=== PATIENT | female | born 1940 | race Caucasian/White ===

== ENCOUNTER → 2017-08-29 07:47 | Outpatient (CLI) | payer MEDICARE, OTHER, SELFPAY ==
--- NOTE | 2017-08-29 08:00 | US_ITS ---
US abdomen limited: HISTORY: ITS.REASON: RUQ PAIN ORDERING PHYSICIAN: Brain Caballero MD PATIENT AGE: 77 years COMPARISON: None FINDINGS: PANCREAS: Unremarkable. No obvious mass or abnormal fluid collection. No ductal dilatation LIVER: No focal liver lesions demonstrated. Homogeneous echogenicity. No intrahepatic biliary ductal dilatation evident RIGHT KIDNEY: Unremarkable. Normal size and echogenicity. No hydronephrosis GALLBLADDER: No gallstones, gallbladder wall thickening, pericholecystic fluid, or biliary dilatation. IMPRESSION: Negative gallbladder/right upper quadrant ultrasound
--- NOTE | 2017-08-29 08:30 | XR_ITS ---
XR DEXA axial skeleton HISTORY: ITS.REASON: POST MENOPAUSAL ORDERING PHYSICIAN: Brain Caballero MD PATIENT AGE: 77 years COMPARISON: None FINDINGS: The bone density lumbar spine from L1 to L4 has a T score of 2.5 The BMD measured at the Right femoral neck is 1.003 g/cm squared with a T score of -0.3. This is considered normal according to the World Health Organization criteria. Fracture risk is low. IMPRESSION: Normal bone density. Follow-up exam August 2019
== END ==
PROVIDERS: Family Provider Family Medicine; PCP Family Medicine; Visit Provider Family Medicine
DX: Z78.0 Asymptomatic menopausal state (principal); Z13.820 Encounter for screening for osteoporosis; R10.11 Right upper quadrant pain
CPT/HCPCS: 76705; 77080

== ENCOUNTER → 2018-03-07 11:27 | Outpatient (CLI) | payer MEDICARE, OTHER, SELFPAY ==
--- NOTE | 2018-03-07 11:32 | XR_ITS ---
EXAM: XR lumbar spine min 4V HISTORY: ITS.REASON: BACK PAIN WITH RT RADICULOPATHY ORDERING PHYSICIAN: Brain Caballero MD PATIENT AGE: 77 years COMPARISON: None FINDINGS: Normal alignment. No fracture or dislocation. No lytic or blastic change. Mild facet hypertrophic changes are present at L5-S1. Small anterior osteophytes are present at T12-L3. There is degenerative disc disease at T12-L1 There is mild degenerative disc disease at L3-L4 with 3 mm anterolisthesis of L3. IMPRESSION: 1. Mild degenerative changes with small anterior osteophytes, mild degenerative disc disease L3-L4, and facet arthritic changes at L5-S1 2. No acute finding
== END ==
PROVIDERS: PCP Family Medicine; Visit Provider Family Medicine
DX: M54.10 Radiculopathy, site unspecified (principal)
CPT/HCPCS: 72110

== ENCOUNTER 2018-04-06 15:40 | Observation (INO) ==
--- NOTE | 2018-04-06 16:07 | Emergency Department Note ---
ED Disposition Clinical Impression: Syncope and collapse Hypothyroidism Qualifiers: Hypothyroidism type: unspecified Qualified Code(s): E03.9 - Hypothyroidism, unspecified Disposition: Still a Patient Condition on Discharge: Fair Referrals: Brain Caballero MD [Primary Care Provider] - - Critical Care Critical Care Time: No Attestation: On 04/06/18, the high probability of a clinically significant, sudden or life threatening deterioration of the following system(s) required my full and direct attention, intervention and personal management. The time I documented below is in addition to time spent performing reported procedures but includes the following listed in this critical care notation. Medical Decision Making - [place]iz[place] Inquiry Pt receiving controlled substance: No Vital Signs: 04/06/18 15:47 04/06/18 16:11 04/06/18 16:41 Temperature 96.1 F L 96 F L Temperature Source Rectal Rectal Pulse Rate [Left Radial] 48 L 50 L 50 L Respiratory Rate 18 Blood Pressure [Right Arm] 151/73 H 143/64 H 145/63 H Blood Pressure Mean [Right Arm] 99 90 90 Blood Pressure Source [Right Arm] Automatic Cuff Automatic Cuff Automatic Cuff Blood Pressure Position [Right Arm] Sitting Sitting Sitting 02 Sat by Pulse Oximetry 100 100 99 Oxygen Delivery Method Room Air 04/06/18 17:00 04/06/18 17:26 04/06/18 18:34 Temperature 94.6 F L 95.8 F L Temperature Source Rectal Rectal Pulse Rate [Left Radial] 53 L Respiratory Rate Blood Pressure [Right Arm] 157/58 H Blood Pressure Mean [Right Arm] 91 Blood Pressure Source [Right Arm] Automatic Cuff Blood Pressure Position [Right Arm] Sitting 02 Sat by Pulse Oximetry 100 Oxygen Delivery Method - Lab Data Lab Results 04/06/18 15:46: POC Glucose 127 H 04/06/18 16:13: WBC 11.9 H, RBC 4.10 L, Hgb 12.4, Hct 37.9, MCV 92.5, MCH 30.2, MCHC 32.7, RDW 14.4, Plt Count 381, MPV 7.2 L, Neut % (Auto) 62.8, Lymph % (Auto) 29.7, [place] % (Auto) 6.0, Eos % (Auto) 1.2, Baso % (Auto) 0.3, Neut # (Auto) 7.5, Lymph # (Auto) 3.5, [place] # (Auto) 0.7, Eos # (Auto) 0.1, Baso # (Auto) 0.0 04/06/18 16:13: Sodium 136, Potassium 3.1 L, Chloride 98, Carbon Dioxide 27, Anion Gap 14.1, BUN 31 H, Creatinine 1.49 H, Estimated Creat Clear 35, Estimated GFR 34 L, Est GFR ( Amer) 41 L, Glucose 128 H, Calcium 9.1, Total Bilirubin 0.3, AST 18, ALT 23, Alkaline Phosphatase 69, Troponin I < 0.02, Total Protein 7.3, Albumin 4.0, Globulin 3.3 H, Albumin/Globulin Ratio 1.2 04/06/18 16:13: TSH 4.67 H, Free T4 Index 3.7 L, Thyroxine (T4) 10.0, T3 Uptake 37 Result diagrams: 04/06/18 16:13 04/06/18 16:13 Orders (Tests/Meds): ED MEDICATIONS Discontinued Medications Generic Name Dose Route Start Last Admin Trade Name Freq PRN Reason Stop Dose Admin Potassium Chloride 40 meq 04/06/18 17:14 04/06/18 17:48 Klor-Con 20meq Tablet PO 04/06/18 17:15 40 meq ONCE ONE Administration ORDERS Category Date Time Status CT head/brain wo con Stat Cat Scan 04/06/18 16:16 Taken XR chest portable Stat Exams 04/06/18 18:27 Ordered Lactic Acid Stat Lab 04/06/18 18:15 Received Blood Culture Stat Micro 04/06/18 18:15 Ordered ECG Request by /Nse Stat Y 04/06/18 16:16 Ordered - CT Data CT Scan: Head Time Received: 17:[address] Reviewed: Yes: I have viewed the radiologist's interpretation Findings Narrative: CT scan interpreted by [facility] radiologist. Faxed report received and reviewed: No acute change - ECG Data Tracing #1 EKG interpreted by Greg Chand MD: Rhythm: sinus bradycardia with sinus arrhythmia Rate: 48 [place]: normal Ectopy: none Conduction: normal ST Segment Changes: none T Wave Changes: none Q Waves: none No evidence of acute ischemia or injury - Physician Consults Physician Consulted: Holly Caballero Time: 18:36 Reason -: Admission Comment/Response: Agrees to admit the patient to the hospital. We discussed the patient's clinical information, including history, exam, laboratory and radiology results and ED course. Per hospital procedure, I will write temporary bridge inpatient orders on the patient. Specific orders requested by the admitting physician: Telemetry, start Synthroid 25 mcg/day General Adult HPI - General Stated complaint: Vomiting, nausea, passed out Time Seen by Provider: 04/06/18 18:11 - History of Present Illness HPI narrative: Went to [facility] today because her religion was giving the service there. While there she apparently had 2 syncopal episodes which she says were preceded by abdominal cramping. She apparently vomited during each episode of syncope, she does not remember the vomiting. She did not have any headache, chest pain, shortness of breath. states that she has done this in the past, the most recent time was a year ago. She was not seen by a physician for that episode. Currently she denies any abdominal or chest pain. She has no nausea. No shortness of breath. Says that she feels good presently. - Related Data Home Medications Medication Instructions Recorded Confirmed allopurinol 100 mg tablet 100 mg PO QDAY 06/25/17 04/06/18 bisoprolol fumarate 5 mg tablet 5 mg PO QDAY 06/25/17 04/06/18 estradiol 1 mg tablet 1 mg PO QDAY 06/25/17 04/06/18 ferrous sulfate 325 mg (65 mg 325 mg PO DAILY 06/25/17 04/06/18 iron) tablet gabapentin 100 mg capsule 100 mg PO QDAY 06/25/17 04/06/18 lisinopril 20 1 tab PO BID 06/25/17 04/06/18 mg-hydrochlorothiazide 12.5 mg tablet metformin 500 mg tablet 500 mg PO BID 06/25/17 04/06/18 rosuvastatin 20 mg tablet 20 mg PO ONCE 06/25/17 04/06/18 Allergies Allergy/AdvReac Type Severity Reaction Status Date / Time sulfasalazine Allergy Unknown Verified 06/25/17 10:08 [From SULFAZINE] [facility] History I have reviewed the patient's past medical history: Yes Medical History: Reports:: Hyperlipidemia, Hypertension Laterality Cases: Right: Other, Bilateral: Breast Biopsy Other Surgeries: Yes: Colonoscopy, EGD, Hysterectomy-Total - Social History Smoking Status: Never smoker Alcohol Intake: never Substance Use Type: denies use Family Hx:: No significant family history ROS Obtained: Yes All systems reviewed & no additional complaints - Constitutional Constitutional: Denies fever(s), Reports other (Denies cold intolerance) - Cardiovascular Cardiovascular: Denies chest pain, Denies edema, Reports slow heart rate (Chronic per ), Reports fainting - Respiratory Respiratory: No dyspnea - Gastrointestinal Gastrointestingal: Reports: abdominal pain, vomiting - Neurologic Neurologic: Denies headache(s), Denies numbness, Denies weakness Physical Exam - General General appearance: alert, in no apparent distress - Head Head exam: atraumatic, normocephalic, normal inspection - Eye Eye exam: Present: normal appearance, PERRL, EOMI - ENT ENT exam: Present: normal exam, mucous membranes moist - Neck Neck exam: Present: normal inspection, full ROM, trachea midline. Absent: meningismus, lymphadenopathy - Chest Chest inspection: Present: normal inspection, symmetric chest wall rise - Respiratory Respiratory exam: Present: normal lung sounds bilaterally. Absent: respiratory distress - Cardiovascular Cardiovascular exam: Present: normal rhythm, bradycardia. Absent: JVD - Abdominal Exam Abdominal exam: Present: soft, normal bowel sounds. Absent: distention, tenderness, guarding - Extremities Exam Extremities exam: Present: normal inspection, full ROM, normal capillary refill. Absent: calf tenderness - Neurological Exam Neurological exam: Present: alert, oriented X3, CN II-XII intact. Absent: motor sensory deficit - Psychiatric Psychiatric exam: Present: normal affect, normal mood - Skin Skin exam: Present: warm, dry, intact, normal color - Lymphatic Lymphatic Findings: no adenopathy
[2018-04-06 16:24] LABS: Basophils % 0.3 % (0.1-2.0); Eosinophils # 0.1 K/mm3 (0.0-0.4); Eosinophils % 1.2 % (0.1-12.0); Hematocrit 37.9 % (37.0-47.0); Hemoglobin 12.4 g/dL (12.2-16.2); Lymphocytes # 3.5 K/mm3 (0.7-4.5); Lymphocytes % 29.7 K/mm3 (10-50); Mean Corpuscular HGB Conc 32.7 g/dL (31.8-35.4); Mean Corpuscular Hemoglobin 30.2 pg (27.0-31.2); Mean Corpuscular Volume 92.5 fl (81-99); Mean Platelet Volume 7.2 fl (7.4-10.4); Monocytes # 0.7 K/mm3 (0.1-1.0); Neutrophils # 7.5 K/mm3 (1.8-7.8); Neutrophils % 62.8 % (37.0-80.0); Platelet Count 381 K/mm3 (142-424); Red Cell Distribution Width 14.4 % (11.5-17.5); White Blood Count 11.9 K/mm3 (4.8-10.8)
[2018-04-06 16:41] LABS: Alanine Aminotransferase 23 U/L (12-78); Albumin/Globulin Ratio 1.2 (1.1-1.8); Alkaline Phosphatase 69 U/L (46-116); Anion Gap 14.1 mEq/L (5-15); Aspartate Amino Transferase 18 U/L (15-37); Bilirubin,Total 0.3 mg/dL (0.2-1.0); Blood Urea Nitrogen 31 mg/dL (7-18); Calcium 9.1 mg/dL (8.5-10.1); Carbon Dioxide 27 mmol/L (21.0-32.0); Chloride 98 mmol/L (98-107); Globulin 3.3 gm/dl (1.3-3.2); Glucose 128 mg/dL (74-106); Potassium 3.1 mmoL/L (3.5-5.1); Sodium 136 mmol/L (136-145); Total Protein,Serum 7.3 gm/dL (6.4-8.2)
[2018-04-06 17:09] LABS: Free Thyroxine Index 3.7 ug/dL (5.93-13.13); Thyroid Stimulating Hormone 4.67 uIU/ml (0.358-3.740)
[2018-04-07 06:52] LABS: Anion Gap 10.1 mEq/L (5-15); Calcium 8.2 mg/dL (8.5-10.1); Potassium 4.1 mmoL/L (3.5-5.1)
--- NOTE | 2018-04-07 07:28 | Pharmacy Consult Notes ---
[facility] Pharmacy VTE Monitoring - Patient Demographics Admission date: 04/06/18 Report Date: 04/07/18 Time: 07:28 Allergies/Adverse Reactions: Patient Allergies sulfasalazine [From SULFAZINE] Allergy (Unknown, Verified 06/25/17 10:08) Height: 1.55 m Weight: 69.91 kg Patient Problems: Current Active Problems Syncope and collapse (Acute) Hypothyroidism (Acute) - VTE Risk Labs: VTE Related Lab Results Hgb 12.4 g/dL (12.2-16.2) 04/06/18 16:13 Hct 37.9 % (37.0-47.0) 04/06/18 16:13 Plt Count 381 K/mm3 (142-424) 04/06/18 16:13 BUN 19 mg/dL (7-18) H D 04/07/18 06:20 Creatinine 0.97 mg/dL (0.55-1.02) D 04/07/18 06:20 Estimated Creat Clear 53 mL/min (0-300) 04/07/18 06:20 Was VTE Risk Assessment Performed: Yes VTE Score: 1 VTE Risk Level: Very Low Risk - Prophylaxis VTE Prophylaxis Ordered?: Yes Types of VTE Prophylaxis: TEDS Knee High Location of Applied Device: Bilateral Lower Extremeties - VTE Diagnosis Confirmed Treatment or plan recommended: Continue Current Treatment
--- NOTE | 2018-04-07 09:01 | Progress Note ---
Internal Medicine - PN: Subj *Date: 04/07/18 *Time: 08:55 Interval history: 77 y.o. WF admitted after syncopal episodes at [facility] (her bahai was visiting, she is not a resident). She experienced lower abdominal cramping pain, then passed out and vomited. She lost consciousness agian, perhaps twice. She was taken to [facility] ER and admitted. She states she feels fine this AM. She denies that she experienced any chest pain. She denies recent dysrrhythmia. She has had some similar episodes in the past. She complains of chronic right flank and back pain. Exam Vital signs and Labs for Last 24 Hours: Temp Pulse Resp BP Pulse Ox 98.5 F 62 20 116/55 L 98 04/07/18 04:00 04/07/18 08:00 04/07/18 08:00 04/07/18 08:00 04/07/18 08:00 Laboratory Results - last 24 hr 04/06/18 15:46: POC Glucose 127 H 04/06/18 16:13: WBC 11.9 H, RBC 4.10 L, Hgb 12.4, Hct 37.9, MCV 92.5, MCH 30.2, MCHC 32.7, RDW 14.4, Plt Count 381, MPV 7.2 L, Neut % (Auto) 62.8, Lymph % (Auto) 29.7, [place] % (Auto) 6.0, Eos % (Auto) 1.2, Baso % (Auto) 0.3, Neut # (Auto) 7.5, Lymph # (Auto) 3.5, [place] # (Auto) 0.7, Eos # (Auto) 0.1, Baso # (Auto) 0.0 04/06/18 16:13: Sodium 136, Potassium 3.1 L, Chloride 98, Carbon Dioxide 27, Anion Gap 14.1, BUN 31 H, Creatinine 1.49 H, Estimated Creat Clear 35, Estimated GFR 34 L, Est GFR ( Amer) 41 L, Glucose 128 H, Calcium 9.1, Total Bilirub in 0.3, AST 18, ALT 23, Alkaline Phosphatase 69, Troponin I < 0.02, Total Protein 7.3, Albumin 4.0, Globulin 3.3 H, Albumin/Globulin Ratio 1.2 04/06/18 16:13: TSH 4.67 H, Free T4 Index 3.7 L, Thyroxine (T4) 10.0, T3 Uptake 37 04/06/18 18:15: Lactate 1.1 04/06/18 22:30: Troponin I < 0.02 04/07/18 01:30: Troponin I < 0.02 04/07/18 05:35: POC Glucose 95 04/07/18 06:20: Sodium 136, Potassium 4.1 D, Chloride 103, Carbon Dioxide 27, Anion Gap 10.1, BUN 19 H D, Creatinine 0.97 D, Estimated Creat Clear 53, Estima katy GFR 56 L, Est GFR ( Amer) 68 D, Glucose 92 D, Calcium 8.2 L I & O for Last 24 hours: Intake & Output 04/04/18 04/05/18 04/06/18 04/07/18 12:59 12:59 11:59 11:59 Intake Total 900 / 900 Balance 900 / 900 Weight 154 lb 2 oz - Constitutional no acute distress - *Routine HEENT Exam Head: Present: normocephalic Eye: Present: PERRL ENT: Present: mucous membranes moist - *Routine Neck Exam Present: supple, full ROM - *Routine Respiratory Exam Present: CTA bilaterally - *Routine Cardiovascular Exam Present: RRR Comments: No ectopics, no murmur - *Routine Abdominal Exam Present: soft. Absent: tenderness, organomegaly, mass - *Routine Rectal Exam Comments: Not done, though patient reported some blood last night after multiple rectal t emps (was hyothermic). - *Routine Extremities Exam Absent: edema - *Routine Neurological Exam Present: alert, oriented X3, normal speech Assessment and Plan (1) Hypothermia Current visit: Yes Status: Acute Category: Medical Code(s): T68.XXXA - Hypothermia, initial encounter - Assessment and plan all Dx Assessment and Plan for all problems:: Cardiology consult. Thyroid treatment initiated.
--- NOTE | 2018-04-07 09:21 | History & Physical Report ---
*Admission Date: 04/06/18 *Chief complaint: Syncope *History of present illness: Ms. Max is a 77-year-old female with a history of gout, diabetes mellitus, hypertension, and anemia who presented to [facility] emergency room yesterday afternoon after experiencing 3 [place]opal [place] [facility] [place] first episode occurred while sitting in a chair at which time she did have some abdominal cramping and felt a "black wave go across her eyes" after which she passed out. She vomited upon awakening and then had 2 additional syncopal episodes followed by vomiting. She denies any palpitations, chest pain, shortness of breath, or nausea before during or after the 3 episodes. She states she felt like she needed to have a bowel movement while sitting there. Her did walk her to the bathroom at which time her bowels did move. She denies any diarrhea, hematemesis, melena, hematochezia, and hematuria. She was evaluated in the emergency room at which time she did feel better. She was hypothermic and was placed under a warming blanket. Since admission she has had no further syncope, vomiting or abdominal plain. She ate breakfast this morning without nausea. She has had normal bowel movements. She has walked to the bathroom without difficulty. She continually denies chest pain, shortness of breath, and palpitations. She did receive IV fluids in the emergency room and has been voiding QS. [facility] History Medical History: Reports:: Diabetes Mellitus Type 2, Hyperlipidemia, Hypertension Denies:: Cancer, Diabetes Mellitus Type 1, MRSA Other Medical History: Reports: Arthritis, Fibromyalgia Laterality Cases: Left: Lumpectomy, Right: Other, Bilateral: Breast Biopsy Other Surgeries: Yes: Colonoscopy, EGD, Hysterectomy-Total Amputation: No - *Social History Educational Level: Attended College Smoking Status: Never smoker Alcohol Intake: former Alcohol Intake Frequency:: holidays/special occasions only Substance Use Type: denies use Occupational Status: retired Household Members: spouse - Psychiatric History Expresses thoughts of harming self/others: None Suicide Plan Description: No Plan *Family Hx:: No significant family history Review of Systems - Constitutional Denies chills, Denies fever(s) - Eyes Denies change in vision - ENT Reports bad breath, Denies ear pain, Denies nasal congestion, Denies sore throat - *Cardiovascular Denies chest pain, Denies shortness of breath, Denies rapid, pounding, or irregular heartbeat - *Respiratory Denies chest congestion, Denies cough, Denies shortness of breath - *Gastrointestinal Reports abdominal pain (Cramping), Reports cramping, Reports incontinent of stools, Reports nausea, Reports vomiting - *Genitourinary Denies difficulty urinating - *Musculoskeletal Denies joint pain, Denies body aches - *Neurologic Reports fainting, Denies dizziness, Denies headache(s), Denies numbness, Denies weakness Meds Home Medications Medication Instructions Recorded Confirmed Type allopurinol 100 mg tablet 200 mg PO DAILY 06/25/17 04/07/18 History bisoprolol fumarate 5 mg tablet 5 mg PO DAILY 06/25/17 04/07/18 History estradiol 1 mg tablet 1 mg PO DAILY 06/25/17 04/07/18 History ferrous sulfate 325 mg (65 mg 325 mg PO BID 06/25/17 04/07/18 History iron) tablet gabapentin 100 mg capsule 200 mg PO HS 06/25/17 04/07/18 History lisinopril 20 1 tab PO BID 06/25/17 04/06/18 History mg-hydrochlorothiazide 12.5 mg tablet metformin 500 mg tablet 500 mg PO DAILY 06/25/17 04/07/18 History rosuvastatin 20 mg tablet 20 mg PO HS 06/25/17 04/07/18 History Allergies Allergy/AdvReac Type Severity Reaction Status Date / Time sulfasalazine Allergy Unknown Verified 06/25/17 10:08 [From SULFAZINE] Exam Vital signs and Labs for Last 24 Hours: Temp Pulse Resp BP Pulse Ox 98.5 F 62 20 116/55 L 98 04/07/18 04:00 04/07/18 08:00 04/07/18 08:00 04/07/18 08:00 04/07/18 08:00 Laboratory Results - last 24 hr 04/06/18 15:46: POC Glucose 127 H 04/06/18 16:13: WBC 11.9 H, RBC 4.10 L, Hgb 12.4, Hct 37.9, MCV 92.5, MCH 30.2, MCHC 32.7, RDW 14.4, Plt Count 381, MPV 7.2 L, Neut % (Auto) 62.8, Lymph % (Auto) 29.7, [place] % (Auto) 6.0, Eos % (Auto) 1.2, Baso % (Auto) 0.3, Neut # (Auto) 7.5, Lymph # (Auto) 3.5, [place] # (Auto) 0.7, Eos # (Auto) 0.1, Baso # (Auto) 0.0 04/06/18 16:13: Sodium 136, Potassium 3.1 L, Chloride 98, Carbon Dioxide 27, Anion Gap 14.1, BUN 31 H, Creatinine 1.49 H, Estimated Creat Clear 35, Estimated GFR 34 L, Est GFR ( Amer) 41 L, Glucose 128 H, Calcium 9.1, Total Bilirubin 0.3, AST 18, ALT 23, Alkaline Phosphatase 69, Troponin I < 0.02, Total Protein 7.3, Albumin 4.0, Globulin 3.3 H, Albumin/Globulin Ratio 1.2 04/06/18 16:13: TSH 4.67 H, Free T4 Index 3.7 L, Thyroxine (T4) 10.0, T3 Uptake 37 04/06/18 18:15: Lactate 1.1 04/06/18 22:30: Troponin I < 0.02 04/07/18 01:30: Troponin I < 0.02 04/07/18 05:35: POC Glucose 95 04/07/18 06:20: Sodium 136, Potassium 4.1 D, Chloride 103, Carbon Dioxide 27, Anion Gap 10.1, BUN 19 H D, Creatinine 0.97 D, Estimated Creat Clear 53, Estimated GFR 56 L, Est GFR ( Amer) 68 D, Glucose 92 D, Calcium 8.2 L I & O for Last 24 hours: Intake & Output 04/04/18 04/05/18 04/06/18 04/07/18 12:59 12:59 11:59 11:59 Intake Total 900 / 900 Balance 900 / 900 Weight 154 lb 2 oz Radiology Reports for the Last 24 Hours: 04/06/2018 CT of the head IMPRESSION: No acute intracranial findings 04/06/2018 chest x-ray IMPRESSION: No acute finding - Constitutional no acute distress - *Routine HEENT Exam Head: Present: normocephalic, atraumatic Eye: Present: EOMI, PERRL. Absent: conjunctival icterus, scleral injection ENT: Present: mucous membranes moist, oropharynx clear - *Routine Neck Exam Present: supple, full ROM. Absent: carotid bruit, lymphadenopathy, thyromegaly - *Routine Respiratory Exam Present: CTA bilaterally (Anteriorly and posteriorly) - *Routine Cardiovascular Exam Present: RRR - *Routine Abdominal Exam Present: soft, normoactive bowel sounds. Absent: tenderness, distended, organomegaly, mass - *Routine Extremities Exam Present: full ROM. Absent: edema, calf tenderness - *Routine Neurological Exam Present: alert, oriented X3, CN II-XII intact, moving all extremities Assessment and Plan (1) Syncope and collapse Current visit: Yes Status: Acute Category: Medical Code(s): R55 - Syncope and collapse (2) Hypothermia Current visit: Yes Status: Acute Category: Medical Code(s): T68.XXXA - Hypothermia, initial encounter (3) Diabetes mellitus Current visit: Yes Status: Chronic Category: Medical Code(s): E11.9 - Type 2 diabetes mellitus without complications (4) Hypertension Current visit: Yes Status: Chronic Category: Medical Code(s): I10 - Essential (primary) hypertension (5) Hypothyroidism Current visit: Yes Status: Acute Qualifiers: Hypothyroidism type: unspecified Qualified Code(s): E03.9 - Hypothyroidism, unspecified Category: Medical Code(s): E03.9 - Hypothyroidism, unspecified (6) Sinus bradycardia Current visit: Yes Status: Acute Category: Medical Code(s): R00.1 - Bradycardia, unspecified - Assessment and plan all Dx Assessment and Plan for all problems:: Elevated TSH which is new for the patient. She has been started on low-dose Synthroid. She has been in sinus bradycardia on the monitor. Cardiology has been consulted.
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
--- NOTE | 2018-04-07 21:28 | Cardiology Report ---
PROCEDURE: 2-D M-mode and color Doppler study INDICATIONS FOR THE TEST: Chest pain COPD Heart Murmur Tobacco Smoking Palpitations Fatigue Syncope+ Edema Hypertension+Diabetes Mellitus+ Rheumatic Fever SOB RORDIGUEZ Obesity Hyperlipidemia Family History HD Additional History GOUT PATIENT INFORMATION HEIGHT: 61 WEIGHT:154 GENDER: Female B/P:116/55 2-D/M-MODE INTERPRETATION: 2-D MEASUREMENTS OBSERVED VALUES IN CMS Right Ventricular Dimension (RVDd) 2.9 Interventricular Septum (Thickness)(IVsd) 1.1 Left Ventricular Internal Dimensions(LVIDd) 4.7 Left Ventricular Posterior Wall (Thickness)(LVPWd) 0.8 Aortic Root 3.3 Aortic Cusp Separation 2.0 Left Atrial Dimensions (LAD) 3.3 2D 1. Left atrium is mildly enlarged, left ventricle is normal size, mild concentric left ventricular hypertrophy, visually estimated ejection fraction 55% with no regional wall motion abnormality. 2. The right atrium and right ventricle are normal size and contractility. 3. The aortic valve is thickened and calcified, leaflet continue to display good mobility. 4. The mitral and tricuspid valve leaflets are minimally thickened. 5. The pulmonic valve is poorly visualized. 6. No significant pericardial effusion noted. DOPPLER INTERROGATION: Doppler interrogation of the aortic, mitral and tricuspid valvular presence of mild aortic, mild mitral and tricuspid regurgitation, calculated right ventricular systolic pressure is 46 mmHg consistent with moderate pulmonary hypertension, grade 1 diastolic dysfunction seen without tissue Doppler evidence of raised left atrial pressure. CONCLUSION: 1. Mildly left atrium, normal left ventricular size, mild concentric left ventricular hypertrophy, visually estimated ejection fraction of 55% with no regional wall motion abnormality, grade 1 diastolic dysfunction seen without tissue Doppler evidence of raised left atrial pressure. 2. Mild aortic, mild mitral and tricuspid regurgitation, calculated right ventricular systolic pressure is 46 mmHg consistent with moderate pulmonary hypertension. 3. No significant pericardial effusion noted.
--- NOTE | 2018-04-08 21:47 | Discharge Summary ---
General - General Admission date:: 04/06/18 Discharge date: 04/07/18 HPI HPI: Ms. Max is a 77-year-old female with a history of gout, diabetes mellitus, hypertension, and anemia who presented to [facility] emergency room yesterday afternoon after experiencing 3 syncopal episodes at a baptism service at [facility] [place]. The first episode occurred while sitting in a chair at which time she did have some abdominal cramping and felt a "black wave go across her eyes" after which she passed out. She vomited upon awakening and then had 2 additional syncopal episodes followed by vomiting. She denies any palpitations, chest pain, shortness of breath, or nausea before during or after the 3 episodes. She states she felt like she needed to have a bowel movement while sitting there. Her did walk her to the bathroom at which time her bowels did move. She denies any diarrhea, hematemesis, melena, hematochezia, and hematuria. She was evaluated in the emergency room at which time she did feel better. She was hypothermic and was placed under a warming blanket. Since admission she has had no further syncope, vomiting or abdominal plain. She ate breakfast this morning without nausea. She has had normal bowel movements. She has walked to the bathroom without difficulty. She continually denies chest pain, shortness of breath, and palpitations. She did receive IV fluids in the emergency room and has been voiding QS. Hospital Course Hospital Course: The CT of her head and CXR showed nothing acute. She had an elevated TSH which was new for the patient. She was started on low-dose Synthroid. She was in sinus bradycardia on the monitor. Cardiology was consulted. She had an echo showing an EF of 55%. Cardiology saw the patient and felt her clinical scenario and symptoms suggested vasovagal syncope exacerbated by the use of chronic beta- luciano therapy. They recommended discontinuing bisoprolol and possibly increasing lisinopril as needed for blood pressure control. They felt she could be ischarged home with a 7-day Holter monitor. They recommended an outpatient exercise Myoview stress test to evaluate for coronary artery disease. She will need to follow-up in the cardiology office in 1-2 weeks. Objective Vital signs: Temp Pulse Resp BP Pulse Ox 99.5 F 70 20 114/52 L 96 04/07/18 16:00 04/07/18 19:54 04/07/18 16:00 04/07/18 16:00 04/07/18 16:00 Narrative: - Constitutional no acute distress - *Routine HEENT Exam Head: Present: normocephalic, atraumatic Eye: Present: EOMI, PERRL. Absent: conjunctival icterus, scleral injection ENT: Present: mucous membranes moist, oropharynx clear - *Routine Neck Exam Present: supple, full ROM. Absent: carotid bruit, lymphadenopathy, thyromegaly - *Routine Respiratory Exam Present: CTA bilaterally (Anteriorly and posteriorly) - *Routine Cardiovascular Exam Present: RRR - *Routine Abdominal Exam Present: soft, normoactive bowel sounds. Absent: tenderness, distended, organomegaly, mass - *Routine Extremities Exam Present: full ROM. Absent: edema, calf tenderness - *Routine Neurological Exam Present: alert, oriented X3, CN II-XII intact, moving all extremities Results Labs on day of discharge: Labs from last 24 hours 04/07/18 16:27 POC Glucose 101 Preliminary micro results at discharge 04/06/18 18:15 Blood Culture - Preliminary Blood NO GROWTH AFTER 48 HOURS 04/06/18 18:15 Blood Culture - Preliminary Blood NO GROWTH AFTER 48 HOURS DS: Diagnosis - Discharge Diagnosis (1) Syncope and collapse Status: Acute (2) Hypothermia Status: Acute (3) Diabetes mellitus Status: Chronic (4) Hypertension Status: Chronic (5) Hypothyroidism Status: Acute (6) Sinus bradycardia Status: Acute Discharge Plan - Patient Discharge Instructions ACTIVITY: Continue current activity DIET: continue same diet Additional Instructions: Holter monitor Patient Instructions: DI for Syncope in Adults (Fainting), DI for Hypothermia, DI for Hypothyroidism - Follow up Plan Follow up with: Brain Caballero MD [Primary Care Provider] - 04/09/18 Disposition: Home, Self-[facility] Medications: Home Medications Medication Instructions Recorded Confirmed Type allopurinol 100 mg tablet 200 mg PO DAILY 06/25/17 04/07/18 History estradiol 1 mg tablet 1 mg PO DAILY 06/25/17 04/07/18 History ferrous sulfate 325 mg (65 mg 325 mg PO BID 06/25/17 04/07/18 History iron) tablet gabapentin 100 mg capsule 200 mg PO HS 06/25/17 04/07/18 History lisinopril 20 1 tab PO BID 06/25/17 04/06/18 History mg-hydrochlorothiazide 12.5 mg tablet rosuvastatin 20 mg tablet 20 mg PO HS 06/25/17 04/07/18 History Prescriptions/Medication Reconciliation: New Levothyroxine Sodium [Synthroid 25mcg (0.025mg) tablet] 25 mcg PO DAILYDM #30 tablet Continue gabapentin 100 mg capsule 200 mg PO HS estradiol 1 mg tablet 1 mg PO DAILY allopurinol 100 mg tablet 200 mg PO DAILY rosuvastatin 20 mg tablet 20 mg PO HS lisinopril 20 mg-hydrochlorothiazide 12.5 mg tablet 1 tab PO BID ferrous sulfate 325 mg (65 mg iron) tablet 325 mg PO BID Discontinued metformin 500 mg tablet 500 mg PO DAILY bisoprolol fumarate 5 mg tablet 5 mg PO DAILY
== END 2018-04-07 20:05 | disposition home or self-care (01) ==
LOC: 2ND 15:40 → ER 15:40 → 2ND 19:53
PROVIDERS: ADMIT Family Medicine; ATTEND Family Medicine

== ENCOUNTER → 2018-04-09 11:59 | Outpatient (CLI) | payer MEDICARE, OTHER, SELFPAY | PROVIDERS: PCP Family Medicine; Visit Provider Family Medicine | DX: R55 Syncope and collapse (principal) | CPT/HCPCS: 93270 ==

== ENCOUNTER → 2018-04-16 11:58 | Outpatient (CLI) | payer MEDICARE, OTHER, SELFPAY ==
--- NOTE | 2018-04-16 11:59 | CI_ITS ---
Cerebrovascular Exam Indications: 780.2 Syncope and collapse. 780.4 Dizziness and giddiness. IMPRESSIONS 1. The bilateral vertebral arteries are patent with normal antegrade flow. 2. Study suggests less than 20% stenosis involving the right internal carotid artery. 3. Study suggests less than 20% stenosis involving the left internal carotid artery. History: Risk factors: Hyperlipidemia. Carotid duplex study. Complete study and Doppler flow study including spectral analysis, color and webber scale imaging. Location: Vascular laboratory. Patient status: Outpatient. Tables: Arterial flow: + +--------+--------+ Location V sys V ed + +--------+--------+ Right CCA - proximal 99cm/s 24.4cm/s + +--------+--------+ Right CCA - distal 84.9cm/s 24.4cm/s + +--------+--------+ Right ECA 101cm/s -------- + +--------+--------+ Right ICA - proximal 64.1cm/s 28.3cm/s + +--------+--------+ Right ICA - mid 101cm/s 38.3cm/s + +--------+--------+ Right ICA - distal 86.1cm/s 37.1cm/s + +--------+--------+ Right vertebral 48.4cm/s -------- + +--------+--------+ Left CCA - proximal 121cm/s 34.9cm/s + +--------+--------+ Left CCA - distal 90.1cm/s 33.5cm/s + +--------+--------+ Left ECA 71.1cm/s -------- + +--------+--------+ Left ICA - proximal 70.6cm/s 30.3cm/s + +--------+--------+ Left ICA - mid 83.7cm/s 34.2cm/s + +--------+--------+ Left ICA - distal 83.1cm/s 31.8cm/s + +--------+--------+ Left vertebral 45.2cm/s -------- + +--------+--------+ Velocity ratios: + + + + + + Right, V sys Right, V ed Left, V sys Left, V ed + + + + + + Max ICA/dist CCA 1.19 1.57 0.93 1.02 + + + + + + (Report amended ) Electronically signed by: Christian Verduzco [id number]
--- NOTE | 2018-04-16 11:59 | NM_ITS ---
History and Indications: Hyperlipidemia, family history, syncope. Procedure: Patient exercised on Jayjay protocol for minutes and 36 seconds, resting heart rate was 98 bpm resting blood pressure 143/63, with exercise maximum heart rate achieved was over 85% of the maximum predicted heart rate, and the blood pressure was 150/70. Test was started due to shortness of breath, patient denied complained of chest pain. Patient has adequate exercise capacity achieved 7mets of workload on treadmill, the blood pressure response to exercise was abnormal. Electrocardiogram: Resting electrocardiogram showed sinus rhythm nonspecific ST-T changes, with exercise there is excessive baseline artifact seen, in the recovery,There is less than 1.[address] segment depression noted from the baseline EKG. The EKG portion of the exercise Myoview is nondiagnostic secondary to excessive baseline artifact. Cardiac stress and resting SPECT images: Cardiac stress and rest SPECT images were obtained using technetium 99 Myoview 32.7 mCi stress and 10.2 mCi rest gated SPECT further analysis of segmental wall motion and calculation of the ejection fraction also done. Cardiac stress and the suspect images show uniform myocardial activity without segmental perfusion abnormality, computer derived ejection fraction is over 65% with no regional wall motion abnormality, right ventricle is normal size and contractility. Conclusion: 1. The EKG portion of the exercise Myoview is nondiagnostic due to excessive baseline artifact. Patient has adequate exercise capacity achieved 7mets of workload on treadmill, the blood pressure response to exercise was abnormal, there was no exercise-induced chest discomfort. 2. No scintigraphic evidence of reversible ischemia seen at this level of exercise, computer derived ejection fraction is over 65% with no regional wall motion abnormality, right ventricle is normal size and contractility.
--- NOTE | 2018-04-16 15:05 | HMH.ITSHM ---
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 []rosuvastatin lisinopril gabapentin iron estrdiol allopurinol levothyroxine
== END ==
PROVIDERS: PCP Family Medicine; Visit Provider Internal Medicine
DX: E03.9 Hypothyroidism, unspecified (principal); E11.8 Type 2 diabetes mellitus with unspecified complications; E78.5 Hyperlipidemia, unspecified; I10 Essential (primary) hypertension; R00.1 Bradycardia, unspecified; R06.09 Other forms of dyspnea; R42 Dizziness and giddiness; R55 Syncope and collapse; R06.00 Dyspnea, unspecified
CPT/HCPCS: 78452; 93017; 93880; A9502

== ENCOUNTER → 2018-05-29 09:02 | Outpatient (CLI) | payer MEDICARE, OTHER, SELFPAY ==
[2018-05-29 10:59] LABS: Anion Gap 15.7 mEq/L (5-15); Blood Urea Nitrogen 22 mg/dL (7-18); Calcium 8.5 mg/dL (8.5-10.1); Carbon Dioxide 26 mmol/L (21.0-32.0); Chloride 94 mmol/L (98-107); Creatinine,Serum 1.06 mg/dL (0.55-1.02); Estimated Glomerular Filt Rate 50 ml/min (>60); GFR (African American) 61 ML/MIN (>60); Glucose 159 mg/dL (74-106); Potassium 3.7 mmoL/L (3.5-5.1); Sodium 132 mmol/L (136-145)
== END ==
PROVIDERS: Visit Provider Internal Medicine
DX: Z98.61 Coronary angioplasty status (principal)
CPT/HCPCS: 36415; 80048

== ENCOUNTER → 2018-06-11 19:56 | Outpatient (CLI) | payer MEDICARE, OTHER, SELFPAY | PROVIDERS: PCP Family Medicine; Visit Provider Urology | DX: E11.8 Type 2 diabetes mellitus with unspecified complications (principal); E78.5 Hyperlipidemia, unspecified; G47.9 Sleep disorder, unspecified; I10 Essential (primary) hypertension; I65.23 Occlusion and stenosis of bilateral carotid arteries; R06.83 Snoring; R40.0 Somnolence; R55 Syncope and collapse; G47.33 Obstructive sleep apnea (adult) (pediatric) | CPT/HCPCS: 95810 ==

== ENCOUNTER → 2018-11-07 16:00 | Outpatient (CLI) | payer MEDICARE, OTHER, SELFPAY ==
--- NOTE | 2018-11-07 16:17 | MM_ITS ---
MM Dig screening mamm BI w/CAD ORDERING PHYSICIAN : Lorena Charlton PATIENT AGE: 78 years GENDER: Female COMPARISON: Bilateral Digital mammogram December 2016, August.. August 2010... Also December 2008 film screen mammogram INDICATION: Routine screening mammogram.-Patient takes estrogen. HISTORY of previous benign excisional surgical biopsy right breast. Noncontributory family history. TECHNIQUE: Standard CC and MLO images were obtained. R2 CAD reviewed. FINDINGS: Somewhat Difficult to evaluate mammogram given the heterogeneous pattern most evident upper-outer quadrant,, with areas of scattered density within these regions of moderate breast density ..Mild/moderate asymmetry. Ongoing annual follow-up would be important. Self breast examination may be helpful to augment mammography in the setting RIGHT BREAST: On the initial cc view a small area of density at the deep lateral right breast labeled A is observed but is been present on previous mammogram studies from 2016 and even 2010 & 2008.. Also this region seems to dissipate on subsequent MLO and axillary cc views performed today. I would note Axillary cc view was very helpful as well.-. Areas of density seen on today's cc view seems to dissipate on the axillary cc view and vice versa LEFT BREAST:Left breast appears stable with no significant new findings. A small area of density just beneath the skin at the lateral retroareolar region unchanged since studies dating back to 2016 Numerous faint punctate calcifications most evident towards upper-outer quadrant. Some of loosely grouped. These is been seen before most likely reflect adenosis. Otherwise follow-up would be important. .0 Follow-up in one year on the left. Ongoing Follow-up in one year recommended in this patient.;-should be emphasized &encouraged. Self breast examination might also be useful to augment mammography in this setting & if any palpable area arises ultrasound would be suggested ......... IMPRESSION: ......... No new areas of significant concern. Difficult to evaluate mammogram Heterogeneous breast, stable asymmetric areas of density bilaterally. Appear adequate stable compared to numerous previous mammogram studies. Scattered faint tiny calcifications likely adenosis most notable at left breast can be followed Ongoing mammogram Follow-up in one year recommended in this patient.;-should be emphasized &encouraged. BI-RADS Category: 2 Benign Finding(s) RECOMMENDED FOLLOW-UP: 1YR 1 YEAR FOLLOW-UP (A letter has been sent to the patient regarding results of the study.)
== END ==
PROVIDERS: PCP Family Medicine; Visit Provider Obstetrics & Gynecology Gynecology
DX: Z12.31 Encounter for screening mammogram for malignant neoplasm of breast (principal)
CPT/HCPCS: 77067

== ENCOUNTER → 2018-11-24 12:08 | Outpatient (POV) | payer MEDICARE, OTHER, SELFPAY | PROVIDERS: PCP Family Medicine; Visit Provider Nurse Practitioner Family | DX: Z00.00 Encounter for general adult medical examination without abnormal findings (principal) ==

== ENCOUNTER → 2018-11-30 12:44 | Outpatient (CLI) | payer MEDICARE, OTHER, SELFPAY ==
[2018-11-30 14:02] LABS: Basophils % 0.3 % (0.1-2.0); Eosinophils % 0.4 % (0.1-12.0); Hematocrit 33.6 % (37.0-47.0); Hemoglobin 10.6 g/dL (12.2-16.2); Lymphocytes # 0.9 K/mm3 (0.7-4.5); Lymphocytes % 8.7 % (10-50); Mean Corpuscular HGB Conc 31.7 g/dL (31.8-35.4); Mean Corpuscular Hemoglobin 28.7 pg (27.0-31.2); Mean Corpuscular Volume 90.5 fl (81-99); Mean Platelet Volume 7.8 fl (7.4-10.4); Monocytes # 0.3 K/mm3 (0.1-1.0); Monocytes % 2.5 % (1.7-9.3); Neutrophils # 9.2 K/mm3 (1.8-7.8); Neutrophils % 88.1 % (37.0-80.0); Platelet Count 371 K/mm3 (142-424); Red Blood Count 3.71 M/mm3 (4.20-5.40); Red Cell Distribution Width 14.7 % (11.5-17.5); White Blood Count 10.4 K/mm3 (4.8-10.8)
[2018-11-30 14:06] LABS: MANUAL DIFFERENTIAL MANUAL DIFFERENTIAL (MANUAL DIFF)
[2018-11-30 14:22] LABS: Lymphocytes % 8 % (10-50); Monocytes % 1 % (2-9); Neutrophils % 91 % (42-76); Platelet Estimate Normal; RBC Morphology Normal; Total Cells Counted 100
[2018-11-30 14:47] LABS: Anion Gap 17.1 mEq/L (5-15); Blood Urea Nitrogen 21 mg/dL (7-18); Calcium 9.8 mg/dL (8.5-10.1); Carbon Dioxide 27 mmol/L (21.0-32.0); Chloride 98 mmol/L (98-107); Creatinine,Serum 0.97 mg/dL (0.55-1.02); Estimated Glomerular Filt Rate 56 ml/min (>60); GFR (African American) 67 ML/MIN (>60); Glucose 129 mg/dL (74-106); Potassium 5.1 mmoL/L (3.5-5.1); Sodium 137 mmol/L (136-145)
== END ==
PROVIDERS: PCP Family Medicine; Visit Provider Family Medicine
DX: R55 Syncope and collapse (principal)
CPT/HCPCS: 36415; 80048; 85007; 85025

== ENCOUNTER 2018-12-02 10:57 | Outpatient (CLI) | payer MEDICARE, OTHER, SELFPAY ==
[2018-12-02 11:13] VITALS: BP 138/65; PULSE 59; RESP 18; O2SAT 98
[2018-12-02 11:50] VITALS: BP 150/72; PULSE 56; RESP 18; O2SAT 100
== END 2018-12-02 11:50 | disposition home or self-care (01) ==
LOC: INF 10:57
PROVIDERS: Visit Provider Nurse Practitioner Family
DX: D50.9 Iron deficiency anemia, unspecified (principal); T45.4X5A Adverse effect of iron and its compounds, initial encounter
CPT/HCPCS: 96365; J1439

== ENCOUNTER 2018-12-09 10:55 | Outpatient (CLI) | payer MEDICARE, OTHER, SELFPAY ==
[2018-12-09 11:17] VITALS: BP 113/61; PULSE 74; RESP 18; O2SAT 96
[2018-12-09 11:54] VITALS: BP 110/73; PULSE 65; RESP 18; O2SAT 100
== END 2018-12-09 11:57 | disposition home or self-care (01) ==
LOC: INF 11:03
PROVIDERS: Visit Provider Internal Medicine Gastroenterology
DX: D50.9 Iron deficiency anemia, unspecified (principal); Z12.11 Encounter for screening for malignant neoplasm of colon; T45.4X5A Adverse effect of iron and its compounds, initial encounter
CPT/HCPCS: 96365; J1439

== ENCOUNTER → 2018-12-23 12:44 | Outpatient (CLI) | payer MEDICARE, OTHER, SELFPAY ==
[2018-12-23 14:00] LABS: Basophils # 0.1 K/mm3 (0-0.2); Basophils % 0.8 % (0.1-2.0); Eosinophils # 0.1 K/mm3 (0.0-0.4); Eosinophils % 1.6 % (0.1-12.0); Hematocrit 30.5 % (37.0-47.0); Hemoglobin 10.1 g/dL (12.2-16.2); Lymphocytes # 1.6 K/mm3 (0.7-4.5); Lymphocytes % 26.2 % (10-50); Mean Corpuscular HGB Conc 33.1 g/dL (31.8-35.4); Mean Corpuscular Hemoglobin 27.8 pg (27.0-31.2); Mean Platelet Volume 6.8 fl (7.4-10.4); Monocytes # 0.3 K/mm3 (0.1-1.0); Monocytes % 5.4 % (1.7-9.3); Neutrophils # 3.9 K/mm3 (1.8-7.8); Neutrophils % 65.9 % (37.0-80.0); Platelet Count 350 K/mm3 (142-424); Red Blood Count 3.63 M/mm3 (4.20-5.40); Red Cell Distribution Width 14.5 % (11.5-17.5)
[2018-12-23 17:21] LABS: Ferritin 1893 ng/mL (8-388)
[2018-12-24 08:13] LABS: Iron 146 ug/dL (27-139); UIBC 131 ug/dL (118-369)
[2018-12-25 08:18] LABS: Iron Saturation 53 % (15-55)
== END ==
PROVIDERS: Visit Provider Nurse Practitioner Family
DX: D50.9 Iron deficiency anemia, unspecified (principal); Z12.11 Encounter for screening for malignant neoplasm of colon
CPT/HCPCS: 36415; 82728; 83540; 83550; 85025

== ENCOUNTER → 2019-02-23 09:34 | Outpatient (CLI) | payer MEDICARE, OTHER, SELFPAY ==
--- NOTE | 2019-02-23 09:40 | CA_ITS ---
APPROVED REPORT EXAM: Comprehensive 2D, Doppler, and color-flow Echocardiogram Inspector Assembly: Jacki Anderson RDCS Ht: 5 ft 1 in Wt: 142lbs BSA: 1.63 BP: 176/86 mmHg Indications: CHF, CAD, CP, DM, HTN, HLP 2D Dimensions LVOT 1.80 cm (M/F) 1.5-2.5 M-Mode Dimensions RVDd 2.40 cm (0.9-2.6) LA Diam 2.60 cm (1.9-4.0) LVDd 4.80 cm (3.5-5.7) Ao Diam 3.20 cm (2.0-3.7) LVDs 3.30 cm (3.5-5.7) AV Cusp 1.60 cm (1.5-2.6) IVSd 0.80 cm (0.6-1.1) PWd 0.80 cm (0.6-1.1) EF (Teich) 59.20% FS 31.30% EDV (Teich) 108.00 mL ESV (Teich) 44.10 mL LV Diastology E/A Ratio 0.7 MED E' 4.97 (< 7 cm/sec) E'/MED E' Ratio 10.90 (>14) LAT E' 5.65 (<10 cm/sec) E/LAT E' Ratio 9.60 (>14) Aortic Valve AI PHT 570.00 ms Mitral Valve MV E Max Ranjit. 54.30 (40-130 cm/s) MV A Velocity 78.50 (40-130 cm/s) E/A Ratio 0.70 Tricuspid Valve TR P. Velocity 245.00 cm/s RAP Estimate 10.00 mmHg RVSP 34.00 mmHg Left Ventricle Left atrium is mildly enlarged, left ventricle is normal size, mild concentric left ventricular hypertrophy, visually estimated ejection fraction 55% with no regional wall motion abnormality, grade 1 diastolic dysfunction seen without tissue Doppler evidence of raise left atrial pressure. Right Ventricle Right atrium and right ventricular normal size and contractility. Aortic Valve Aortic valve is minimally thickened and fibrosed, leaflet continue to display good mobility, there is no aortic stenosis or aortic insufficiency. Mitral Valve Mitral valve leaflets are minimally thickened, there is no mitral stenosis, there is mild mitral regurgitation. Tricuspid Valve Tricuspid valve is grossly normal, there is mild tricuspid regurgitation, calculated right ventricular systolic pressure is 35 mmHg, inferior vena cava is normal size with normal inspiratory collapse. Inferior vena cava is normal size with normal inspiratory collapse. Pulmonic Valve Pulmonic valve is poorly visualized. Great Vessels Aortic root is normal size. Pericardium No significant pericardial effusion noted. Conclusion 1. Mildly enlarged left atrium, normal left ventricular size, mild concentric left ventricular hypertrophy, visually estimated ejection fraction of 55% with no regional wall motion abnormality, grade 1 diastolic dysfunction seen without tissue Doppler evidence of raise left atrial pressure. 2. Thickened and calcified aortic valve without aortic stenosis aortic insufficiency. 3. Mild mitral and tricuspid regurgitation, calculated right ventricular systolic pressure is 35 mmHg, inferior vena cava is normal size with normal inspiratory collapse. 4. No significant pericardial effusion noted. Electronically signed by : Zen Spencer, 02/24/2019 06:24:11
[2019-02-23 10:51] LABS: Anion Gap 14.4 mEq/L (5-15); Blood Urea Nitrogen 14 mg/dL (7-18); Calcium 9.4 mg/dL (8.5-10.1); Carbon Dioxide 27 mmol/L (21.0-32.0); Chloride 99 mmol/L (98-107); Creatinine,Serum 0.93 mg/dL (0.55-1.02); Estimated Glomerular Filt Rate 58 ml/min (>60); GFR (African American) 71 ML/MIN (>60); Glucose 159 mg/dL (74-106); Potassium 3.4 mmoL/L (3.5-5.1); Sodium 137 mmol/L (136-145)
== END ==
PROVIDERS: Visit Provider Internal Medicine Cardiovascular Disease
DX: I51.89 Other ill-defined heart diseases; E78.5 Hyperlipidemia, unspecified; I25.10 Atherosclerotic heart disease of native coronary artery without angina pectoris; I27.20 Pulmonary hypertension, unspecified; I50.30 Unspecified diastolic (congestive) heart failure; R60.9 Edema, unspecified; R55 Syncope and collapse
CPT/HCPCS: 36415; 80048; 83880; 93306

== ENCOUNTER → 2019-03-13 15:08 | Outpatient (CLI) | payer MEDICARE, OTHER, SELFPAY ==
[2019-03-13 15:40] LABS: Basophils % 0.6 % (0.1-2.0); Eosinophils # 0.1 K/mm3 (0.0-0.4); Eosinophils % 2.3 % (0.1-12.0); Hematocrit 29.6 % (37.0-47.0); Hemoglobin 9.6 g/dL (12.2-16.2); Lymphocytes # 1.5 K/mm3 (0.7-4.5); Mean Corpuscular HGB Conc 32.5 g/dL (31.8-35.4); Mean Corpuscular Hemoglobin 30.2 pg (27.0-31.2); Mean Platelet Volume 8.1 fl (7.4-10.4); Monocytes # 0.2 K/mm3 (0.1-1.0); Monocytes % 3.2 % (1.7-9.3); Neutrophils # 4.3 K/mm3 (1.8-7.8); Platelet Count 292 K/mm3 (142-424); Red Blood Count 3.18 M/mm3 (4.20-5.40); Red Cell Distribution Width 14.8 % (11.5-17.5); White Blood Count 6.2 K/mm3 (4.8-10.8)
[2019-03-13 20:27] LABS: Ferritin 985 ng/mL (8-388)
[2019-03-15 07:55] LABS: Iron 109 ug/dL (27-139); UIBC 146 ug/dL (118-369)
[2019-03-15 17:20] LABS: Iron Saturation 43 % (15-55)
== END ==
PROVIDERS: Nurse Practitioner Family; PCP Family Medicine; Visit Provider Family Medicine
DX: D50.9 Iron deficiency anemia, unspecified (principal)
CPT/HCPCS: 36415; 82728; 83540; 83550; 85025

== ENCOUNTER → 2019-03-17 14:09 | Outpatient (CLI) | payer MEDICARE, OTHER, SELFPAY ==
--- NOTE | 2019-03-17 14:12 | MR_ITS ---
PROCEDURE: MR HEAD/BRAIN WO CON CLINICAL INDICATION: SYNCOPE AND COLLAPSE Syncope with headache and dizziness COMPARISON: HEADWO CT head/brain wo con from 04/06/2018 TECHNIQUE: Routine multiplanar multi echo sequences are performed without gadolinium enhancement. No midline shift, mass effect, intracranial hemorrhage, or hydrocephalus. The cerebellopontine angles, cerebellum, and brainstem are unremarkable. There are involutional changes of age with mild brain volume loss along with periventricular and subcortical T2 white matter hyperintensities consistent with ischemic gliotic change from microvascular disease. The pituitary, optic chiasm, corpus callosum, and craniocervical junction are unremarkable. Incidental note is made of mild anterolisthesis of C3 on C4 of 4 mm with mild bulging disc. No mastoid effusion or sinus air-fluid level. FINDINGS: 1. No acute intracranial findings. 2. Involutional changes of age. IMPRESSION: Dictated by: Christian Verduzco MD 03/19/2019 06:24 Electronically signed by Christian Verduzco MD in [place] 03/19/2019 06:24
== END ==
PROVIDERS: PCP Family Medicine; Referring Provider Family Medicine; Visit Provider Family Medicine
DX: R55 Syncope and collapse (principal)
CPT/HCPCS: 70551

== ENCOUNTER 2019-05-05 11:56 | Observation (INO) ==
[2019-05-05 15:07] LABS: Basophils % 0.6 % (0.1-2.0); Eosinophils # 0.1 K/mm3 (0.0-0.4); Hematocrit 30.9 % (37.0-47.0); Hemoglobin 10.5 g/dL (12.2-16.2); Lymphocytes # 1.4 K/mm3 (0.7-4.5); Mean Corpuscular HGB Conc 33.9 g/dL (31.8-35.4); Mean Corpuscular Volume 90.2 fl (81-99); Mean Platelet Volume 7.5 fl (7.4-10.4); Monocytes # 0.3 K/mm3 (0.1-1.0); Neutrophils # 4.3 K/mm3 (1.8-7.8); Neutrophils % 70.4 % (37.0-80.0); Platelet Count 328 K/mm3 (142-424); Red Blood Count 3.43 M/mm3 (4.20-5.40); Red Cell Distribution Width 13.7 % (11.5-17.5); White Blood Count 6.1 K/mm3 (4.8-10.8)
--- NOTE | 2019-05-05 15:09 | Progress Note ---
Internal Medicine - PN: Subj *Date: 05/05/19 *Time: 15:05 Interval history: See H&P from [facility]. Poorly controlled hypertension. Received Cardizem CD 120mg last evening, given today prior to transport to [facility]. BP in 200/70 range, headaches. Exam Vital signs and Labs for Last 24 Hours: Temp Pulse Resp BP Pulse Ox 98.0 F 58 L 18 137/60 97 05/05/19 14:15 05/05/19 14:15 05/05/19 14:15 05/05/19 14:15 05/05/19 14:15 I & O for Last 24 hours: Intake & Output 05/03/19 05/04/19 05/05/19 05/06/19 11:59 11:59 11:59 11:59 Weight 135 lb 6 oz - Constitutional no acute distress - *Routine HEENT Exam Eye: Present: PERRL - *Routine Neck Exam Present: supple - *Routine Respiratory Exam Present: CTA bilaterally - *Routine Cardiovascular Exam Present: RRR - *Routine Abdominal Exam Present: soft. Absent: tenderness, mass - *Routine Extremities Exam Absent: edema - *Routine Neurological Exam Present: alert, oriented X3. Absent: motor deficit Assessment and Plan (1) Headache Current visit: Yes Status: Acute Category: Medical Code(s): R51 - Headache (2) Hypertensive emergency Current visit: No Status: Acute Category: Medical Code(s): I16.1 - Hypertensive emergency
[2019-05-05 15:28] LABS: Albumin/Globulin Ratio 1.1 (1.1-1.8); Anion Gap 15.9 mEq/L (5-15); Bilirubin,Total 0.4 mg/dL (0.2-1.0); Calcium 9.1 mg/dL (8.5-10.1); Globulin 3.5 gm/dl (1.3-3.2); Total Protein,Serum 7.5 gm/dL (6.4-8.2)
--- NOTE | 2019-05-05 15:32 | Pharmacy Consult Notes ---
[facility] Pharmacy VTE Monitoring - Patient Demographics Admission date: 05/05/19 Report Date: 05/05/19 Time: 15:32 Allergies/Adverse Reactions: Patient Allergies Sulfa (Sulfonamide Antibiotics) Allergy (Mild, Verified 04/02/19 11:18) Nausea sucralfate Adverse Reaction (Intermediate, Verified 05/05/19 14:46) light headed, swelling of lips Height: 1.55 m Weight: 61.405 kg Patient Problems: Current Active Problems (Last Updated 02/10/19 @ 09:20 by María Villafuerte RN) Headache (Acute) - VTE Risk Labs: VTE Related Lab Results Hgb 10.5 g/dL (12.2-16.2) L 05/05/19 14:30 Hct 30.9 % (37.0-47.0) L 05/05/19 14:30 Plt Count 328 K/mm3 (142-424) 05/05/19 14:30 Was VTE Risk Assessment Performed: Yes VTE Score: 3 VTE Risk Level: Low Risk - Prophylaxis VTE Prophylaxis Ordered?: Yes Types of VTE Prophylaxis: TEDS Knee High Location of Applied Device: Bilateral Lower Extremeties - VTE Diagnosis Confirmed Treatment or plan recommended: Continue Current Treatment
[2019-05-05 17:19] LABS: Appearance,Urine CLEAR (Clear); Bilirubin,Urine Negative (Negative); Blood, Urine TRACE-I (Negative); Color,Urine YELLOW (Yellow); Glucose,Urine (UA) Negative (Negative); Ketones,Urine Negative (Negative); Leukocyte Esterase,Urine Negative (Negative); Microscopic, Urine URINE MICROSCOPIC (MICROSCOPIC); Protein,Urine Negative (Negative); Specific Gravity, Urine <= 1.005 (1.005-1.030); Urobilinogen,Urine 0.2 EU/dl (0.2)
[2019-05-05 17:24] LABS: Squamous Epithelial Cell,Urine Occasional #/hpf (0-5)
--- NOTE | 2019-05-06 08:02 | Progress Note ---
Internal Medicine - PN: Subj *Date: 05/06/19 *Time: 07:59 Interval history: Patient states her blood pressure seem to be doing better until around 4 AM when it was elevated and she began having a headache. She states her head hurts on the right side and radiates down into her face. She was able to rest off and on throughout the night. She had some leg cramps. Exam Vital signs and Labs for Last 24 Hours: Temp Pulse Resp BP Pulse Ox 100.0 F H 64 16 182/80 H 97 05/06/19 04:00 05/06/19 04:00 05/06/19 04:00 05/06/19 04:00 05/06/19 04:00 Laboratory Results - last 24 hr 05/05/19 14:30: ESR 104 H 05/05/19 14:30: Sodium 137, Potassium 3.9, Chloride 100, Carbon Dioxide 25, Anion Gap 15.9 H, BUN 11, Creatinine 0.93, Estimated Creat Clear 46, Estimated GFR 58 L, Est GFR ( Amer) 71, Glucose 138 H, Calcium 9.1, Total Bilirubin 0.4, AST 22, ALT 22, Alkaline Phosphatase 94, Total Protein 7.5, Albumin 4.0, Globulin 3.5 H, Albumin/Globulin Ratio 1.1 05/05/19 14:30: WBC 6.1, RBC 3.43 L, Hgb 10.5 L, Hct 30.9 L, MCV 90.2, MCH 30.6, MCHC 33.9, RDW 13.7, Plt Count 328, MPV 7.5, Neut % (Auto) 70.4, Lymph % (Auto) 23.0, [place] % (Auto) 4.0, Eos % (Auto) 2.0, Baso % (Auto) 0.6, Neut # (Auto) 4.3, Lymph # (Auto) 1.4, [place] # (Auto) 0.3, Eos # (Auto) 0.1, Baso # (Auto) 0.0 05/05/19 17:08: Urine Color Yellow, Urine Appearance Clear, Urine pH 7.0, Ur Specific [place] <= 1.005, Urine Protein Negative, Urine Glucose (UA) Negative, Urine Ketones Negative, Urine Blood Trace-i, Urine Nitrate Negative, Urine Bilirubin Negative, Urine Urobilinogen 0.2, Ur Leukocyte Esterase Negative, Ur Squamous Epith Cells Occasional I & O for Last 24 hours: Intake & Output 05/03/19 05/04/19 05/05/19 05/06/19 11:59 11:59 11:59 11:59 Intake Total 360 / 360 Output Total 600 / 600 Balance -240 / -240 Weight 134 lb 2 oz - Constitutional no acute distress - *Routine Respiratory Exam Present: CTA bilaterally - *Routine Cardiovascular Exam Present: RRR - *Routine Abdominal Exam Present: soft, normoactive bowel sounds. Absent: tenderness - *Routine Extremities Exam Absent: cyanosis, clubbing, edema - *Routine Skin Exam Present: warm. Absent: rash - *Routine Neurological Exam Present: alert, oriented X3 Assessment and Plan (1) Headache Current visit: Yes Status: Acute Category: Medical Code(s): R51 - Headache (2) Hypertensive emergency Current visit: No Status: Acute Category: Medical Code(s): I16.1 - Hypertensive emergency - Assessment and plan all Dx Assessment and Plan for all problems:: Blood pressure has not been checked yet this morning. Will await reading. We will also check a BMP and make sure her potassium is normal as she has been having leg cramps. She did run a fever of 100 last night, but her white count has been normal. Will discuss with Dr. solomon.
[2019-05-06 09:37] LABS: Anion Gap 14.2 mEq/L (5-15); Calcium 9.3 mg/dL (8.5-10.1)
--- NOTE | 2019-05-06 09:59 | Consult Report ---
History of Present Illness Consult date: 05/06/19 Requesting physician: Brain Caballero Consult reason: hypertension Chief complaint: Headache Additional Medical History:: 1. Coronary artery disease 2. Hypertension 3. Hyperlipidemia 4. Orthostatic hypotension 5. History of syncope 6. Pulmonary hypertension 7. Diastolic dysfunction History of present illness: This is a 78-year-old female who was admitted to the hospital due to headache and hypertension. The patient states that her blood pressure has been over 200 systolic for several weeks off and on. The patient was in the emergency department April 16 of this year with similar complaints of hypertension and a headache. The patient states that her systolic blood pressure has been as high as 240. She states at her ER visit her blood pressure was treated and she had a CAT scan of her head which was negative. Since that time the patient has continued to have hypertension off and on with an associated headache. The patient states that her blood pressure continues to worsen and she is having a severe headache. She came into the hospital for management of her hypertension. The patient has been started on diltiazem ER which has helped to improve her blood pressure, but through the night she had recurrence of her severe headache and her blood pressure was once again elevated. This morning she states that she is still having a headache although her blood pressure is better this morning. She denies any chest pain or pressure. She denies any shortness of breath or edema. She denies any fever, chills, nausea, vomiting, diarrhea, PND or orthopnea. She does report that she has some dizziness associated with her headache at times. She states that this is severe. Nothing is really helping to improve her headache and nothing really worsens her headache either. She did have a renal ultrasound which was negative. The patient's renal duplex is pending this morning. Of note, the patient was seen March [id number] Tilley. At that time the patient was hypotensive and her blood pressure medications were decreased because just prior to that visit the patient had syncope from her hypotension. [facility] History I have reviewed the patient's past medical history: Yes Medical History: Reports:: Atherosclerotic Heart Disease, Coronary Artery Disease, Diabetes Mellitus Type 2, Gastroesophageal Reflux Disease(GERD), Hyperlipidemia, Hypertension Denies:: Cancer, Diabetes Mellitus Type 1, Internal Pacemaker, Lung Disease, MRSA, Seizures *Have you ever received a pneumonia vaccine?: Yes *Have you received a flu vaccine this season?: Yes Other Medical History: Reports: Arthritis, Fibromyalgia, Hypothyroidism Laterality Cases: Left: Lumpectomy, Right: Arthroscopy Shoulder, Other, Bilateral: Breast Biopsy Other Surgeries: Yes: No Previous Surgery, Cardiac Catheterization, Colonoscopy, EGD, Hysterectomy-Total. No: Pacemaker Amputation: No Fractures: No - *Social History Educational Level: Attended College Smoking Status: Never smoker Alcohol Intake: never Alcohol Intake Frequency:: holidays/special occasions only Substance Use Type: denies use *Occupational Status:: retired Housing: house Household Members: spouse *Travel in the last 8 weeks: None Family Hx:: Cancer, Heart Attack Meds Home Medications Medication Instructions Recorded Confirmed Type allopurinol 100 mg tablet 200 mg PO DAILY 06/25/17 05/05/19 History Levothyroxine Sodium [Synthroid 25 mcg PO DAILYDM 04/27/18 05/05/19 History 25mcg (0.025mg) tablet] Metformin HCl 500 mg PO DAILY 04/27/18 05/05/19 History bisoprolol fumarate 5 mg tablet 2.5 mg PO BID tab 02/20/19 05/05/19 History potassium chloride ER 20 mEq 20 meq PO DAILY 02/27/19 05/05/19 History tablet,extended release(part/cryst) Omeprazole [Omeprazole 40mg 40 mg PO DAILY 04/02/19 05/05/19 History Capsule] Aspirin [Aspirin 81mg chewable 81 mg PO DAILY 05/05/19 05/05/19 History tab] Gabapentin [Gabapentin 300mg Cap] 300 mg PO HS 05/05/19 05/05/19 History Losartan Potassium 50 mg PO BID 05/05/19 05/05/19 History Polyethylene Glycol 3350 [Miralax 17 gm PO DAILYP PRN 05/05/19 05/05/19 History 17gm Packet] dilTIAZem HCl [Cardizem CD 120mg 120 mg PO DAILY 05/05/19 05/05/19 History Cap] Allergies Allergy/AdvReac Type Severity Reaction Status Date / Time Sulfa (Sulfonamide Allergy Mild Nausea Verified 04/02/19 11:18 Antibiotics) sucralfate AdvReac Intermediate light Verified 05/05/19 14:46 headed, swelling of lips Review of Systems - Review of Systems Review of systems:: pertinent systems reviewed and negative unless documented below - *Neurologic Reports dizziness, Reports headache(s) Exam Vital signs and Labs for Last 24 Hours: Temp Pulse Resp BP Pulse Ox 98.9 F 62 18 149/74 H 96 05/06/19 08:00 05/06/19 08:00 05/06/19 08:00 05/06/19 08:00 05/06/19 08:00 Laboratory Results - last 24 hr 05/05/19 14:30: ESR 104 H 05/05/19 14:30: Sodium 137, Potassium 3.9, Chloride 100, Carbon Dioxide 25, Anion Gap 15.9 H, BUN 11, Creatinine 0.93, Estimated Creat Clear 46, Estimated GFR 58 L, Est GFR ( Amer) 71, Glucose 138 H, Calcium 9.1, Total Bilirubin 0.4, AST 22, ALT 22, Alkaline Phosphatase 94, Total Protein 7.5, Albumin 4.0, Globulin 3.5 H, Albumin/Globulin Ratio 1.1 05/05/19 14:30: WBC 6.1, RBC 3.43 L, Hgb 10.5 L, Hct 30.9 L, MCV 90.2, MCH 30.6, MCHC 33.9, RDW 13.7, Plt Count 328, MPV 7.5, Neut % (Auto) 70.4, Lymph % (Auto) 23.0, [place] % (Auto) 4.0, Eos % (Auto) 2.0, Baso % (Auto) 0.6, Neut # (Auto) 4.3, Lymph # (Auto) 1.4, [place] # (Auto) 0.3, Eos # (Auto) 0.1, Baso # (Auto) 0.0 05/05/19 17:08: Urine Color Yellow, Urine Appearance Clear, Urine pH 7.0, Ur Specific [place] <= 1.005, Urine Protein Negative, Urine Glucose (UA) Negative, Urine Ketones Negative, Urine Blood Trace-i, Urine Nitrate Negative, Urine Bilirubin Negative, Urine Urobilinogen 0.2, Ur Leukocyte Esterase Negative, Ur Squamous Epith Cells Occasional 05/06/19 08:40: Sodium 136, Potassium 4.2, Chloride 99, Carbon Dioxide 27, Anion Gap 14.2, BUN 11, Creatinine 1.05 H, Estimated Creat Clear 43, Estimated GFR 51 L, Est GFR ( Amer) 61, Glucose 107 H D, Calcium 9.3 05/06/19 08:40: Total Creatine Kinase 64 I & O for Last 24 hours: Intake & Output 05/03/19 05/04/19 05/05/19 05/06/19 23:59 23:59 23:59 23:59 Intake Total 360 / 360 0 / 0 Output Total 300 / 300 300 / 300 Balance 60 / 60 -300 / -300 Weight 135 lb 6 oz 134 lb 2 oz Narrative: EKG is sinus bradycardia with a rate of 54. Her telemetry strip shows sinus rhythm with a rate of 64. - Constitutional no acute distress, average body habitus - *Routine HEENT Exam Head: Present: normocephalic, atraumatic Eye: Present: EOMI, PERRL ENT: Present: mucous membranes moist - *Routine Neck Exam Present: supple, full ROM, normal carotid upstroke. Absent: JVD, carotid bruit, lymphadenopathy - *Routine Respiratory Exam Present: CTA bilaterally - *Routine Cardiovascular Exam Present: RRR, Normal S1, Normal S2. Absent: murmur, gallop - *Routine Abdominal Exam Present: soft, normoactive bowel sounds. Absent: tenderness, distended - *Routine Extremities Exam Present: full ROM, pulses intact, normal capillary refill. Absent: cyanosis, clubbing, edema - *Routine Skin Exam Present: intact, warm. Absent: erythema, rash - *Routine Neurological Exam Present: alert, oriented X3, CN II-XII intact. Absent: sensory deficit, motor deficit - Routine Psychiatric Exam Present: normal affect, normal thought process - Detailed Eye Exam Eyelids: Left normal inspection Assessment and Plan (1) Headache Current visit: Yes Status: Acute Category: Medical Code(s): R51 - Headache (2) Dizziness Current visit: No Status: Acute Category: Medical Code(s): R42 - Dizziness and giddiness (3) Hypertensive emergency Current visit: No Status: Acute Category: Medical Code(s): I16.1 - Hypertensive emergency (4) Pulmonary HTN Current visit: No Status: Acute Category: Medical Code(s): I27.20 - Pulmonary hypertension, unspecified (5) CAD (coronary artery disease) Current visit: No Status: Chronic Qualifiers: Coronary Disease-Associated Artery/Lesion type: [place] artery [place] vs. transplanted heart: [place] heart Associated angina: without angina Qualified Code(s): I25.10 - Atherosclerotic heart disease of [place] coronary artery without angina pectoris Category: Medical Code(s): I25.10 - Atherosclerotic heart disease of [place] coronary artery without angina pectoris (6) Diabetes mellitus Current visit: No Status: Chronic Qualifiers: Diabetes mellitus type: type 2 Diabetes mellitus [facility] insulin use: with [facility] use Diabetes mellitus complication status: without complication Qualified Code(s): E11.9 - Type 2 diabetes mellitus without complications; Z79.4 - exterminator termite (current) use of insulin Category: Medical Code(s): E11.9 - Type 2 diabetes mellitus without complications (7) Hyperlipidemia Current visit: No Status: Chronic Qualifiers: Hyperlipidemia type: mixed hyperlipidemia Qualified Code(s): E78.2 - Mixed hyperlipidemia Category: Medical Code(s): E78.5 - Hyperlipidemia, unspecified (8) Hypertension Current visit: No Status: Chronic Qualifiers: Hypertension type: essential hypertension Qualified Code(s): I10 - Essential (primary) hypertension Category: Medical Code(s): I10 - Essential (primary) hypertension (9) Diastolic heart failure Current visit: No Status: Suspected Qualifiers: Heart failure chronicity: unspecified Qualified Code(s): I50.30 - Unspecified diastolic (congestive) heart failure Category: Medical Code(s): I50.30 - Unspecified diastolic (congestive) heart failure - Assessment and plan all Dx Assessment and Plan for all problems:: Plan: 1. The patient was admitted to the hospital with headache and hypertension. The patient reports that her systolic blood pressure has been as high as 240 mmHg at home. She states her hypertension was associated with a severe headache and dizziness. The patient does report this morning that she still has a pounding headache, although her blood pressure has improved. She did have a headache with hypertension through the night despite being started on diltiazem ER. This morning as mentioned before, her blood pressure is better but still could be under better control. We will increase her diltiazem ER to 240 mg p.o. daily for better blood pressure control. 2. We will get a CTA of her brain to rule out an aneurysm since she still has a persistent headache despite her blood pressure being under better control this morning. 3. Her renal duplex is still currently pending. 4. Coronary artery disease is stable. She denies any chest pain or pressure. 5. Her LDL goal is less than 55. 6. The patient does have a history of syncope and orthostatic hypotension. We will continue to monitor her blood pressure closely. 7. Her morning labs are still currently pending. 8. Further recommendations will be made pending the patient's response to treatment and the results of her CTA of her brain today. Thank you for the opportunity to help participate in the care of this patient.
--- NOTE | 2019-05-06 11:53 | Cardiology Report ---
APPROVED REPORT Corporate Communications Specialist: Mari Foley RVT Study Quality: Good Indications: Uncontrolled HTN Risk Factors Hypertension Renal Artery Doppler Origin (R) 112.9/ cm/sec Proximal (R) 149.7/ cm/sec Mid (R) 111.2/ cm/sec Distal (R) 151.2/ cm/sec Renal Aorta Ratio (R)1.99 Segmental A. (R) 46.7/16.1 cm/sec RI: 0.65 Segmental A. Sup (R) 46.7/16.1 cm/sec Segmental A. Mid (R) 34.2/8.2 cm/sec Segmental A. Inf (R) 34.2/10.9 cm/sec Origin (L) 117.8/ cm/sec Proximal (L) 100.2/ cm/sec Mid (L) 111.7/ cm/sec Distal (L) 134.8/ cm/sec Renal Aorta Ratio (L)1.77 Segmental A. (L) 63.0/17.0 cm/sec RI: 0.73 Segmental A. Sup (L) 58.9/20.0 cm/sec Segmental A. Mid (L) 63.0/17.0 cm/sec Segmental A. Inf (L) 45.2/11.3 cm/sec Renal Measurements Kidney Size (R) 7.8x4.6 cm Cortical Thickness (R) 0.9 cm Kidney Size (L) 9.1x5.9 cm Cortical Thickness (L) 1.3 cm Findings Study suggests no evidence of renal artery stenois bilaterally. Conclusion Study suggests no evidence of renal artery stenois bilaterally. Electronically signed by : Christian Verduzco MD 05/06/2019 11:53:40
--- NOTE | 2019-05-06 12:07 | Progress Note ---
Internal Medicine - PN: Subj *Date: 05/06/19 *Time: 12:05 Interval history: The renal ultrasound was normal. The renal duplex was normal. The CTA of the head did not show any evidence of aneurysms or AV malformation. Cardiology has recommended increasing Cardizem to 240 mg sustained release daily. The patient has prescription for 120 sustained release. We will continue that twice a day thus allowing some initial dosing flexibility. When those are complete then we will switch to the single pill of 240 sustained-release. Her other medications will remain the same. Losartan will be 50 mg twice a day. Bisoprolol will be 5 mg 1/2 pill twice a day. These are all reviewed with the patient. She is to continue urine collection for 24 hours to check for metanephrines and VMA. Follow-up will be in the office of [facility]. Exam Vital signs and Labs for Last 24 Hours: Temp Pulse Resp BP Pulse Ox 98.9 F 139 H 20 149/74 H 92 L 05/06/19 08:00 05/06/19 08:00 05/06/19 08:00 05/06/19 08:00 05/06/19 08:00 Laboratory Results - last 24 hr 05/05/19 14:30: ESR 104 H 05/05/19 14:30: Sodium 137, Potassium 3.9, Chloride 100, Carbon Dioxide 25, Anion Gap 15.9 H, BUN 11, Creatinine 0.93, Estimated Creat Clear 46, Estimated GFR 58 L, Est GFR ( Amer) 71, Glucose 138 H, Calcium 9.1, Total Bilirubin 0.4, AST 22, ALT 22, Alkaline Phosphatase 94, Total Protein 7.5, Albumin 4.0, Globulin 3.5 H, Albumin/Globulin Ratio 1.1 05/05/19 14:30: WBC 6.1, RBC 3.43 L, Hgb 10.5 L, Hct 30.9 L, MCV 90.2, MCH 30.6, MCHC 33.9, RDW 13.7, Plt Count 328, MPV 7.5, Neut % (Auto) 70.4, Lymph % (Auto) 23.0, [place] % (Auto) 4.0, Eos % (Auto) 2.0, Baso % (Auto) 0.6, Neut # (Auto) 4.3, Lymph # (Auto) 1.4, [place] # (Auto) 0.3, Eos # (Auto) 0.1, Baso # (Auto) 0.0 05/05/19 17:08: Urine Color Yellow, Urine Appearance Clear, Urine pH 7.0, Ur Specific [place] <= 1.005, Urine Protein Negative, Urine Glucose (UA) Negative, Urine Ketones Negative, Urine Blood Trace-i, Urine Nitrate Negative, Urine Bilirubin Negative, Urine Urobilinogen 0.2, Ur Leukocyte Esterase Negative, Ur Squamous Epith Cells Occasional 05/06/19 08:40: Sodium 136, Potassium 4.2, Chloride 99, Carbon Dioxide 27, Anion Gap 14.2, BUN 11, Creatinine 1.05 H, Estimated Creat Clear 43, Estimated GFR 51 L, Est GFR ( Amer) 61, Glucose 107 H D, Calcium 9.3 05/06/19 08:40: Total Creatine Kinase 64 I & O for Last 24 hours: Intake & Output 05/04/19 05/05/19 05/06/19 05/07/19 11:59 11:59 11:59 11:59 Intake Total 360 / 360 Output Total 600 / 600 Balance -240 / -240 Weight 134 lb 2 oz Assessment and Plan (1) Headache Current visit: Yes Status: Acute Category: Medical Code(s): R51 - Headache (2) Dizziness Current visit: No Status: Acute Category: Medical Code(s): R42 - Dizziness and giddiness (3) Hypertensive emergency Current visit: No Status: Acute Category: Medical Code(s): I16.1 - Hypertensive emergency (4) Pulmonary HTN Current visit: No Status: Acute Category: Medical Code(s): I27.20 - Pulmonary hypertension, unspecified (5) CAD (coronary artery disease) Current visit: No Status: Chronic Qualifiers: Coronary Disease-Associated Artery/Lesion type: [place] artery [place] vs. 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 operations supervisor insulin use: with correction use Diabetes mellitus complication status: without complication Qualified Code(s): E11.9 - Type 2 diabetes mellitus without complications; Z79.4 - senior living (current) use of insulin Category: Medical Code(s): E11.9 - Type 2 diabetes mellitus without complications (7) Hyperlipidemia Current visit: No Status: Chronic Qualifiers: Hyperlipidemia type: mixed hyperlipidemia Qualified Code(s): E78.2 - Mixed hyperlipidemia Category: Medical Code(s): E78.5 - Hyperlipidemia, unspecified (8) Hypertension Current visit: No Status: Chronic Qualifiers: Hypertension type: essential hypertension Qualified Code(s): I10 - Essential (primary) hypertension Category: Medical Code(s): I10 - Essential (primary) hypertension (9) Diastolic heart failure Current visit: No Status: Suspected Qualifiers: Heart failure chronicity: unspecified Qualified Code(s): I50.30 - Unspecified diastolic (congestive) heart failure Category: Medical Code(s): I50.30 - Unspecified diastolic (congestive) heart failure
--- NOTE | 2019-05-08 16:42 | Electrocardiograph Report ---
APPROVED REPORT Exam: Resting ECG HR:56 bpm ECG Measurements Heart Rate 56 AXES NC 192 P 87 QRSd 72 QRS 23 QT 432 T25 QTc 416 <Conclusion> Sinus bradycardia Otherwise normal ECG Electronically signed by : Chema Cordero, 05/08/2019 16:41:28
--- NOTE | 2019-05-10 13:06 | Discharge Summary ---
General - General Admission date:: 05/05/19 Discharge date: 05/06/19 HPI HPI: Ms. Max is a 78-year-old female who was seen in the office of [facility] on 05/05/2019 with complaints of a throbbing headache. She stated her blood pressure had been elevated the previous day and her losartan was increased and she was started on Cardizem. Her blood pressure on the morning of 05/05/2019 was 186/86. Her blood pressure in the office was 200/92 and she was therefore admitted for poorly controlled hypertension and headache. Hospital Course Hospital Course: The patient was admitted and started on cardizem. She had a renal ultrasound which was unremarkable. She had a renal artery duplex showing no evidence of renal artery stenosis. She also had a head CTA which was negative. Cardiology was consulted. They increase her diltiazem ER to 240 mg a day. Her blood pressure did improve on medication and her headache improved as well. The patient already had a prescription for Cardizem 120 mg a day therefore she was going to keep that prescription and take it twice a day until she ran out of could be switched to the 240 mg Cardizem.. Her losartan was increased to 50 mg twice a day and her bisoprolol dose was 5 mg 1/2 a pill twice a day. She was stable to be discharged home and will need to do a 24-hour urine collection to check for metanephrines and VMA. She will follow-up in the office of [facility]. Objective Vital signs: Temp Pulse Resp BP Pulse Ox 98.9 F 58 L 19 142/71 H 97 05/06/19 12:00 05/06/19 12:00 05/06/19 12:00 05/06/19 12:05/06/19 12:00 Narrative: General: No acute distress HEENT: Sclera and conjunctiva clear, pupils equal round reactive to light, extraocular muscles with normal range of motion Oral cavity: No lesions, mucosa moist and within normal limits, no erythema Neck: Supple, no lymphadenopathy, no carotid bruits Chest: Normal shape and expansion Heart: Regular sinus rhythm Lungs: Clear to auscultation Abdomen: Soft nontender, no organomegaly or masses, no bruits Neuro exam: Intact, gait normal Skin: Normal, no rash Back: Mild dorsal kyphosis Extremities: Minimal leg edema DS: Diagnosis - Discharge Diagnosis (1) Headache Status: Acute (2) Dizziness Status: Acute (3) Hypertensive emergency Status: Acute (4) Pulmonary HTN Status: Acute (5) CAD (coronary artery disease) Status: Chronic (6) Diabetes mellitus Status: Chronic (7) Hyperlipidemia Status: Chronic (8) Hypertension Status: Chronic (9) Diastolic heart failure Status: Suspected Discharge Plan - Patient Discharge Instructions ACTIVITY: Continue current activity DIET: low fat, low cholesterol Patient Instructions: Essential Hypertension - Follow up Plan Follow up with: Brain Caballero MD [Primary Care Provider] - 05/13/19 2:15 pm Disposition: Home, Self-Long-Term Medications: Home Medications Medication Instructions Recorded Confirmed Type allopurinol 100 mg tablet 200 mg PO DAILY 06/25/17 05/06/19 History Levothyroxine Sodium [Synthroid 25 mcg PO DAILYDM 04/27/18 05/06/19 History 25mcg (0.025mg) tablet] Metformin HCl 500 mg PO DAILY 04/27/18 05/06/19 History bisoprolol fumarate 5 mg tablet 2.5 mg PO BID tab 02/20/19 05/06/19 History potassium chloride ER 20 mEq 20 meq PO DAILY 02/27/19 05/06/19 History tablet,extended release(part/cryst) Omeprazole [Omeprazole 40mg 40 mg PO DAILY 04/02/19 05/06/19 History Capsule] Aspirin [Aspirin 81mg chewable 81 mg PO DAILY 05/05/19 05/06/19 History tab] Gabapentin [Gabapentin 300mg Cap] 300 mg PO HS 05/05/19 05/06/19 History Losartan Potassium 50 mg PO BID 05/05/19 05/06/19 History Polyethylene Glycol 3350 [Miralax 17 gm PO DAILYP PRN 05/05/19 05/06/19 History 17gm Packet] dilTIAZem HCL [Cardizem CD 120mg 120 mg PO BID #60 cap.er.24h 05/06/19 05/06/19 Rx Cap] Prescriptions/Medication Reconciliation: Continued allopurinol 100 mg tablet 200 mg PO DAILY bisoprolol fumarate 5 mg tablet 2.5 mg PO BID tab potassium chloride ER 20 mEq tablet,extended release(part/cryst) 20 meq PO DAILY Metformin HCl 500 mg PO DAILY Levothyroxine Sodium [Synthroid 25mcg (0.025mg) tablet] 25 mcg PO DAILYDM Omeprazole [Omeprazole 40mg Capsule] 40 mg PO DAILY Polyethylene Glycol 3350 [Miralax 17gm Packet] 17 gm PO DAILYP PRN PRN Reason: Constipation Losartan Potassium 50 mg PO BID Aspirin [Aspirin 81mg chewable tab] 81 mg PO DAILY Gabapentin [Gabapentin 300mg Cap] 300 mg PO HS Changed dilTIAZem HCL [Cardizem CD 120mg Cap] 120 mg PO BID #60 cap.er.24h - Problem Reconciliation Problems Reviewed?: Yes
== END 2019-05-06 13:46 | disposition home or self-care (01) ==
LOC: 2ND
PROVIDERS: ADMIT Family Medicine; ATTEND Family Medicine
CPT/HCPCS: 36415; 70496; 76770; 80048; 80053; 81001; 82550; 85025; 85651; 86140; 93005; 93976; 96365; 96375; 99282; G0378; J2405; Q9967

== ENCOUNTER → 2019-05-07 10:49 | Outpatient (CLI) | payer MEDICARE, OTHER, SELFPAY ==
[2019-05-13 16:10] LABS: Dopamine, Urine 148 ug/L (Undefined); Epinephrine, U, 24hr 16 ug/24 hr (0-20); Epinephrine, Urine 4 ug/L (Undefined); Norepinephrine, Ur 55 ug/L (Undefined); Norepinephrine,U,24h 220 ug/24 hr (0-135)
[2019-05-14 13:16] LABS: Dopamine, Ur, 24hr 592 ug/24 hr (0-510)
== END ==
PROVIDERS: Visit Provider Family Medicine
DX: I10 Essential (primary) hypertension (principal)
CPT/HCPCS: 82384; 84585

== ENCOUNTER → 2019-06-18 15:21 | Outpatient (CLI) | payer MEDICARE, OTHER, SELFPAY ==
[2019-06-18 15:45] LABS: Basophils # 0.1 K/mm3 (0-0.2); Basophils % 0.7 % (0.1-2.0); Eosinophils # 0.1 K/mm3 (0.0-0.4); Eosinophils % 1.7 % (0.1-12.0); Hematocrit 32.3 % (37.0-47.0); Hemoglobin 10.7 g/dL (12.2-16.2); Lymphocytes # 1.9 K/mm3 (0.7-4.5); Lymphocytes % 27.1 % (10-50); Mean Corpuscular HGB Conc 33.1 g/dL (31.8-35.4); Mean Corpuscular Hemoglobin 29.7 pg (27.0-31.2); Mean Corpuscular Volume 89.8 fl (81-99); Mean Platelet Volume 7.7 fl (7.4-10.4); Monocytes # 0.3 K/mm3 (0.1-1.0); Neutrophils # 4.7 K/mm3 (1.8-7.8); Neutrophils % 66.5 % (37.0-80.0); Platelet Count 323 K/mm3 (142-424); Red Blood Count 3.59 M/mm3 (4.20-5.40); Red Cell Distribution Width 13.6 % (11.5-17.5); White Blood Count 7.1 K/mm3 (4.8-10.8)
[2019-06-18 17:20] LABS: Alanine Aminotransferase 26 U/L (12-78); Albumin Level 4.2 gm/dL (3.4-5.0); Albumin/Globulin Ratio 1.5 (1.1-1.8); Alkaline Phosphatase 108 U/L (46-116); Aspartate Amino Transferase 18 U/L (15-37); Bilirubin,Total 0.3 mg/dL (0.2-1.0); Blood Urea Nitrogen 15 mg/dL (7-18); Calcium 9.4 mg/dL (8.5-10.1); Carbon Dioxide 27 mmol/L (21.0-32.0); Chloride 98 mmol/L (98-107); Creatinine,Serum 0.89 mg/dL (0.55-1.02); Estimated Glomerular Filt Rate 62 ml/min (>60); Ferritin 300 ng/mL (8-388); GFR (African American) 74 ML/MIN (>60); Globulin 2.8 gm/dl (1.3-3.2); Glucose 90 mg/dL (74-106); Lactate Dehydrogenase 168 U/L (82-234); Sodium 136 mmol/L (136-145)
[2019-06-20 08:12] LABS: Iron 70 ug/dL (27-139); UIBC 209 ug/dL (118-369)
[2019-06-20 11:03] LABS: Iron Saturation 25 % (15-55)
[2019-06-20 11:04] LABS: Haptoglobin 140 mg/dL (42-346)
[2019-06-22 15:10] LABS: Alpha-1-Globulin 0.3 g/dL (0.0-0.4); Alpha-2-Globulin 0.9 g/dL (0.4-1.0); Gamma Globulin 0.8 g/dL (0.4-1.8); Protein, Total 7.2 g/dL (6.0-8.5)
[2019-06-22 17:42] LABS: Free Kappa Lt Chains 17.2 mg/L (3.3-19.4); Free Lambda Lt Chains 15.3 mg/L (5.7-26.3); Immunoglobulin A, Qn 215 mg/dL (64-422); Immunoglobulin G, Qn 750 mg/dL (700-1600); Immunoglobulin M, Qn 37 mg/dL (26-217)
--- NOTE | 2019-11-25 21:06 | PC.NURSE ---
Medical records sent to [facility]
== END ==
PROVIDERS: Visit Provider Internal Medicine Medical Oncology
DX: D50.9 Iron deficiency anemia, unspecified (principal)
CPT/HCPCS: 36415; 80053; 82728; 82784; 83010; 83540; 83550; 83615; 83883; 84155; 84165; 85025; 86334

== ENCOUNTER → 2019-09-21 13:34 | Outpatient (CLI) | payer MEDICARE, OTHER, SELFPAY ==
--- NOTE | 2019-09-21 13:36 | CT_ITS ---
PROCEDURE: CT HEAD/BRAIN WO CON CLINICAL INDICATION: doesnt feel right, lot of pressure in her head. Persistent headache with pressure, hypertension COMPARISON: CT HEAD/BRAIN WO CON from 06/21/2019 TECHNIQUE: Axial images obtained. All CT scans at the facility use one or more dose reduction, viz: automated exposure control, ma/kV adjustment per patient size (including targeted exams where dose is matched to indication, i.e. head), or iterative reconstruction technique. FINDINGS: No midline shift, mass effect, intracranial hemorrhage, hydrocephalus, or extra-axial fluid collection is evident. There is generalized atrophy with hypoattenuation of the periventricular white matter consistent with microangiopathic changes.. Calcification is present in the basal ganglia on both sides. The calvarium has an unremarkable appearance. No mastoid effusion. No sinus air-fluid level. IMPRESSION: No acute intracranial finding Dictated by: Christian Verduzco MD 09/21/2019 14:26 Electronically signed by Christian Verduzco MD in [facility] 09/21/2019 14:26
== END ==
PROVIDERS: PCP Family Medicine; Visit Provider Urology
DX: E78.5 Hyperlipidemia, unspecified (principal); I10 Essential (primary) hypertension; I25.10 Atherosclerotic heart disease of native coronary artery without angina pectoris; R42 Dizziness and giddiness
CPT/HCPCS: 70450

== ENCOUNTER → 2019-10-13 11:15 | Outpatient (CLI) | payer MEDICARE, OTHER, SELFPAY ==
[2019-10-13 11:58] LABS: Basophils % 0.5 % (0.1-2.0); Eosinophils # 0.1 K/mm3 (0.0-0.4); Eosinophils % 1.6 % (0.1-12.0); Hematocrit 32.8 % (37.0-47.0); Hemoglobin 10.4 g/dL (12.2-16.2); Lymphocytes # 1.7 K/mm3 (0.7-4.5); Lymphocytes % 29.4 % (10-50); Mean Corpuscular HGB Conc 31.5 g/dL (31.8-35.4); Mean Corpuscular Hemoglobin 27.3 pg (27.0-31.2); Mean Corpuscular Volume 86.5 fl (81-99); Mean Platelet Volume 7.5 fl (7.4-10.4); Monocytes # 0.3 K/mm3 (0.1-1.0); Monocytes % 5.5 % (1.7-9.3); Neutrophils # 3.7 K/mm3 (1.8-7.8); Platelet Count 316 K/mm3 (142-424); Red Cell Distribution Width 14.6 % (11.5-17.5); White Blood Count 5.8 K/mm3 (4.8-10.8)
[2019-10-13 13:17] LABS: Ferritin 51.8 ng/ml (11.1-264)
[2019-10-14 08:47] LABS: Iron 73 ug/dL (27-139); UIBC 231 ug/dL (118-369)
[2019-10-15 11:14] LABS: Iron Saturation 24 % (15-55)
== END ==
PROVIDERS: Visit Provider Internal Medicine Medical Oncology
DX: D64.9 Anemia, unspecified (principal)
CPT/HCPCS: 36415; 82728; 83540; 83550; 85025

== ENCOUNTER 2019-12-18 16:04 | Emergency (ER) | payer MEDICARE, OTHER, SELFPAY ==
[2019-12-18 16:05] VITALS: BP 129/83; PULSE 69; RESP 18; TEMP 36.8; O2SAT 97; BMI 24.1
--- NOTE | 2019-12-18 16:08 | PC.NURSE ---
Dr spoke with pt , dr neha de la rosa
--- NOTE | 2019-12-18 16:11 | PC.NURSE ---
PATIENT PRESENTED WITH HER PER TRIAGE NOTE. SHE IMMEDIATELY DID NOT WANT ANY TESTS RAN BECAUSE SHE JUST HAD THEM ALL COMPLETED AT A FEW WEEKS AGO. PHYSICIAN WAS AT BEDSIDE WITH THIS RN AND [id number] PAREDES RN. PATIENT IS NEUROLOGICALLY INTACT PER PHYSICAL EXAM. NIH 0. PATIENT AND HER BOTH STATE HER EPISODE EARLIER LASTED FOR JUST A FEW MINUTES, AND SHE RETURNED TO NORMAL WITH NO OTHER SYMPTOMS NOTED AT THE TIME. PATIENT HAS NO COMPLAINTS AT THIS TIME. ALL TESTING IS BEING DEFERRED BY MD AT THIS TIME. CHARGE NURSE NOTIFIED.
--- NOTE | 2019-12-18 16:27 | HMH.EDWEAK ---
ED Disposition Clinical Impression: TIA (transient ischemic attack) Disposition: Home, Self-Care Condition on Discharge: Good Instructions: DI for Muscle Weakness Additional Instructions: Please follow-up with Dr. Caballero on Saturday at 10:15 AM. Please start taking your potassium from once a day to morning and at night. Referrals: Brain Caballero MD [Primary Care Provider] - - Critical Care Critical Care Time: No Attestation: On 12/18/19, the high probability of a clinically significant, sudden or life threatening deterioration of the following system(s) required my full and direct attention, intervention and personal management. The time I documented below is in addition to time spent performing reported procedures but includes the following listed in this critical care notation. Medical Decision Making - Medical Records Medical records reviewed: Yes: I reviewed the patient's medical records. - Faizan Inquiry Pt receiving controlled substance: No Vital Signs: 12/18/19 16:05 Temperature 98.3 F Temperature Source Oral Pulse Rate [Right] 69 Respiratory Rate 18 Blood Pressure [Right Arm] 129/83 Blood Pressure Mean [Right Arm] 98 Blood Pressure Source [Right Arm] Automatic Cuff 02 Sat by Pulse Oximetry 97 Oxygen Delivery Method Room Air - Lab Data Lab results reviewed: Yes: I reviewed the patient's lab results. Medical Decision Narrative: Spoke to Dr. Caballero about the patient stating the patient did not want a work-up done here in the ED since she is back at her baseline. Her NIH stroke scale score is 0. Dr. Caballero stated that he will increase her potassium from once to twice a day here in the ED and that last time she had her sodium checked was 125. And he will see her in the office on Saturday and she will keep her current appointments with neurology and also cardiology. Weakness HPI - General Chief complaint: Weakness Stated complaint: GENERAL WEAKNESS Time Seen by Provider: 12/18/19 16:27 Mode of Arrival: Ambulatory Source of Information: Patient Limitations: No Limitations Description of Symptoms (Recalled from ER Triage Doc. by RN): PATIENT PRESENTS WITH SPOUSE WHO STATES PATIENT EXPERIENCED SIMILAR EPISODES OF A PREVIOUS TIA SHE HAD ON 11/24/2019. PATIENT HAD MILD EPISODE OF MEMORY LOSS APPROX 2 HOURS AGO, BUT RESOLVED WITHIN MINUTES. PATIENT IS A/O X3, GCS 15, NIH 0. PHYSICIAN BROUGHT TO BEDSIDE - History of Present Illness HPI Narrative: A pleasant 79-year-old female presents the emergency department after having a possible TIA at home. Patient's states that the patient discussed had a blank stare and she could not remember the name of her grandson. They called Dr. Caballero and came straight to the emergency department here in the ED patient is back at her baseline she is alert and oriented x4 and has no neurological deficits. Patient did get diagnosed with a TIA earlier this month and subsequently put on Plavix. Patient states that she has been to [facility] twice and [facility] once. Patient does have an appointment to see Dr. Spencer next patient also has an appointment to see her neurologist a week from Saturday. Otherwise patient denies any other symptoms. Patient denies any recent cough or shortness of breath, patient denies any sore throat or headache, patient denies any loss of taste or smell, patient denies any malaise or fatigue, patient denies any abdominal pain nausea vomiting or diarrhea. - Related Data Home Medications Medication Instructions Recorded Confirmed allopurinol 100 mg tablet 200 mg PO DAILY 06/25/17 10/15/19 Levothyroxine Sodium [Synthroid 25 mcg PO DAILYDM 04/27/18 10/15/19 25mcg (0.025mg) tablet] Metformin HCl 500 mg PO DAILY 04/27/18 10/15/19 potassium chloride 20 mEq 20 meq PO DAILY 02/27/19 10/15/19 tablet,extended release(part/cryst) Aspirin [Aspirin 81mg chewable 81 mg PO DAILY 05/05/19 10/15/19 tab] G
[2019-12-18 16:39] VITALS: BP 130/87; PULSE 60; RESP 18; TEMP 36.7; O2SAT 98
== END 2019-12-18 16:43 | disposition home or self-care (01) ==
PROVIDERS: Emergency Provider Family Medicine; PCP Family Medicine
DX: G45.8 Other transient cerebral ischemic attacks and related syndromes (principal); I25.10 Atherosclerotic heart disease of native coronary artery without angina pectoris; E11.9 Type 2 diabetes mellitus without complications; K21.9 Gastro-esophageal reflux disease without esophagitis; E78.5 Hyperlipidemia, unspecified; I10 Essential (primary) hypertension; M79.7 Fibromyalgia; E03.9 Hypothyroidism, unspecified; Z79.899 Other long term (current) drug therapy
CPT/HCPCS: 99281

== ENCOUNTER → 2020-01-04 11:39 | Outpatient (CLI) | payer MEDICARE, OTHER, SELFPAY ==
[2020-01-04 12:39] LABS: Chloride 91 mmol/L (98-107); Potassium 4.2 mmoL/L (3.5-5.1); Sodium 128 mmol/L (136-145)
[2020-01-04 12:42] LABS: Anion Gap 14.2 mEq/L (5-15); Blood Urea Nitrogen 18 mg/dl (7-17); Calcium 9.5 mg/dl (8.4-10.2); Carbon Dioxide 27 mmol/L (22.0-30.0); Estimated Glomerular Filt Rate 69 ml/min (>60); GFR (African American) 84 ML/MIN (>60); Glucose 100 mg/dl (74-100)
== END ==
PROVIDERS: Visit Provider Internal Medicine Cardiovascular Disease
DX: E78.2 Mixed hyperlipidemia (principal); I10 Essential (primary) hypertension; I25.10 Atherosclerotic heart disease of native coronary artery without angina pectoris; I27.20 Pulmonary hypertension, unspecified; I51.89 Other ill-defined heart diseases; Z86.73 Personal history of transient ischemic attack (TIA), and cerebral infarction without residual deficits
CPT/HCPCS: 36415; 80048

== ENCOUNTER 2020-01-10 14:54 | Emergency (ER) | payer MEDICARE, OTHER, SELFPAY ==
--- NOTE | 2020-01-10 15:03 | PC.NURSE ---
Pt states she would just like her bp checked that she did not want to check into the ED that she just wanted her BP assessed. Refuses treatment or to be seen by a dr or provider. Pt BP is 143/91.
[2020-01-10 15:05] VITALS: BP 143/91; PULSE 71; RESP 17; TEMP 36.6; O2SAT 100
== END 2020-01-10 15:07 | disposition home or self-care (01) ==
PROVIDERS: Emergency Provider Nurse Practitioner Family; PCP Family Medicine
DX: Z53.21 Procedure and treatment not carried out due to patient leaving prior to being seen by health care provider (principal); I10 Essential (primary) hypertension
CPT/HCPCS: G0463

== ENCOUNTER → 2020-01-14 14:35 | Outpatient (CLI) | payer MEDICARE, OTHER, SELFPAY ==
[2020-01-14 15:23] LABS: Basophils % 0.4 % (0.1-2.0); Eosinophils # 0.1 K/mm3 (0.0-0.4); Eosinophils % 1.3 % (0.1-12.0); Hematocrit 29.8 % (37.0-47.0); Hemoglobin 10.5 g/dL (12.2-16.2); Lymphocytes # 1.9 K/mm3 (0.7-4.5); Lymphocytes % 27.5 % (10-50); Mean Corpuscular HGB Conc 35.3 g/dL (31.8-35.4); Mean Corpuscular Hemoglobin 29.8 pg (27.0-31.2); Mean Corpuscular Volume 84.5 fl (81-99); Mean Platelet Volume 7.1 fl (7.4-10.4); Monocytes # 0.4 K/mm3 (0.1-1.0); Monocytes % 5.5 % (1.7-9.3); Neutrophils # 4.5 K/mm3 (1.8-7.8); Neutrophils % 65.3 % (37.0-80.0); Platelet Count 330 K/mm3 (142-424); Red Blood Count 3.53 M/mm3 (4.20-5.40); White Blood Count 6.8 K/mm3 (4.8-10.8)
[2020-01-14 15:52] LABS: Iron 116 ug/dL (37-170)
[2020-01-14 16:01] LABS: Total Iron Binding Capacity 332 ug/dL (265-497)
[2020-01-14 16:28] LABS: Ferritin 104 ng/ml (11.1-264)
== END ==
PROVIDERS: Visit Provider Internal Medicine Medical Oncology
DX: D64.9 Anemia, unspecified (principal)
CPT/HCPCS: 36415; 82728; 83540; 83550; 85025

== ENCOUNTER → 2020-01-22 12:06 | Outpatient (CLI) | payer MEDICARE, OTHER, SELFPAY ==
[2020-01-22 13:24] LABS: Anion Gap 13.7 mEq/L (5-15); Blood Urea Nitrogen 18 mg/dl (7-17); Calcium 10.1 mg/dl (8.4-10.2); Carbon Dioxide 27 mmol/L (22.0-30.0); Chloride 94 mmol/L (98-107); Estimated Glomerular Filt Rate 69 ml/min (>60); GFR (African American) 84 ML/MIN (>60); Glucose 104 mg/dl (74-100); Potassium 4.7 mmoL/L (3.5-5.1); Sodium 130 mmol/L (136-145)
[2020-01-22 13:34] LABS: NT Pro Brain Natriuretic Pep. 149 pg/mL (0-450)
== END ==
PROVIDERS: Visit Provider Internal Medicine Cardiovascular Disease
DX: R07.9 Chest pain, unspecified; R55 Syncope and collapse; I50.30 Unspecified diastolic (congestive) heart failure; E11.9 Type 2 diabetes mellitus without complications; E78.2 Mixed hyperlipidemia; R53.83 Other fatigue
CPT/HCPCS: 36415; 80048; 83880

== ENCOUNTER → 2020-02-05 12:00 | Outpatient (CLI) | payer MEDICARE, OTHER, SELFPAY ==
[2020-02-05 14:05] LABS: Anion Gap 12.8 mEq/L (5-15); Blood Urea Nitrogen 16 mg/dl (7-17); Calcium 9.5 mg/dl (8.4-10.2); Carbon Dioxide 28 mmol/L (22.0-30.0); Chloride 95 mmol/L (98-107); Estimated Glomerular Filt Rate 69 ml/min (>60); GFR (African American) 84 ML/MIN (>60); Glucose 98 mg/dl (74-100); Potassium 4.8 mmoL/L (3.5-5.1); Sodium 131 mmol/L (136-145)
== END ==
PROVIDERS: Visit Provider Internal Medicine Cardiovascular Disease
DX: E11.9 Type 2 diabetes mellitus without complications (principal); E78.5 Hyperlipidemia, unspecified; E87.1 Hypo-osmolality and hyponatremia; I10 Essential (primary) hypertension; I95.9 Hypotension, unspecified; R07.9 Chest pain, unspecified; R53.83 Other fatigue; R55 Syncope and collapse
CPT/HCPCS: 36415; 80048

== ENCOUNTER → 2020-02-26 11:43 | Outpatient (CLI) | payer MEDICARE, OTHER, SELFPAY ==
[2020-02-26 12:32] LABS: Basophils % 0.3 % (0.1-2.0); Eosinophils # 0.1 K/mm3 (0.0-0.4); Eosinophils % 0.9 % (0.1-12.0); Hematocrit 30.8 % (37.0-47.0); Hemoglobin 11.1 g/dL (12.2-16.2); Mean Corpuscular HGB Conc 35.9 g/dL (31.8-35.4); Mean Corpuscular Hemoglobin 31.3 pg (27.0-31.2); Mean Corpuscular Volume 87.3 fl (81-99); Mean Platelet Volume 7.2 fl (7.4-10.4); Monocytes # 0.5 K/mm3 (0.1-1.0); Monocytes % 5.4 % (1.7-9.3); Neutrophils # 6.2 K/mm3 (1.8-7.8); Neutrophils % 70.5 % (37.0-80.0); Platelet Count 312 K/mm3 (142-424); Red Blood Count 3.53 M/mm3 (4.20-5.40); White Blood Count 8.8 K/mm3 (4.8-10.8)
[2020-02-26 17:47] LABS: Chloride 97 mmol/L (98-107); Sodium 131 mmol/L (136-145)
[2020-02-26 17:48] LABS: Potassium 4.3 mmoL/L (3.5-5.1)
[2020-02-26 17:50] LABS: Alanine Aminotransferase 30 U/L (12-78); Alkaline Phosphatase 75 U/L (38-126); Anion Gap 12.3 mEq/L (5-15); Aspartate Amino Transferase 33 U/L (14-36); Bilirubin,Total 0.5 mg/dl (0.2-1.3); Blood Urea Nitrogen 18 mg/dl (7-17); Carbon Dioxide 26 mmol/L (22.0-30.0); Creatine Kinase 69 U/L (30-135); Estimated Glomerular Filt Rate 69 ml/min (>60); GFR (African American) 84 ML/MIN (>60)
[2020-02-26 17:51] LABS: Albumin Level 4.5 g/dl (3.5-5.0); Calcium 9.7 mg/dl (8.4-10.2); Globulin 2.3 g/dL (1.3-3.2); Glucose 95 mg/dl (74-100); Total Protein,Serum 6.8 g/dl (6.3-8.2)
== END ==
PROVIDERS: Visit Provider Family Medicine
DX: I10 Essential (primary) hypertension (principal); Z87.898 Personal history of other specified conditions
CPT/HCPCS: 36415; 80053; 82550; 85025

== ENCOUNTER 2020-04-28 11:43 | Emergency (ER) | payer MEDICARE, OTHER, SELFPAY ==
[2020-04-28 11:44] VITALS: BP 147/69; PULSE 57; RESP 20; TEMP 36.6; O2SAT 100; BMI 24.0
--- NOTE | 2020-04-28 11:52 | HMH.EDGENADL ---
ED Disposition Clinical Impression: Diverticulitis, Syncope and collapse Disposition: Home, Self-Care Condition on Discharge: Good Instructions: DI for Syncope in Adults (Fainting), DI for Diverticulitis, DI for Abdominal Pain-Adult Additional Instructions: Cipro and Flagyl as prescribed. Zofran as needed for nausea. Call Dr. Caballero tomorrow to arrange follow-up appointment. Additional instructions for ABDOMINAL PAIN: See your physician as soon as possible for further evaluation. Return immediately if worsening abdominal pain, vomiting, shortness of breath, fever, vomiting of blood or abdominal distention. Prescriptions: Ciprofloxacin HCl [Ciprofloxacin 500mg Tab] 500 mg PO BID #20 tab Prescription Printed metroNIDAZOLE [Flagyl] 500 mg PO TID #30 tab Prescription Printed Ondansetron [Zofran 4mg ODT] 4 mg PO TIDP PRN #10 tab.rapdis PRN Reason: Nausea And Vomiting Prescription Printed Referrals: Brain Caballero MD [Primary Care Provider] - - Critical Care Critical Care Time: No Attestation: On 04/28/20, the high probability of a clinically significant, sudden or life threatening deterioration of the following system(s) required my full and direct attention, intervention and personal management. The time I documented below is in addition to time spent performing reported procedures but includes the following listed in this critical care notation. Medical Decision Making - Medical Records Medical records reviewed: Yes: I reviewed the patient's medical records. MR Comment: Reviewed prior CTa scan 04/16/2019 which showed diverticulitis - Faizan Inquiry Pt receiving controlled substance: No Vital Signs: 04/28/20 11:44 04/28/20 13:00 04/28/20 13:35 Temperature 97.9 F Temperature Source Oral Pulse Rate Pulse Rate [Radial] 57 L 62 58 L Respiratory Rate 20 18 20 Blood Pressure Blood Pressure [Right Radial Artery] 147/69 H 165/76 H 138/77 Blood Pressure Mean [Right Radial Artery] 95 105 97 Blood Pressure Source [Right Radial Artery] Automatic Cuff Automatic Cuff Blood Pressure Position Blood Pressure Position [Right Radial Artery] Sitting Sitting Sitting 02 Sat by Pulse Oximetry 100 99 93 L Oxygen Delivery Method Room Air Room Air Room Air 04/28/20 14:15 Temperature 97.9 F Temperature Source Pulse Rate 58 L Pulse Rate [Radial] Respiratory Rate 18 Blood Pressure 162/77 H Blood Pressure [Right Radial Artery] Blood Pressure Mean [Right Radial Artery] Blood Pressure Source [Right Radial Artery] Blood Pressure Position Sitting Blood Pressure Position [Right Radial Artery] 02 Sat by Pulse Oximetry Oxygen Delivery Method Room Air - Lab Data Lab results reviewed: Yes: I reviewed the patient's lab results. Lab Results 04/28/20 11:30: WBC 10.6, RBC 3.82 L, Hgb 11.6 L, Hct 33.4 L, MCV 87.5, MCH 30.3, MCHC 34.6, RDW 14.1, Plt Count 391, MPV 7.3 L, Neut % (Auto) 83.4 H, Lymph % (Auto) 10.0, Wallace % (Auto) 5.8, Eos % (Auto) 0.4, Baso % (Auto) 0.3, Neut # (Auto) 8.8 H, Lymph # (Auto) 1.1, Wallace # (Auto) 0.6, Eos # (Auto) 0.0, Baso # (Auto) 0.0 04/28/20 11:30: Sodium 130 L, Potassium 4.5, Chloride 94 L, Carbon Dioxide 25, Anion Gap 15.5 H, BUN 14, Creatinine 1.00, Estimated Creat Clear 42, Estimated GFR 54 L, Est GFR ( Amer) 65, Glucose 162 H, Calcium 10.0, Total Bilirubin 0.8, AST 33, ALT 42, Alkaline Phosphatase 140 H, Troponin I < 0.01, Total Protein 7.6, Albumin 4.5, Globulin 3.1, Albumin/Globulin Ratio 1.5, Amylase 82, Lipase 73 04/28/20 12:25: Stool Occult Blood Negative 04/28/20 13:40: Urine Color Yellow, Urine Appearance Clear, Urine pH 7.0, Ur Specific Kirksey <= 1.005, Urine Protein Negative, Urine Glucose (UA) Negative, Urine Ketones Negative, Urine Blood 1+, Urine Nitrate Negative, Urine Bilirubin Negative, Urine Urobilinogen 0.2, Ur Leukocyte Esterase Negative, Urine RBC Occasional, Urine WBC Occasional, Ur Squamous Epith Cells 5-10 Result diagrams:
--- NOTE | 2020-04-28 11:53 | CT_ITS ---
PROCEDURE: CT ABDOMEN PELVIS W CON CLINICAL INDICATION: abd pain Abdominal pain with nausea vomiting constipation in weakness COMPARISON: CT CT ANGIO ABDOMEN from 04/16/2019 TECHNIQUE: IV Contrast: 75ML Isovue 370 Oral Contrast None Axial images obtained with sagittal and coronal reformats. All CT scans at the facility use one or more dose reduction, viz: automated exposure control, ma/kV adjustment per patient size (including targeted exams where dose is matched to indication, i.e. head), or iterative reconstruction technique. FINDINGS: LOWER THORAX: There is a small hiatal hernia. ABDOMEN & PELVIS: The liver, gallbladder, spleen, adrenal glands, pancreas, and kidneys show no acute finding. There is a small left renal cortical hypodensity which is less than 1 cm to small to categorize. There is some mild thickening of the gastric body and antrum and duodenum which could be due to underlying inflammatory change. No intestinal obstruction or free air. No evidence of appendicitis. Prior hysterectomy. There is mild thickening of the hepatic flexure and transverse colon and proximal descending colon. This could be due to areas of nondistention versus colitis. There is more prominent thickening of the sigmoid colon proximally in the central and left pelvic region with stranding of the pericolic fat. Multiple diverticula are present in this region. There is no evidence of abscess or free air. There is a small amount fluid in the pelvic region. There is also some thickening of the rectosigmoid region of the colon There are mild degenerative changes of the spine and hips. IMPRESSION: 1. There are segmental areas of thickening of the colon including the hepatic flexure, transverse colon, proximal descending colon sigmoid colon and rectosigmoid region. This is more severe in the sigmoid colon with multiple diverticula noted at this region. Diverticulitis of the sigmoid colon is considered. Multi segmental skip areas of colitis with more severe involvement of the sigmoid colon is also consideration. The findings could also be merely be related to diverticulitis of the sigmoid colon with nondistention of the remaining areas of thickening. Follow-up exam with oral contrast may provide further evaluation if clinically warranted. There is no evidence of abscess or free air. 2. There is mild thickening of the stomach and duodenum which could be related to gastroduodenitis. Dictated by: Christian Verduzco MD 04/28/2020 13:29 Christian Verduzco MD in [facility] 04/28/2020 13:29
[2020-04-28 12:05] LABS: Basophils % 0.3 % (0.1-2.0); Eosinophils % 0.4 % (0.1-12.0); Hematocrit 33.4 % (37.0-47.0); Hemoglobin 11.6 g/dL (12.2-16.2); Lymphocytes # 1.1 K/mm3 (0.7-4.5); Mean Corpuscular HGB Conc 34.6 g/dL (31.8-35.4); Mean Corpuscular Hemoglobin 30.3 pg (27.0-31.2); Mean Corpuscular Volume 87.5 fl (81-99); Mean Platelet Volume 7.3 fl (7.4-10.4); Monocytes # 0.6 K/mm3 (0.1-1.0); Monocytes % 5.8 % (1.7-9.3); Neutrophils # 8.8 K/mm3 (1.8-7.8); Neutrophils % 83.4 % (37.0-80.0); Platelet Count 391 K/mm3 (142-424); Red Blood Count 3.82 M/mm3 (4.20-5.40); Red Cell Distribution Width 14.1 % (11.5-17.5); White Blood Count 10.6 K/mm3 (4.8-10.8)
[2020-04-28 12:13] LABS: Alanine Aminotransferase 42 U/L (12-78); Albumin Level 4.5 g/dl (3.5-5.0); Albumin/Globulin Ratio 1.5 (1.1-1.8); Alkaline Phosphatase 140 U/L (38-126); Amylase 82 U/L (30-110); Anion Gap 15.5 mEq/L (5-15); Aspartate Amino Transferase 33 U/L (14-36); Bilirubin,Total 0.8 mg/dl (0.2-1.3); Blood Urea Nitrogen 14 mg/dl (7-17); Carbon Dioxide 25 mmol/L (22.0-30.0); Chloride 94 mmol/L (98-107); Creatinine Clearance Estimated 42 mL/min (50-200); Estimated Glomerular Filt Rate 54 ml/min (>60); GFR (African American) 65 ML/MIN (>60); Globulin 3.1 g/dL (1.3-3.2); Glucose 162 mg/dl (74-100); Lipase 73 U/L (23-300); Potassium 4.5 mmoL/L (3.5-5.1); Sodium 130 mmol/L (136-145); Total Protein,Serum 7.6 g/dl (6.3-8.2)
--- NOTE | 2020-04-28 12:19 | ECG_ITS ---
APPROVED REPORT Exam: Resting ECG HR:59 bpm ECG Measurements Heart Rate 59 AXES UT 144 P 24 QRSd 70 QRS 26 QT 402 T 33 QTc 397 Conclusion Sinus bradycardia Otherwise normal ECG Electronically signed by : Chema Cordero, 05/02/2020 07:32:39
--- NOTE | 2020-04-28 12:20 | PC.NURSE ---
assisted Dr Chand with Rectal exam.
[2020-04-28 12:25] LABS: Troponin I < 0.01 ng/ml (0.00-0.034)
[2020-04-28 12:28] LABS: Occult Blood,Stool Negative (Negative)
[2020-04-28 13:00] VITALS: BP 165/76; PULSE 62; RESP 18; O2SAT 99
[2020-04-28 13:35] VITALS: BP 138/77; PULSE 58; RESP 20; O2SAT 93
[2020-04-28 13:44] LABS: Microscopic, Urine URINE MICROSCOPIC (MICROSCOPIC)
[2020-04-28 13:48] LABS: Appearance,Urine CLEAR (Clear); Bilirubin,Urine Negative (Negative); Blood, Urine 1+ (Negative); Color,Urine YELLOW (Yellow); Glucose,Urine (UA) Negative (Negative); Ketones,Urine Negative (Negative); Leukocyte Esterase,Urine Negative (Negative); Nitrate,Urine Negative (Negative); Protein,Urine Negative (Negative); Specific Gravity, Urine <= 1.005 (1.005-1.030); Urobilinogen,Urine 0.2 EU/dl (0.2)
[2020-04-28 13:57] LABS: RBC,Urine Occasional #/hpf (0-3); WBC,Urine Occasional #/hpf (0-3)
[2020-04-28 14:15] VITALS: BP 162/77; PULSE 58; RESP 18; TEMP 36.6; O2SAT 98
== END 2020-04-28 14:16 | disposition home or self-care (01) ==
PROVIDERS: Emergency Provider Emergency Medicine; PCP Family Medicine
DX: R55 Syncope and collapse (principal); K57.92 Diverticulitis of intestine, part unspecified, without perforation or abscess without bleeding; E11.65 Type 2 diabetes mellitus with hyperglycemia; K21.9 Gastro-esophageal reflux disease without esophagitis; M79.7 Fibromyalgia; E03.9 Hypothyroidism, unspecified; Z79.899 Other long term (current) drug therapy
CPT/HCPCS: 74177; 80053; 81001; 82150; 82272; 83690; 84484; 85025; 93005; 96365; 99284; G0328; Q9967

== ENCOUNTER → 2020-05-07 12:45 | Outpatient (CLI) | payer MEDICARE, OTHER, SELFPAY ==
[2020-05-07 13:30] LABS: Basophils % 0.4 % (0.1-2.0); Eosinophils # 0.1 K/mm3 (0.0-0.4); Eosinophils % 0.5 % (0.1-12.0); Hematocrit 35.1 % (37.0-47.0); Hemoglobin 11.8 g/dL (12.2-16.2); Lymphocytes # 1.9 K/mm3 (0.7-4.5); Lymphocytes % 20.4 % (10-50); Mean Corpuscular HGB Conc 33.5 g/dL (31.8-35.4); Mean Corpuscular Hemoglobin 29.5 pg (27.0-31.2); Mean Corpuscular Volume 87.9 fl (81-99); Mean Platelet Volume 8.2 fl (7.4-10.4); Monocytes # 0.5 K/mm3 (0.1-1.0); Monocytes % 5.3 % (1.7-9.3); Neutrophils # 6.9 K/mm3 (1.8-7.8); Neutrophils % 73.3 % (37.0-80.0); Platelet Count 474 K/mm3 (142-424); Red Blood Count 3.99 M/mm3 (4.20-5.40); Red Cell Distribution Width 14.8 % (11.5-17.5); White Blood Count 9.4 K/mm3 (4.8-10.8)
[2020-05-07 15:18] LABS: Iron 78 ug/dL (37-170)
[2020-05-07 15:28] LABS: Total Iron Binding Capacity 287 ug/dL (265-497)
[2020-05-07 15:52] LABS: Ferritin 164 ng/ml (11.1-264)
== END ==
PROVIDERS: Visit Provider Internal Medicine Medical Oncology
DX: D64.9 Anemia, unspecified (principal)
CPT/HCPCS: 36415; 82728; 83540; 83550; 85025

== ENCOUNTER → 2020-06-22 14:43 | Outpatient (CLI) | payer MEDICARE, OTHER, SELFPAY ==
--- NOTE | 2020-06-22 14:46 | CT_ITS ---
PROCEDURE: CT SINUS WO CON CLINICAL HISTORY: Facial discomfort dizziness No prior COMPARISON: No exams were available for comparison TECHNIQUE: Axial images obtained with sagittal and coronal reformats. All CT scans at the facility use one or more dose reduction, viz: automated exposure control, ma/kV adjustment per patient size (including targeted exams where dose is matched to indication, i.e. head), or iterative reconstruction technique. FINDINGS: No sinus air-fluid level or mucosal thickening apparent. No significant nasal septal deviation. The orbits have an unremarkable appearance as does the TMJs and mastoid sinuses. Artifact present from patient's dental work. There is degenerative disc disease at C5-C6 IMPRESSION: Negative CT sinuses Dictated by: Christian Verduzco MD 06/23/2020 14:23 Christian Verduzco MD in [facility] 06/23/2020 14:23
== END ==
PROVIDERS: PCP Family Medicine; Visit Provider Family Medicine
DX: R51.9 Headache, unspecified (principal)
CPT/HCPCS: 70486

== ENCOUNTER → 2020-07-05 10:25 | Outpatient (CLI) | payer MEDICARE, OTHER, SELFPAY ==
--- NOTE | 2020-07-05 10:40 | CT_ITS ---
PROCEDURE: CT ABDOMEN PELVIS W CON CLINICAL INDICATION: DIVERTICULITIS left lower abd pain, front and back, No N/V/D COMPARISON: CT CT ABDOMEN PELVIS W CON from 04/28/2020 TECHNIQUE: IV Contrast: 75ML Isovue 370 Oral Contrast None Axial images obtained with sagittal and coronal reformats. All CT scans at the facility use one or more dose reduction, viz: automated exposure control, ma/kV adjustment per patient size (including targeted exams where dose is matched to indication, i.e. head), or iterative reconstruction technique. FINDINGS: There is some scarring in the right lung base medially. The liver, spleen adrenal glands, and pancreas have an unremarkable appearance. There are few small peripancreatic lymph nodes not significantly changed. No renal or ureteral calculi. No hydronephrosis. The bowel gas pattern is nonspecific. There are fluid-filled loops of small and large bowel which are nondistended with a few scattered air-fluid levels. This may be seen with enterocolitis. There remains thickening of the sigmoid colon with mild stranding of the sub adjacent sigmoid colon fat suggesting residual diverticulitis. There is colonic diverticulosis of the sigmoid colon. No obvious abscess is evident however, there are multiple fluid-filled loops of large and small bowel which could obscure or mimic pathology. There is mild thickening of the urinary bladder wall. There has been a prior hysterectomy. No evidence of appendicitis. No free air is evident. IMPRESSION: 1. There remains mild thickening of the sigmoid colon with minimal haziness of the pericolic fat suggesting mild residual colitis or diverticulitis. No definite abscess or pneumoperitoneum. 2. Nondistended fluid-filled loops of small and large bowel are present with a few air-fluid levels which may be related to mild ileus or enterocolitis. 3. Mild thickening of the urinary bladder wall nonspecific. 4. Multiple unopacified bowel loops in the abdomen or pelvis which could obscure or mimic pathology. Dictated by: Christian Verduzco MD 07/06/2020 13:18 Christian Verduzco MD in [facility] 07/06/2020 13:18
[2020-07-05 11:00] LABS: Blood Urea Nitrogen 15 mg/dl (7-17); Estimated Glomerular Filt Rate 69 ml/min (>60); GFR (African American) 84 ML/MIN (>60)
== END ==
PROVIDERS: PCP Family Medicine; Visit Provider Family Medicine
DX: K57.92 Diverticulitis of intestine, part unspecified, without perforation or abscess without bleeding (principal)
CPT/HCPCS: 36415; 74177; 82565; 84520; Q9967

== ENCOUNTER 2020-07-07 00:48 | Emergency (ER) | payer MEDICARE, OTHER, SELFPAY ==
[2020-07-07] VITALS (7 sets, daily range): BP systolic 135–171; BP diastolic 63–79; PULSE 60–80; RESP 15–24; TEMP 36.4–36.6; O2SAT 96–100; BMI 23.9
[2020-07-07 01:12] LABS: Basophils % 0.1 % (0.1-2.0); Eosinophils % 0.1 % (0.1-12.0); Hematocrit 31.6 % (37.0-47.0); Hemoglobin 10.5 g/dL (12.2-16.2); Lymphocytes # 0.9 K/mm3 (0.7-4.5); Lymphocytes % 6.8 % (10-50); Mean Corpuscular HGB Conc 33.2 g/dL (31.8-35.4); Mean Corpuscular Hemoglobin 28.8 pg (27.0-31.2); Mean Corpuscular Volume 86.8 fl (81-99); Mean Platelet Volume 6.8 fl (7.4-10.4); Monocytes # 0.7 K/mm3 (0.1-1.0); Monocytes % 5.2 % (1.7-9.3); Neutrophils # 12.2 K/mm3 (1.8-7.8); Neutrophils % 87.8 % (37.0-80.0); Platelet Count 367 K/mm3 (142-424); Red Blood Count 3.64 M/mm3 (4.20-5.40); Red Cell Distribution Width 13.7 % (11.5-17.5); White Blood Count 13.9 K/mm3 (4.8-10.8)
[2020-07-07 01:13] LABS: MANUAL DIFFERENTIAL MANUAL DIFFERENTIAL (MANUAL DIFF)
--- NOTE | 2020-07-07 01:18 | HMH.EDNVD ---
ED Disposition Clinical Impression: Diverticulitis, SIRS (systemic inflammatory response syndrome), Hyponatremia Disposition: Home, Self-Care Condition on Discharge: Good Instructions: DI for Diverticulitis Additional Instructions: use meds and see pcp for follow up this week Referrals: Brain Caballero MD [Primary Care Provider] - - Critical Care Critical Care Time: No Attestation: On 07/07/20, the high probability of a clinically significant, sudden or life threatening deterioration of the following system(s) required my full and direct attention, intervention and personal management. The time I documented below is in addition to time spent performing reported procedures but includes the following listed in this critical care notation. Medical Decision Making - Medical Records Medical records reviewed: Yes: I reviewed the patient's medical records. - Faizan Inquiry Pt receiving controlled substance: No Vital Signs: 07/07/20 00:48 07/07/20 01:30 07/07/20 02:00 Temperature 97.6 F Temperature Source Oral Pulse Rate [Right] 60 72 72 Respiratory Rate 24 17 17 Blood Pressure [Right Arm] 159/64 H 151/69 H 135/68 Blood Pressure Mean [Right Arm] 95 96 90 Blood Pressure Source [Right Arm] Automatic Cuff Automatic Cuff Automatic Cuff Blood Pressure Position [Right Arm] Supine Supine Supine 02 Sat by Pulse Oximetry 100 100 100 Oxygen Delivery Method Room Air Room Air Room Air 07/07/20 02:30 07/07/20 03:00 07/07/20 03:30 Temperature Temperature Source Pulse Rate [Right] 77 75 75 Respiratory Rate 15 15 16 Blood Pressure [Right Arm] 145/63 H 171/79 H 142/69 H Blood Pressure Mean [Right Arm] 90 109 93 Blood Pressure Source [Right Arm] Automatic Cuff Automatic Cuff Automatic Cuff Blood Pressure Position [Right Arm] Supine Supine Supine 02 Sat by Pulse Oximetry 96 98 98 Oxygen Delivery Method Room Air Room Air Room Air - Lab Data Lab results reviewed: Yes: I reviewed the patient's lab results. Lab Results 07/07/20 00:30: WBC 13.9 H, RBC 3.64 L, Hgb 10.5 L, Hct 31.6 L, MCV 86.8, MCH 28.8, MCHC 33.2, RDW 13.7, Plt Count 367, MPV 6.8 L, Neut % (Auto) 87.8 H, Lymph % (Auto) 6.8 L, [place] % (Auto) 5.2, Eos % (Auto) 0.1, Baso % (Auto) 0.1, Neut # (Auto) 12.2 H, Lymph # (Auto) 0.9, Dixie # (Auto) 0.7, Eos # (Auto) 0.0, Baso # (Auto) 0.0, Total Counted 100, Neutrophils % (Manual) 94 H, Lymphocytes % (Manual) 6 L, Platelet Estimate Normal, RBC Morphology Not Reportable, Ovalocytes 1+, Acanthocytes (Spur) 1+, ESR 128 H 07/07/20 00:30: Sodium 124 L, Potassium 4.2, Chloride 94 L, Carbon Dioxide 23, Anion Gap 11.2, BUN 10 D, Creatinine 0.70, Estimated Creat Clear 43, Estimated GFR 81, Est GFR ( Amer) 98, Glucose 150 H, Calcium 9.5, Total Bilirubin 0.7, AST 31, ALT 37, Alkaline Phosphatase 131 H, C-Reactive Protein 69.6 H, Total Protein 7.1, Albumin 4.1, Globulin 3.0, Albumin/Globulin Ratio 1.4, Amylase 61, Lipase 37, Procalcitonin 0.104 07/07/20 02:55: Urine Color Yellow, Urine Appearance Clear, Urine pH 6.5, Ur Specific [place] 1.015, Urine Protein Negative, Urine Glucose (UA) Trace, Urine Ketones Trace, Urine Blood Trace-l, Urine Nitrate Negative, Urine Bilirubin Negative, Urine Urobilinogen 0.2, Ur Leukocyte Esterase Negative, Urine WBC Occasional, Urine Bacteria Trace Result diagrams: 07/07/20 00:30 07/07/20 00:30 Orders (Tests/Meds): ED MEDICATIONS Generic Name Dose Route Start Last Admin Trade Name Freq PRN Reason Stop Dose Admin Sodium Chloride 1,000 mls @ 999 mls/hr 07/07/20 01:00 07/07/20 01:16 Sod Chlor 0.9% 1000ml Bag IV 07/07/20 02:00 999 mls/hr .Q1H1M ANTHONY Administration Discontinued Medications Generic Name Dose Route Start Last Admin Trade Name Freq PRN Reason Stop Dose Admin Ketorolac Tromethamine 30 mg 07/07/20 00:57 07/07/20 01:16 Ketorolac 30mg/Ml Vial IV 07/07/20 00:58 30 mg ONCE ONE Administration Methylprednisolone Sodium Succinate 125 mg 07/07/20 0
[2020-07-07 01:34] LABS: Erythrocyte Sedimentation Rate 128 mm/hr (0-30)
[2020-07-07 01:41] LABS: Lymphocytes % 6 % (10-50); Neutrophils % 94 % (42-76); Total Cells Counted 100
[2020-07-07 01:42] LABS: Acanthocytes 1+; Ovalocytes 1+; Platelet Estimate Normal
[2020-07-07 01:43] LABS: Alanine Aminotransferase 37 U/L (12-78); Albumin Level 4.1 g/dl (3.5-5.0); Albumin/Globulin Ratio 1.4 (1.1-1.8); Alkaline Phosphatase 131 U/L (38-126); Amylase 61 U/L (30-110); Anion Gap 11.2 mEq/L (5-15); Aspartate Amino Transferase 31 U/L (14-36); Bilirubin,Total 0.7 mg/dl (0.2-1.3); Blood Urea Nitrogen 10 mg/dl (7-17); Calcium 9.5 mg/dl (8.4-10.2); Carbon Dioxide 23 mmol/L (22.0-30.0); Chloride 94 mmol/L (98-107); Creatinine Clearance Estimated 43 mL/min (50-200); Estimated Glomerular Filt Rate 81 ml/min (>60); GFR (African American) 98 ML/MIN (>60); Glucose 150 mg/dl (74-100); Lipase 37 U/L (23-300); Potassium 4.2 mmoL/L (3.5-5.1); Sodium 124 mmol/L (136-145); Total Protein,Serum 7.1 g/dl (6.3-8.2)
[2020-07-07 01:49] LABS: C-Reactive Protein 69.6 mg/L (0-4)
[2020-07-07 02:03] LABS: Procalcitonin 0.104 ng/mL (0.0-2.0)
[2020-07-07 03:00] LABS: Appearance,Urine CLEAR (Clear); Bilirubin,Urine Negative (Negative); Blood, Urine TRACE-L (Negative); Color,Urine YELLOW (Yellow); Glucose,Urine (UA) TRACE (Negative); Ketones,Urine TRACE (Negative); Leukocyte Esterase,Urine Negative (Negative); Microscopic, Urine URINE MICROSCOPIC (MICROSCOPIC); Nitrate,Urine Negative (Negative); PH,Urine 6.5 (5.0-8.5); Protein,Urine Negative (Negative); Specific Gravity, Urine 1.015 (1.005-1.030); Urobilinogen,Urine 0.2 EU/dl (0.2)
[2020-07-07 03:26] LABS: Bacteria,Urine Trace /lpf; WBC,Urine Occasional #/hpf (0-3)
== END 2020-07-07 04:25 | disposition home or self-care (01) ==
PROVIDERS: Emergency Provider Emergency Medicine; PCP Family Medicine
DX: K57.92 Diverticulitis of intestine, part unspecified, without perforation or abscess without bleeding (principal); R65.10 Systemic inflammatory response syndrome (SIRS) of non-infectious origin without acute organ dysfunction; E87.1 Hypo-osmolality and hyponatremia; M79.7 Fibromyalgia; E03.9 Hypothyroidism, unspecified; I10 Essential (primary) hypertension; E78.5 Hyperlipidemia, unspecified; I25.10 Atherosclerotic heart disease of native coronary artery without angina pectoris; K21.9 Gastro-esophageal reflux disease without esophagitis; Z79.899 Other long term (current) drug therapy
CPT/HCPCS: 80053; 81001; 82150; 83690; 84145; 85007; 85025; 85651; 86140; 96365; 96375; 99283; J2405

== ENCOUNTER → 2020-08-08 09:27 | Outpatient (POV) | payer MEDICARE, OTHER, SELFPAY | PROVIDERS: Visit Provider Nurse Practitioner Family | DX: Z00.00 Encounter for general adult medical examination without abnormal findings (principal) ==

== ENCOUNTER → 2020-08-13 11:27 | Outpatient (CLI) | payer MEDICARE, OTHER, SELFPAY ==
[2020-08-13 12:55] LABS: Basophils # 0.1 K/mm3 (0-0.2); Eosinophils # 0.1 K/mm3 (0.0-0.4); Eosinophils % 1.6 % (0.1-12.0); Hematocrit 34.4 % (37.0-47.0); Hemoglobin 10.8 g/dL (12.2-16.2); Lymphocytes # 1.8 K/mm3 (0.7-4.5); Lymphocytes % 29.1 % (10-50); Mean Corpuscular HGB Conc 31.3 g/dL (31.8-35.4); Mean Corpuscular Hemoglobin 28.3 pg (27.0-31.2); Mean Corpuscular Volume 90.3 fl (81-99); Mean Platelet Volume 7.1 fl (7.4-10.4); Monocytes # 0.3 K/mm3 (0.1-1.0); Monocytes % 5.6 % (1.7-9.3); Neutrophils # 3.8 K/mm3 (1.8-7.8); Neutrophils % 62.6 % (37.0-80.0); Platelet Count 367 K/mm3 (142-424); Red Blood Count 3.81 M/mm3 (4.20-5.40); Red Cell Distribution Width 13.9 % (11.5-17.5); White Blood Count 6.1 K/mm3 (4.8-10.8)
[2020-08-13 14:03] LABS: Chloride 95 mmol/L (98-107); Sodium 130 mmol/L (136-145)
[2020-08-13 14:06] LABS: Iron 83 ug/dL (37-170)
[2020-08-13 14:07] LABS: Carbon Dioxide 27 mmol/L (22.0-30.0)
[2020-08-13 14:15] LABS: Total Iron Binding Capacity 292 ug/dL (265-497)
[2020-08-13 14:41] LABS: Ferritin 85.2 ng/ml (11.1-264)
[2020-08-14 08:59] LABS: Blood Urea Nitrogen 13 mg/dl (7-17)
[2020-08-14 09:00] LABS: Alanine Aminotransferase 20 U/L (12-78); Albumin Level 4.3 g/dl (3.5-5.0); Albumin/Globulin Ratio 1.5 (1.1-1.8); Alkaline Phosphatase 91 U/L (38-126); Aspartate Amino Transferase 27 U/L (14-36); Bilirubin,Total 0.4 mg/dl (0.2-1.3); Calcium 9.4 mg/dl (8.4-10.2); Estimated Glomerular Filt Rate 81 ml/min (>60); GFR (African American) 98 ML/MIN (>60); Globulin 2.8 g/dL (1.3-3.2); Glucose 106 mg/dl (74-100); Total Protein,Serum 7.1 g/dl (6.3-8.2)
== END ==
PROVIDERS: Visit Provider Internal Medicine Medical Oncology
DX: D64.9 Anemia, unspecified (principal)
CPT/HCPCS: 36415; 80051; 80053; 82728; 83540; 83550; 85025

== ENCOUNTER → 2020-11-22 10:50 | Outpatient (CLI) | payer MEDICARE, OTHER, SELFPAY ==
[2020-11-22 11:18] LABS: Basophils % 0.7 % (0.1-2.0); Eosinophils # 0.1 K/mm3 (0.0-0.4); Eosinophils % 1.4 % (0.1-12.0); Hematocrit 33.4 % (37.0-47.0); Hemoglobin 11.5 g/dL (12.2-16.2); Lymphocytes # 1.3 K/mm3 (0.7-4.5); Lymphocytes % 21.3 % (10-50); Mean Corpuscular HGB Conc 34.4 g/dL (31.8-35.4); Mean Corpuscular Hemoglobin 28.7 pg (27.0-31.2); Mean Corpuscular Volume 83.5 fl (81-99); Mean Platelet Volume 6.7 fl (7.4-10.4); Monocytes # 0.2 K/mm3 (0.1-1.0); Monocytes % 3.5 % (1.7-9.3); Neutrophils # 4.4 K/mm3 (1.8-7.8); Platelet Count 436 K/mm3 (142-424); Red Cell Distribution Width 13.6 % (11.5-17.5)
[2020-11-22 12:38] LABS: Iron 75 ug/dL (37-170)
[2020-11-22 12:47] LABS: Total Iron Binding Capacity 282 ug/dL (265-497)
[2020-11-22 13:14] LABS: Ferritin 72.5 ng/ml (11.1-264)
== END ==
PROVIDERS: Visit Provider Internal Medicine Medical Oncology
DX: D64.9 Anemia, unspecified (principal); Z86.2 Personal history of diseases of the blood and blood-forming organs and certain disorders involving the immune mechanism
CPT/HCPCS: 36415; 82728; 83540; 83550; 85025

== ENCOUNTER → 2020-11-29 10:49 | Outpatient (CLI) | payer MEDICARE, OTHER, SELFPAY ==
--- NOTE | 2020-11-29 10:52 | CA_ITS ---
APPROVED REPORT EXAM: Comprehensive 2D, Doppler, and color-flow Echocardiogram Tiller Worker: Mari Foley RVT Ht: 5 ft 2 in Wt: 128lbs BSA: 1.58 BP: 127/53 mmHg Indications: ELEVATED CPK,CAD,GERD,HX TIA,LOOP RECORDER,HTN,HLD 2D Dimensions LVOT 1.98 cm (M/F) 1.5-2.5 LA Volume 20.30 mL LA Volume Index 12.84 mL/m2 (M/F) 16-34 M-Mode Dimensions LA Diam 3.40 cm (1.9-4.0) LVDd 3.81 cm (3.5-5.7) Ao Diam 3.14 cm (2.0-3.7) LVDs 3.03 cm (3.5-5.7) IVSd 0.89 cm (0.6-1.1) PWd 0.98 cm (0.6-1.1) EF (Teich) 42.40% FS 20.50% EDV (Teich) 62.30 mL TAPSE 2.44 (<1.7) ESV (Teich) 35.90 mL LV Diastology E Decel Time 153.00 (160-240 msec) E/A Ratio 1.2 MED E' 6.20 (< 7 cm/sec) E'/MED E' Ratio 12.95 (>14) LAT E' 11.60 (<10 cm/sec) E/LAT E' Ratio 6.92 (>14) Aortic Valve AI PHT 883.00 ms AO Peak GR. 4.00 mmHg Mitral Valve MV E Max Ranjit. 80.00 (40-130 cm/s) MV A Velocity 66.00 (40-130 cm/s) E/A Ratio 1.22 MV Decel. Time 153.00 (160-240 ms) MV PHT 45.00 ms Pulmonary Valve PV Peak Velocity 67.00 (50-150 cm/s) Tricuspid Valve TR P. Velocity 250.00 cm/s RAP Estimate 10.00 mmHg RVSP 34.90 mmHg Left Ventricle Left atrium is mildly enlarged, left ventricle is normal size, mild concentric left ventricular hypertrophy, visually estimated ejection fraction 50% with no regional wall motion abnormality, diastolic parameters are inconclusive. Right Ventricle Right atrium and right ventricle mildly enlarged with normal contractility. Aortic Valve Aortic valve is minimally thickened and fibrosed, there is no aortic stenosis, there is trace aortic insufficiency. Mitral Valve Mitral valve is grossly normal, there is trace mitral regurgitation. Tricuspid Valve Tricuspid grossly normal, there is trace tricuspid regurgitation, calculated right ventricular systolic pressure is 35 mmHg. Pulmonic Valve Pulmonic valve is poorly visualized. Great Vessels Aortic root is normal size. Inferior vena cava is normal size with normal inspiratory collapse. Pericardium No significant pericardial effusion noted. Conclusion 1. Mild biatrial abdomen, normal left ventricular size, mild concentric left ventricular hypertrophy, visually estimated ejection fraction 50% with no regional wall motion abnormality, diastolic parameters are inconclusive. 2. Mildly enlarged right ventricle with normal contractility. 3. Trace aortic, trace mitral and tricuspid regurgitation, calculated right ventricular systolic pressure 35 mmHg. 4. No significant pericardial effusion noted, inferior vena cava is normal size with normal inspiratory collapse. Electronically signed by : Zen Spencer, 11/29/2020 18:38:43
== END ==
PROVIDERS: PCP Family Medicine; Visit Provider Family Medicine
DX: R74.8 Abnormal levels of other serum enzymes (principal); I25.10 Atherosclerotic heart disease of native coronary artery without angina pectoris
CPT/HCPCS: 93306

== ENCOUNTER → 2020-12-13 14:18 | Outpatient (CLI) | payer MEDICARE, OTHER, SELFPAY ==
[2020-12-13 15:30] LABS: Erythrocyte Sedimentation Rate 23 mm/hr (0-30)
== END ==
PROVIDERS: Visit Provider Family Medicine
DX: E27.40 Unspecified adrenocortical insufficiency (principal); D50.0 Iron deficiency anemia secondary to blood loss (chronic); R74.8 Abnormal levels of other serum enzymes
CPT/HCPCS: 36415; 85651

== ENCOUNTER → 2021-02-10 17:28 | Outpatient (CLI) | payer MEDICARE, OTHER, SELFPAY ==
[2021-02-10 18:05] LABS: Creatine Kinase 81 U/L (30-135)
[2021-02-10 19:42] LABS: Erythrocyte Sedimentation Rate 26 mm/hr (0-30)
== END ==
PROVIDERS: Visit Provider Family Medicine
DX: I47.1 Supraventricular tachycardia (principal)
CPT/HCPCS: 82550; 85651

== ENCOUNTER → 2021-02-13 10:55 | Outpatient (POV) | payer MEDICARE, OTHER, SELFPAY | PROVIDERS: Visit Provider Nurse Practitioner Family | DX: Z00.00 Encounter for general adult medical examination without abnormal findings (principal) ==

== ENCOUNTER 2021-03-12 14:19 | Emergency (ER) | payer MEDICARE, OTHER, SELFPAY ==
[2021-03-12 15:02] VITALS: BP 137/73; PULSE 74; RESP 14; TEMP 36.7; O2SAT 98; BMI 25.2
--- NOTE | 2021-03-12 16:05 | HMH.EDUTC ---
[facility] Disposition Clinical Impression: Laceration of right elbow Qualifiers: Encounter type: initial encounter Qualified Code(s): S51.011A - Laceration without foreign body of right elbow, initial encounter Disposition: Home, Self-Care Condition on Discharge: Good Instructions: DI for Laceration Repair-Skin Closure Strips Additional Instructions: Keep the wound clean and dry. Watch the for signs of infection, such as redness, swelling, drainage, fever. etc. Take tylenol or ibuprofen for pain. Follow up with your regular doctor (Dr. Caballero) on Saturday as scheduled. It is good that you already have that appointment because your regular doctor will need to be involved in caring for this wound (deep wound that it is too late to suture). Wear the arm sling and try not to move you elbow unnecessarily for the next 2 to 3 days to allow the wound to begin healing. GO TO THE ER FOR ANY WORSENING SYMPTOMS OR CONCERNS. If the steri-strips begin to come off, you can replace them. Follow the directions of your primary care doctor once you are seen by them. Prescriptions: cephALEXin [Cephalexin 500mg Tab] 500 mg PO Q6H 7 Days #28 tab Transmission Status: Pending to [facility] Referrals: Brain Caballero MD [Primary Care Provider] - Time of Disposition: 16:24 Medical Decision Making - Medical Records Medical records reviewed: No: I reviewed the patient's medical records. - Faizan Inquiry Pt receiving controlled substance: No Vital Signs: 03/12/21 15:02 Temperature 98.1 F Temperature Source Oral Pulse Rate [Left] 74 Respiratory Rate 14 Blood Pressure [Right Arm] 137/73 Blood Pressure Mean [Right Arm] 94 02 Sat by Pulse Oximetry 98 Orders (Tests/Meds): ED MEDICATIONS Discontinued Medications Generic Name Dose Route Start Last Admin Trade Name Freq PRN Reason Stop Dose Admin Ceftriaxone Sodium 1 gm 03/12/21 16:14 Ceftriaxone 1gm Vial IM 03/12/21 16:15 ONCE ONE Lidocaine HCl 0 ml 03/12/21 16:14 Lidocaine 1% 5ml Pf Vial IM 03/12/21 16:15 ONCE ONE Medical Decision Narrative: Her laceration on her elbow is deep and it would have needed sutures, but it was over 24 hours since he fell and injured it. So, steri-strips and an arm sling were applied. She is to f/u with her pcp closely to ensure adequate healing. [facility] HPI - General Stated complaint: [id number] right elbow pain,home accident Time Seen by Provider: 03/12/21 15:35 Mode of Arrival: Ambulatory Source of Information: Patient Limitations: No Limitations Description of Symptoms (Recalled from Triage Doc. by RN): pt fell yesterday landing on her R elbow. pt has a deep lac accross the elbow with the muscle/ tendon visible. HEENT Symptoms (Recalled from RN notes): No Resp Symptoms (Recalled from RN notes): No Skin Symptoms (Recalled from RN notes): Yes (lac to R elbow) MS Symptoms (Recalled from RN notes): No Functional Status (Recalled from RN notes): na - History of Present Illness Provider Complaint: She states that she fell yesterday at 10:00 am and came down on her right elbow. She recieved a laceration on her right elbow. She is here now to have the wound evaluated after she refused to come yesterday. She denies any other injury. She is moving the elbow well and has no pain other than at the wound site. Her tetanus immunization is up to date. - Related Data Home Medications Medication Instructions Recorded Confirmed Levothyroxine Sodium [Synthroid 25 mcg PO DAILYDM 04/27/18 01/26/21 25mcg (0.025mg) tablet] Gabapentin [Gabapentin 300mg Cap] 300 mg PO HS 05/05/19 01/26/21 polyethylene glycoL 3350 [Miralax 17 gm PO DAILYP PRN 05/05/19 01/26/21 17gm Packet] allopurinol 100 mg tablet 100 mg PO DAILY tab 12/24/19 01/26/21 alprazolam 0.25 mg tablet 0.125 mg PO BID tab 12/24/19 01/26/21 clopidogrel 75 mg tablet 75 mg PO DAILY tab 12/24/19 01/26/21 potassium chloride 20 mEq
[2021-03-12 16:38] VITALS: BP 137/73; PULSE 74; RESP 15; TEMP 36.7
== END 2021-03-12 16:41 | disposition home or self-care (01) ==
PROVIDERS: Emergency Provider Nurse Practitioner Family; PCP Family Medicine
DX: S51.011A Laceration without foreign body of right elbow, initial encounter (principal); W19.XXXA Unspecified fall, initial encounter; E78.5 Hyperlipidemia, unspecified; I25.10 Atherosclerotic heart disease of native coronary artery without angina pectoris
CPT/HCPCS: 96372; 99202; G0463

== ENCOUNTER 2021-03-13 21:44 | Emergency (ER) | payer MEDICARE, OTHER, SELFPAY ==
[2021-03-13 21:58] VITALS: BP 0/0; PULSE 0; RESP 0; TEMP -17.7; TEMP 0; O2SAT 0
== END 2021-03-13 21:58 | disposition left against medical advice (07) ==
LOC: ER 21:53
PROVIDERS: Emergency Provider Emergency Medicine; PCP Family Medicine
DX: Z53.21 Procedure and treatment not carried out due to patient leaving prior to being seen by health care provider (principal)
CPT/HCPCS: 99211

== ENCOUNTER → 2021-03-20 15:41 | Outpatient (CLI) | payer MEDICARE, OTHER, SELFPAY ==
[2021-03-20 16:42] LABS: Basophils # 0.1 K/mm3 (0-0.2); Basophils % 0.5 % (0.1-2.0); Eosinophils # 0.1 K/mm3 (0.0-0.4); Eosinophils % 0.5 % (0.1-12.0); Hemoglobin 10.8 g/dL (12.2-16.2); Lymphocytes # 1.7 K/mm3 (0.7-4.5); Mean Corpuscular HGB Conc 33.7 g/dL (31.8-35.4); Mean Corpuscular Hemoglobin 30.1 pg (27.0-31.2); Mean Corpuscular Volume 89.4 fl (81-99); Mean Platelet Volume 7.9 fl (7.4-10.4); Monocytes # 0.5 K/mm3 (0.1-1.0); Monocytes % 5.3 % (1.7-9.3); Neutrophils # 7.1 K/mm3 (1.8-7.8); Neutrophils % 75.6 % (37.0-80.0); Platelet Count 430 K/mm3 (142-424); Red Blood Count 3.58 M/mm3 (4.20-5.40); Red Cell Distribution Width 14.5 % (11.5-17.5); White Blood Count 9.4 K/mm3 (4.8-10.8)
[2021-03-20 17:12] LABS: Iron 55 ug/dL (37-170)
[2021-03-20 17:22] LABS: Total Iron Binding Capacity 293 ug/dL (265-497)
[2021-03-20 17:48] LABS: Ferritin 65.6 ng/ml (11.1-264)
== END ==
PROVIDERS: Visit Provider Internal Medicine Medical Oncology
DX: D50.9 Iron deficiency anemia, unspecified (principal)
CPT/HCPCS: 36415; 82728; 83540; 83550; 85025

== ENCOUNTER → 2021-03-29 17:04 | Outpatient (CLI) | payer MEDICARE, OTHER, SELFPAY ==
--- NOTE | 2021-03-29 17:08 | XR_ITS ---
PROCEDURE INFORMATION: Exam: XR Left Shoulder Exam date and time: 03/29/2021 5:08 PM Age: 80 years old Clinical indication: Injury or trauma; Fall; Blunt trauma (contusions or hematomas); Shoulder; Left; Injury date: 03/29/21; Additional info: Fall, pain lt shoulder TECHNIQUE: Imaging protocol: XR Left shoulder. Views: 2 or more views. COMPARISON: CR XR CHEST PORTABLE 06/21/2019 2:09 PM FINDINGS: Bones/joints: No acute fracture or dislocation at the shoulder. Minimal inferomedial humerus head spurring seen on series 2. Glenoid is unremarkable. Minimal acromioclavicular arthritis. There are no lytic skeletal lesions seen. Prominent thoracic spine degenerative changes noted with multilevel disc narrowing and spondylosis, best seen on series 3. Visualized left ribs appear intact. Lungs: No acute findings in the visualized left lung. Possible calcified granuloma at the left lung base seen on image 1. Soft tissues: No radiopaque foreign bodies. No pathologic soft tissue calcification. IMPRESSION: 1. No acute fracture or dislocation. 2. Minimal degenerative changes at the shoulder and acromioclavicular joint. 3. Prominent thoracic spine degenerative changes with multilevel disc disease and spondylosis
== END ==
PROVIDERS: PCP Family Medicine; Visit Provider Family Medicine
DX: S40.012A Contusion of left shoulder, initial encounter (principal)
CPT/HCPCS: 73030

== ENCOUNTER → 2021-04-11 11:16 | Outpatient (CLI) | payer MEDICARE, OTHER, SELFPAY ==
--- NOTE | 2021-04-11 11:23 | XR_ITS ---
PROCEDURE: XR SACRUM COCCYX MIN 2V CLINICAL INDICATION: LOW BACK PAIN, UNSPECIFIED COMPARISON: No exams were available for comparison FINDINGS: No fracture or dislocation. No lytic or blastic change. There is normal mineralization. There is sclerosis at the symphysis pubis with mild bony hypertrophy suggesting osteitis pubis. The SI joints have an unremarkable appearance. No fracture or dislocation. Suture lines are present in both right left aspect of pelvis. Other findings:None. 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
== END ==
PROVIDERS: PCP Family Medicine; Visit Provider Family Medicine
DX: M54.50 Low back pain, unspecified (principal)
CPT/HCPCS: 72220

== ENCOUNTER 2021-04-24 15:16 | Emergency (ER) | payer MEDICARE, OTHER, SELFPAY ==
[2021-04-24 17:35] VITALS: BP 141/83; PULSE 70; RESP 19; TEMP 37; O2SAT 99; BMI 20.5
--- NOTE | 2021-04-24 17:57 | HMH.EDUTC ---
[facility] Disposition Clinical Impression: Laceration Disposition: Home, Self-Care Condition on Discharge: Good Instructions: DI for Laceration Repair, Laceration Repair Additional Instructions: Suture instructions: You have required stitches today. Please read the following instructions so you know how to care for them: 1. Keep wound area dry for the first 24 hours. 2 May clean gently with mild soap and water, after 48 hours to prevent crusting over suture knots. 3. You may shower if your provider gives permission but do not take a bath until the skin is healed.. 4. Never leave a wet dressing or Band-Aid on your stitches as this allows bacteria to reach the area and may cause infection. Band-aids can cause the wound to sweat and not recommended to wear for long periods of time Watch for signs of infection: Increasing redness, tenderness or warmth around the suture site Unusual swelling around the site Appearance of pus around each suture or any red streaks Fever If you develop any of the above signs or symptoms of infection, Follow up with Family Physician immediately 5. Suture removal in _10-12___days 6. Return to [facility] or follow up with family doctor for removal. This can be done by any medical provider during regular hours on Saturday through Saturday, by appointment. Referrals: Brain Caballero MD [Primary Care Provider] - As needed Time of Disposition: 18:33 Medical Decision Making - Faizan Inquiry Pt receiving controlled substance: No Faizan was queried for this patient: No Vital Signs: 04/24/21 17:35 Temperature 98.6 F Temperature Source Oral Pulse Rate [Left] 70 Respiratory Rate 19 Blood Pressure [Right Arm] 141/83 H Blood Pressure Mean [Right Arm] 102 02 Sat by Pulse Oximetry 99 [facility] HPI - General Stated complaint: cut on left index finger Time Seen by Provider: 04/24/21 18:28 Mode of Arrival: Ambulatory Source of Information: Patient Limitations: No Limitations Description of Symptoms (Recalled from Triage Doc. by RN): pt presents with a lac to her L index finger. pt states she was cutting a ham with a senior technologist knife when she accidently cut herself. pt had her tetnus in march. HEENT Symptoms (Recalled from RN notes): No Resp Symptoms (Recalled from RN notes): No Skin Symptoms (Recalled from RN notes): Yes (lac to L index finger) MS Symptoms (Recalled from RN notes): No Functional Status (Recalled from RN notes): na - History of Present Illness Provider Complaint: Patient states that she was cutting a piece of ham with a senior technologist knife when it slipped and cut her on her left index finger States that she applied pressure to help with the bleeding and her looked at it and thought she may need stitches States that she just had tetanus a few years ago but she came in to get it checked - Related Data Home Medications Medication Instructions Recorded Confirmed Levothyroxine Sodium [Synthroid 25 mcg PO DAILYDM 04/27/18 03/23/21 25mcg (0.025mg) tablet] Gabapentin [Gabapentin 300mg Cap] 300 mg PO HS 05/05/19 03/23/21 polyethylene glycoL 3350 [Miralax 17 gm PO DAILYP PRN 05/05/19 03/23/21 17gm Packet] allopurinol 100 mg tablet 100 mg PO DAILY tab 12/24/19 03/23/21 alprazolam 0.25 mg tablet 0.125 mg PO BID tab 12/24/19 03/23/21 clopidogrel 75 mg tablet 75 mg PO DAILY tab 12/24/19 03/23/21 potassium chloride 20 mEq 20 meq PO BID tab 12/24/19 03/23/21 tablet,extended release(part/cryst) losartan 25 mg tablet 25 mg PO BID tab 11/24/20 03/23/21 prednisone 20 mg tablet 20 mg PO DAILY tab 11/24/20 03/23/21 amlodipine 2.5 mg tablet 2.5 mg PO DAILY 01/26/21 03/23/21 Previous Rx's Medication Instructions Recorded metoprolol succinate 50 mg 50 mg PO DAILY #30 tab 01/05/21 tablet,extended release 24 hr cephALEXin [Cephalexin 500mg Tab] 500 mg PO Q6H 7 Days #28 tab 03/12/21 Allergies Allergy/AdvReac Type Severity Reaction Status Date / Time Sulfa (Sulfonamide Allergy Mil
[2021-04-24 18:54] VITALS: BP 141/83; PULSE 70; RESP 19; TEMP 37
== END 2021-04-24 18:58 | disposition home or self-care (01) ==
PROVIDERS: Emergency Provider Nurse Practitioner; PCP Family Medicine
DX: S61.211A Laceration without foreign body of left index finger without damage to nail, initial encounter (principal); W26.0XXA Contact with knife, initial encounter; Y92.010 Kitchen of single-family (private) house as the place of occurrence of the external cause; K21.9 Gastro-esophageal reflux disease without esophagitis; E78.5 Hyperlipidemia, unspecified; I10 Essential (primary) hypertension; M79.7 Fibromyalgia; E03.9 Hypothyroidism, unspecified; Z88.2 Allergy status to sulfonamides; Z79.899 Other long term (current) drug therapy
CPT/HCPCS: 12001; G0463; 96372; 99202

== ENCOUNTER → 2021-06-09 14:25 | Outpatient (CLI) | payer MEDICARE, OTHER, SELFPAY ==
[2021-06-09 14:46] LABS: Basophils # 0.1 K/mm3 (0-0.2); Basophils % 1.2 % (0.1-2.0); Eosinophils # 0.1 K/mm3 (0.0-0.4); Eosinophils % 1.7 % (0.1-12.0); Hematocrit 36.1 % (37.0-47.0); Hemoglobin 11.7 g/dL (12.2-16.2); Lymphocytes # 1.6 K/mm3 (0.7-4.5); Lymphocytes % 24.4 % (10-50); Mean Corpuscular HGB Conc 32.5 g/dL (31.8-35.4); Mean Corpuscular Hemoglobin 29.5 pg (27.0-31.2); Mean Corpuscular Volume 90.9 fl (81-99); Mean Platelet Volume 9.2 fl (7.4-10.4); Monocytes # 0.3 K/mm3 (0.1-1.0); Monocytes % 4.9 % (1.7-9.3); Neutrophils # 4.3 K/mm3 (1.8-7.8); Neutrophils % 67.9 % (37.0-80.0); Platelet Count 344 K/mm3 (142-424); Red Blood Count 3.97 M/mm3 (4.20-5.40); Red Cell Distribution Width 13.9 % (11.5-17.5); White Blood Count 6.4 K/mm3 (4.8-10.8)
[2021-06-09 15:37] LABS: Chloride 94 mmol/L (98-107)
[2021-06-09 15:38] LABS: Potassium 4.5 mmoL/L (3.5-5.1); Sodium 132 mmol/L (136-145)
[2021-06-09 15:40] LABS: Alanine Aminotransferase 16 U/L (12-78); Aspartate Amino Transferase 28 U/L (14-36); Blood Urea Nitrogen 17 mg/dl (7-17); Estimated Glomerular Filt Rate 69 ml/min (>60); GFR (African American) 84 ML/MIN (>60)
[2021-06-09 15:41] LABS: Alkaline Phosphatase 68 U/L (38-126); Anion Gap 15.5 mEq/L (5-15); Bilirubin,Total 0.5 mg/dl (0.2-1.3); Calcium 9.2 mg/dl (8.4-10.2); Carbon Dioxide 27 mmol/L (22.0-30.0); Glucose 123 mg/dl (74-100); Iron 94 ug/dL (37-170)
[2021-06-09 15:42] LABS: Albumin Level 4.4 g/dl (3.5-5.0); Albumin/Globulin Ratio 1.8 (1.1-1.8); Globulin 2.5 g/dL (1.3-3.2); Total Protein,Serum 6.9 g/dl (6.3-8.2)
[2021-06-09 15:50] LABS: Total Iron Binding Capacity 334 ug/dL (265-497)
== END ==
PROVIDERS: PCP Family Medicine; Visit Provider Internal Medicine Medical Oncology
DX: D64.9 Anemia, unspecified (principal); Z86.2 Personal history of diseases of the blood and blood-forming organs and certain disorders involving the immune mechanism
CPT/HCPCS: 36415; 80053; 82728; 83540; 83550; 85025

== ENCOUNTER → 2021-09-19 14:48 | Outpatient (CLI) | payer MEDICARE, OTHER, SELFPAY ==
[2021-09-19 16:16] LABS: Basophils # 0.1 K/mm3 (0-0.2); Basophils % 2.6 % (0.1-2.0); Eosinophils # 0.1 K/mm3 (0.0-0.4); Eosinophils % 1.6 % (0.1-12.0); Hematocrit 35.4 % (37.0-47.0); Hemoglobin 11.8 g/dL (12.2-16.2); Lymphocytes # 1.5 K/mm3 (0.7-4.5); Lymphocytes % 27.8 % (10-50); Mean Corpuscular HGB Conc 33.4 g/dL (31.8-35.4); Mean Corpuscular Hemoglobin 29.8 pg (27.0-31.2); Mean Corpuscular Volume 89.1 fl (81-99); Mean Platelet Volume 7.6 fl (7.4-10.4); Monocytes # 0.3 K/mm3 (0.1-1.0); Monocytes % 5.6 % (1.7-9.3); Neutrophils # 3.4 K/mm3 (1.8-7.8); Neutrophils % 62.4 % (37.0-80.0); Platelet Count 336 K/mm3 (142-424); Red Blood Count 3.97 M/mm3 (4.20-5.40); Red Cell Distribution Width 14.7 % (11.5-17.5); White Blood Count 5.4 K/mm3 (4.8-10.8)
[2021-09-19 16:36] LABS: Chloride 98 mmol/L (98-107); Potassium 4.6 mmoL/L (3.5-5.1); Sodium 132 mmol/L (136-145)
[2021-09-19 16:38] LABS: Blood Urea Nitrogen 16 mg/dl (7-17); Estimated Glomerular Filt Rate 60 ml/min (>60); GFR (African American) 73 ML/MIN (>60)
[2021-09-19 16:39] LABS: Alanine Aminotransferase 17 U/L (12-78); Albumin Level 4.4 g/dl (3.5-5.0); Albumin/Globulin Ratio 1.8 (1.1-1.8); Alkaline Phosphatase 86 U/L (38-126); Anion Gap 9.6 mEq/L (5-15); Aspartate Amino Transferase 28 U/L (14-36); Bilirubin,Total 0.5 mg/dl (0.2-1.3); Calcium 8.9 mg/dl (8.4-10.2); Carbon Dioxide 29 mmol/L (22.0-30.0); Globulin 2.5 g/dL (1.3-3.2); Glucose 86 mg/dl (74-100); Iron 106 ug/dL (37-170); Total Protein,Serum 6.9 g/dl (6.3-8.2)
[2021-09-19 16:48] LABS: Total Iron Binding Capacity 346 ug/dL (265-497)
[2021-09-19 17:15] LABS: Ferritin 43.2 ng/ml (11.1-264)
== END ==
PROVIDERS: PCP Family Medicine; Visit Provider Internal Medicine Medical Oncology
DX: D64.9 Anemia, unspecified (principal)
CPT/HCPCS: 36415; 80053; 82728; 83540; 83550; 85025

== ENCOUNTER 2021-09-20 11:00 | Outpatient (RCR) | payer MEDICARE, OTHER, SELFPAY | END 2021-09-20 11:05 | disposition home or self-care (01) | LOC: PT 11:00 | PROVIDERS: PCP Family Medicine; Visit Provider Internal Medicine Rheumatology | DX: M79.604 Pain in right leg (principal); M17.0 Bilateral primary osteoarthritis of knee | CPT/HCPCS: 97010; 97014; 97110; 97140; 97163; 97164; G0283 ==

== ENCOUNTER → 2022-01-18 11:59 | Outpatient (CLI) | payer MEDICARE, OTHER, SELFPAY ==
[2022-01-18 12:43] LABS: Basophils # 0.1 K/mm3 (0-0.2); Eosinophils # 0.1 K/mm3 (0.0-0.4); Eosinophils % 1.7 % (0.1-12.0); Hematocrit 33.4 % (37.0-47.0); Lymphocytes # 1.4 K/mm3 (0.7-4.5); Mean Corpuscular Hemoglobin 29.8 pg (27.0-31.2); Mean Corpuscular Volume 90.4 fl (81-99); Mean Platelet Volume 9.1 fl (7.4-10.4); Monocytes # 0.3 K/mm3 (0.1-1.0); Monocytes % 4.7 % (1.7-9.3); Neutrophils # 4.1 K/mm3 (1.8-7.8); Neutrophils % 68.7 % (37.0-80.0); Platelet Count 331 K/mm3 (142-424); Red Cell Distribution Width 14.5 % (11.5-17.5); White Blood Count 5.9 K/mm3 (4.8-10.8)
[2022-01-18 13:23] LABS: Iron 81 ug/dL (37-170)
[2022-01-18 13:34] LABS: Total Iron Binding Capacity 303 ug/dL (265-497)
[2022-01-18 13:59] LABS: Ferritin 32.9 ng/ml (11.1-264)
== END ==
PROVIDERS: PCP Family Medicine; Visit Provider Internal Medicine Medical Oncology
DX: D64.9 Anemia, unspecified (principal)
CPT/HCPCS: 36415; 82728; 83540; 83550; 85025

== ENCOUNTER → 2022-03-02 13:54 | Outpatient (CLI) | payer MEDICARE, OTHER, SELFPAY ==
[2022-03-02 15:19] LABS: Blood Urea Nitrogen 17 mg/dl (7-17); Estimated Glomerular Filt Rate 69 ml/min (>60); GFR (African American) 84 ML/MIN (>60)
== END ==
PROVIDERS: PCP Family Medicine; Visit Provider Family Medicine
DX: G44.86 Cervicogenic headache (principal)
CPT/HCPCS: 36415; 82565; 84520

== ENCOUNTER → 2022-03-06 09:27 | Outpatient (CLI) | payer MEDICARE, OTHER, SELFPAY ==
--- NOTE | 2022-03-06 09:31 | MR_ITS ---
FINAL REPORT CLINICAL HISTORY: CERVICOGENIC HEADACHE lightheadness pain in posterior and sides of head hx of tia hx of passing out randomly 13 ml prohance given COMPARISON: March 17, 2019 FINDINGS: Multiplanar MR imaging of the brain was performed without and with contrast. There is mild age-appropriate atrophy. Scattered foci of increased T2 signal are seen in the cerebral white matter that have a nonspecific appearance but likely represent mild chronic ischemic/gliotic changes. There is no evidence of intracranial hemorrhage or mass. No abnormal ventricular dilatation is identified. There is no evidence of shift of the midline structures. No abnormal extra-axial fluid collection is seen. No area of abnormal restricted diffusion is identified. The posterior fossa and brainstem have an unremarkable appearance. No abnormal contrast enhancement is seen. Normal major vessel vascular flow voids are seen. IMPRESSION: Mild atrophy and chronic ischemic/gliotic changes, similar to prior. No acute intracranial abnormality. Reviewed, Interpreted and Dictated by Ko Vogel III, MD Transcribed by Gigi Thurston Authenticated and [facility]
== END ==
PROVIDERS: PCP Family Medicine; Visit Provider Family Medicine
DX: G44.86 Cervicogenic headache (principal)
CPT/HCPCS: 70553; A9576

== ENCOUNTER 2022-07-05 15:00 | Outpatient (RCR) | payer MEDICARE, OTHER, SELFPAY | END 2022-07-05 15:05 | disposition home or self-care (01) | LOC: PT 15:00 | PROVIDERS: PCP Family Medicine; Visit Provider Internal Medicine Rheumatology | DX: M54.50 Low back pain, unspecified (principal) | CPT/HCPCS: 97010; 97014; 97110; 97140; 97163; 97164; G0283 ==

== ENCOUNTER → 2022-07-06 14:25 | Outpatient (CLI) | payer MEDICARE, OTHER, SELFPAY ==
[2022-07-06 15:04] LABS: Basophils # 0.1 K/mm3 (0-0.2); Basophils % 0.8 % (0.1-2.0); Eosinophils # 0.1 K/mm3 (0.0-0.4); Eosinophils % 1.1 % (0.1-12.0); Hemoglobin 11.6 g/dL (12.2-16.2); Lymphocytes # 1.6 K/mm3 (0.7-4.5); Mean Corpuscular HGB Conc 34.2 g/dL (31.8-35.4); Mean Corpuscular Hemoglobin 30.3 pg (27.0-31.2); Mean Corpuscular Volume 88.7 fl (81-99); Mean Platelet Volume 8.4 fl (7.4-10.4); Monocytes # 0.3 K/mm3 (0.1-1.0); Neutrophils # 4.3 K/mm3 (1.8-7.8); Neutrophils % 68.1 % (37.0-80.0); Platelet Count 300 K/mm3 (142-424); Red Blood Count 3.83 M/mm3 (4.20-5.40); Red Cell Distribution Width 13.5 % (11.5-17.5); White Blood Count 6.4 K/mm3 (4.8-10.8)
[2022-07-06 16:28] LABS: Iron 87 ug/dL (37-170)
[2022-07-06 16:38] LABS: Total Iron Binding Capacity 363 ug/dL (265-497)
[2022-07-06 17:04] LABS: Ferritin 16.7 ng/ml (11.1-264)
== END ==
PROVIDERS: PCP Family Medicine; Visit Provider Internal Medicine Medical Oncology
DX: D64.9 Anemia, unspecified (principal)
CPT/HCPCS: 36415; 82728; 83540; 83550; 85025

== ENCOUNTER 2022-08-20 10:07 | Emergency (ER) | payer MEDICARE, OTHER, SELFPAY ==
[2022-08-20 10:07] VITALS: BP 155/77; PULSE 60; RESP 17; TEMP 36.5; O2SAT 98; BMI 25.4
--- NOTE | 2022-08-20 10:07 | ECG_ITS ---
APPROVED REPORT Exam: Resting ECG HR:62 bpm ECG Measurements Heart Rate 62 AXES DE 165 P 74 QRSd 81 QRS 66 QT 378 T 41 QTc 383 Conclusion SINUS RHYTHM NORMAL ECG UNCONFIRMED REPORT Electronically signed by : Chema Cordero MD 08/20/2022 17:31:13
--- NOTE | 2022-08-20 10:11 | PC.NURSE ---
Spouse at BS
--- NOTE | 2022-08-20 10:25 | XR_ITS ---
FINAL REPORT TECHNIQUE: Single view chest CLINICAL HISTORY: Midsternal chest pain COMPARISON: 06/21/2019 FINDINGS: A single view of the chest was obtained. A loop recorder device is in place. The heart and mediastinum are within normal limits. The lungs are clear. There is no pneumothorax. Osseous structures are unremarkable. IMPRESSION: No acute cardiopulmonary process. Reviewed, Interpreted and Dictated by Kyler Valdez MD Transcribed by Chen Harrell Authenticated and [facility]
[2022-08-20 10:31] VITALS: BP 155/76; PULSE 60; O2SAT 99
--- NOTE | 2022-08-20 10:35 | PC.NURSE ---
XR AT BEDSIDE
[2022-08-20 10:37] LABS: Basophils % 0.6 % (0.1-2.0); Eosinophils # 0.1 K/mm3 (0.0-0.4); Eosinophils % 1.3 % (0.1-12.0); Hematocrit 35.7 % (37.0-47.0); Hemoglobin 12.1 g/dL (12.2-16.2); Lymphocytes # 1.2 K/mm3 (0.7-4.5); Lymphocytes % 22.1 % (10-50); Mean Corpuscular HGB Conc 33.8 g/dL (31.8-35.4); Mean Corpuscular Hemoglobin 29.8 pg (27.0-31.2); Mean Platelet Volume 7.7 fl (7.4-10.4); Monocytes # 0.2 K/mm3 (0.1-1.0); Monocytes % 4.1 % (1.7-9.3); Neutrophils % 71.9 % (37.0-80.0); Platelet Count 302 K/mm3 (142-424); Red Blood Count 4.05 M/mm3 (4.20-5.40); Red Cell Distribution Width 13.7 % (11.5-17.5); White Blood Count 5.6 K/mm3 (4.8-10.8)
[2022-08-20 10:41] LABS: Alanine Aminotransferase 20 U/L (12-78); Albumin Level 4.4 g/dl (3.5-5.0); Albumin/Globulin Ratio 1.6 (1.1-1.8); Alkaline Phosphatase 81 U/L (38-126); Anion Gap 10.1 mEq/L (5-15); Aspartate Amino Transferase 31 U/L (14-36); Bilirubin,Total 0.5 mg/dl (0.2-1.3); Blood Urea Nitrogen 14 mg/dl (7-17); Calcium 8.9 mg/dl (8.4-10.2); Carbon Dioxide 28 mmol/L (22.0-30.0); Chloride 96 mmol/L (98-107); Creatinine Clearance Estimated 43 mL/min (50-200); Estimated Glomerular Filt Rate 80 ml/min (>60); GFR (African American) 97 ML/MIN (>60); Globulin 2.7 g/dL (1.3-3.2); Glucose 140 mg/dl (74-100); Potassium 4.1 mmoL/L (3.5-5.1); Sodium 130 mmol/L (136-145); Total Protein,Serum 7.1 g/dl (6.3-8.2)
--- NOTE | 2022-08-20 10:42 | PC.NURSE ---
DR MCDONOUGH AT BEDSIDE
--- NOTE | 2022-08-20 10:45 | HMH.EDGENADL ---
Discharge Plan Disposition Patient Disposition: Home, Self-Care Condition: Good Prescriptions Prescriptions: New lidocaine [Lidoderm] 5 % adhesive patch,medicated 1 patch topical DAILY Qty: 30 0RF Rx Instructions: leave on most painful area for up to 12 hrs No Action allopurinol 100 mg tablet 100 mg PO DAILY potassium chloride [Klor-Con M20] 20 mEq tablet,ER particles/crystals 20 meq PO BID losartan 50 mg tablet 50 mg PO DAILY Label Comments: TAKE ONE TABLET BY MOUTH EVERY MORNING AND 1/2 TABLET IN THE EVENING alprazolam 0.25 mg tablet 0.125 mg PO BID Label Comments: TAKE 1/2 TABLET BY MOUTH EVERY MORNING, ONE-HALF TABLET AT NOON, THEN 1 TABLET AT BEDTIME MAY CAUSE DROWSINESS clopidogrel 75 mg tablet 75 mg PO DAILY Label Comments: TAKE ONE TABLET BY MOUTH EVERY DAY amlodipine 2.5 mg tablet 2.5 mg PO DAILY gabapentin 300 mg capsule 300 mg PO BID Label Comments: TAKE ONE CAPSULE BY MOUTH TWICE DAILY MAY CAUSE DROWSINESS ergocalciferol (vitamin D2) 1,250 mcg (50,000 unit) capsule 1,250 mcg PO WEEKLY Label Comments: TAKE ONE CAPSULE BY MOUTH ONCE A WEEK rosuvastatin 5 mg tablet 5 mg PO DIRECTED Rx Instructions: Mon/Wed/Fri coenzyme Q10 [Co Q-10] 200 mg capsule 200 mg PO DAILY fluticasone propionate 50 mcg/actuation spray,suspension 2 spray intranasal DAILY PRN Label Comments: instill DIRECTED (1 TO 2 SPRAYS) IN EACH NOSTRIL EVERY DAY levothyroxine 25 MCG tablet 25 mcg PO DAILYDM polyethylene glycol 3350 17 GM powder in packet 17 gm PO DAILYP PRN (Reason: Constipation) metoprolol succinate 50 mg tablet extended release 24 hr See Rx Instructions .ROUTE .COMPLEX Rx Instructions: TAKE ONE TABLET BY MOUTH EVERY DAY Clinical Impressions Clinical Impression: Musculoskeletal back pain Instructions Patient Instructions: DI for Acute Pain -- Adult Discharge ED Provider: Tre Finney Adult [facility] General Chief complaint: PAIN Stated complaint: SHOULDER PAIN Time Seen by Provider: 08/20/22 10:14 Mode of Arrival: Ambulatory Limitations: No Limitations Description of Symptoms (Recalled from ER Triage Doc. by RN): PT REPORTS NECK PAIN THAT RADIATES ACROSS SHOULDERS, DOWN LEFT ARM, ELBOW AND SOME NUMBNESS TO LEFT HAND. NO INJURY. STARTED ON SATURDAY. PT DENIES CHEST PAIN OR SHORTNESS OF BREATH History of Present Illness HPI narrative: 82yo F presents to the ER secondary to pain in her left scapula. Symptoms been ongoing since at least Saturday, possibly Saturday. No previous episodes similar. No reported injury or fall. No chest pain, shortness of breath Related Data Home Medications Medication Instructions Recorded Confirmed levothyroxine 25 mcg tablet 25 mcg PO DAILYDM hypothyroid 04/27/18 08/20/22 polyethylene glycol 3350 17 gram 17 gm PO DAILYP PRN Constipation 05/05/19 08/20/22 oral powder packet allopurinol 100 mg tablet 100 mg PO DAILY gout 12/24/19 08/20/22 alprazolam 0.25 mg tablet 0.125 mg PO BID Anxiety 12/24/19 08/20/22 clopidogrel 75 mg tablet 75 mg PO DAILY Blood thinner 12/24/19 08/20/22 potassium chloride 20 mEq 20 meq PO BID Supplement 12/24/19 08/20/22 tablet,extended release(part/cryst) (Klor-Con M) amlodipine 2.5 mg tablet 2.5 mg PO DAILY Heart rhythm 01/26/21 08/20/22 losartan 50 mg tablet 50 mg PO DAILY High blood pressure 09/21/21 08/20/22 gabapentin 300 mg capsule 300 mg PO BID Pain 01/22/22 08/20/22 coenzyme Q10 200 mg capsule (Co 200 mg PO DAILY Supplement 07/06/22 08/20/22 Q-10) ergocalciferol (vitamin D2) 1,250 1,250 mcg PO WEEKLY 07/06/22 07/12/22 mcg (50,000 unit) capsule rosuvastatin 5 mg tablet 5 mg PO DIRECTED Cholesterol 07/06/22 08/20/22 fluticasone propionate 50 2 spray intranasal DAILY PRN 07/12/22 07/12/22 mcg/actuation nasal spray,suspension metoprolol succinate 50 mg See Rx Instructions .Route
[2022-08-20 10:57] LABS: Troponin I < 0.01 ng/ml (0.00-0.034)
[2022-08-20 11:06] VITALS: BP 161/80; PULSE 56; O2SAT 99
--- NOTE | 2022-08-20 11:33 | PC.NURSE ---
DR MCDONOUGH AT BEDSIDE TO UPDATE PT AND ON POC
[2022-08-20 11:56] VITALS: BP 154/71; PULSE 62; RESP 17; TEMP 36.6; O2SAT 99
== END 2022-08-20 12:01 | disposition home or self-care (01) ==
PROVIDERS: Emergency Provider Family Medicine; PCP Family Medicine
DX: M54.6 Pain in thoracic spine (principal); M54.2 Cervicalgia
CPT/HCPCS: 71045; 80053; 84484; 85025; 93005; 99284; 99285

== ENCOUNTER → 2022-09-10 14:28 | Outpatient (CLI) | payer MEDICARE, OTHER, SELFPAY ==
--- NOTE | 2022-09-10 14:33 | XR_ITS ---
FINAL REPORT CLINICAL HISTORY: MYOFASCITIS FINDINGS: THORACIC SPINE SERIES. AP and lateral views were obtained. There is no acute fracture. There is mild leftward curvature of the lower thoracic spine. There is no malalignment. There are moderate degenerative changes with osteophytes. A loop recorder is present. IMPRESSION: Moderate degenerative changes. Reviewed, Interpreted and Dictated by Ko Vogel III, MD Transcribed by Gigi Thurston Authenticated and . [facility]
== END ==
PROVIDERS: PCP Family Medicine; Visit Provider Family Medicine
DX: M60.9 Myositis, unspecified (principal); M54.6 Pain in thoracic spine
CPT/HCPCS: 72072

== ENCOUNTER → 2022-09-17 16:19 | Outpatient (CLI) | payer MEDICARE, OTHER, SELFPAY ==
--- NOTE | 2022-09-17 16:25 | XR_ITS ---
PROCEDURE INFORMATION: Exam: XR Cervical Spine Exam date and time: 09/17/2022 4:27 PM Age: 82 years old Clinical indication: Other: Left shouler pain; Patient HX: Left shoulder pain. No known injury. ; Additional info: Lt arm pain TECHNIQUE: Imaging protocol: Radiologic exam of the cervical spine. Views: 4 or 5 views. COMPARISON: CR XR THORACIC SPINE 3V 09/10/2022 2:41 PM FINDINGS: Bones/joints: The cervical spine demonstrates moderate discogenic and spondylitic degenerative changes at multiple levels. This is predominantly manifest by endplate discogenic degenerative changes and marginal osteophytes, most prominent at the C5 through C7 levels. There is mild anterior spondylolisthesis of C3 on C4 and C4 on C5. There is also slight retrolisthesis of C5 on C6. Alignment is otherwise intact from skull base to T1. The atlantooccipital articulations are preserved. The predental interval appears normal. There is no evidence of acute fracture or dislocation. There is mild neural foraminal narrowing at the C3-C4 level, C5-C6 level and C7-T1 levels on the right. The left neural foramen are not optimally visualized. Postoperative changes involve the right shoulder. Soft tissues: No significant soft tissue edema. No subcutaneous emphysema or radiopaque foreign bodies. Other findings: Study quality is limited due to limitations in patient positioning with the oblique projections. IMPRESSION: 1. No acute posttraumatic osseous injury. 2. Moderate multilevel discogenic and spondylitic degenerative changes as described.
--- NOTE | 2022-09-17 16:25 | XR_ITS ---
PROCEDURE INFORMATION: Exam: XR Left Shoulder Exam date and time: 09/17/2022 4:27 PM Age: 82 years old Clinical indication: Patient HX: Left shoulder pain. No known injury. ; Additional info: Lt arm pain TECHNIQUE: Imaging protocol: Radiologic exam of the left shoulder. Views: 2 or more views. COMPARISON: CR XR SHOULDER LT MIN 2V 03/29/2021 5:09 PM FINDINGS: Bones/joints: There is no evidence of acute fracture or dislocation. Mild osteoarthritic degenerative changes involve the acromioclavicular joint with mild inferior spurring involving the distal clavicle. Minor spurring involves the inferomedial humeral head, as before. The visualized upper thoracic spine demonstrates moderate degenerative changes at the visualized levels. Soft tissues: No significant soft tissue edema. No subcutaneous emphysema or radiopaque foreign bodies. Visualized lungs are clear. No pneumothorax. IMPRESSION: No acute posttraumatic osseous injury. Stable exam.
== END ==
PROVIDERS: PCP Family Medicine; Visit Provider Family Medicine
DX: M54.2 Cervicalgia (principal); M79.602 Pain in left arm
CPT/HCPCS: 72050; 73030

== ENCOUNTER → 2022-10-08 09:56 | Outpatient (POV) | payer MEDICARE, OTHER, SELFPAY ==
--- NOTE | 2022-10-08 09:58 | EXP.PAIN.OV ---
HPI Data of Consult Patient: new to practice Consult date: 10/08/22 Requesting Physician: Candice Jackson APRN Primary Care Provider: Brain Caballero MD Consult Narrative Reason for consult: Left arm pain, upper back/neck pain History of present illness: Ms. Baires is a 82 year old female who presents today as a new patient. She is a referral from Dr. Caballero's office. Today she rates her pain a 10 out of 10. Patient states her pain is all in her mid back along the left side with radiating symptoms into her left shoulder and down to her elbow that started approximately 5 weeks ago. She describes this as a constant burning sensation that feels like fire. Patient denies any specific injury or trauma that initially started this pain. Patient has tried [id number] medications and was prescribed tramadol 3 times a day with a 7-day dose as well as taking a muscle relaxer. She does state that this does help some however she does not take the medications on a regular basis. She states when she does have the pain that it is debilitating and she cannot do anything but either sit down or lay down for additional relief. She does state that typically prolonged standing seems to aggravate her symptoms. Patient has been given 2 steroid injections in office that she states did help some with her last injection last Saturday. She states she did have significant relief for approximately 3 days and that he was treating her pain as myofascial. Patient is currently enrolled in physical therapy and states that during the actual exercises it does help however later she has worsening pain symptoms. Patient does have some tingling into her fingers however she states this is not as problematic and only happens on occasion. Patient is currently managed with gabapentin 300 mg twice a day and alprazolam 0.25 mg from her primary care doctor. Patient denies any side effects from this medication. Patient does have a loop recorder implanted however she states it is turned off. She states that she did go to Dr. Spencer and that at her last visit he stated her heart was doing great. She does have previous episodes of passing out and other heart related issue such as a TIA in the past. She states she does typically see the financial aid officer yearly now. Patient is on Plavix daily. Patient also uses lidocaine patches daily with minimal improvement. Her Faizan is [id number]. Its been reviewed and appropriate. CC: Candice Jackson APRN [facility] Disclaimer: The information contained in this section may have been updated after the patient was seen, as this information can be updated by other users. Medical History CAD (coronary artery disease) Cataracts, bilateral Fatigue Hyperlipidemia Hypertension Hypotension SVT (supraventricular tachycardia) Syncope and collapse Surgical History History of hysterectomy History of lumpectomy Social History (Updated 10/08/22 @ 10:13 by Savanna Valentin RN) Smoking Status: Never smoker second hand exposure: No alcohol intake: never substance use type: denies use current occupational status: retired Travel in the last 8 weeks: Inside the [place] household members: spouse housing: house current occupational exposures/hazards: No caffeine: Yes Review of Systems Review of Systems Review of systems:: pertinent systems reviewed and negative unless documented below Review of systems (narrative): Review of Systems: General: No recent weight changes, no fever, no sleep disturbances Respiratory: No cough, no shortness of air, no recurring pulmonary infections Cardiovascular/peripheral vascular: No chest pain, no palpitations, no edema, no shortness of breath Gastrointestinal: No new onset incontinence, normal bowel movements reported Genitourinary: No new onset incontinence Musculoskeletal: Left shoulder
[2022-10-08 14:04] VITALS: BP 147/77; PULSE 61; RESP 18; O2SAT 97; BMI 25.4
== END ==
PROVIDERS: PCP Family Medicine; Visit Provider Nurse Practitioner Family
DX: M50.10 Cervical disc disorder with radiculopathy, unspecified cervical region (principal); M19.012 Primary osteoarthritis, left shoulder; M79.18 Myalgia, other site; M25.512 Pain in left shoulder
CPT/HCPCS: 99202; G0463

== ENCOUNTER 2022-10-18 15:00 | Outpatient (RCR) | payer MEDICARE, OTHER, SELFPAY | END 2022-10-18 15:05 | disposition home or self-care (01) | LOC: PT 15:00 | PROVIDERS: PCP Family Medicine; Visit Provider Internal Medicine Rheumatology | DX: M54.12 Radiculopathy, cervical region (principal) | CPT/HCPCS: 97010; 97014; 97035; 97110; 97112; 97140; 97163; 97164; 97535; G0283 ==

== ENCOUNTER → 2022-10-22 11:07 | Outpatient (POV) | payer MEDICARE, OTHER, SELFPAY ==
[2022-10-22 11:20] VITALS: BP 153/72; PULSE 66; RESP 18; O2SAT 98; BMI 24.5
--- NOTE | 2022-10-22 12:21 | EXP.PAIN.SOA ---
[facility] Pain Management SOAP Note Subjective:: Patient is a pleasant 82-year-old female who presents today for follow-up. We are currently treating the patient for degenerative disc disease of cervical spine with cervical radiculopathy symptoms, left shoulder pain, myofascial pain of left thoracic paraspinous and iliocostalis muscles. Today she rates her pain a 10 out of 10. Patient denies any new injury or trauma. Patient denies any change location or type of pain she experiences. She states she continues to have debilitating pain in her left shoulder with spasms or sharp shooting pains noted. At her previous visit we did prescribe her compounding cream that she did state provided significant improvement however after using it on 2 different occasion she had a rash come up. She did contact the local pharmacy who makes this cream who mentioned that she might have been related to a sulfa interaction. Patient has discontinued this medication. She was previously given tramadol 50 mg 3 times a day and muscle relaxer however she states that she had not really needed to use the tramadol as much since the cream was helping. Patient states she has not used the muscle relaxer at all. She does state that she is scheduled for an MRI tomorrow from Dr. Caballero's offers however she is unsure whether or not if it was just her cervical spine or her shoulder too. She does states she is concerned of whether she will be able to tolerate the prolonged positioning of this imaging. She does state that the pain interferes with any activity she may be trying to do even cooking and cleaning. She states her pain is a constant severe pain. Her Faizan is [phone]. Its been reviewed and appropriate. Review of Systems: General: No recent weight changes, no fever, no sleep disturbances Respiratory: No cough, no shortness of air, no recurring pulmonary infections Cardiovascular/peripheral vascular: No chest pain, no palpitations, no edema, no shortness of breath Gastrointestinal: No new onset incontinence, normal bowel movements reported Genitourinary: No new onset incontinence Musculoskeletal: Neck pain, left shoulder pain Psychiatric: [Normal mood/affect] Neurological: [Denies weakness in extremities], [denies balance issues] Objective:: Physical Exam: General: Alert and oriented x3, no acute distress, pleasant and cooperative Lungs: Respirations even and unlabored, symmetrical chest expansion Eyes: PERRL Musculoskeletal: Flexion and extension of cervical [spine] somewhat guarded secondary to pain, [antalgic gait noted] Neurological: Speech clear, no gross sensory deficit Assessment:: Degenerative disc disease of cervical spine with cervical radiculopathy symptoms, left shoulder pain, myofascial pain of the left thoracic paraspinous and iliocostalis muscles Plan:: Patient is experiencing severe pain in her neck with radiating symptoms to her left shoulder and down to her elbow. I have discussed with the patient that she may benefit from a left suprascapular nerve block. Risk and benefits were discussed with the patient and she would like to proceed forward with this plan of care. Patient is on Plavix daily and does not need to come off this prior to this injection. Patient did state that she had enough muscle relaxer and tramadol and does not need any additional refills. I will contact the compounding pharmacy out of [place] and see if we can order a different combination cream to provide additional relief. I will also order an MRI without contrast of her left shoulder due to her worsening left shoulder pain. Patient is scheduled to call our office on Saturday to let us know if she was able to complete the cervical MRI with prolonged positioning. If she was unable to do the cervical MRI scheduled tomorrow we will proceed forward with the shoulder and cervical spine MRI without contrast with IV sedation. Patient will be scheduled for a left suprascapular nerve block. Patient has
== END | disposition home or self-care (01) ==
PROVIDERS: Visit Provider Nurse Practitioner Family
DX: M50.10 Cervical disc disorder with radiculopathy, unspecified cervical region (principal); M25.512 Pain in left shoulder; M79.18 Myalgia, other site
CPT/HCPCS: 99212; G0463

== ENCOUNTER → 2022-10-23 15:45 | Outpatient (CLI) | payer MEDICARE, OTHER, SELFPAY | PROVIDERS: PCP Family Medicine; Visit Provider Family Medicine | DX: M25.512 Pain in left shoulder (principal) ==

== ENCOUNTER 2022-10-30 13:05 | Day surgery (SDC) | payer MEDICARE, OTHER, SELFPAY ==
[2022-10-30 13:26] VITALS: BP 148/77; PULSE 69; RESP 18; TEMP 37; O2SAT 97; BMI 25.4
[2022-10-30 14:08] VITALS: BP 151/71; PULSE 67; RESP 18; O2SAT 97
--- NOTE | 2022-10-30 14:15 | EXP.PAIN.PRO ---
Procedure Date: 10/30/22 Time: 14:10 Anesthesiologist:: Sp Rivero CRNA Complications:: None Pre-procedure Diagnosis:: Left shoulder pain. Left arm radicular symptoms. Degenerative disc cervical spine. Post-procedure Diagnosis:: Same Indications for Procedure:: Patient is a pleasant 82-year-old female who comes our clinic today for left suprascapular nerve block. Patient has left shoulder pain as well as left arm radicular symptoms. Patient does complain of some posterior cervical neck pain. Cervical x-ray does show degenerative disc cervical spine multiple levels. Patient rates her pain 10/10. Patient was unable to have cervical MRI due to pain and intolerance of lying flat. She will retry the cervical MRI with Valium sedation later this week. Procedure Details:: Details of the procedure explained the patient. The patient was taken the procedure room placed in sitting position. The area over the left scapula was cleaned using chlorhexidine as a cleansing solution. Using a 25-gauge inch and half needle the superior lateral border of the scapula was injected with 8 cc of a solution containing 0.25% Marcaine +1% lidocaine and 40 mg of Depo-Medrol. Patient tolerated procedure without difficulty. There are no complications. Plan and Disposition:: Patient was discharged without incident.
== END 2022-10-30 14:08 | disposition home or self-care (01) ==
LOC: SC.PAINP 13:06
PROVIDERS: PCP Family Medicine; Visit Provider Nurse Anesthetist, Certified Registered
DX: M25.512 Pain in left shoulder (principal); M50.30 Other cervical disc degeneration, unspecified cervical region
CPT/HCPCS: 64418; J1040

== ENCOUNTER → 2022-11-01 16:51 | Outpatient (CLI) | payer MEDICARE, OTHER, SELFPAY ==
--- NOTE | 2022-11-01 16:55 | MR_ITS ---
PROCEDURE INFORMATION: Exam: MR Cervical Spine Without Contrast Exam date and time: 11/01/2022 4:58 PM Age: 82 years old Clinical indication: Neck pain; Additional info: Pain in left shoulder and elbow. No injury or trauma TECHNIQUE: Imaging protocol: Magnetic resonance imaging of the cervical spine without contrast. COMPARISON: CR XR CERVICAL SPINE 5V 09/17/2022 4:27 PM FINDINGS: Bones/joints: Alignment of the cervical spine is near anatomic. The vertebral body heights are maintained. There is diffuse disc space height loss with anterior osteophyte formation present. Spinal cord: Normal signal. No cord compression. C2-C3: C2-C3 uncovertebral and facet joint osteophyte moderately narrows the left neural foramen. The spinal canal is patent. C3-C4: C3-C4 minimal central focal disc protrusion is seen with mild stenosis of the spinal canal. There is severe narrowing of the right neural foramen due to osteophyte. C4-C5: C4-C5 minimal diffuse disc bulging and endplate osteophyte is seen with mild stenosis of the spinal canal. There is severe left neural foraminal narrowing present due to osteophyte. C5-C6: C5-C6 dorsal endplate osteophyte and diffuse disc bulging with focal hypertrophy of the ligamentum flavum cause severe stenosis of the spinal canal with near circumferential CSF space effacement at the disc level. There is also severe narrowing of both neural foramen. C6-C7: C6-C7 dorsal endplate osteophyte and diffuse disc bulging causing moderate stenosis of the spinal canal. There is moderate bilateral neural foraminal narrowing due to osteophyte. C7-T1: C7-T1 minimal diffuse disc bulging is seen with mild stenosis of the spinal canal. The neural foramen are severely narrowed on both sides C2 osteophyte. Soft tissues: Unremarkable. Vasculature: Expected flow voids in the vertebral arteries. IMPRESSION: Multilevel degenerative disc disease with severe stenosis of the spinal canal at C5-C6 and moderate stenosis of the spinal canal at C6-C7, as described. There is also multilevel severe neural foraminal narrowing present.
== END ==
PROVIDERS: PCP Family Medicine; Visit Provider Family Medicine
DX: M54.2 Cervicalgia (principal); M25.512 Pain in left shoulder
CPT/HCPCS: 72141; 76376

== ENCOUNTER → 2022-11-14 09:58 | Outpatient (POV) | payer MEDICARE, OTHER, SELFPAY ==
[2022-11-14 10:12] VITALS: BP 141/70; PULSE 66; RESP 17; TEMP 36.6; O2SAT 100; BMI 25.4
--- NOTE | 2022-11-14 10:15 | EXP.PAIN.SOA ---
[facility] Pain Management SOAP Note Subjective:: Patient is a pleasant 82-year-old female who presents today for follow-up of left suprascapular nerve block on 10/30/2022.? We are currently treating the patient for degenerative disc disease of cervical spine with cervical radiculopathy symptoms, left shoulder pain, myofascial pain of left thoracic paraspinous and iliocostalis muscles.? Today she rates her pain a 8 out of 10.? She denies any new injury or trauma.? Patient denies any change location or type of pain she experiences.? She states she has had at least 40 to 50% improvement along her left shoulder following this injection. She states she has been able to increase her activity and range of motion with decreased pain symptoms. She does state that she continues to have some pain but it is much more tolerable than what it was previously. She states she did get her new compounding cream in the mail and that they have tried it and it did not do any rash as the one previously had. Patient was given 2 mg diazepam for a one-time dose in order to tolerate her MRI of her cervical spine. Patient denies any issues with this medication or the procedure. She does still state that she has numbness and tingling into her left arm and down to her fingers along with an aching sensation along her neck. She does state that the pain interferes with any activity she may be trying to do even cooking and cleaning.? Her Faizan is [id number]..? Its been reviewed and appropriate. Review of Systems: General: No recent weight changes, no fever, no sleep disturbances Respiratory: No cough, no shortness of air, no recurring pulmonary infections Cardiovascular/peripheral vascular: No chest pain, no palpitations,? no edema, no shortness of breath Gastrointestinal: No new onset incontinence, normal bowel movements reported Genitourinary: No new onset incontinence Musculoskeletal: Neck pain, left arm pain Psychiatric: [Normal mood/affect] Neurological: [Denies weakness in extremities], [denies balance issues] Objective:: Physical Exam: General: Alert and oriented x3, no acute distress, pleasant and cooperative Lungs: Respirations even and unlabored, symmetrical chest expansion Eyes: PERRL Musculoskeletal: Flexion and extension of cervical spine somewhat guarded secondary to pain, [antalgic gait noted] Neurological: Speech clear, no gross sensory deficit PROCEDURE INFORMATION: Exam: MR Cervical Spine Without Contrast Exam date and time: 11/01/2022 4:58 PM Age: 82 years old Clinical indication: Neck pain; Additional info: Pain in left shoulder and elbow. No injury or trauma TECHNIQUE: Imaging protocol: Magnetic resonance imaging of the cervical spine without contrast. COMPARISON: CR XR CERVICAL SPINE 5V 09/17/2022 4:27 PM FINDINGS: Bones/joints: Alignment of the cervical spine is near anatomic. The vertebral body heights are maintained. There is diffuse disc space height loss with anterior osteophyte formation present. Spinal cord: Normal signal. No cord compression. C2-C3: C2-C3 uncovertebral and facet joint osteophyte moderately narrows the left neural foramen. The spinal canal is patent. C3-C4: C3-C4 minimal central focal disc protrusion is seen with mild stenosis of the spinal canal. There is severe narrowing of the right neural foramen due to osteophyte. C4-C5: C4-C5 minimal diffuse disc bulging and endplate osteophyte is seen with mild stenosis of the spinal canal. There is severe left neural foraminal narrowing present due to osteophyte. C5-C6: C5-C6 dorsal endplate osteophyte and diffuse disc bulging with focal hypertrophy of the ligamentum flavum cause severe stenosis of the spinal canal with near circumferential CSF space effacement at the disc level. There is also severe narrowing of both neural foramen. C6-C7: C6-C7 dorsal endplate osteophyte and diffuse disc bulging causing moderate stenosis of the spinal canal. There is moderate bilateral neural foraminal na
== END ==
PROVIDERS: PCP Family Medicine; Visit Provider Nurse Practitioner Family
DX: M50.122 Cervical disc disorder at C5-C6 level with radiculopathy (principal); M25.512 Pain in left shoulder; M79.18 Myalgia, other site
CPT/HCPCS: 99212; G0463

== ENCOUNTER 2022-11-27 13:00 | Day surgery (SDC) | payer MEDICARE, OTHER, SELFPAY ==
[2022-11-27 13:17] VITALS: BP 143/66; PULSE 67; RESP 16; TEMP 36.1; O2SAT 97; BMI 24.5
[2022-11-27 13:45] VITALS: BP 142/82; PULSE 69; RESP 18; O2SAT 96
[2022-11-27 13:46] VITALS: BP 142/82; PULSE 69; RESP 18; O2SAT 96
--- NOTE | 2022-11-27 13:49 | P.PCN_ITS ---
Procedure Date: 11/27/22 Time: 13:35 Anesthesiologist:: Sp Rivero CRNA Complications:: None Pre-procedure Diagnosis:: Degenerative disc cervical spine multilevels. Cervical radiculopathy. Post-procedure Diagnosis:: Same. Indications for Procedure:: Patient is a very pleasant 82-year-old female comes our clinic today for cervical epidural steroid injection. Patient complains of posterior cervical neck pain as well as bilateral arm radicular symptoms. Left greater than right. Patient rates her pain 7/10 today. Procedure Details:: Procedure:Cervical epidural steroid injection Informed consent was obtained and the risks and benefits of the procedure were explained to the patient. The patient was taken to the procedure room and noninvasive monitors placed, including noninvasive blood pressure cuff and pulse oximeter. The neck was prepped using Chloraprep as a cleansing solution. The C6- C7 interspace was viewed using fluroscopy. The skin and subcutaneous tissues were anesthetized using lidocaine 1.5% and a 25-gauge needle. After this an 18- gauge Touhy epidural needle was placed into the C6-C7 interspace under fluroscopy guidance and advanced using loss of resistance to air until the epidural space was encountered. After confirmation of needle placement in the epidural space using contrast dye, a solution containing normal saline, 2 mL and Depo-Medrol 80 mg was incrementally injected into the cervical epidural space.~ The patient tolerated the procedure well with no complications. The patient was observed in the Pain Clinic and then discharged home neurologically intact. Plan and Disposition:: Patient was discharged without incident.
[2022-11-27 14:14] VITALS: BP 142/74; PULSE 66; RESP 18; O2SAT 97
== END 2022-11-27 14:14 | disposition home or self-care (01) ==
PROVIDERS: PCP Family Medicine; Visit Provider Nurse Anesthetist, Certified Registered
DX: M50.10 Cervical disc disorder with radiculopathy, unspecified cervical region (principal)
CPT/HCPCS: 62321; J1040; Q9966

== ENCOUNTER → 2022-12-12 13:56 | Outpatient (POV) | payer MEDICARE, OTHER, SELFPAY ==
[2022-12-12 14:28] VITALS: BP 137/62; PULSE 65; RESP 18; O2SAT 97; BMI 24.5
--- NOTE | 2022-12-12 14:42 | EXP.PAIN.SOA ---
[facility] Pain Management SOAP Note Subjective:: Patient is a pleasant 82-year-old female who presents today for follow-up of cervical epidural steroid injection C6-C7 on 11/27/2022. We are currently treating the patient for degenerative disc disease of cervical spine with cervical radiculopathy symptoms, left shoulder pain, myofascial pain of left thoracic paraspinous and iliocostalis muscles. Today she rates her pain a 4 out of 10. She does state that she has had significant improvement following this injection of at least 50% and that the pain is no longer constant. She does state that she continues to have numbness and tingling into her left arm. She describes it as well as an achy sensation. patient denies any new trauma or injury. She does state that her arthritis seems to be flaring up again. She states she does frequently have pain in her knees as well as her bilateral bursas around her hips and that she does see Dr. Espinosa for. She does also state that occasionally she will experience muscle cramps at night however it is tolerable at this time. Patient has been prescribed compounding cream in the past however she states she has not been using it currently. Patient is currently managed with alprazolam 0.25 mg, gabapentin 300 mg twice a day from her primary care doctor. Her Faizan is [phone]. Its been reviewed and appropriate. Review of Systems: General: No recent weight changes, no fever, no sleep disturbances Respiratory: No cough, no shortness of air, no recurring pulmonary infections Cardiovascular/peripheral vascular: No chest pain, no palpitations, no edema, no shortness of breath Gastrointestinal: No new onset incontinence, normal bowel movements reported Genitourinary: No new onset incontinence Musculoskeletal: Neck pain, left arm pain, knee pain, hip pain Psychiatric: [Normal mood/affect] Neurological: [Denies weakness in extremities], [denies balance issues] Objective:: Physical Exam: General: Alert and oriented x3, no acute distress, pleasant and cooperative Lungs: Respirations even and unlabored, symmetrical chest expansion Eyes: PERRL Musculoskeletal: Flexion and extension of cervical [spine] somewhat guarded secondary to pain, [antalgic gait noted] Neurological: Speech clear, no gross sensory deficit Assessment:: Degenerative disc disease of cervical spine with cervical radiculopathy symptoms, left shoulder pain, myofascial pain of the left thoracic paraspinous and iliocostalis muscles, bilateral knee pain, bilateral greater trochanteric bursitis Plan:: Patient has had significant improvement following this injection and at this time does not require any additional injective therapy. I have discussed with the patient that in the future she may benefit from a spinal cord stimulator trial. Risk and benefits and educational handouts were given at today's visit and we will discuss this at future visits. I have also counseled the patient to continue to use her compounding cream as needed. I have also discussed with the patient that we can send her for referral to neurosurgery however patient declined this option and is not interested in back surgery. Patient will return to clinic in 1 month for reevaluation of symptoms and plan of care. Patient has been instructed to contact the clinic with any concerns before the next appointment. Dr. Jackson has reviewed this note and agrees with this plan of care. This note was dictated using voice recognition software and make contain errors or omissions. [facility] Disclaimer: The information contained in this section may have been updated after the patient was seen, as this information can be updated by other users. Medical History CAD (coronary artery disease) Cataracts, bilateral Fatigue Hyperlipidemia Hypertension Hypotension SVT (supraventricular tachycardia) Syncope and collapse Surgical History (Reviewed 08/20/22 @ 10:46 by Tre Finney,
== END ==
PROVIDERS: PCP Family Medicine; Visit Provider Nurse Practitioner Family
DX: M50.10 Cervical disc disorder with radiculopathy, unspecified cervical region (principal); M25.512 Pain in left shoulder; M79.18 Myalgia, other site; M25.561 Pain in right knee; M25.562 Pain in left knee; M70.61 Trochanteric bursitis, right hip; M70.62 Trochanteric bursitis, left hip
CPT/HCPCS: 99212; G0463

== ENCOUNTER → 2023-01-10 14:46 | Outpatient (POV) | payer MEDICARE, OTHER, SELFPAY ==
--- NOTE | 2023-01-10 15:16 | EXP.PAIN.SOA ---
[facility] Pain Management SOAP Note Subjective:: Patient is a pleasant 82-year-old female who presents today for follow-up. We are currently treating the patient for degenerative disc disease of cervical spine with cervical radiculopathy symptoms, left shoulder pain, myofascial pain of the left thoracic paraspinous and iliocostalis muscles. Today she rates her pain a 4 out of 10. Patient denies any new trauma or injury. She states she continues to have occasional pain that is worse at certain times more than others. Patient does state even today while she was cooking breakfast that she did start to experience worsening burning and stinging sensations into her muscles around her thoracic spine and left shoulder to her elbow. Patient does state that she stopped and rested and it did get better. Patient states this does happen from time to time. At her last visit we did discuss that she might benefit from a spinal cord stimulator trial. She does state today that she is still questioning whether she would want to proceed forward with this plan. Patient was prescribed compounding cream however she had 1 episode of rash and had a new prescription sent to her however she has been hesitant to try it again. Patient is currently managed with gabapentin 300 mg twice a day and alprazolam 0.25 mg twice a day from her primary care doctor. Her Faizan is [phone]. Its been reviewed and appropriate. Review of Systems: General: No recent weight changes, no fever, no sleep disturbances Respiratory: No cough, no shortness of air, no recurring pulmonary infections Cardiovascular/peripheral vascular: No chest pain, no palpitations, no edema, no shortness of breath Gastrointestinal: No new onset incontinence, normal bowel movements reported Genitourinary: No new onset incontinence Musculoskeletal: Mid back pain, left shoulder pain, left elbow pain, numbness tingling left hand Psychiatric: [Normal mood/affect] Neurological: [Denies weakness in extremities], [denies balance issues] Objective:: Physical Exam: General: Alert and oriented x3, no acute distress, pleasant and cooperative Lungs: Respirations even and unlabored, symmetrical chest expansion Eyes: PERRL Musculoskeletal: Flexion and extension of cervical [spine] somewhat guarded secondary to pain, [antalgic gait noted] point tenderness along left rhomboid muscles and left iliocostalis muscles Neurological: Speech clear, no gross sensory deficit Assessment:: Degenerative disc disease of cervical spine with cervical radiculopathy symptoms, left shoulder pain, myofascial pain of left thoracic paraspinous and iliocostalis muscles Plan:: Patient is experiencing worsening pain in her mid back with tenderness upon palpation. I have discussed with the patient that she may benefit from trigger point injections at this location. Risk and benefits were explained to the patient and she would like to proceed forward with this plan of care. I have discussed with the patient regarding the spinal cord stimulator trial and explained that there is nothing implanted during this trial and that I do think it still a good option for her in the future. I will send her for a neurosurgery consult to Dr. Garcia for possible surgical intervention of her cervical spine. Patient will be scheduled for trigger point injections of her left rhomboid and iliocostalis muscles. Patient has been instructed to contact the clinic with any concerns before the next appointment. Dr. Jackson has reviewed this note and agrees with this plan of care. This note was dictated using voice recognition software and make contain errors or omissions. [facility] Disclaimer: The information contained in this section may have been updated after the patient was seen, as this information can be updated by other users. Medical History CAD (coronary artery disease) Cataracts, bilateral Fatigue Hyperlipidemia Hypertension Hypotensio
[2023-01-10 15:23] VITALS: BP 120/60; PULSE 62; RESP 18; O2SAT 97; BMI 24.1
== END ==
PROVIDERS: PCP Family Medicine; Visit Provider Nurse Practitioner Family
DX: M50.10 Cervical disc disorder with radiculopathy, unspecified cervical region (principal); M25.552 Pain in left hip; M79.18 Myalgia, other site
CPT/HCPCS: 36415; 82728; 83540; 83550; 85025; 99212; G0463

== ENCOUNTER → 2023-01-10 15:23 | Outpatient (CLI) | payer MEDICARE, OTHER, SELFPAY ==
[2023-01-10 15:40] LABS: Basophils # 0.1 K/mm3 (0-0.2); Basophils % 0.7 % (0.1-2.0); Eosinophils # 0.1 K/mm3 (0.0-0.4); Eosinophils % 1.3 % (0.1-12.0); Hematocrit 32.9 % (37.0-47.0); Lymphocytes # 1.5 K/mm3 (0.7-4.5); Lymphocytes % 22.7 % (10-50); Mean Corpuscular HGB Conc 33.3 g/dL (31.8-35.4); Mean Corpuscular Hemoglobin 29.6 pg (27.0-31.2); Mean Corpuscular Volume 88.8 fl (81-99); Mean Platelet Volume 9.1 fl (7.4-10.4); Monocytes # 0.3 K/mm3 (0.1-1.0); Monocytes % 5.2 % (1.7-9.3); Neutrophils # 4.6 K/mm3 (1.8-7.8); Neutrophils % 70.1 % (37.0-80.0); Platelet Count 356 K/mm3 (142-424); Red Blood Count 3.71 M/mm3 (4.20-5.40); Red Cell Distribution Width 13.9 % (11.5-17.5); White Blood Count 6.5 K/mm3 (4.8-10.8)
[2023-01-10 16:24] LABS: Iron 86 ug/dL (37-170)
[2023-01-10 16:33] LABS: Total Iron Binding Capacity 350 ug/dL (265-497)
[2023-01-10 17:00] LABS: Ferritin 30.1 ng/ml (11.1-264)
== END ==
PROVIDERS: PCP Family Medicine; Visit Provider Internal Medicine Medical Oncology
DX: D64.9 Anemia, unspecified (principal); Z86.39 Personal history of other endocrine, nutritional and metabolic disease
CPT/HCPCS: 36415; 82728; 83540; 83550; 85025; 99212; G0463

== ENCOUNTER 2023-01-29 16:56 | Day surgery (SDC) | payer MEDICARE, OTHER, SELFPAY ==
[2023-01-29 14:00] VITALS: BP 148/97; PULSE 64; RESP 18; O2SAT 98; O2SAT 99
[2023-01-29 17:00] VITALS: BP 148/69; BP 150/68; PULSE 67; PULSE 72; RESP 20; TEMP 36.4; O2SAT 98; BMI 25.1
--- NOTE | 2023-01-30 10:22 | PC.NURSE ---
care occurred on 01/29/23 between [id number]. d/t computer issue, it is unable to be documented under the exact time
--- NOTE | 2023-02-05 13:33 | EXP.PAIN.PRO ---
Procedure Date: 01/29/23 Time: 13:45 Anesthesiologist:: Sp Rivero CRNA Complications:: None Pre-procedure Diagnosis:: Myofascial pain left cervical paraspinous. Left trapezius. Left rhomboid. Post-procedure Diagnosis:: Same. Indications for Procedure:: Patient is a very pleasant 82-year-old female comes our clinic today for a left inferior cervical paraspinous muscle, left trapezius muscle, left rhomboid muscle trigger point injection. Patient complains of pain in these areas that are constant, dull, aching. She is responded well to the same trigger point injections in the past. She rates her pain 7/10. Procedure Details:: Patient is a very pleasant 82-year-old female comes our clinic today for a left inferior cervical paraspinous muscle, left trapezius muscle, left rhomboid muscle trigger point injection of cortisone/0.25% Marcaine/1% lidocaine. Using a 25-gauge inch and half needle the 3 areas mentioned above were injected after negative aspiration with 6 cc of the above solution without difficulty. Patient tolerated procedure without difficulty. No complications. Plan and Disposition:: Patient was discharged without incident.
== END 2023-01-29 17:00 | disposition home or self-care (01) ==
LOC: SC.PAINP 16:57
PROVIDERS: PCP Family Medicine; Visit Provider Nurse Anesthetist, Certified Registered
DX: M79.18 Myalgia, other site (principal)
CPT/HCPCS: 20553; J1040

== ENCOUNTER → 2023-02-18 10:44 | Outpatient (POV) | payer MEDICARE, OTHER, SELFPAY ==
--- NOTE | 2023-02-18 10:50 | EXP.PAIN.SOA ---
[facility] Pain Management SOAP Note Subjective:: Patient is a pleasant 82-year-old female who presents today for follow-up of trigger point injections of left cervical paraspinous, left trapezius and left rhomboid muscles on 01/29/2023. We are currently treating the patient for degenerative disc disease of cervical spine with cervical radiculopathy symptoms, left shoulder pain, myofascial pain of the left thoracic paraspinous and iliocostalis muscles. Today she rates her pain a 3 out of 10. Patient denies any new trauma or injury. She states that she has had at least 75% improvement the last few weeks following these injections. She states she was able to increase her activity with decreased pain symptoms. She does state today that her pain is starting to come back however it still continues to be much better than what it was prior. She states that she has been having some right arm pain with tingling down to her hand as well. She does state that the elbow pain that she was experiencing on the left side is gone. She does states she continues to still have some pain in her left arm. She does state today that her hips are bothering her more today than any other things. Patient does state that she sees an arthritis doctor for her hips and her knees. Patient states that previously she did have physical therapy that helped with some of this pain. She states that her PCP has ordered new evaluation and treatment by physical therapy and that she does start her first official visit this week. Patient denies any heart or kidney issues. Patient is currently managed with gabapentin 300 mg twice a day and alprazolam 0.25 mg twice a day from her primary care doctor. Patient was prescribed compounded cream however she did have what she thought to be a small rash appearing and she has not used it since her Faizan is [phone]. Its been reviewed and appropriate. Review of Systems: General: No recent weight changes, no fever, no sleep disturbances Respiratory: No cough, no shortness of air, no recurring pulmonary infections Cardiovascular/peripheral vascular: No chest pain, no palpitations, no edema, no shortness of breath Gastrointestinal: No new onset incontinence, normal bowel movements reported Genitourinary: No new onset incontinence Musculoskeletal: Bilateral hip pain Psychiatric: [Normal mood/affect] Neurological: [Denies weakness in extremities], [denies balance issues] Objective:: Physical Exam: General: Alert and oriented x3, no acute distress, pleasant and cooperative Lungs: Respirations even and unlabored, symmetrical chest expansion Eyes: PERRL Musculoskeletal: Flexion and extension of bilateral hips somewhat guarded secondary to pain, [antalgic gait noted] Neurological: Speech clear, no gross sensory deficit Assessment:: Degenerative disc disease of cervical spine with cervical radiculopathy symptoms, left shoulder pain, myofascial pain of left thoracic paraspinous and iliocostalis muscles as well as left cervical paraspinous and left trapezius and left rhomboid Plan:: Patient has had significant improvement following her trigger point injections and does not need any additional injections at this site. I have discussed with the patient in future she may benefit from a cervical epidural for her neck and bilateral arm numbness and tingling. I have also discussed with the patient that she might benefit from a anti-inflammatory on a regular basis such as a low-dose meloxicam 7.5 mg. We will discuss this at future visits. I have also counseled her that she may benefit from intra-articular hip injections as well as bursa injections. We will continue to monitor as she does physical therapy and I have counseled the patient that she can call our office if she needs us before her 1 month follow-up appointment for worsening pain. Patient will return to clinic in 1 month for reevaluation of symptoms and plan of care. Patient has been instructed to contact the clinic with a
[2023-02-18 10:53] VITALS: BP 131/62; PULSE 58; RESP 18; O2SAT 99; BMI 24.3
== END ==
PROVIDERS: PCP Family Medicine; Visit Provider Nurse Practitioner Family
DX: M50.10 Cervical disc disorder with radiculopathy, unspecified cervical region (principal); M25.512 Pain in left shoulder; M79.18 Myalgia, other site
CPT/HCPCS: 99212; G0463

== ENCOUNTER → 2023-03-20 14:23 | Outpatient (POV) | payer MEDICARE, OTHER, SELFPAY ==
--- NOTE | 2023-03-20 14:56 | EXP.PAIN.SOA ---
[facility] Pain Management SOAP Note Subjective:: Patient is a pleasant 82-year-old female who presents today for follow-up. We are currently treating the patient for degenerative disc disease of cervical spine with cervical radiculopathy symptoms, left shoulder pain, myofascial pain of the left thoracic paraspinous and iliocostalis muscles, hip pain, greater trochanteric bursitis. Today she rates her pain a 6 out of 10. Patient denies any new trauma or injury. She does state that physical therapy is helping her hip and knee pain however she has started to experience new right-sided neck pain that does radiate into her shoulder and her arm. She does describe this as an achy sensation that is worse with increased activity. Patient does state that it goes all the way down her arm to about her elbow. She states this is just been going on the last couple weeks unrelated to any new falls or injury. Patient does state that the pain does interfere with her ability perform activities of daily living such as cooking and cleaning. She also states that she recently started having a tender area up on her left shoulder in 1 location. Patient also states she has been experiencing some lower right abdominal pain. She states that she has not had a colonoscopy for the last couple of years and at her last 1 she was told she did not need any further based off her age. She does state that she is scheduled for a follow-up appointment with Dr. Caballero's office on Saturday. She does also state that she has been to see Dr. Garcia who was not recommending surgery for her cervical spine. She does state that he did end up wanting imaging of her lumbar spine and that she is scheduled for an MRI on Saturday. Her Faizan has been reviewed and is appropriate #[id number] Review of Systems: General: No recent weight changes, no fever, no sleep disturbances Respiratory: No cough, no shortness of air, no recurring pulmonary infections Cardiovascular/peripheral vascular: No chest pain, no palpitations, no edema, no shortness of breath Gastrointestinal: No new onset incontinence, normal bowel movements reported Genitourinary: No new onset incontinence Musculoskeletal: Right-sided neck pain, shoulder pain, arm pain Psychiatric: [Normal mood/affect] Neurological: [Denies weakness in extremities], [denies balance issues] Objective:: Physical Exam: General: Alert and oriented x3, no acute distress, pleasant and cooperative Lungs: Respirations even and unlabored, symmetrical chest expansion Eyes: PERRL Musculoskeletal: Flexion and extension of cervical [spine] somewhat guarded secondary to pain, [antalgic gait noted] Neurological: Speech clear, no gross sensory deficit Assessment:: Degenerative disc disease of cervical spine with cervical radiculopathy symptoms, bilateral shoulder pain, myofascial pain of left thoracic paraspinous and iliocostalis muscles, hip pain, greater trochanteric bursitis Plan:: Patient is experiencing significant pain in her neck that radiates down her right shoulder and right arm. Patient did have limited range of motion of her cervical spine during today's visit. I have discussed with the patient that she may benefit from a cervical epidural steroid injection. Risk and benefits were discussed with the patient and she would like to proceed forward with this plan of care. Patient will be scheduled for a SUKUMAR C6-C7. Patient has been instructed to contact the clinic with any concerns before the next appointment. Dr. Jackson has reviewed this note and agrees with this plan of care. This note was dictated using voice recognition software and make contain errors or omissions. [facility] Disclaimer: The information contained in this section may have been updated after the patient was seen, as this information can be updated by other users. Medical History CAD (coronary artery disease) Cataracts, bilateral Fatigue Hyperlipidemia Hyper
[2023-03-20 15:24] VITALS: BP 133/62; PULSE 61; RESP 18; O2SAT 99; BMI 24.1
== END ==
PROVIDERS: PCP Family Medicine; Visit Provider Nurse Practitioner Family
DX: M50.123 Cervical disc disorder at C6-C7 level with radiculopathy (principal); M25.511 Pain in right shoulder; M25.512 Pain in left shoulder; M79.18 Myalgia, other site; M25.559 Pain in unspecified hip; M70.60 Trochanteric bursitis, unspecified hip
CPT/HCPCS: 99212; G0463

== ENCOUNTER 2023-03-23 11:04 | Emergency (ER) | payer MEDICARE, OTHER, SELFPAY ==
[2023-03-23 11:07] VITALS: BP 154/76; PULSE 64; RESP 19; TEMP 36.6; O2SAT 98; BMI 25.4
--- NOTE | 2023-03-23 11:46 | CT_ITS ---
PROCEDURE INFORMATION: Exam: CT Maxillofacial Without Contrast, Sinus Exam date and time: 03/23/2023 11:58 AM Age: 82 years old Clinical indication: Face pain and headache; Additional info: Facial pressure/pain TECHNIQUE: Imaging protocol: CT Maxillofacial without contrast. Focus on the sinuses. Radiation optimization: All CT scans at this facility use at least one of these dose optimization techniques: automated exposure control; mA and/or kV adjustment per patient size (includes targeted exams where dose is matched to clinical indication); or iterative reconstruction. REPORTING DATA: Count of CT and Cardiac NM exams in prior 12 months: This patient has received 0 known CTs and 0 known cardiac nuclear medicine studies in the 12 months prior to the current study. COMPARISON: CT SINUS WO CON 06/22/2020 3:05 PM FINDINGS: Frontal sinuses: Normal. No air-fluid levels. Ethmoid sinuses: Normal. No air-fluid levels. Sphenoid sinuses: Normal. No air-fluid levels. Maxillary sinuses: Normal. No air-fluid levels. Ostiomeatal units are patent. Nasal cavity: Unremarkable. Orbital cavities: Orbits are normal. Globes are unremarkable. Bones/joints: Unremarkable. Soft tissues: Unremarkable. IMPRESSION: Unremarkable sinuses.
--- NOTE | 2023-03-23 11:46 | CT_ITS ---
PROCEDURE INFORMATION: Exam: CT Head Without Contrast Exam date and time: 03/23/2023 11:58 AM Age: 82 years old Clinical indication: Stroke-like symptoms; Headache; Additional info: Facial pressure/pain TECHNIQUE: Imaging protocol: Computed tomography of the head without contrast. Radiation optimization: All CT scans at this facility use at least one of these dose optimization techniques: automated exposure control; mA and/or kV adjustment per patient size (includes targeted exams where dose is matched to clinical indication); or iterative reconstruction. Other technique: STROKE PROTOCOL was implemented. REPORTING DATA: Count of CT and Cardiac NM exams in prior 12 months: This patient has received 0 known CTs and 0 known cardiac nuclear medicine studies in the 12 months prior to the current study. COMPARISON: MR HEAD/BRAIN WO/W CON 03/06/2022 10:04 AM FINDINGS: Brain: No intracranial hemorrhage. No mass effect, edema or midline shift. There are vague areas of decreased attenuation within the periventricular white matter likely secondary to chronic microvascular changes. Mild age related cerebral volume loss resulting in prominence of cortical sulci. Cerebral ventricles: Unremarkable for age and degree of cerebral volume loss. Paranasal sinuses: Visualized sinuses are unremarkable. No fluid levels. Mastoid air cells: Visualized mastoid air cells are well aerated. Bones/joints: Unremarkable. No acute fracture. Soft tissues: Unremarkable. IMPRESSION: No acute intracranial abnormality. ASSESSMENT: ASPECTS ([place] Stroke Program Early CT Score) is 10.
--- NOTE | 2023-03-23 11:55 | PC.NURSE ---
PT to CT via wheelchair
--- NOTE | 2023-03-23 12:06 | PC.NURSE ---
Pt returned from RAD
--- NOTE | 2023-03-23 12:07 | HMH.EDGENADL ---
Discharge Plan Disposition Patient Disposition: Home, Self-Care Condition: Good Prescriptions Prescriptions: No Action allopurinol 100 mg tablet 100 mg PO DAILY potassium chloride [Klor-Con M20] 20 mEq tablet,ER particles/crystals 20 meq PO BID losartan 50 mg tablet 50 mg PO DAILY Patient Comments: TAKE ONE TABLET BY MOUTH EVERY MORNING AND 1/2 TABLET IN THE EVENING duloxetine 20 mg capsule,delayed release(DR/EC) 20 mg PO DIRECTED alprazolam 0.25 mg tablet 0.125 mg PO BID Patient Comments: TAKE 1/2 TABLET BY MOUTH EVERY MORNING, ONE-HALF TABLET AT NOON, THEN 1 TABLET AT BEDTIME MAY CAUSE DROWSINESS clopidogrel 75 mg tablet 75 mg PO DAILY Patient Comments: TAKE ONE TABLET BY MOUTH EVERY DAY amlodipine 2.5 mg tablet 2.5 mg PO DAILY gabapentin 300 mg capsule 300 mg PO BID Patient Comments: TAKE ONE CAPSULE BY MOUTH TWICE DAILY MAY CAUSE DROWSINESS ergocalciferol (vitamin D2) 1,250 mcg (50,000 unit) capsule 1,250 mcg PO WEEKLY Patient Comments: TAKE ONE CAPSULE BY MOUTH ONCE A WEEK rosuvastatin 5 mg tablet 5 mg PO DIRECTED Rx Instructions: Sat/Sat/Sat metoprolol succinate 50 mg tablet extended release 24 hr See Rx Instructions .ROUTE .COMPLEX Qty: 90 1RF Rx Instructions: TAKE ONE TABLET BY MOUTH EVERY DAY levothyroxine 25 MCG tablet 25 mcg PO DAILYDM polyethylene glycol 3350 17 GM powder in packet 17 gm PO DAILYP PRN (Reason: Constipation) Referrals Follow up/Referrals: Brain Caballero MD [Primary Care Provider] - See instructions Activity Restrictions/Add. Instructions Additional Instructions/Restrictions: Please follow-up with your primary care provider. Please return to the emergency department if you develop any new or worsening symptoms or become concerned for your health. As we discussed, plan to follow-up with Dr. Caballero on Saturday. Recommend that you continue with Tylenol, ibuprofen as needed for headaches at home. Should you have any significant dizziness, falls, loss of consciousness, recommend that you immediately return to the emergency department for further evaluation. You can call back to the emergency department to receive the results of the respiratory swab. Clinical Impressions Clinical Impression: Pressure in head Discharge ED Provider: Jeevan Phillips I General Adult HPI General Chief complaint: Headache Stated complaint: shakey and headcahe Time Seen by Provider: 03/23/23 11:12 Mode of Arrival: Family Vehicle Source of Information: Patient and Spouse Limitations: No Limitations Description of Symptoms (Recalled from ER Triage Doc. by RN): Pt c/o waking up yesterday with skaking on the inside and headache . She denies any n/v/d, cough, fever, or chills. Reports she had an episode of memory lapse after a panic attack on 03/14. Within 5 min she was able to get it straight and memory returned. Denies any significant cardiac, CVA, or memory issues. History of Present Illness HPI narrative: Patient is an 82-year-old female with history of CAD, arthritis, previous cataract surgery, hyperlipidemia, hypertension, prior TIAs presenting to the emergency department with several days history of pressure-like headache in the front of her head as well as intermittent shakiness . History was conducted with the patient as well as her at bedside. Patient reports that over the past several weeks, she has had some intermittent panic attacks, anxiety during which time she becomes incredibly anxious, has tremors in the bilateral extremities. Additionally, for the past several days, patient has had pressure-like sensation, headache in the front of her head. However, when asked if this is truly a headache, patient states this is more like a pressure sensation that has been worsening over the past several days. She reports that it is between her eyes. She denies any vision
--- NOTE | 2023-03-23 12:13 | ECG_ITS ---
APPROVED REPORT Exam: Resting ECG HR:64 bpm ECG Measurements Heart Rate 64 AXES MD 162 P 75 QRSd 78 QRS 65 QT 371 T 57 QTc 381 Conclusion SINUS RHYTHM NORMAL ECG UNCONFIRMED REPORT Electronically signed by : Chema Cordero MD 03/25/2023 08:33:55
[2023-03-23 12:30] VITALS: BP 137/78; PULSE 60; O2SAT 98
--- NOTE | 2023-03-23 12:53 | PC.NURSE ---
Dr. Phillips at BS to update pt on POC
[2023-03-23 13:05] VITALS: BP 158/88; PULSE 59; RESP 17; TEMP 36.8; O2SAT 99
[2023-03-23 13:19] VITALS: BP 158/88; PULSE 65; RESP 16; TEMP 36.8; O2SAT 99
[2023-03-23 13:21] LABS: Coronavirus 19, PCR Not Detected (NotDetected); Influenza A, PCR Not Detected (NotDetected); Influenza B, PCR Not Detected (NotDetected)
== END 2023-03-23 13:21 | disposition home or self-care (01) ==
PROVIDERS: Emergency Provider Emergency Medicine; PCP Family Medicine
DX: R51.9 Headache, unspecified (principal); I25.10 Atherosclerotic heart disease of native coronary artery without angina pectoris; I11.9 Hypertensive heart disease without heart failure; E78.5 Hyperlipidemia, unspecified; Z86.73 Personal history of transient ischemic attack (TIA), and cerebral infarction without residual deficits
CPT/HCPCS: 70450; 70486; 87636; 93005; 99284

== ENCOUNTER 2023-04-09 13:20 | Day surgery (SDC) | payer MEDICARE, OTHER, SELFPAY ==
[2023-04-09 13:30] VITALS: BP 130/67; PULSE 68; RESP 16; TEMP 36.6; O2SAT 99; BMI 24.1
[2023-04-09 13:37] VITALS: BP 152/51; PULSE 67; RESP 18; O2SAT 97
[2023-04-09 13:38] VITALS: BP 152/51; PULSE 65; RESP 18; O2SAT 97
--- NOTE | 2023-04-09 13:41 | P.PCN_ITS ---
Procedure Date: 04/09/23 Time: 13:30 Anesthesiologist:: Sp Rivero CRNA Complications:: None Pre-procedure Diagnosis:: Degenerative disc cervical spine multilevels. Cervical radiculopathy Post-procedure Diagnosis:: Same. Indications for Procedure:: Patient is a pleasant 82-year-old female comes our clinic today for cervical epidural steroid injection. Patient complains of posterior cervical neck pain as well as bilateral arm radicular symptoms at times. Patient rates her pain 7/10 Procedure Details:: Procedure:Cervical epidural steroid injection Informed consent was obtained and the risks and benefits of the procedure were explained to the patient. The patient was taken to the procedure room and noninvasive monitors placed, including noninvasive blood pressure cuff and pulse oximeter. The neck was prepped using Chloraprep as a cleansing solution. The C6- C7 interspace was viewed using fluroscopy. The skin and subcutaneous tissues were anesthetized using lidocaine 1.5% and a 25-gauge needle. After this an 18- gauge Touhy epidural needle was placed into the C6-C7 interspace under fluroscopy guidance and advanced using loss of resistance to air until the epidural space was encountered. After confirmation of needle placement in the epidural space using contrast dye, a solution containing normal saline, 2 mL and Depo-Medrol 80 mg was incrementally injected into the cervical epidural space.~ The patient tolerated the procedure well with no complications. The patient was observed in the Pain Clinic and then discharged home neurologically intact. Plan and Disposition:: Patient was discharged out incident.
[2023-04-09 13:48] VITALS: BP 105/51; PULSE 58; RESP 16; O2SAT 99
== END 2023-04-09 13:48 | disposition home or self-care (01) ==
PROVIDERS: PCP Family Medicine; Visit Provider Nurse Anesthetist, Certified Registered
DX: M50.123 Cervical disc disorder at C6-C7 level with radiculopathy (principal)
CPT/HCPCS: 62321

== ENCOUNTER → 2023-04-11 12:41 | Outpatient (CLI) | payer MEDICARE, OTHER, SELFPAY ==
--- NOTE | 2023-04-11 12:46 | MR_ITS ---
FINAL REPORT TECHNIQUE: Multiplanar and multisequence imaging of the lumbar spine was obtained without contrast. CLINICAL HISTORY: chronic low back pain. NKI. FINDINGS: There is grade 1 anterolisthesis of L3 on L4. There is a hemangioma in the L2 vertebral body. Vertebral body height is preserved. The spinal cord ends at the level of L1. There is normal signal intensity within the substance of the distal spinal cord. No acute bone marrow edema or pathologic marrow replacement. No acute paraspinal abnormality is identified. L1-2: An annular bulge is present. There is no focal disc herniation, central canal stenosis or neuroforaminal narrowing. L2-3: An annular bulge is present with endplate degenerative change and facet osteoarthropathy. There is mild central canal stenosis and bilateral mild neural foraminal narrowing. L3-4: An annular bulge is present with endplate degenerative change and facet osteoarthropathy. There is mild central canal stenosis, moderate to severe right foraminal stenosis, and moderate left foraminal stenosis. L4-5: An annular bulge is present with endplate degenerative change and facet osteoarthropathy. There is mild central canal stenosis and severe bilateral neural foraminal narrowing. L5-S1: An annular bulge is present with endplate degenerative change and facet osteoarthropathy. There is mild to moderate bilateral neural foraminal narrowing. IMPRESSION: Multilevel lumbar degenerative change, with cysts at the L3-4 and L4-5 levels and moderate to severe bilateral neural foraminal narrowing at the L3-4 and L4-5 levels. Reviewed, Interpreted and Dictated by So Pool MD Transcribed by Stephanie Walker Authenticated and [facility]
== END ==
PROVIDERS: PCP Family Medicine; Visit Provider Neurological Surgery
DX: M54.50 Low back pain, unspecified (principal); M54.16 Radiculopathy, lumbar region
CPT/HCPCS: 72148; 76376

== ENCOUNTER → 2023-04-22 11:27 | Outpatient (POV) | payer MEDICARE, OTHER, SELFPAY ==
[2023-04-22 11:42] VITALS: BP 113/60; PULSE 71; RESP 18; O2SAT 97; BMI 24.5
--- NOTE | 2023-04-22 12:09 | EXP.PAIN.SOA ---
[facility] Pain Management SOAP Note Subjective:: Patient is a pleasant 82-year-old female who presents today for follow-up of cervical epidural steroid injection C6-C7 on 04/09/2023. We are currently treating the patient for degenerative disc disease of cervical spine with cervical radiculopathy symptoms, myofascial pain, greater trochanteric bursitis, hip pain, low back pain, shoulder pain. Today she rates her pain an 8 out of 10. Patient states that she had no improvement following this injection and that it actually cause worsening pain. Patient states that she had to actually sit down multiple times due to the worsening pain and that she has never had an injection bother her like this 1 did not. Patient does state today she is at her baseline. She does state that she did pull something in her right lower leg over the last week. She has been applying Biofreeze. Patient also states that she continues to have the low back pain and mid back pain however it is now on the right side. Patient does describe this as an aching, throbbing sensation that is worse with increased activity. Patient has been to see Dr. Garcia for her cervical spine and was not recommending surgical intervention. She states that she has not seen him regarding her lumbar spine however she is planning on calling his office today to see about making an appointment. Patient denies any heart or kidney issues. Her Faizan has been reviewed and is appropriate. Review of Systems: General: No recent weight changes, no fever, no sleep disturbances Respiratory: No cough, no shortness of air, no recurring pulmonary infections Cardiovascular/peripheral vascular: No chest pain, no palpitations, no edema, no shortness of breath Gastrointestinal: No new onset incontinence, normal bowel movements reported Genitourinary: No new onset incontinence Musculoskeletal: Low back pain, mid back pain Psychiatric: [Normal mood/affect] Neurological: [Denies weakness in extremities], [denies balance issues] Objective:: Physical Exam: General: Alert and oriented x3, no acute distress, pleasant and cooperative Lungs: Respirations even and unlabored, symmetrical chest expansion Eyes: PERRL Musculoskeletal: Flexion and extension of lumbar [spine] somewhat guarded secondary to pain, [antalgic gait noted] Neurological: Speech clear, no gross sensory deficit Assessment:: Degenerative disc disease of cervical and lumbar spine with cervical and lumbar radiculopathy symptoms, hip pain, greater trochanteric bursitis, myofascial pain, shoulder pain Plan:: Patient continues to experience significant pain at multiple areas including her low back with limited range of motion of her lumbar spine. I have reviewed over her MRI imaging and discussed with her that she may benefit from future injections however we will wait until her next visit to discuss this. Patient denies any heart issues or kidney problems however patient's chart does mention significant cardiac issues including SVT and coronary artery disease. Patient is on a daily blood thinner. I will send in a 2-week supply of baclofen 5 mg daily. Patient will return to clinic in 2 weeks for reevaluation of symptoms and plan of care. Patient has been instructed to contact the clinic with any concerns before the next appointment. Dr. Jackson has reviewed this note and agrees with this plan of care. This note was dictated using voice recognition software and make contain errors or omissions. [facility] Disclaimer: The information contained in this section may have been updated after the patient was seen, as this information can be updated by other users. Medical History CAD (coronary artery disease) Cataracts, bilateral Fatigue Hyperlipidemia Hypertension Hypotension SVT (supraventricular tachycardia) Syncope and collapse Surgical History History of hysterectomy Histor
== END | disposition home or self-care (01) ==
PROVIDERS: PCP Family Medicine; Visit Provider Nurse Practitioner Family
DX: M50.10 Cervical disc disorder with radiculopathy, unspecified cervical region (principal); M51.16 Intervertebral disc disorders with radiculopathy, lumbar region; M25.559 Pain in unspecified hip; M70.60 Trochanteric bursitis, unspecified hip; M79.10 Myalgia, unspecified site; M25.519 Pain in unspecified shoulder
CPT/HCPCS: 99212; G0463

== ENCOUNTER → 2023-05-03 12:31 | Outpatient (CLI) | payer MEDICARE, OTHER, SELFPAY | PROVIDERS: PCP Psychiatry & Neurology Sleep Medicine; Visit Provider Nurse Practitioner Family | DX: R41.3 Other amnesia (principal); G93.40 Encephalopathy, unspecified | CPT/HCPCS: 95816 ==

== ENCOUNTER 2023-05-06 14:00 | Outpatient (RCR) | payer MEDICARE, OTHER, SELFPAY ==
--- NOTE | 2023-02-12 17:21 | HMH.PTOPEV ---
PT Outpatient Evaluation Rehab PT Outpatient Evaluation Start: 02/12/23 16:41 Freq: Status: Active Protocol: Document 02/12/23 16:41 ANAT (Rec: 02/12/23 17:20 ANAT [id number]) E-signed By Vinod Teixeira, PT Outpatient Therapy Subjective History Subjective History Patient is an 82 year old female presenting to outpatient PT with reports of chronic B hip/knee pain that has progressively gotten worse over the past 2 weeks. Symptoms of insidious onset. Patient reports B hip bursitis and B knee OA. Previous episode of PT provided some relief. Comorbidities include hx of L shoulder pain, HTN, diabetes, R RCR and cataracts. New diagnosis of cancer in past 12 No months? Chief Complaint Pain,Stiff Symptom Type Ache Symptoms Relieved By Rest/Positioning Symptoms Aggravated By Standing,Physical Activity, Walking Prior Functional Limitations None Current Functional Limitations Reaching,Lifting,Housework, Standing,Walking Symptom Description Intermittent Level of pain today (0-10) 0 Pain scale - at its best (0-10) 0 Pain scale - at its worst (0-10) 8 Hip/Knee Eval Gait Observation General Gait Pattern Observation No Deviations/Normal Assistive Device Assistive Devices None / NA Palpation Tenderness bilateral Knee Palpation Finding Tenderness Knee Palpation Overall Comment B greater trochater, B medial joint line 3/4 MMT Hip Flexion Strength Grade 3+ Fair+ Hip Abduction Strength Grade 4- Good- Hip Adduction Strength Grade 3+ Fair+ Hip Extension Strength Grade 3+ Fair+ Hip External Rotation Strength Grade 4- Good- Hip Internal Rotation Strength Grade 4- Good- Knee Extension Strength Grade 4- Good- Knee Flexion Strength Grade 4- Good- ROM Hip ROM Reason Not Measured Within Functional Limits Knee ROM Reason Not Measured Within Functional Limits Special Tests Hip Rhonda Test Positive Left,Positive Right Hip Piriformis Test Positive Left,Positive Right Hip 90-90 Straight Leg Raise Test Positive Left,Positive Right Knee Anterior Drawer Test Negative Left,Negative Right Knee Valgus Stress Test Negative Left,Negative Right Knee Varus Stress Test Negative Left,Negative Right Lower Extremity Functional Index Activities Today, do you or would you have any difficulty at all with: a.Any of your usual work, housework or No difficulty school activities b. Your usual hobbies, recreational or No difficulty sporting activities c. Getting into or out of the bath No difficulty d. Walking between rooms No difficulty e. Putting on your shoes or socks No difficulty f. Squatting Moderate difficulty g. Lifting an object, like a bag of A little bit of difficulty groceries from the floor h. Performing light activities around Quite a bit of difficulty your home i. Performing heavy activities around A little bit of difficulty your home j. Getting into or out of a car Quite a bit of difficulty k. Walking 2 blocks Quite a bit of difficulty l. Walking a mile Extreme difficulty or unable to perform activity m. Going up or down 10 stairs (about 1 Extreme difficulty or unable flight of stairs) to perform activity n. Standing for 1 hour Quite a bit of difficulty o. Sitting for 1 hour A little bit of difficulty p. Running on even ground Extreme difficulty or unable to perform activity q. Running on uneven ground Extreme difficulty or unable to perform activity r. Making sharp turns while running fast Quite a bit of difficulty s. Hopping Extreme difficulty or unable to perform activity t. Rolling over in bed Extreme difficulty or unable to perform activity LEFI Score Lower Extremity Functional Index Score 36 Outpatient Therapy Assessment Impairments Problems/Impairmments Palpation Tenderness,Impaired Range of Motion,Impaired Strength,Impaired Walking, Impaired Standing,Impaired Household Care,Impaired Stair Climbing,Impaired Incline Stepping,Impaired Stepping on Uneven Surface,Impaired Squatting,Impaired Bending, Impaired Balance,Subjective C/ O Pain Prognosis Rehab Potential Good Clinical Impression Consistent with Diagnosis Yes Short Term Goals Number of Weeks 2 Decrease Subjective C/O Pain Yes: 5/10 at worst Patient to be Ind w/ HEP Yes Body Wirer Goals Number of Weeks 4-6 Decreased Palpation Tenderness Yes: 1/4 Increase Strength Yes: B hip/thigh mm 5/5 Increase Ability to Walk Yes: 30 min without difficulty Increase Ability to Stand Yes: Improve Ability For Household Care Yes Improve Ability to Climb Stairs Yes: 1 flight up/down without difficulty Decrease Subjective C/O Pain Yes: 2/10 at worst Outpatient Therapy Plan of Care Treatment Plan May Include Therapeutic Exercise Including Home Yes Exercise Program Manual Therapy Techniques Yes Neuromuscular Re-education Yes Therapeutic Activities to Return to Yes Previous Functional/Work Level Gait Training Yes ADL/Self Care Education Yes Dry Needling Yes Thermal Modalities Yes Electrical Stimulation Yes Ultrasound/Phonophoresis Yes Iontophoresis Yes Orthotics/Bracing/Splinting Yes Vasopneumatic Compression Pump Yes Massage Yes Eval/Re-Eval Yes Frequency Times per week 2 Duration Number of Weeks 4-6 Addendums This patient is a candidate for social No or vocational rehab? Patient/Guardian verbally acknowledges Yes understanding of treatment program and consents to further treatment? Patient/Guardian verbally acknowledges Yes understanding of diagnosis, prognosis and goals for treatment? Shoulder/Elbow Eval Shoulder Objective Measurements Elbow Objective Measurements PHYSICIAN CERTIFICATION: I certify the specified therapy services for Gabby Baires are required, authorized, and reviewed every 30 days.
--- NOTE | 2023-03-12 17:34 | HMH.RHREAS ---
Rehab Reassessment Rehab OP Re-assessment Start: 02/12/23 16:41 Freq: Status: Active Protocol: Document 03/12/23 17:27 ANAT (Rec: 03/12/23 17:32 ANAT [id number]) E-signed By Vinod Teixeira, PT Lower Extremity Functional Index Activities Today, do you or would you have any difficulty at all with: a.Any of your usual work, housework or Moderate difficulty school activities b. Your usual hobbies, recreational or Moderate difficulty sporting activities c. Getting into or out of the bath Moderate difficulty d. Walking between rooms A little bit of difficulty e. Putting on your shoes or socks A little bit of difficulty f. Squatting Quite a bit of difficulty g. Lifting an object, like a bag of Moderate difficulty groceries from the floor h. Performing light activities around A little bit of difficulty your home i. Performing heavy activities around Quite a bit of difficulty your home j. Getting into or out of a car A little bit of difficulty k. Walking 2 blocks Moderate difficulty l. Walking a mile Quite a bit of difficulty m. Going up or down 10 stairs (about 1 Moderate difficulty flight of stairs) n. Standing for 1 hour Moderate difficulty o. Sitting for 1 hour Moderate difficulty p. Running on even ground Extreme difficulty or unable to perform activity q. Running on uneven ground Extreme difficulty or unable to perform activity r. Making sharp turns while running fast Extreme difficulty or unable to perform activity s. Hopping Extreme difficulty or unable to perform activity t. Rolling over in bed No difficulty LEFI Score Lower Extremity Functional Index Score 35 Rehab Re-assessment Subjective Subjective Patient reports 50% improvement since start of care. Objective Objective Notes B hip/knee AROM: WFL MMT: B hip/knee 4-/5 grossly Pain: 3/10 today; 7/10 at worst over past week Neuro: WNL Assessment Progress Assessment Progressing as Expected Assessment Notes Patient would benefit from continuing with skilled PT services in order to address functional limitations with all standing/ambulatory activities. Patient goals met STG 2 Goals Not Met All others Revised Goals NA Plan Plan Continue with current POC. Frequency of Therapy 2x/week Duration of therapy 4 weeks Time and Billing Re-Eval Time 18 Re-Eval Billing Units 1 PHYSICIAN CERTIFICATION: I certify the specified therapy services for Gabby Ashli Dequan are required, authorized, and reviewed every 30 days.
--- NOTE | 2023-04-15 16:01 | HMH.RHREAS ---
Rehab Reassessment Rehab OP Re-assessment Start: 02/12/23 16:41 Freq: Status: Active Protocol: Document 04/15/23 15:57 PHORNE (Rec: 04/15/23 16:01 PHORNE [id number]) E-signed By Timothy Bonilla, PT Lower Extremity Functional Index Activities Today, do you or would you have any difficulty at all with: a.Any of your usual work, housework or Moderate difficulty school activities b. Your usual hobbies, recreational or Moderate difficulty sporting activities c. Getting into or out of the bath Moderate difficulty d. Walking between rooms A little bit of difficulty e. Putting on your shoes or socks A little bit of difficulty f. Squatting Moderate difficulty g. Lifting an object, like a bag of Moderate difficulty groceries from the floor h. Performing light activities around A little bit of difficulty your home i. Performing heavy activities around Quite a bit of difficulty your home j. Getting into or out of a car A little bit of difficulty k. Walking 2 blocks Moderate difficulty l. Walking a mile Quite a bit of difficulty m. Going up or down 10 stairs (about 1 Quite a bit of difficulty flight of stairs) n. Standing for 1 hour Moderate difficulty o. Sitting for 1 hour Moderate difficulty p. Running on even ground Extreme difficulty or unable to perform activity q. Running on uneven ground Extreme difficulty or unable to perform activity r. Making sharp turns while running fast Extreme difficulty or unable to perform activity s. Hopping Extreme difficulty or unable to perform activity t. Rolling over in bed No difficulty LEFI Score Lower Extremity Functional Index Score 35 Rehab Re-assessment Subjective Subjective Pt states, I don't know, I've got so much going on I can't think sometimes. I think I'm about 50% better still. I think I'm better, but I did something to the back of my leg and I can't go up stairs now. Objective Objective Notes B hip/knee AROM: WFL MMT: B hip/knee 4-/5 grossly Pain: 0/10 today; 8/10 at worst over past week Neuro: WNL Assessment Progress Assessment Slower Than Expected Assessment Notes Pt continues to have difficulty with all household care and now ascending/ descending stairs. She continues to need skilled intervention to return to prior level of function. Patient goals met STG 2 Goals Not Met All others Revised Goals NA Plan Plan Continue with current POC. Frequency of Therapy 2x/week Duration of therapy 4 weeks Time and Billing Re-Eval Time 15 Re-Eval Billing Units 1 PHYSICIAN CERTIFICATION: I certify the specified therapy services for Gabby Baires are required, authorized, and reviewed every 30 days.
== END 2023-05-06 15:00 | disposition home or self-care (01) ==
LOC: PT 14:00
PROVIDERS: PCP Family Medicine; Visit Provider Family Medicine
DX: M25.551 Pain in right hip (principal); M25.552 Pain in left hip; M25.561 Pain in right knee; M25.562 Pain in left knee
CPT/HCPCS: 97010; 97014; 97035; 97110; 97112; 97163; 97164; 97530; G0283

== ENCOUNTER → 2023-05-06 15:07 | Outpatient (POV) | payer MEDICARE, OTHER, SELFPAY ==
--- NOTE | 2023-05-06 15:12 | EXP.PAIN.SOA ---
[facility] [place] Pain Management SOAP Note Subjective:: Patient is a pleasant 82-year-old female who presents today for 2-week follow-up. We are currently treating the patient for degenerative disc disease of cervical spine with cervical radiculopathy symptoms, myofascial pain, greater trochanteric bursitis, hip pain, low back pain, shoulder pain. Today she rates her pain an 9 out of 10. She denies any new trauma or injury. She does state overall her back is better from our last visit. She states that the pain is there somewhat however it is manageable. Patient does state that the pain does change location throughout the day and sometimes it will be on the right versus the left or up around her neck. Patient does state that she is still able to do activities and that sometimes she will have to stop and take a break due to worsening pain. She states recently she has been to see a neurologist and gone through an EEG. She states she has not had any updates with the findings at this point. Patient states that in the past she has had an episode of TIA years ago and that recently she had a panic attack when she had trouble remembering how to get to the hospital. Patient states it was very short-lived and within a couple minutes if that she did remember however it was concerning. Patient does state that she will occasionally have generalized memory issues. She also states she is still not heard back from Dr. Garcia's office for evaluation from her MRI of her lumbar spine. At our last visit she was prescribed baclofen 5 mg daily. Patient states initially when she tried this medication she felt a little unsteady and waited a couple days and tried it again. Patient states she has taken the baclofen the last 2 days and not had any side effects. Patient states that she did hold off on taking her duloxetine the last 2 days thinking maybe there was an interaction between those 2 medications. Her Faizan has been reviewed and is appropriate. Review of Systems: General: No recent weight changes, no fever, no sleep disturbances Respiratory: No cough, no shortness of air, no recurring pulmonary infections Cardiovascular/peripheral vascular: No chest pain, no palpitations, no edema, no shortness of breath Gastrointestinal: No new onset incontinence, normal bowel movements reported Genitourinary: No new onset incontinence Musculoskeletal: Low back pain, mid back pain, neck pain Psychiatric: [Normal mood/affect] Neurological: [Denies weakness in extremities], [denies balance issues] Objective:: Physical Exam: General: Alert and oriented x3, no acute distress, pleasant and cooperative Lungs: Respirations even and unlabored, symmetrical chest expansion Eyes: PERRL Musculoskeletal: Flexion and extension of cervical [spine] somewhat guarded secondary to pain, [antalgic gait noted] Neurological: Speech clear, no gross sensory deficit Assessment:: Degenerative disc disease of cervical and lumbar spine with cervical and lumbar radiculopathy symptoms, myofascial pain, greater trochanteric bursitis, hip pain, low back pain, shoulder pain Plan:: Patient continues to experience some pain in her neck and upper back. Patient does state that the pain is still very manageable. I have discussed with the patient that in future she may benefit from future injections however considering her pain is still very tolerable that at this time we will wait. I will send in a refill of the baclofen 5 mg daily and provide a 1 month supply of this medication. I have reviewed over with the patient that she does not have to take this medication on a regular basis and that she can do as needed at times when she is experiencing worsening pain. Patient will return to clinic in 1 month for reevaluation of symptoms and plan of care. Patient has been instructed to contact the clinic with any concerns before the next appointment. Dr. Jackson has reviewed this note and agrees with this plan of care. This note was dictated using vo
[2023-05-06 15:27] VITALS: BP 133/67; PULSE 64; RESP 18; O2SAT 98; BMI 24.1
== END | disposition home or self-care (01) ==
PROVIDERS: PCP Family Medicine; Visit Provider Nurse Practitioner Family
DX: M50.10 Cervical disc disorder with radiculopathy, unspecified cervical region (principal); M51.16 Intervertebral disc disorders with radiculopathy, lumbar region; M79.10 Myalgia, unspecified site; M70.60 Trochanteric bursitis, unspecified hip; M25.559 Pain in unspecified hip; M54.50 Low back pain, unspecified; M25.519 Pain in unspecified shoulder
CPT/HCPCS: 99212; G0463

== ENCOUNTER → 2023-05-09 12:39 | Outpatient (CLI) | payer MEDICARE, OTHER, SELFPAY | PROVIDERS: PCP Family Medicine; Visit Provider Nurse Practitioner Family | DX: R68.89 Other general symptoms and signs (principal) | CPT/HCPCS: 94762 ==

== ENCOUNTER → 2023-06-05 13:46 | Outpatient (POV) | payer MEDICARE, OTHER, SELFPAY ==
--- NOTE | 2023-06-05 14:00 | A.OFFVIS_ITS ---
[facility] Pain Management SOAP Note Subjective:: Patient is a pleasant 82-year-old female who presents today for follow-up. We are currently treating the patient for degenerative disc diseas she states she is still experiencing some pain in her neck along the right side with radiating symptoms into her upper right shoulder. Patient states this is not constant but does notice it more when she is stretching her right arm towards her back. She states right now it is still manageable. She does state that she has still not had a follow-up with Dr. Garcia's office regarding her lumbar MRI. Patient at her last visit stated that she did call and left a message however is still never heard back. Patient does state that she is scheduled for her follow-up neurologist appointment on the of this month to go over test findings. Patient does continue to use Biofreeze as needed for her pain symptoms in her neck. Is currently managed with alprazolam 0.25 mg twice a day and gabapentin 300 mg at bedtime from her primary care provider. Patient is prescribed baclofen 5 mg daily from our office. She denies any side effects from these m edications. Her Faizan has been reviewed and is appropriate. Review of Systems: General: No recent weight changes, no fever, no sleep disturbances Respiratory: No cough, no shortness of air, no recurring pulmonary infections Cardiovascular/peripheral vascular: No chest pain, no palpitations, no edema, no shortness of breath Gastrointestinal: No new onset incontinence, normal bowel movements reported Genitourinary: No new onset incontinence Musculoskeletal: Low back pain, mid back pain, neck pain Psychiatric: [Normal mood/affect] Neurological: [Denies weakness in extremities], [denies balance issues] Objective:: Physical Exam: General: Alert and oriented x3, no acute distress, pleasant and cooperative Lungs: Respirations even and unlabored, symmetrical chest expansion Eyes: PERRL Musculoskeletal: Flexion and extension of cervical [spine] somewhat guarded secondary to pain, [antalgic gait noted] Neurological: Speech clear, no gross sensory deficit Assessment:: degenerative disc disease of cervical spine with cervical radiculopathy symptoms, myofascial pain, greater trochanteric bursitis, hip pain, low back pain, shoulder apolonia Plan:: Patient is doing well overall at today's visit and does not require any additional injection therapy. Patient does state that her pain is still manageable however I have reviewed with the patient if this changes between now and her next visit she can call and schedule her appointment sooner. We will reach out to Dr. Garcia's office regarding the patient's follow-up appointment for review of her lumbar MRI. She does believe that she has a refill of her baclofen at home and does not need any at this time. Patient will return to clinic in 1 month for reevaluation of symptoms and plan of care. Patient has been instructed to contact the clinic with any concerns before the next appointment. Dr. Jackson has reviewed this note and agrees with this plan of care. This note was dictated using voice recognition software and make contain errors or omissions. Addendum: Patient has a follow-up with Dr. Garcia's office on July 01, 2022. [facility] Disclaimer: The information contained in this section may have been updated after the patient was seen, as this information can be updated by other users. Medical History (Updated 05/03/23 @ 10:27 by Allie Zapata APRN) CAD (coronary artery disease) Cataracts, bilateral Fatigue Hyperlipidemia Hypertension Hypotension SVT (supraventricular tachycardia) Syncope and collapse Surgical History (Updated 04/30/23 @ 14:18 by Andreea Sousa) History of cataract surgery History of hysterectomy History of lumpectomy Hx of rotator cuff surgery Family History (Updated 04/30/23 @ 14:19 by Andreea Sousa) Other Coronary artery disease Social History Smoking Status: Never smoker second hand exposure: No alcohol intake: never substance use type: denies use current occupational status: retired Travel in the last 8 weeks: None household members: spouse housing: house current occupational exposures/hazards: No caffeine: Yes
[2023-06-05 14:52] VITALS: BP 122/60; PULSE 62; RESP 18; O2SAT 98; BMI 24.7
== END | disposition home or self-care (01) ==
PROVIDERS: PCP Family Medicine; Visit Provider Nurse Practitioner Family
DX: M50.10 Cervical disc disorder with radiculopathy, unspecified cervical region (principal); M79.10 Myalgia, unspecified site; M70.60 Trochanteric bursitis, unspecified hip; M25.559 Pain in unspecified hip; M54.50 Low back pain, unspecified; M25.511 Pain in right shoulder
CPT/HCPCS: 99212; G0463

== ENCOUNTER → 2023-07-05 13:26 | Outpatient (POV) | payer MEDICARE, OTHER, SELFPAY ==
[2023-07-05 13:52] VITALS: BP 139/51; PULSE 65; RESP 18; O2SAT 98; BMI 25.1
--- NOTE | 2023-07-05 14:03 | A.OFFVIS_ITS ---
[facility] Pain Management SOAP Note Subjective:: This patient is a pleasant 82-year-old female comes our clinic today for follow- up visit after having neurosurgery consultation with Dr. Garcia in [place]. Patient is reporting low back pain she describes as constant, dull, aching. Also, bilateral hip and leg radicular symptoms. Lumbar MRI shows degenerative disc lumbar spine multilevels. Lumbar spondylosis. Multilevel lumbar facet arthropathy. Spondylolisthesis L3 on L4. Central canal stenosis at L3-4 as well as L4-5. Dr. Garcia suggest injective therapy and lieu of surgical intervention at this time. I discussed in detail with the patient and her regarding intralaminar lumbar epidural steroid injections at the L3-4 and/or L4-5 level. Answered her questions. Her Faizan's been reviewed and appropriate. Patient has been involved in home exercise program. Patient also is currently involved with [facility]. Objective:: Patient is awake alert [place] x 3. No acute distress. Flexion-extension lumbar spine very guarded secondary to pain. Deep tendon reflexes upper and lower extremities normal. Motor strength upper and lower extremities normal. There is no gross sensory deficit. Gait is normal. Assessment:: Degenerative disc lumbar spine multilevels. Lumbar radiculopathy. Lumbar spinal stenosis. Lumbar foraminal stenosis. Multilevel lumbar disc bulge. Lumbar spondylolisthesis. Plan:: We will plan for interlaminar L4-5 epidural steroid injection under fluoroscopy guidance. Patient will continue taking alprazolam 0.25 mg 1 p.o. twice daily. Gabapentin 300 mg 1 p.o. nightly from her primary care provider. [facility] Disclaimer: The information contained in this section may have been updated after the patient was seen, as this information can be updated by other users. Medical History CAD (coronary artery disease) Cataracts, bilateral Fatigue Hyperlipidemia Hypertension Hypotension SVT (supraventricular tachycardia) Syncope and collapse Surgical History History of cataract surgery History of hysterectomy History of lumpectomy Hx of rotator cuff surgery Family History Other Coronary artery disease Social History Smoking Status: Never smoker second hand exposure: No alcohol intake: never substance use type: denies use current occupational status: retired Travel in the last 8 weeks: None household members: spouse housing: house current occupational exposures/hazards: No caffeine: Yes
== END ==
LOC: SC.PAIN 13:27
PROVIDERS: Visit Provider Nurse Anesthetist, Certified Registered
DX: M51.16 Intervertebral disc disorders with radiculopathy, lumbar region (principal); M48.061 Spinal stenosis, lumbar region without neurogenic claudication; M51.26 Other intervertebral disc displacement, lumbar region; M43.16 Spondylolisthesis, lumbar region
CPT/HCPCS: 99212; G0463

== ENCOUNTER 2023-07-16 15:34 | Outpatient (CLI) | payer MEDICARE, OTHER, SELFPAY ==
[2023-07-16 16:13] LABS: Basophils % 0.4 % (0.1-2.0); Eosinophils # 0.1 K/mm3 (0.0-0.4); Eosinophils % 1.2 % (0.1-12.0); Hematocrit 32.9 % (37.0-47.0); Hemoglobin 11.7 g/dL (12.2-16.2); Lymphocytes # 1.8 K/mm3 (0.7-4.5); Lymphocytes % 29.4 % (10-50); Mean Corpuscular HGB Conc 35.6 g/dL (31.8-35.4); Mean Corpuscular Hemoglobin 30.7 pg (27.0-31.2); Mean Corpuscular Volume 86.4 fl (81-99); Mean Platelet Volume 8.5 fl (7.4-10.4); Monocytes # 0.3 K/mm3 (0.1-1.0); Monocytes % 5.3 % (1.7-9.3); Neutrophils # 3.8 K/mm3 (1.8-7.8); Neutrophils % 63.6 % (37.0-80.0); Platelet Count 298 K/mm3 (142-424); Red Blood Count 3.81 M/mm3 (4.20-5.40); Red Cell Distribution Width 13.6 % (11.5-17.5)
[2023-07-16 16:35] LABS: Iron 95 ug/dL (37-170)
[2023-07-16 16:44] LABS: Total Iron Binding Capacity 323 ug/dL (265-497)
[2023-07-16 17:11] LABS: Ferritin 27.7 ng/ml (11.1-264)
== END 2023-07-16 23:59 ==
PROVIDERS: PCP Family Medicine; Visit Provider Internal Medicine Medical Oncology
DX: D50.9 Iron deficiency anemia, unspecified (principal); R79.9 Abnormal finding of blood chemistry, unspecified
CPT/HCPCS: 36415; 82728; 83540; 83550; 85025

== ENCOUNTER 2023-07-19 15:00 | Outpatient (RCR) | payer MEDICARE, OTHER, SELFPAY ==
--- NOTE | 2023-06-18 17:12 | HMH.PTOPEV ---
PT Outpatient Evaluation Rehab PT Outpatient Evaluation Start: 06/18/23 15:06 Freq: Status: Active Protocol: Document 06/18/23 15:06 RAY (Rec: 06/18/23 17:11 RAY [id number]) E-signed By Candice Rodriguez, PT Outpatient Therapy Subjective History Subjective History Pt is an 82 y/o female who reports chronic bilateral hip and knee pain. Pt reports bilateral posterior hip pain and deep joint pain in bilateral knees. Pt also reports onset of bilateral thigh pain ~1-2 months ago. Pt denies numbness/tingling. Pt reports she had PT for the same issue ~1-2 months ago which did improve her symptoms . Pt reports she has not been continuing her HEP since discharge although it did help . Pt reports pain is aggravated by standing, prolonged walking and stairs. Pt reports she has an appointmet to see a back surgeon on 06/29/23 in [place]. Medical History: low blood pressure New diagnosis of cancer in past 12 No months? Chief Complaint Pain,Stiff Symptom Type Ache,Dull Symptoms Relieved By Rest/Positioning,Heat,OTC Meds Symptoms Aggravated By Standing,Physical Activity, Twisting,Walking,Lifting Prior Functional Limitations None Current Functional Limitations Housework,Standing,Walking, Stairs Symptom Description Constant but Variable Level of pain today (0-10) 8 Pain scale - at its best (0-10) 4 Pain scale - at its worst (0-10) 8 Lumbopelvic Eval Range of Motion Lumbar Spine Active Flexion Range of 80 Motion (degrees) Lumbar Spine Active Extension Range of 15 Motion (degrees) Left Lumbar Spine Lateral Flexion Active 15 Range of Motion (degrees) Right Lumbar Spine Lateral Flexion 15 Active Range of Motion (degrees) Special Tests Hip Scouring (Quadrant) Test Negative Left,Negative Right Hip Sp (NAS) Test Negative Left,Negative Right Hip Piriformis Test Negative Left,Negative Right Unilateral Straight Leg Raise (Lasegue) Negative Left,Negative Right Test Hip/Knee Eval Palpation Tenderness bilateral Knee Palpation Finding Tenderness Knee Palpation Overall Comment 3/4 greater trochanter, piriformis, glute med, hip flexor, med/lat knees Hip Palpation Findings Tenderness MMT Hip Flexion Strength Grade 4 Good Hip Abduction Strength Grade 4 Good Hip Adduction Strength Grade 4 Good Hip Extension Strength Grade 4- Good- Knee Extension Strength Grade 5 Normal Knee Flexion Strength Grade 4 Good ROM Hip Flexion w/Knee Flexed Active Range 105 of Motion (degrees) Hip External Rotation Active Range of 35 Motion (degrees) Hip Internal Rotation Active Range of 30 Motion (degrees) Knee Extension Active Range of Motion ( 0 degrees) Knee Flexion Active Range of Motion ( 125 degrees) Lower Extremity Functional Index Activities Today, do you or would you have any difficulty at all with: a.Any of your usual work, housework or Moderate difficulty school activities b. Your usual hobbies, recreational or Extreme difficulty or unable sporting activities to perform activity c. Getting into or out of the bath No difficulty d. Walking between rooms A little bit of difficulty e. Putting on your shoes or socks No difficulty f. Squatting A little bit of difficulty g. Lifting an object, like a bag of No difficulty groceries from the floor h. Performing light activities around Moderate difficulty your home i. Performing heavy activities around Moderate difficulty your home j. Getting into or out of a car No difficulty k. Walking 2 blocks Quite a bit of difficulty l. Walking a mile Quite a bit of difficulty m. Going up or down 10 stairs (about 1 Quite a bit of difficulty flight of stairs) n. Standing for 1 hour Quite a bit of difficulty o. Sitting for 1 hour A little bit of difficulty p. Running on even ground Extreme difficulty or unable to perform activity q. Running on uneven ground Extreme difficulty or unable to perform activity r. Making sharp turns while running fast Extreme difficulty or unable to perform activity s. Hopping Extreme difficulty or unable to perform activity t. Rolling over in bed No difficulty LEFI Score Lower Extremity Functional Index Score 39 Outpatient Therapy Assessment Impairments Problems/Impairmments Palpation Tenderness,Impaired Range of Motion,Impaired Strength,Impaired Walking, Impaired Standing,Impaired Sitting,Impaired Lifting, Impaired Household Care, Impaired Stair Climbing, Impaired Squatting,Impaired Bending,Subjective C/O Pain, Impaired Self Care/Self Management Prognosis Rehab Potential Good Clinical Impression Consistent with Diagnosis Yes Short Term Goals Number of Weeks 3 Improve LEFI Score Yes: Improve score to 45/80 to improve overall QOL Decrease Subjective C/O Pain Yes: Improve pain at worst to 6/10 to improve overall QOL Improve Self Care/Self Management Yes Patient to be Ind w/ HEP Yes Sound Effects Supervisor Goals Number of Weeks 6 Decreased Palpation Tenderness Yes: 1-2/4 TTP of B hips/knees Increase Range of Motion Yes: Improve B hip IR/ER AROM to 40, hip flexion to 110 Increase Strength Yes: Improve BLE MMT to 4+/5 grossly to assist with function Increase Ability to Stand Yes: 10' or more with pain 4/ 10 or less to assist with ADLs Improve Ability to Climb Stairs Yes: 1 flight with HR with pain 4/10 or less Improve LEFI Score Yes: Improve score to 50/80 to improve overall QOL Decrease Subjective C/O Pain Yes: Improve pain at worst to 4/10 to improve overall QOL Outpatient Therapy Plan of Care Treatment Plan May Include Therapeutic Exercise Including Home Yes Exercise Program Manual Therapy Techniques Yes Neuromuscular Re-education Yes Therapeutic Activities to Return to Yes Previous Functional/Work Level Gait Training Yes Dry Needling Yes Thermal Modalities Yes Electrical Stimulation Yes Ultrasound/Phonophoresis Yes Iontophoresis Yes Massage Yes Group Therapy for Medicare Yes Eval/Re-Eval Yes Aquatic Therapy Yes Frequency Times per week 2 Duration Number of Weeks 4-6 Addendums This patient is a candidate for social No or vocational rehab? Patient/Guardian verbally acknowledges Yes understanding of treatment program and consents to further treatment? Patient/Guardian verbally acknowledges Yes understanding of diagnosis, prognosis and goals for treatment? Eval Complexity PT Charges 98345 - Low Complexity Shoulder/Elbow Eval Shoulder Objective Measurements Elbow Objective Measurements PHYSICIAN CERTIFICATION: I certify the specified therapy services for Gabby Baires are required, authorized, and reviewed every 30 days.
--- NOTE | 2023-07-16 15:30 | HMH.RHREAS ---
Rehab Reassessment Rehab OP Re-assessment Start: 06/18/23 15:06 Freq: Status: Active Protocol: Document 07/16/23 13:52 RAY (Rec: 07/16/23 15:12 RAY [id number]) E-signed By Candice Rodriguez PT Lower Extremity Functional Index Activities Today, do you or would you have any difficulty at all with: a.Any of your usual work, housework or No difficulty school activities b. Your usual hobbies, recreational or No difficulty sporting activities c. Getting into or out of the bath No difficulty d. Walking between rooms No difficulty e. Putting on your shoes or socks No difficulty f. Squatting No difficulty g. Lifting an object, like a bag of No difficulty groceries from the floor h. Performing light activities around No difficulty your home i. Performing heavy activities around A little bit of difficulty your home j. Getting into or out of a car No difficulty k. Walking 2 blocks Quite a bit of difficulty l. Walking a mile Quite a bit of difficulty m. Going up or down 10 stairs (about 1 Quite a bit of difficulty flight of stairs) n. Standing for 1 hour Quite a bit of difficulty o. Sitting for 1 hour No difficulty p. Running on even ground Extreme difficulty or unable to perform activity q. Running on uneven ground Extreme difficulty or unable to perform activity r. Making sharp turns while running fast Extreme difficulty or unable to perform activity s. Hopping Extreme difficulty or unable to perform activity t. Rolling over in bed No difficulty LEFI Score Lower Extremity Functional Index Score 51 Rehab Re-assessment Subjective Subjective Pt reports she feels 60% improved since starting PT. Pt reports mild bilateral hip and knee pain on average and 7 /10 at wost with prolonged standing and walking. Pt also reports sharp bilateral anterior thigh pain that often extends to her shins, pt denies numbness or tingling. Pt reports she is getting an injection in her low back next week and has discussed low back surgery with a neurosurgeon if injections do not help with pain. Pt reports she performs her HEP sometimes. Objective Objective Notes Palpation: 1/4 TTP B piriformis, hip flexors; 2/4 TTP of L2-L5 B hip AROM: ER 40, IR 38, hip flexion 108 BLE MMT: hip flex 4/5, hip abd /add 4/5, hip ext 4/5, knee flex 10/05, knee ext 10/05, ankle DF 10/05 Assessment Assessment Notes Pt has attended 6 PT visits consisting of 2 land therapy and 4 aquatic therapy sessions . Pt demonstrated improved LEFS score and hip AROM this date compared to the initial evaluation. Pt continues to report mild-moderate bilateral hip, thigh and knee pain with prolonged standing and walking with contributions from low back pain and hip/ knee arthritis. Pt would continue to benefit from skilled PT to further improve subjective report of pain, lumbar/hip AROM, LE strength, and functional activity tolerance to improve overall QOL. Patient goals met ST/4 Goals Not Met LTG Revised Goals n/a Plan Plan Continue POC Frequency of Therapy 2x/week Duration of therapy 4 more weeks Time and Billing Re-Eval Time 20 Re-Eval Billing Units 1 PHYSICIAN CERTIFICATION: I certify the specified therapy services for Gabby Baires are required, authorized, and reviewed every 30 days.
== END 2023-07-19 16:00 | disposition home or self-care (01) ==
LOC: PT 15:00
PROVIDERS: PCP Family Medicine; Visit Provider Family Medicine
DX: M25.551 Pain in right hip (principal); M25.552 Pain in left hip; M25.561 Pain in right knee; M25.562 Pain in left knee; M12.9 Arthropathy, unspecified
CPT/HCPCS: 97010; 97014; 97110; 97113; 97163; 97164; 97530; G0283

== ENCOUNTER 2023-07-23 13:07 | Day surgery (SDC) | payer MEDICARE, OTHER, SELFPAY ==
[2023-07-23 13:30] VITALS: BP 133/71; PULSE 63; RESP 18; O2SAT 94; BMI 24.5
[2023-07-23] MEDS: methylPREDNISolone ACETATE 80MG/ML VIAL 80 MG (13:39)
[2023-07-23 13:40] VITALS: BP 152/88; PULSE 73; PULSE 78; RESP 18; O2SAT 99
--- NOTE | 2023-07-23 13:43 | EXP.PAIN.PRO ---
Procedure Date: 07/23/23 Time: 13:35 Anesthesiologist:: Sp Rivero CRNA Complications:: None Pre-procedure Diagnosis:: Degenerative disc lumbar spine multilevels. Lumbar radiculopathy. Lumbar spondylolisthesis. Lumbar spinal stenosis. Lumbar facet arthropathy. Lumbar spondylosis. Post-procedure Diagnosis:: Same. Indications for Procedure:: Patient is a very pleasant 83-year-old female comes our clinic today for lumbar epidural steroid injection at the L4-5 level. Patient reporting low back pain as well as bilateral hip and leg radicular symptoms. Patient had surgery consultation with Dr. Garcia in [place]. No surgery was indicated. Conservative therapy was recommended. She rates her pain today 12/10. Procedure Details:: Procedure: Lumbar epidural steroid injection under fluoroscopy Informed consent was obtained and the risks and benefits of the procedure were explained to the patient. The patient was taken to the procedure room and noninvasive monitors placed, including noninvasive blood pressure cuff and pulse oximeter. The back was viewed using C-arm Fluoroscopy and prepped using Chloraprep as a cleansing solution and the L4-L5 interspace was palpated. Skin and subcutaneous tissues were anesthetized using lidocaine 1.5% and a 25-gauge needle. After this, an 18-gauge Touhy epidural needle was placed into the L4-L5 interspace and advanced using fluoroscopic guidance and loss of resistance to air until the epidural space was encountered. After confirmation of needle placement in the epidural space, with dye, a solution containing normal saline, 3 mL and Depo-Medrol 80 mg were incrementally injected into the lumbar epidural space. The patient tolerated the procedure well with no complications. The patient was observed in the Pain Clinic and then discharged home neurologically intact. Plan and Disposition:: Patient was discharged out incident.
[2023-07-23 13:48] VITALS: BP 139/47; PULSE 59; RESP 18; O2SAT 94
== END 2023-07-23 13:48 | disposition home or self-care (01) ==
PROVIDERS: PCP Family Medicine; Visit Provider Nurse Anesthetist, Certified Registered
DX: M51.16 Intervertebral disc disorders with radiculopathy, lumbar region (principal); M43.16 Spondylolisthesis, lumbar region; M48.061 Spinal stenosis, lumbar region without neurogenic claudication; M47.26 Other spondylosis with radiculopathy, lumbar region
CPT/HCPCS: 62323; J1040

== ENCOUNTER → 2023-08-07 13:08 | Outpatient (POV) | payer MEDICARE, OTHER, SELFPAY ==
[2023-08-07 13:33] VITALS: BP 164/89; PULSE 59; RESP 20; BMI 25.1
--- NOTE | 2023-08-07 14:43 | EXP.PAIN.SOA ---
[facility] Pain Management SOAP Note Subjective:: Patient is a pleasant 83-year-old female who presents today for follow-up of lumbar epidural steroid injection L4-L5 on 07/23/2023. We are currently treating the patient for degenerative disc disease of cervical spine with cervical radiculopathy symptoms, myofascial pain, greater trochanteric bursitis, hip pain, low back pain, shoulder pain. Today she rates her pain an 0 out of 10. She denies any new trauma or injury. She states that she did have some improvement following this injection. She states she has been able to increase her mobility with decreased pain symptoms. She states that she has been able to go up steps a whole lot easier and has been able to have prolonged standing with decreased overall pain. She states that she has even noticed improvement in her overall knee pain following this injection. Patient has been back to see Dr. Garcia and states that he was recommending low back surgery however she states she is unsure what specific procedure. She states that she did talk to her primary care provider regarding it as well and that she does not want to proceed forward with that option at this time. Patient states that she still is having mid back pain around her lower scapula and that it does radiate across to her back. Patient does describe this as an aching, throbbing sensation. She was prescribed baclofen 5 mg and duloxetine in the past however she felt by taking these 2 together may have caused some side effects and discontinued the duloxetine at that time. Her Faizan has been reviewed and is appropriate. Review of Systems: General: No recent weight changes, no fever, no sleep disturbances Respiratory: No cough, no shortness of air, no recurring pulmonary infections Cardiovascular/peripheral vascular: No chest pain, no palpitations, no edema, no shortness of breath Gastrointestinal: No new onset incontinence, normal bowel movements reported Genitourinary: No new onset incontinence Musculoskeletal: mid back pain Psychiatric: [Normal mood/affect] Neurological: [Denies weakness in extremities], [denies balance issues] Objective:: Physical Exam: General: Alert and oriented x3, no acute distress, pleasant and cooperative Lungs: Respirations even and unlabored, symmetrical chest expansion Eyes: PERRL Musculoskeletal: Flexion and extension of thoracic [spine] somewhat guarded secondary to pain, [antalgic gait noted] Neurological: Speech clear, no gross sensory deficit Assessment:: degenerative disc disease of cervical spine with cervical radiculopathy symptoms, myofascial pain, greater trochanteric bursitis, hip pain, low back pain, shoulder pain, mid back pain Plan:: Patient is experiencing more pain in and around her mid back. I have discussed with patient that we may need to order additional thoracic imaging due to this time. I have also discussed with the patient that given her age and history that I would also agree with Dr. Caballero that surgery may not be the best option for her at this time. We will continue to monitor her symptoms. We did discuss with the patient regarding starting a anti-inflammatory and patient did deny any heart or kidney issues however her history in [facility] does show previous cardiac findings. At this time we will not send any additional prescriptions related to NSAIDs. Patient is on a blood thinner. Patient will return to clinic in 2 weeks for reevaluation of symptoms and plan of care. Patient has been instructed to contact the clinic with any concerns before the next appointment. Dr. Jackson has reviewed this note and agrees with this plan of care. This note was dictated using voice recognition software and make contain errors or omissions. Patient was contacted regarding heart related history. Patient did still deny that she had any current heart related issues. Patient stated that in the past they did do some testing and that everything turned out fine. Patient is unable to give a reason for the blood thinner. I did behavioral school counselors the patient that I will reach out to Dr. Caballero's office for confirmation. I did contact Dr. Caballero's office and spoke with an individual that did confirm the patient does have a history of heart related issues including cardiac cath that was done around 2018. We will not prescribe any NSAIDs. We will reach out to the patient to see about changing her duloxetine to twice a day. [facility] Disclaimer: The information contained in this section may have been updated after the patient was seen, as this information can be updated by other users. Medical History CAD (coronary artery disease) Cataracts, bilateral Fatigue Hyperlipidemia Hypertension Hypotension SVT (supraventricular tachycardia) Syncope and collapse Surgical History History of cataract surgery History of hysterectomy History of lumpectomy Hx of rotator cuff surgery Family History Other Coronary artery disease Social History Smoking Status: Never smoker second hand exposure: No alcohol intake: never substance use type: denies use current occupational status: other Travel in the last 8 weeks: None household members: spouse housing: house current occupational exposures/hazards: No caffeine: Yes
== END | disposition home or self-care (01) ==
PROVIDERS: PCP Family Medicine; Visit Provider Nurse Practitioner Family
DX: M50.10 Cervical disc disorder with radiculopathy, unspecified cervical region (principal); M79.10 Myalgia, unspecified site; M70.60 Trochanteric bursitis, unspecified hip; M25.559 Pain in unspecified hip; M54.50 Low back pain, unspecified; M25.519 Pain in unspecified shoulder; M54.6 Pain in thoracic spine
CPT/HCPCS: 99212; G0463

== ENCOUNTER 2023-08-21 13:30 | Outpatient (POV) | payer MEDICARE, OTHER, SELFPAY ==
--- NOTE | 2023-08-21 13:36 | EXP.PAIN.SOA ---
[facility] Pain Management SOAP Note Subjective:: Patient is a pleasant 83-year-old female who presents today for follow-up. We are currently treating the patient for degenerative disc disease of cervical spine with cervical radiculopathy symptoms, myofascial pain, greater trochanteric bursitis, hip pain, low back pain, shoulder pain. Today she rates her pain an 5 out of 10. She denies any new trauma or injury. She does state that she continues to have pain in and around her low back and hips going into her buttocks. She describes this as an aching, throbbing sensation that is worse with increased activity such as standing. She states that the pain does interfere with her ability perform activities of daily living such as cooking and cleaning. Patient does state that she did think that Dr. Garcia was sending over recommendations of a possible injection that he wanted to try to our office. She was prescribed baclofen 5 mg and duloxetine at her last visit we did increase the duloxetine to twice a day. She states that she has not yet noticed improvement with the increased dosage. Her Faizan has been reviewed and is appropriate. Review of Systems: General: No recent weight changes, no fever, no sleep disturbances Respiratory: No cough, no shortness of air, no recurring pulmonary infections Cardiovascular/peripheral vascular: No chest pain, no palpitations, no edema, no shortness of breath Gastrointestinal: No new onset incontinence, normal bowel movements reported Genitourinary: No new onset incontinence Musculoskeletal: Low back pain, bilateral hip pain, buttocks pain Psychiatric: [Normal mood/affect] Neurological: [Denies weakness in extremities], [denies balance issues] Objective:: Physical Exam: General: Alert and oriented x3, no acute distress, pleasant and cooperative Lungs: Respirations even and unlabored, symmetrical chest expansion Eyes: PERRL Musculoskeletal: Flexion and extension of lumbar [spine] somewhat guarded secondary to pain, [antalgic gait noted] point tenderness along bilateral SIs with positive bilateral Christelle's, Kyree's, Gaenslen's, compression and distraction exam Neurological: Speech clear, no gross sensory deficit Assessment:: Degenerative disc disease of cervical and lumbar spine with cervical and lumbar radiculopathy symptoms, myofascial pain, greater trochanteric bursitis, hip pain, low back pain, shoulder pain, sacroiliitis Plan:: Patient is experiencing worsening pain in her low back and bilateral hips and buttocks area. Patient did have point tenderness along her bilateral SIs and a positive bilateral Christelle's, Kyree's, Gaenslen's, compression and distraction exam. I have discussed with the patient that she may benefit from bilateral SI injection. Risk and benefits were discussed with patient and she would like to proceed forward with this plan of care. We will reach out to Dr. Garcia's office and see if we can get a copy of her last note to see his recommendations for injections. Patient will be scheduled for bilateral SI injections under fluoroscopy. Our office did receive a copy of his last note and he was recommending L3-L4 and L4-L5 lumbar epidural steroid injections. Patient has already had the lumbar epidural at the L4-L5 level. We will review at upcoming visits regarding repeating this injection at the L3-L4 level. Patient has been instructed to contact the clinic with any concerns before the next appointment. Dr. Jackson has reviewed this note and agrees with this plan of care. This note was dictated using voice recognition software and make contain errors or omissions. [facility] Disclaimer: The information contained in this section may have been updated after the patient was seen, as this information can be updated by other users. Medical History CAD (coronary artery disease) Cataracts, bilateral Fatigue Hyperlipidemia Hypertension Hypotension SVT (supraventricular tachycardia) Syncope and collapse Surgical History History of cataract surgery History of hysterectomy History of lumpectomy Hx of rotator cuff surgery Family History Other Coronary artery disease Social History Smoking Status: Never smoker second hand exposure: No alcohol intake: never substance use type: denies use current occupational status: other Travel in the last 8 weeks: None household members: spouse housing: house current occupational exposures/hazards: No caffeine: Yes
[2023-08-21 13:52] VITALS: BP 156/51; PULSE 60; RESP 18; BMI 25.1
== END 2023-08-21 23:59 ==
PROVIDERS: PCP Family Medicine; Visit Provider Nurse Practitioner Family
DX: M50.10 Cervical disc disorder with radiculopathy, unspecified cervical region (principal); M51.16 Intervertebral disc disorders with radiculopathy, lumbar region; M79.10 Myalgia, unspecified site; M70.60 Trochanteric bursitis, unspecified hip; M25.559 Pain in unspecified hip; M25.519 Pain in unspecified shoulder; M46.1 Sacroiliitis, not elsewhere classified
CPT/HCPCS: 99212; G0463

== ENCOUNTER 2023-09-13 17:32 | Emergency (ER) | payer MEDICARE, OTHER, SELFPAY ==
[2023-09-13 18:00] VITALS: BP 175/76; PULSE 58; RESP 19; TEMP 36.6; O2SAT 98; BMI 23.1
--- NOTE | 2023-09-13 18:21 | EXP.UTC ---
Discharge Plan Disposition Patient Disposition: Home, Self-Care Condition: Good Prescriptions Prescriptions: No Action allopurinol 100 mg tablet 100 mg PO DAILY potassium chloride [Klor-Con M20] 20 mEq tablet,ER particles/crystals 20 meq PO BID losartan 50 mg tablet 50 mg PO DAILY Patient Comments: TAKE ONE TABLET BY MOUTH EVERY MORNING AND 1/2 TABLET IN THE EVENING alprazolam 0.25 mg tablet 0.125 mg PO BID Patient Comments: TAKE 1/2 TABLET BY MOUTH EVERY MORNING, ONE-HALF TABLET AT NOON, THEN 1 TABLET AT BEDTIME MAY CAUSE DROWSINESS clopidogrel 75 mg tablet 75 mg PO DAILY Patient Comments: TAKE ONE TABLET BY MOUTH EVERY DAY gabapentin 300 mg capsule 300 mg PO HS Patient Comments: TAKE ONE CAPSULE BY MOUTH TWICE DAILY MAY CAUSE DROWSINESS ergocalciferol (vitamin D2) 1,250 mcg (50,000 unit) capsule 1,250 mcg PO WEEKLY Patient Comments: TAKE ONE CAPSULE BY MOUTH ONCE A WEEK rosuvastatin 5 mg tablet 5 mg PO DIRECTED Rx Instructions: Sat/Sat/Sat metoprolol succinate 50 mg tablet extended release 24 hr See Rx Instructions .ROUTE .COMPLEX Qty: 90 4RF Dose Instruction: TAKE ONE TABLET BY MOUTH EVERY DAY Rx Instructions: TAKE ONE TABLET BY MOUTH EVERY DAY levothyroxine 25 MCG tablet 25 mcg PO DAILYDM polyethylene glycol 3350 17 GM powder in packet 17 gm PO DAILYP PRN (Reason: Constipation) duloxetine 20 mg capsule,delayed release(DR/EC) 20 mg PO BID Qty: 40 0RF Referrals Follow up/Referrals: Brain Caballero MD [Primary Care Provider] - See instructions Activity Restrictions/Add. Instructions Additional Instructions/Restrictions: Restart your Amlodipine 2.5mg tablets as previously prescribed Check your Blood pressure and Heart rate twice daily once in the morning and once in the evening and record the findings Call Dr Medina office on Saturday and [facility] on what to do Straight to ER if any life threatening symptoms Clinical Impressions Clinical Impression: Blood pressure elevated without history of HTN Instructions Patient Instructions: Amlodipine, DI for High Blood Pressure Discharge ED Provider: Ursula Watson [facility] HPI General Stated complaint: high blood pressure Mode of Arrival: Ambulatory Source of Information: Patient Limitations: No Limitations Time Seen by Provider: 09/13/23 18:22 Description of Symptoms (Recalled from Triage Doc. by RN): PATIENT C/O ELEVATED BLOOD PRESSURE AT HOME WITH SLIGHT HEADACHE HEENT Symptoms (Recalled from RN notes): Yes Resp Symptoms (Recalled from RN notes): No Skin Symptoms (Recalled from RN notes): No MS Symptoms (Recalled from RN notes): No Functional Status (Recalled from RN notes): WNL History of Present Illness Provider Complaint: Patient states that she seen Cardiology in Jul and they took her off her amlodipine. States that she has been having allergy problems with itchy eyes and little headache and seen her PCP yesterday and he started her on eye drops States that her blood pressure was up in the office and her PCP told her to check her blood pressure this morning and call the office with the reading to see if they may need to start her back on her Amlodipine so this morning it was 153/80 and they called and left a message at the office and this evening they checked it again and it was up more so they come in to see if she should start her medication back or not worried it would continue to get higher Related Data Home Medications Medication Instructions Recorded Confirmed levothyroxine 25 mcg tablet 25 mcg PO DAILYDM hypothyroid 04/27/18 07/23/23 polyethylene glycol 3350 17 gram 17 gm PO DAILYP PRN Constipation 05/05/19 07/23/23 oral powder packet allopurinol 100 mg tablet 100 mg PO DAILY gout 12/24/19 07/23/23 alprazolam 0.25 mg tablet 0.125 mg PO BID Anxiety 12/24/19 07/23/23 clopidogrel 75 mg tablet 75 mg PO DAILY Blood thinner 12/24/19 07/23/23 potassium chloride 20 mEq 20 meq PO BID Supplement 12/24/19 07/23/23 tablet,extended release(part/cryst) (Klor-Con M) losartan 50 mg tablet 50 mg PO DAILY High blood pressure 09/21/21 07/23/23 ergocalciferol (vitamin D2) 1,250 1,250 mcg PO WEEKLY SUPPLIMENT 07/06/22 07/23/23 mcg (50,000 unit) capsule rosuvastatin 5 mg tablet 5 mg PO DIRECTED Cholesterol 07/06/22 07/23/23 gabapentin 300 mg capsule 300 mg PO HS Pain 04/30/23 07/23/23 Previous Rx's Medication Instructions Recorded metoprolol succinate 50 mg See Rx Instructions .Route 06/27/23 tablet,extended release 24 hr .COMPLEX #90 tabs duloxetine 20 mg capsule,delayed 20 mg PO BID MOOD #40 caps 08/08/23 release Allergies Allergy/AdvReac Type Severity Reaction Status Date / Time Sulfa (Sulfonamide Allergy Mild Nausea Verified 07/23/23 13:30 Antibiotics) sucralfate AdvReac Intermediate light Verified 07/23/23 13:30 headed, swelling of lips Worker's Comp Is this a Worker's Comp case?: No [facility] Disclaimer: The information contained in this section may have been updated after the patient was seen, as this information can be updated by other users. Medical History CAD (coronary artery disease) Cataracts, bilateral Fatigue Hyperlipidemia Hypertension Hypotension SVT (supraventricular tachycardia) Syncope and collapse Surgical History History of cataract surgery History of hysterectomy History of lumpectomy Hx of rotator cuff surgery Family History Other Coronary artery disease Social History Smoking Status: Never smoker second hand exposure: No alcohol intake: never substance use type: denies use current occupational status: other Travel in the last 8 weeks: None household members: spouse housing: house current occupational exposures/hazards: No caffeine: Yes ROS Obtained: Yes All systems reviewed & no additional complaints except as documented and Yes Systems reviewed as appropriate & no additional complaints except as documented Constitutional Constitutional: Reports system reviewed and no additional complaints, except as documented, Reports as per HPI, Denies fatigue, Denies lethargy and Denies weakness Eyes Eyes: Reports system reviewed and no additional complaints, except as documented, Reports as per HPI, Denies blurry vision, Denies floaters, Denies irritation, Denies eye pain and Denies seeing flashes ENT Ears, Nose, Mouth, and Throat: Reports system reviewed and no additional complaints, except as documented, Reports as per HPI, Denies abnormal hearing and Denies dizziness Cardiovascular Cardiovascular: Reports system reviewed and no additional complaints, except as documented, Reports as per HPI, Denies chest pain, Denies dyspnea on exertion and Denies syncope Respiratory Respiratory: Reports system reviewed and no additional complaints, except as documented, Reports as per HPI, Denies shortness of breath and Denies dyspnea on exertion Gastrointestinal Gastrointestingal: Reports system reviewed and no additional complaints, except as documented and as per HPI Musculoskeletal Musculoskeletal: Denies numbness Neurologic Neurologic: Reports system reviewed and no additional complaints, except as documented, Reports as per HPI, Denies abnormal hearing, Denies abnormal movements, Denies abnormal speech, Denies confusion, Denies dizziness, Denies lack of coordination, Denies numbness, Denies other visual disturbances, Denies syncope and Denies weakness Endocrine Endocrine: Reports system reviewed and no additional complaints, except as documented, Reports as per HPI and Denies fatigue Physical Exam General General appearance: alert and in no apparent distress Respiratory Respiratory exam: Present normal lung sounds bilaterally; Absent respiratory distress or wheezes Cardiovascular Cardiovascular exam: Present regular rate, normal rhythm and normal heart sounds Neurological Exam Neurological exam: Present alert, oriented X3 and normal gait Medical Decision Making Faizan Inquiry Pt receiving controlled substance: No Faizan was queried for this patient: No Vital Signs: 09/13/23 18:00 Temperature 97.8 F Temperature Source Oral Pulse Rate [Right Brachial] 58 L Respiratory Rate 19 Blood Pressure [Right Arm] 175/76 H Blood Pressure Mean [Right Arm] 109 Blood Pressure Source [Right Arm] Automatic Cuff Blood Pressure Position [Right Arm] Sitting 02 Sat by Pulse Oximetry 98 Oxygen Delivery Method Room Air Medical Decision Narrative: Called physician medtronics technician for Dr Caballero which was Dr Mayes, informed him of patient and he was familiar with her and informed him of patient being taken off Amlodipine in Jul and now her blood pressure has started trending up and she was concerned and had discussed it with Dr Caballero and blood pressure elevated in [facility] today. Patient denies any symptoms at this time Advised for her to start back on her previous Amlodipine 2.5mg daily dose (in which patient still has the prescription of Amlodipine with her in [facility] with enough medication for the weekend) that she was previously prescribed and check her blood pressure twice daily Once in the morning and once in the evening and record her blood pressure and Heart Rate and call the office on Saturday and inform Dr Caballero of the readings, Patient and patient verbalized understanding
[2023-09-13 18:32] VITALS: BP 175/76; PULSE 58; RESP 19; TEMP 36.6; O2SAT 98
== END 2023-09-13 18:42 | disposition home or self-care (01) ==
PROVIDERS: Emergency Provider Nurse Practitioner; PCP Family Medicine
DX: I11.9 Hypertensive heart disease without heart failure (principal); I25.10 Atherosclerotic heart disease of native coronary artery without angina pectoris; E78.5 Hyperlipidemia, unspecified; E03.9 Hypothyroidism, unspecified
CPT/HCPCS: 99212; 99214; G0463

== ENCOUNTER 2023-09-18 14:55 | Outpatient (CLI) | payer MEDICARE, OTHER, SELFPAY ==
--- NOTE | 2023-09-18 | US_ITS ---
FINAL REPORT CLINICAL HISTORY: HLD, TIA, Claudication, COMPARISON: None FINDINGS: ANKLE-BRACHIAL PRESSURE INDICES Pressure indices are as follows: RIGHT LOWER EXTREMITY: Ankle-brachial pressure index: 1.0 Comments: Normal LEFT LOWER EXTREMITY: Ankle-brachial pressure index: 1.0 Comments: Normal IMPRESSION: No evidence of significant obstructive peripheral vascular disease of the lower extremities Reviewed, Interpreted and Dictated by Kyler Valdez MD Transcribed by Kandis Acuna Authenticated and [facility]
== END 2023-09-18 23:59 | disposition home or self-care (01) ==
LOC: RT 14:55
PROVIDERS: PCP Family Medicine; Visit Provider Family Medicine
DX: I70.213 Atherosclerosis of native arteries of extremities with intermittent claudication, bilateral legs (principal); M79.606 Pain in leg, unspecified; D50.9 Iron deficiency anemia, unspecified; E78.5 Hyperlipidemia, unspecified
CPT/HCPCS: 93923

== ENCOUNTER 2023-09-24 09:59 | Day surgery (SDC) | payer MEDICARE, OTHER, SELFPAY ==
[2023-09-24 10:08] VITALS: BP 135/71; PULSE 77; PULSE 80; RESP 18; O2SAT 97
[2023-09-24 10:10] VITALS: BP 136/68; PULSE 77; RESP 18; TEMP 36.8; O2SAT 98; BMI 24.9
[2023-09-24] MEDS: methylPREDNISolone ACETATE 80MG/ML VIAL 80 MG (10:14)
[2023-09-24] MEDS: LIDOCAINE 1% 5ML PF VIAL 5 ML (10:14)
[2023-09-24] MEDS: BUPIVACAINE 0.25% 10ML INJ 25 MG IJ (10:14)
--- NOTE | 2023-09-24 10:28 | P.PCN_ITS ---
Procedure Date: 09/24/23 Time: 10:20 Anesthesiologist:: Sp Rivero CRNA Complications:: None Pre-procedure Diagnosis:: Bilateral sacroiliitis Post-procedure Diagnosis:: Same Indications for Procedure:: Patient is a pleasant 83-year-old female that comes to clinic today for bilateral sacroiliac joint injections. She has responded well to this injection in the past. She rates her pain today 6/10. Patient reports difficulty transitioning from sitting to standing. Difficulty with ambulation due to bilateral hip pain as well as low lumbar back pain. Procedure Details:: Procedure: Bilateral sacroiliac joint injections under fluoroscopy Informed consent was obtained and the risks and benefits of the procedure were explained to the patient.~ The patient was taken to the procedure room and noninvasive monitors were placed including a noninvasive blood pressure cuff and pulse oximeter.~ The patient was placed prone on the procedure table. Both hips were cleansed using Betadine as a cleansing solution. C-arm fluoroscopy was used to view the right sacroiliac joint.~ The skin and subcutaneous tissues were anesthetized using lidocaine 1.5% and a 25-gauge needle.~ After this, a 22-gauge spinal needle was inserted under fluoroscopic guidance into the inferior aspect of the right sacroiliac joint.~ Omnipaque dye was injected and good spread was seen throughout the joint.~ After this, approximately 5 mL of bupivacaine, 0.25% and Depo-Medrol, 40 mg was incrementally injected into the right sacroiliac joint. We then moved to the left sacroiliac joint.~ The skin and subcutaneous tissues were anesthetized using lidocaine 1.5% and a 25-gauge needle.~ After this, a 22- gauge spinal needle was inserted under fluoroscopic guidance into the inferior aspect of the left sacroiliac joint.~ Omnipaque dye was injected and good spread was seen throughout the joint. After this, approximately 5 mL of bupivacaine, 0.25% and Depo-Medrol, 40 mg was incrementally injected into the left sacroiliac joint.~ The patient tolerated the procedure well with no complications. The patient was observed in the Pain Clinic and then was discharged home neurologically intact. Plan and Disposition:: Patient was discharged without incident.
[2023-09-24 10:30] VITALS: BP 139/77; PULSE 64; RESP 16; O2SAT 97
== END 2023-09-24 10:30 | disposition home or self-care (01) ==
PROVIDERS: PCP Family Medicine; Visit Provider Nurse Anesthetist, Certified Registered
DX: M46.1 Sacroiliitis, not elsewhere classified (principal)
CPT/HCPCS: 27096; 77002; G0260; J1010

== ENCOUNTER 2023-10-04 14:00 | Outpatient (RCR) | payer MEDICARE, OTHER, SELFPAY ==
--- NOTE | 2023-08-15 16:13 | HMH.PTOPEV ---
PT Outpatient Evaluation Rehab PT Outpatient Evaluation Start: 08/15/23 14:03 Freq: Status: Active Protocol: Document 08/15/23 14:03 DARLENE (Rec: 08/15/23 16:13 DARLENE [id number]) E-signed By Amita Liang, PT Outpatient Therapy Subjective History Subjective History This is an initial evaluation for 83 y/o female, Gabby Baires, who presents with chronic neck and low back pain . Pt recieved a recent Lumbar epidural steroid injection L4- L5 on 07/23/2023 and reports some relief. Pt has recieved OP PT services at [facility] prior for chronic hip and knee pain. Neck pain is off and on on both sides. Pt with multiple pain complaints throughout hips, thighs, LB and neck. Pt reports her doctor does not recommend spinal surgery unless pain is severe. My legs, hips, and knees bother me the most. Shoulder pain is more on R side and goes down to elbow. 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 09/23 Cervical MRI Impression: DDD with severe stenosis of the spinal canal at C5-C6 and moderate stenosis of the spinal canal at C6-C7. 04/25 Lumbar MRI Impression; Multilevel lumbar degenerative change, with cysts at the L3- 4 and L4-5 levels and moderate to severe bilateral neural foraminal narrowing at the L3- 4 and L4-5 levels. Previous PT: Aquatic therapy, therex, ESTIM, heat, and cold helped relieve pain. PMH: CAD, Cataracts, bilateral , Fatigue, Hyperlipidemia, Hypertension, Hypotension, SVT (supraventricular tachycardia ) New diagnosis of cancer in past 12 No months? Chief Complaint Pain Symptom Type Ache,Throb Symptoms Relieved By OTC Meds,Prescription Meds, Elevation Symptoms Aggravated By Standing,Bending/Stooping, Physical Activity,Walking Current Functional Limitations Lifting,Standing,Squatting, Walking,Stairs Symptom Description Constant but Variable Level of pain today (0-10) 7 Pain scale - at its best (0-10) 3 Pain scale - at its worst (0-10) 7 Cervical Eval Palpation Cervical Muscles R Cervical Paraspinal,L Cervical Paraspinal,R Suboccipital,L Suboccipital,R Upper Trapezius,L Upper Trapezius Cervical/Thoracic Palpation Findings Tenderness Posture Head/C-Spine Posture Sitting Position Extended Flexibility Deficits Upper Trapezius Muscle Length (R) Moderate Tightness,(L) Moderate Tightness Levaetor Scapulae Muscle Length (R) Moderate Tightness,(L) Moderate Tightness Pectoralis Major Muscle Length (R) Mild Tightness,(L) Mild Tightness AROM Cervical Spine Extension Active Range of 15 Motion (degrees) Cervical Spine Flexion Active Range of 45 Motion (degrees) Cervical Spine Right Lateral Flexion 30 Active Range of Motion (degrees) Cervical Spine Left Lateral Flexion 33 Active Range of Motion (degrees) Cervical Spine Right Rotation Active 55 Range of Motion (degrees) Cervical Spine Left Rotation Active 55 Range of Motion (degrees) MMT Bilateral Deltoid (C5) 4- Good- Biceps Brachii Strength Grade 4- Good- Wrist Extension Strength Grade 4- Good- Triceps Brachii Strength Grade 4- Good- Wrist Flexion Strength Grade 4- Good- Special Test C-Spine Foraminal Compression (Spurling) Positive Right Test C-Spine Compression Test Positive Right Lumbopelvic Eval Gait Observation General Gait Pattern Observation No Deviations/Normal Palapation tenderness bilateral lumbar spinal tenderness Yes: 1/4 paraspinal tenderness Yes: 1/4 Lumbar/Sacral Palpation Findings Tenderness Range of Motion Lumbar Spine Active Flexion Range of WFL Motion (degrees) Lumbar Spine Active Extension Range of 10 Motion (degrees) Left Lumbar Spine Lateral Flexion Active 15 Range of Motion (degrees) Right Lumbar Spine Lateral Flexion 20 Active Range of Motion (degrees) Lumbar Spine ROM Limitations Pain Manual Muscle Test Bilateral Knee Extension Strength Grade 4- Good- Knee Flexion Strength Grade 4- Good- Hip Flexion Strength Grade 4- Good- Hip Abduction Strength Grade 4 Good Hip Adduction Strength Grade 4- Good- Ankle Dorsiflexion Strength Grade 4 Good Special Tests Sciatic Nerve Tension Test Positive Left,Positive Right Unilateral Straight Leg Raise (Lasegue) Positive Left,Positive Right Test Oswestry Index Section 1 Pain Intensity The pain comes and goes and is moderate Section 2 Personal Care (Washing,Dresing) change my way of washing or dressing in order to avoid pain Section 3 Lifting lifting heavy weights off the floor, but I can manage light to medium Section 4 Walking I cannot walk at all without increasing pain Section 5 Sitting Pain prevents me from sitting for more than 10 minutes Section 6 Standing I avoid standing because it increases the pain immediately Section 7 Sleeping I get pain in bed, but it does not prevent me from sleeping well Section 8 Social Life Pain has no significant effect on my social life apart from limiting Section 9 Traveling I get extra pain while traveling, but it does not compel me to seek al Section 10 Changing Degreee of Pain My pain fluctuates, but overall is definitely getting better Score and Risk Level Oswestry Sc 26 Oswestry Risk Level Severe Disability Outpatient Therapy Assessment Impairments Problems/Impairmments Impaired Range of Motion, Impaired Strength,Impaired Endurance,Impaired Walking, Impaired Standing,Impaired Stair Climbing,Impaired Squatting,Impaired Bending, Impaired Recreational Activities,Subjective C/O Pain Prognosis Rehab Potential Good Clinical Impression Consistent with Diagnosis Yes Short Term Goals Number of Weeks 3 Increase Range of Motion Yes: by 5 degrees in cervical and lumbar spine Increase Strength Yes: 4/5 BLE and BUE Improve Oswestry Score Yes: Improve by 5 points Decrease Subjective C/O Pain Yes: at worst 5/10 Patient to be Ind w/ HEP Yes Skilled Nursing Goals Number of Weeks 6 Decreased Palpation Tenderness Yes: 0/4 affected areas Increase Range of Motion Yes: WNL Increase Strength Yes: 5/5 BLE and BUE Increase Endurance Yes Improve Oswestry Score Yes: Score reflecting moderate disability at most. Decrease Subjective C/O Pain Yes: at worst 3/10 Patient to be Ind w/ Advanced HEP Yes Outpatient Therapy Plan of Care Treatment Plan May Include Therapeutic Exercise Including Home Yes Exercise Program Manual Therapy Techniques Yes Neuromuscular Re-education Yes Therapeutic Activities to Return to Yes Previous Functional/Work Level Gait Training Yes ADL/Self Care Education Yes Thermal Modalities Yes Electrical Stimulation Yes Ultrasound/Phonophoresis Yes Iontophoresis Yes Massage Yes Eval/Re-Eval Yes Aquatic Therapy Yes Frequency Times per week 1-2 times Duration Number of Weeks 5-6 weeks Addendums This patient is a candidate for social No or vocational rehab? Patient/Guardian verbally acknowledges Yes understanding of treatment program and consents to further treatment? Patient/Guardian verbally acknowledges Yes understanding of diagnosis, prognosis and goals for treatment? Eval Complexity PT Charges 15786 - Moderate Complexity Shoulder/Elbow Eval Shoulder Objective Measurements Elbow Objective Measurements PHYSICIAN CERTIFICATION: I certify the specified therapy services for Gabby Ashli Baires are required, authorized, and reviewed every 30 days.
--- NOTE | 2023-09-13 15:25 | HMH.RHREAS ---
Rehab Reassessment Rehab OP Re-assessment Start: 08/15/23 14:03 Freq: Status: Active Protocol: Document 09/13/23 14:58 DARLENE (Rec: 09/13/23 15:24 DARLENE [id number]) E-signed By Amita Liang, PT Oswestry Index Section 1 Pain Intensity The pain is moderate and does not vary much Section 2 Personal Care (Washing,Dresing) change my way of washing or dressing in order to avoid pain Section 3 Lifting lifting heavy weights off the floor, but I can manage light to medium Section 4 Walking I cannot walk more than 1/2 mile without increasing pain Section 5 Sitting I can sit in my favorite chair for as long as I like Section 6 Standing I cannot stand more than 10 minutes without increasing pain Section 7 Sleeping I get pain in bed, but it does not prevent me from sleeping well Section 8 Social Life Pain has no significant effect on my social life apart from limiting Section 9 Traveling I get some pain when traveling , but none of my usual forms of travel m Section 10 Changing Degreee of Pain My pain fluctuates, but overall is definitely getting better Score and Risk Level Oswestry Sc 20 Oswestry Risk Level Moderate Disability Rehab Re-assessment Subjective Subjective Pt reports she feels 50% improved since IE. My neck hasn't been hurting much. I'm getting a second injection on my back soon. Back pain at worst: 10 Objective Objective Notes MMT: Grossly 4/5 BLE and BUE Lumbar ROM: degrees - Flex: WFL - LSB: 21 - RSB: 26 - Ext: 15 Cervical ROM: degrees - Flexion: 50 - LSB: 30 - RSB: 35 - Rot: WFL 55-60 Assessment Progress Assessment Progressing as Expected Assessment Notes This is a reassessment for Gabby Baires who presents to PT for c/o neck, LB, and B hip pain. Since IE, pt has been seen for 8 visits that have consisted of modalities prn, education, and therapeutic exercises focusing on neck and back ROM and strength. Pt with good attendance to scheduled PT visits and reports adherence to some HEP tasks. Since IE, pt with improvements in subjective complaints of pain. Pt still presents with impaired strength, ROM, and subjective c/o pain. Pt would continue to benefit from skilled outpatient physical therapy to address remaining deficits. Patient goals met ST/5 LTG: in progress Goals Not Met Pain at worst is the same subjectively, some ROM is same Plan Plan Continue POC for 1-2 times a week for 3-4 more weeks Frequency of Therapy 1-2 times Duration of therapy 3-4 weeks Time and Billing Re-Eval Time 10 Re-Eval Billing Units 1 PHYSICIAN CERTIFICATION: I certify the specified therapy services for Gabby Baires are required, authorized, and reviewed every 30 days.
== END 2023-10-04 15:20 | disposition home or self-care (01) ==
LOC: PT 14:00
PROVIDERS: Visit Provider Nurse Practitioner Family
DX: M54.50 Low back pain, unspecified (principal)
CPT/HCPCS: 97010; 97014; 97110; 97140; 97163; 97164; G0283

== ENCOUNTER 2023-10-07 10:39 | Outpatient (POV) | payer MEDICARE, OTHER, SELFPAY ==
--- NOTE | 2023-10-07 10:59 | A.OFFVIS_ITS ---
[facility] Pain Management SOAP Note Subjective:: Patient is a pleasant 83-year-old female who presents today for follow-up of bilateral SI injections on 09/24/2023. Today she rates her pain a 2 out of 10. Patient states that she has had at least 80% improvement and feels like it is still continuing to help. Patient states that her low back and hips feel much better and feels overall more functional. Today she states that even her neck seems to be doing well. She states she will have a pain from time to time however it is manageable. Patient is prescribed duloxetine 20 mg twice daily. Patient states that she has only been taking it once a day and feels like it is helping. Her Faizan has been reviewed and is appropriate. Review of Systems: General: No recent weight changes, no fever, no sleep disturbances Respiratory: No cough, no shortness of air, no recurring pulmonary infections Cardiovascular/peripheral vascular: No chest pain, no palpitations, no edema, no shortness of breath Gastrointestinal: No new onset incontinence, normal bowel movements reported Genitourinary: No new onset incontinence Musculoskeletal: Low back pain Psychiatric: [Normal mood/affect] Neurological: [Denies weakness in extremities], [denies balance issues] Objective:: Physical Exam: General: Alert and oriented x3, no acute distress, pleasant and cooperative Lungs: Respirations even and unlabored, symmetrical chest expansion Eyes: PERRL Musculoskeletal: Flexion and extension of lumbar [spine] somewhat guarded secondary to pain, [antalgic gait noted] Neurological: Speech clear, no gross sensory deficit Assessment:: Degenerative disc disease of cervical and lumbar spine with cervical and lumbar radiculopathy symptoms, myofascial pain, greater trochanteric bursitis, hip pain, shoulder pain, sacroiliitis Plan:: Patient has had significant improvement in her low back and hips following her SI injections and does not require any additional injection therapy at this time. Patient will return to clinic in 1 month for reevaluation of symptoms and plan of care. Patient has been instructed to contact the clinic with any concerns before the next appointment. Dr. Jackson has reviewed this note and agrees with this plan of care. This note was dictated using voice recognition software and make contain errors or omissions. [facility] Disclaimer: The information contained in this section may have been updated after the patient was seen, as this information can be updated by other users. Medical History CAD (coronary artery disease) Cataracts, bilateral Fatigue Hyperlipidemia Hypertension Hypotension SVT (supraventricular tachycardia) Syncope and collapse Surgical History History of cataract surgery History of hysterectomy History of lumpectomy Hx of rotator cuff surgery Family History Other Coronary artery disease Social History Smoking Status: Never smoker second hand exposure: No alcohol intake: never substance use type: denies use current occupational status: other Travel in the last 8 weeks: None household members: spouse housing: house current occupational exposures/hazards: No caffeine: Yes
[2023-10-07 11:08] VITALS: BP 143/63; PULSE 65; RESP 18; O2SAT 99; BMI 25.0
== END 2023-10-07 23:59 | disposition home or self-care (01) ==
LOC: SC.PAIN 10:40
PROVIDERS: PCP Family Medicine; Visit Provider Nurse Practitioner Family
DX: M50.10 Cervical disc disorder with radiculopathy, unspecified cervical region (principal); M51.16 Intervertebral disc disorders with radiculopathy, lumbar region; M79.10 Myalgia, unspecified site; M70.60 Trochanteric bursitis, unspecified hip; M25.559 Pain in unspecified hip; M25.519 Pain in unspecified shoulder; M46.1 Sacroiliitis, not elsewhere classified
CPT/HCPCS: 99212; G0463

== ENCOUNTER 2023-11-07 13:05 | Outpatient (POV) | payer MEDICARE, OTHER, SELFPAY ==
--- NOTE | 2023-11-07 13:37 | EXP.PAIN.SOA ---
[facility] Pain Management SOAP Note Subjective:: Patient is a pleasant 83-year-old female who presents today for 1 month follow-up. Today she rates her pain a 6 out of 10. Patient states she has been having a lot more pain in her low back and legs including her bilateral knees. Patient describes this as an aching, throbbing sensation with some numbness and tingling down to her ankles. She denies any new trauma or injury. She does state the pain interferes with her ability to perform activities of daily living. Patient does state that the previous injection she got with her bilateral SIs worked great and still thinks that they are helping. Patient is currently managed with duloxetine 20 mg twice a day. She denies any side effects from this medication. Her Faizan has been reviewed and is appropriate. Review of Systems: General: No recent weight changes, no fever, no sleep disturbances Respiratory: No cough, no shortness of air, no recurring pulmonary infections Cardiovascular/peripheral vascular: No chest pain, no palpitations, no edema, no shortness of breath Gastrointestinal: No new onset incontinence, normal bowel movements reported Genitourinary: No new onset incontinence Musculoskeletal: Low back pain, bilateral leg pain, bilateral knee pain Psychiatric: [Normal mood/affect] Neurological: [Denies weakness in extremities], [denies balance issues] Objective:: Physical Exam: General: Alert and oriented x3, no acute distress, pleasant and cooperative Lungs: Respirations even and unlabored, symmetrical chest expansion Eyes: PERRL Musculoskeletal: Flexion and extension of lumbar [spine] somewhat guarded secondary to pain, [antalgic gait noted] Neurological: Speech clear, no gross sensory deficit Assessment:: Degenerative disc disease of cervical and lumbar spine with cervical and lumbar radiculopathy symptoms, sacroiliitis, greater trochanteric bursitis, hip pain, myofascial pain Plan:: Patient is experiencing worsening pain in her bilateral knees as well as low back with radiating symptoms down her bilateral extremities. Patient does have increased weakness in her legs. She did have limited range of motion of her lumbar spine during today's visit. I discussed with patient that she may benefit from a lumbar epidural steroid injection. Risk and benefits were discussed with patient and she would like to proceed forward with this plan of care. Patient is currently on blood thinners that is written by Dr. Caballero's office and we will call and confirm that she can stop this medication prior to this injection. Patient will be scheduled for an LESI L4-L5 under fluoroscopy. Patient has been instructed to contact the clinic with any concerns before the next appointment. Dr. Jackson has reviewed this note and agrees with this plan of care. This note was dictated using voice recognition software and make contain errors or omissions. [facility] Disclaimer: The information contained in this section may have been updated after the patient was seen, as this information can be updated by other users. Medical History CAD (coronary artery disease) Cataracts, bilateral Fatigue Hyperlipidemia Hypertension Hypotension SVT (supraventricular tachycardia) Syncope and collapse Surgical History History of cataract surgery History of hysterectomy History of lumpectomy Hx of rotator cuff surgery Family History Other Coronary artery disease Social History Smoking Status: Never smoker second hand exposure: No alcohol intake: never substance use type: denies use current occupational status: retired Travel in the last 8 weeks: None household members: spouse housing: house current occupational exposures/hazards: No caffeine: Yes
[2023-11-07 13:39] VITALS: BP 104/59; PULSE 64; RESP 16; O2SAT 100; BMI 25.1
== END 2023-11-07 23:59 | disposition home or self-care (01) ==
LOC: SC.PAIN 13:06
PROVIDERS: PCP Family Medicine; Visit Provider Nurse Practitioner Family
DX: M51.16 Intervertebral disc disorders with radiculopathy, lumbar region (principal); M25.561 Pain in right knee; M25.562 Pain in left knee; M50.10 Cervical disc disorder with radiculopathy, unspecified cervical region; M46.1 Sacroiliitis, not elsewhere classified; M70.60 Trochanteric bursitis, unspecified hip; M79.10 Myalgia, unspecified site
CPT/HCPCS: 99212; G0463

== ENCOUNTER 2023-11-26 13:52 | Day surgery (SDC) | payer MEDICARE, OTHER, SELFPAY ==
[2023-11-26 14:08] VITALS: BP 140/69; PULSE 61; RESP 16; TEMP 36.9; O2SAT 99; BMI 24.9
--- NOTE | 2023-11-26 14:29 | EXP.PAIN.PRO ---
Procedure Date: 11/26/23 Time: 14:30 Anesthesiologist:: Sp Rivero CRNA Complications:: None Pre-procedure Diagnosis:: Degenerative disc lumbar spine multilevels. Lumbar radiculopathy. Post-procedure Diagnosis:: Same. Indications for Procedure:: Patient is a pleasant 83-year-old female comes our clinic today for lumbar epidural steroid injections L4-5 level. Patient reports low back pain as well as bilateral leg radiculopathy. She rates her pain 7/10. Patient has had good success with this injection in the past. Procedure Details:: Procedure: Lumbar epidural steroid injection under fluoroscopy Informed consent was obtained and the risks and benefits of the procedure were explained to the patient. The patient was taken to the procedure room and noninvasive monitors placed, including noninvasive blood pressure cuff and pulse oximeter. The back was viewed using C-arm Fluoroscopy and prepped using Chloraprep as a cleansing solution and the L4-L5 interspace was palpated. Skin and subcutaneous tissues were anesthetized using lidocaine 1.5% and a 25-gauge needle. After this, an 18-gauge Touhy epidural needle was placed into the L4-L5 interspace and advanced using fluoroscopic guidance and loss of resistance to air until the epidural space was encountered. After confirmation of needle placement in the epidural space, with dye, a solution containing normal saline, 3 mL and Depo-Medrol 80 mg were incrementally injected into the lumbar epidural space. The patient tolerated the procedure well with no complications. The patient was observed in the Pain Clinic and then discharged home neurologically intact. Plan and Disposition:: Patient was discharged without incident.
[2023-11-26 14:38] VITALS: BP 151/64; PULSE 65; RESP 18; O2SAT 100
[2023-11-26 14:47] VITALS: BP 164/62; PULSE 70; RESP 18; O2SAT 98
[2023-11-26] MEDS: methylPREDNISolone ACETATE 80MG/ML VIAL 80 MG (14:47)
[2023-11-26 14:48] VITALS: BP 164/62; PULSE 70; RESP 18; O2SAT 98
== END 2023-11-26 14:39 | disposition home or self-care (01) ==
PROVIDERS: PCP Family Medicine; Visit Provider Nurse Anesthetist, Certified Registered
DX: M51.36 Other intervertebral disc degeneration, lumbar region (principal); M54.16 Radiculopathy, lumbar region
CPT/HCPCS: 62323; J1010

== ENCOUNTER 2023-12-25 14:20 | Outpatient (POV) | payer MEDICARE, OTHER, SELFPAY ==
[2023-12-25 14:27] VITALS: BP 132/65; PULSE 65; RESP 16; O2SAT 96; BMI 25.7
--- NOTE | 2023-12-25 15:18 | A.OFFVIS_ITS ---
[facility] Disclaimer: The information contained in this section may have been updated after the patient was seen, as this information can be updated by other users. Medical History CAD (coronary artery disease) Cataracts, bilateral Fatigue Hyperlipidemia Hypertension Hypotension SVT (supraventricular tachycardia) Syncope and collapse Surgical History History of cataract surgery History of hysterectomy History of lumpectomy Hx of rotator cuff surgery Family History Other Coronary artery disease Social History Smoking Status: Never smoker second hand exposure: No alcohol intake: never substance use type: denies use current occupational status: retired Travel in the last 8 weeks: None household members: spouse housing: house current occupational exposures/hazards: No caffeine: Yes PM Subjective & Objective Subjective Subjective:: Patient is a pleasant 83-year-old female who presents today for follow-up of lumbar epidural steroid injection L4-L5 on 11/26/2023. Today she rates her pain a 5 out of 10. She denies any new trauma or injury. She does state that she had at least 80 to 90% improvement following this injection and feels like it is still helping some. She states that it is not doing as great as it initially was but it is still manageable. Patient states that the pain is not as severe and she does feel more functional. Patient does state however that she still has chronic pain in multiple areas including her hips and mid back around her left shoulder blade as well as complaints today of headaches and occipital pain. Patient does state overall it is manageable. Patient did see neurosurgery in the past who was recommending surgery however she states she still does not know whether or not what she wants to do. Patient is currently managed with duloxetine 20 mg twice a day and denies any side effects from this medication. She states she does not need any refills currently. Her Faizan has been reviewed and is appropriate. Review of Systems: General: No recent weight changes, no fever, no sleep disturbances Respiratory: No cough, no shortness of air, no recurring pulmonary infections Cardiovascular/peripheral vascular: No chest pain, no palpitations, no edema, no shortness of breath Gastrointestinal: No new onset incontinence, normal bowel movements reported Genitourinary: No new onset incontinence Musculoskeletal: Hip pain, mid back pain, neck pain, headache Psychiatric: [Normal mood/affect] Neurological: [Denies weakness in extremities], [denies balance issues] Pain at rest (0-10 scale): 5 Objective Objective:: Physical Exam: General: Alert and oriented x3, no acute distress, pleasant and cooperative Lungs: Respirations even and unlabored, symmetrical chest expansion Eyes: PERRL Musculoskeletal: Flexion and extension of cervical [spine] somewhat guarded secondary to pain, [antalgic gait noted] Neurological: Speech clear, no gross sensory deficit Has patient had previous pain injection?: Yes Percent improvement in pain since last injection: 80 to 90% Conservative treatment options previously tried: Home exercise plan Length of treatment: Longer than 6 weeks Meds Home Medications and Allergies Home Medications ?Medication ?Instructions ?Recorded ?Confirmed ?Type levothyroxine 25 mcg tablet 25 mcg PO DAILYDM hypothyroid 04/27/18 12/25/23 History polyethylene glycol 3350 17 gram 17 gm PO DAILYP PRN Constipation 05/05/19 12/25/23 History oral powder packet allopurinol 100 mg tablet 100 mg PO DAILY gout 12/24/19 12/25/23 History alprazolam 0.25 mg tablet 0.125 mg PO BID Anxiety 12/24/19 12/25/23 History clopidogrel 75 mg tablet 75 mg PO DAILY Blood thinner 12/24/19 12/25/23 History potassium chloride 20 mEq 20 meq PO BID Supplement 12/24/19 12/25/23 History tablet,extended release(part/cryst) (Klor-Con M) losartan 50 mg tablet 50 mg PO DAILY High blood pressure 09/21/21 12/25/23 History ergocalciferol (vitamin D2) 1,250 1,250 mcg PO WEEKLY SUPPLIMENT 07/06/22 12/25/23 History mcg (50,000 unit) capsule rosuvastatin 5 mg tablet 5 mg PO DIRECTED Cholesterol 07/06/22 12/25/23 History gabapentin 300 mg capsule 300 mg PO HS Pain 04/30/23 12/25/23 History metoprolol succinate 50 mg See Rx Instructions .Route 06/27/23 12/25/23 Rx tablet,extended release 24 hr .COMPLEX #90 tabs duloxetine 20 mg capsule,delayed 20 mg PO BID MOOD #40 caps 08/08/23 12/25/23 Rx release New Prescriptions to Start Prescriptions: Allergies Allergy/AdvReac Type Severity Reaction Status Date / Time Sulfa (Sulfonamide Allergy Mild Nausea Verified 11/26/23 14:10 Antibiotics) sucralfate AdvReac Intermediate light Verified 11/26/23 14:10 headed, swelling of lips Assessment and Plan *Assessment and plan (1) Cervical radiculopathy: Status: Acute Category: Medical Code(s): M54.12 - Radiculopathy, cervical region (2) Degenerative disc disease, cervical: Status: Acute Category: Medical Code(s): M50.30 - Other cervical disc degeneration, unspecified cervical region (3) Left shoulder pain: Status: Acute Qualifiers: Chronicity: chronic Qualified Code(s): M25.512 - Pain in left shoulder; G89.29 - Other chronic pain Category: Medical Code(s): M25.512 - Pain in left shoulder (4) Degenerative disc disease, lumbar: Status: Acute Category: Medical Code(s): M51.36 - Other intervertebral disc degeneration, lumbar region (5) Lumbar radiculopathy: Status: Acute Category: Medical Code(s): M54.16 - Radiculopathy, lumbar region Plan Patient does still have chronic pains in multiple areas. I have discussed with patient that we still can do injection therapy in different locations however we do want to be very mindful of how frequently she gets these injections. I did discuss at length the risk and benefits of injection therapy versus surgery and have recommended that she follow back up with her neurosurgeon to ask additional questions. Patient agrees with this plan of care. Patient will return to clinic in 1 month for reevaluation of symptoms and plan of care. Patient has been instructed to contact the clinic with any concerns before the next appointment. Dr. Jackson has reviewed this note and agrees with this plan of care. This note was dictated using voice recognition software and make contain errors or omissions. All injections are used with Lidocaine or Bupivacaine and Depo Medrol.
== END 2023-12-25 23:59 | disposition home or self-care (01) ==
LOC: SC.PAIN 14:21
PROVIDERS: PCP Family Medicine; Visit Provider Nurse Practitioner Family
DX: G89.29 Other chronic pain; M50.10 Cervical disc disorder with radiculopathy, unspecified cervical region
CPT/HCPCS: 99212; G0463

== ENCOUNTER 2024-01-23 15:04 | Outpatient (POV) | payer MEDICARE, OTHER, SELFPAY ==
[2024-01-23 15:20] VITALS: BP 153/63; PULSE 66; RESP 16; O2SAT 100; BMI 24.3
--- NOTE | 2024-01-23 16:06 | A.OFFVIS_ITS ---
[facility] Disclaimer: The information contained in this section may have been updated after the patient was seen, as this information can be updated by other users. Medical History CAD (coronary artery disease) Cataracts, bilateral Fatigue Hyperlipidemia Hypertension Hypotension SVT (supraventricular tachycardia) Syncope and collapse Surgical History History of cataract surgery History of hysterectomy History of lumpectomy Hx of rotator cuff surgery Family History Other Coronary artery disease Social History Smoking Status: Never smoker second hand exposure: No alcohol intake: never substance use type: denies use current occupational status: unemployed Travel in the last 8 weeks: None household members: spouse housing: house current occupational exposures/hazards: No caffeine: Yes PM Subjective & Objective Subjective Subjective:: Patient is a pleasant 83-year-old female who presents today for follow-up. Today she rates her pain a 8 out of 10. Patient states that she still has chronic pain throughout multiple areas including her bilateral hips knees and a little bit mid back. Patient does state today that she thinks maybe that hips and buttocks area is more bothersome than the others. She does describe this as a throbbing sensation that does interfere with her ability to perform activities of daily living such as cooking and cleaning. Patient states she does typically get improvement with her injections and states that she would like to proceed forward with additional. Patient had been to Dr. Garcia in the past and was recommend possible lumbar surgery however she states again today that she is not necessarily interested in this option. She states that she still was confused of what exactly he was wanting to do. Patient is currently managed with duloxetine 20 mg twice a day from our office. Patient does not need refills at this time. Her Faizan has been reviewed and is appropriate. Review of Systems: General: No recent weight changes, no fever, no sleep disturbances Respiratory: No cough, no shortness of air, no recurring pulmonary infections Cardiovascular/peripheral vascular: No chest pain, no palpitations, no edema, no shortness of breath Gastrointestinal: No new onset incontinence, normal bowel movements reported Genitourinary: No new onset incontinence Musculoskeletal: Bilateral hip pain Psychiatric: [Normal mood/affect] Neurological: [Denies weakness in extremities], [denies balance issues] Pain at rest (0-10 scale): 8 Objective Objective:: Physical Exam: General: Alert and oriented x3, no acute distress, pleasant and cooperative Lungs: Respirations even and unlabored, symmetrical chest expansion Eyes: PERRL Musculoskeletal: Flexion and extension of lumbar [spine] somewhat guarded secondary to pain, [antalgic gait noted] point tenderness along bilateral greater trochanteric bursa's Neurological: Speech clear, no gross sensory deficit Has patient had previous pain injection?: No Conservative treatment options previously tried: Home exercise plan Length of treatment: Longer than 6 weeks Meds Home Medications and Allergies Home Medications ?Medication ?Instructions ?Recorded ?Confirmed ?Type levothyroxine 25 mcg tablet 25 mcg PO DAILYDM hypothyroid 04/27/18 01/23/24 History polyethylene glycol 3350 17 gram 17 gm PO DAILYP PRN Constipation 05/05/19 01/23/24 History oral powder packet allopurinol 100 mg tablet 100 mg PO DAILY gout 12/24/19 01/23/24 History alprazolam 0.25 mg tablet 0.125 mg PO BID Anxiety 12/24/19 01/23/24 History clopidogrel 75 mg tablet 75 mg PO DAILY Blood thinner 12/24/19 01/23/24 History potassium chloride 20 mEq 20 meq PO BID Supplement 12/24/19 01/23/24 History tablet,extended release(part/cryst) (Klor-Con M) losartan 50 mg tablet 50 mg PO DAILY High blood pressure 09/21/21 01/23/24 History ergocalciferol (vitamin D2) 1,250 1,250 mcg PO WEEKLY SUPPLIMENT 07/06/22 01/23/24 History mcg (50,000 unit) capsule rosuvastatin 5 mg tablet 5 mg PO DIRECTED Cholesterol 07/06/22 01/23/24 Histo ry gabapentin 300 mg capsule 300 mg PO HS Pain 04/30/23 01/23/24 History metoprolol succinate 50 mg See Rx Instructions .Route 06/27/23 01/23/24 Rx tablet,extended release 24 hr .COMPLEX #90 tabs duloxetine 20 mg capsule,delayed 20 mg PO BID MOOD #40 caps 08/08/23 01/23/24 Rx release New Prescriptions to Start Prescriptions: Allergies Allergy/AdvReac Type Severity Reaction Status Date / Time Sulfa (Sulfonamide Allergy Mild Nausea Verified 11/26/23 14:10 Antibiotics) sucralfate AdvReac Intermediate light Verified 11/26/23 14:10 headed, swelling of lips Assessment and Plan *Assessment and plan (1) Greater trochanteric bursitis of both hips: Status: Acute Category: Medical Code(s): M70.61 - Trochanteric bursitis, right hip; M70.62 - Trochanteric bursitis, left hip Plan Patient did have extreme point tenderness along her bilateral greater trochanteric bursa's with palpation during today's visit. I did discuss with the patient that she may benefit from bilateral hip bursa injections. Risk and benefits were discussed with patient and she would like to proceed forward with this plan of care. Patient has tried and failed conservative therapy including continued at home stretching exercise for longer than 6 weeks. We will schedule the patient for bilateral bursa injections under fluoroscopy. Patient has been instructed to contact the clinic with any concerns before the next appointment. Dr. Jackson has reviewed this note and agrees with this plan of care. This note was dictated using voice recognition software and make contain errors or omissions. All injections are used with Lidocaine or Bupivacaine and Depo Medrol.
== END 2024-01-23 23:59 | disposition home or self-care (01) ==
LOC: SC.PAIN 15:07
PROVIDERS: PCP Family Medicine; Visit Provider Nurse Practitioner Family
DX: M70.61 Trochanteric bursitis, right hip (principal); M70.62 Trochanteric bursitis, left hip; Z73.89 Other problems related to life management difficulty; Z79.899 Other long term (current) drug therapy
CPT/HCPCS: 99212; G0463

== ENCOUNTER 2024-03-02 14:05 | Outpatient (POV) | payer MEDICARE, OTHER, SELFPAY ==
--- NOTE | 2024-03-02 15:22 | EXP.PAIN.SOA ---
[facility] [place] Disclaimer: The information contained in this section may have been updated after the patient was seen, as this information can be updated by other users. Medical History CAD (coronary artery disease) Cataracts, bilateral Fatigue Hyperlipidemia Hypertension Hypotension SVT (supraventricular tachycardia) Syncope and collapse Surgical History History of cataract surgery History of hysterectomy History of lumpectomy Hx of rotator cuff surgery Family History Other Coronary artery disease Social History Smoking Status: Never smoker second hand exposure: No alcohol intake: never substance use type: denies use current occupational status: unemployed Travel in the last 8 weeks: None household members: spouse housing: house current occupational exposures/hazards: No caffeine: Yes PM Subjective & Objective Subjective Subjective:: Patient is a pleasant 83-year-old female who presents today for follow-up of bilateral greater trochanteric bursa injections on 02/11/2024. Today she rates her pain a 6 out of 10. Patient does state that the bursa injections did help and that they are definitely not as tender as what they were writing at least 50% improvement. She does however states she still has chronic pain throughout her low back with worsening pain in and around her upper thighs and knees. She does state that the pain is a aching sensation in general but occasionally will be dull as well as occasionally sharp. Patient does state the pain interferes with her ability perform activities of daily living. Patient is interested in additional injection therapy. Patient does state that she is still undecided whether or not she would want to proceed forward with surgery from Dr. Garcia was recommending. Patient does also states she still has chronic pain in and around her neck and upper shoulders. Her Faizan has been reviewed and is appropriate. Injection history: 02/11/2020 for bilateral greater trochanteric bursa's 11/26/2023 lumbar epidural steroid injection L4-L5 09/24/2023 bilateral SI injection 07/23/2023 lumbar epidural steroid injection L4-L5 04/09/2023 cervical epidural steroid injection C6-C7 02/05/2023 trigger point injections of her cervical paraspinous and bilateral trapezius 11/27/2022 cervical epidural steroid injection 10/30/2022 left suprascapular nerve block Review of Systems: General: No recent weight changes, no fever, no sleep disturbances Respiratory: No cough, no shortness of air, no recurring pulmonary infections Cardiovascular/peripheral vascular: No chest pain, no palpitations, no edema, no shortness of breath Gastrointestinal: No new onset incontinence, normal bowel movements reported Genitourinary: No new onset incontinence Musculoskeletal: Low back pain, upper thigh pain, bilateral knee pain Psychiatric: [Normal mood/affect] Neurological: [Denies weakness in extremities], [denies balance issues] Pain at rest (0-10 scale): 6 Objective Objective:: Physical Exam: General: Alert and oriented x3, no acute distress, pleasant and cooperative Lungs: Respirations even and unlabored, symmetrical chest expansion Eyes: PERRL Musculoskeletal: Flexion and extension of lumbar [spine] somewhat guarded secondary to pain, [antalgic gait noted] Neurological: Speech clear, no gross sensory deficit Has patient had previous pain injection?: Yes Percent improvement in pain since last injection: 50% Conservative treatment options previously tried: Home exercise plan Length of treatment: Longer than 12 weeks Meds Home Medications and Allergies Home Medications ?Medication ?Instructions ?Recorded ?Confirmed ?Type levothyroxine 25 mcg tablet 25 mcg PO DAILYDM hypothyroid 04/27/18 03/02/24 History polyethylene glycol 3350 17 gram 17 gm PO DAILYP PRN Constipation 05/05/19 03/02/24 History oral powder packet allopurinol 100 mg tablet 100 mg PO DAILY gout 12/24/19 03/02/24 History alprazolam 0.25 mg tablet 0.125 mg PO BID Anxiety 12/24/19 03/02/24 History clopidogrel 75 mg tablet 75 mg PO DAILY Blood thinner 12/24/19 03/02/24 History potassium chloride 20 mEq 20 meq PO BID Supplement 12/24/19 03/02/24 History tablet,extended release(part/cryst) (Klor-Con M) losartan 50 mg tablet 50 mg PO DAILY High blood pressure 09/21/21 03/02/24 History ergocalciferol (vitamin D2) 1,250 1,250 mcg PO WEEKLY SUPPLIMENT 07/06/22 03/02/24 History mcg (50,000 unit) capsule rosuvastatin 5 mg tablet 5 mg PO DIRECTED Cholesterol 07/06/22 03/02/24 History gabapentin 300 mg capsule 300 mg PO HS Pain 04/30/23 03/02/24 History metoprolol succinate 50 mg See Rx Instructions .Route 06/27/23 03/02/24 Rx tablet,extended release 24 hr .COMPLEX #90 tabs duloxetine 20 mg capsule,delayed 20 mg PO BID MOOD #40 caps 08/08/23 03/02/24 Rx release New Prescriptions to Start Prescriptions: Allergies Allergy/AdvReac Type Severity Reaction Status Date / Time Sulfa (Sulfonamide Allergy Mild Nausea Verified 02/11/24 12:31 Antibiotics) sucralfate AdvReac Intermediate light Verified 02/11/24 12:31 headed, swelling of lips Assessment and Plan *Assessment and plan (1) Lumbar radiculopathy: Status: Acute Category: Medical Code(s): M54.16 - Radiculopathy, lumbar region (2) Degenerative disc disease, lumbar: Status: Acute Category: Medical Code(s): M51.36 - Other intervertebral disc degeneration, lumbar region Plan Patient is experiencing worsening pain throughout her low back with limited range of motion of her lumbar spine and numbness and tingling that does radiate down into her bilateral lower extremities including her thighs and knees. I did discuss with the patient that she may benefit from repeat lumbar epidural steroid injection. Patient has had this injection in the past that did provide more than 80-90% improvement. Risk and benefits were discussed with the patient and she would like to proceed forward with this plan of care. Patient is currently on Plavix written by Dr. Caballero's office. I did discuss with patient that we will have to confirm that she can stop this medication prior to this procedure. Patient acknowledges understanding agrees with plan of care. Patient has tried and failed conservative therapy including continued at home exercising and stretching for longer than 12 weeks. Patient will be scheduled for an LESI L4-L5 under fluoroscopy. Patient has been instructed to contact the clinic with any concerns before the next appointment. Dr. Jackson has reviewed this note and agrees with this plan of care. This note was dictated using voice recognition software and make contain errors or omissions. All injections are used with Lidocaine or Bupivacaine and Depo Medrol.
== END 2024-03-02 23:59 | disposition home or self-care (01) ==
LOC: SC.PAIN 14:06
PROVIDERS: PCP Family Medicine; Visit Provider Nurse Practitioner Family
DX: M51.16 Intervertebral disc disorders with radiculopathy, lumbar region (principal); Z73.89 Other problems related to life management difficulty; Z79.02 Long term (current) use of antithrombotics/antiplatelets
CPT/HCPCS: 99212; G0463

== ENCOUNTER 2024-04-07 11:53 | Day surgery (SDC) | payer MEDICARE, OTHER, SELFPAY ==
[2024-04-07 12:02] VITALS: BP 129/60; PULSE 67; RESP 16; TEMP 36.8; O2SAT 99; BMI 25.1
[2024-04-07] MEDS: methylPREDNISolone ACETATE 80MG/ML VIAL 80 MG (12:10)
[2024-04-07 12:11] VITALS: BP 158/80; PULSE 75; RESP 18; O2SAT 97
[2024-04-07 12:12] VITALS: BP 158/80; PULSE 75; RESP 18; O2SAT 97
[2024-04-07 12:20] VITALS: BP 124/64; PULSE 59; RESP 16; O2SAT 99
--- NOTE | 2024-04-07 12:24 | P.PCN_ITS ---
Procedure Date: 04/07/24 Time: 12:15 Anesthesiologist:: Sp Rivero CRNA Complications:: None Pre-procedure Diagnosis:: Degenerative disc lumbar spine multilevels. Lumbar radiculopathy. Lumbar spondylosis. Multilevel lumbar facet arthropathy. Lumbar disc bulge L4-5, L5- S1. Post-procedure Diagnosis:: Same. Indications for Procedure:: Patient is a very pleasant 83-year-old female comes our clinic today for epidural steroid injection at the L4-5 level. Patient describes low lumbar back pain as constant, dull, aching. Patient also reports bilateral hip and leg radicular symptoms. She rates her pain 7/10. Procedure Details:: Procedure: Lumbar epidural steroid injection under fluoroscopy Informed consent was obtained and the risks and benefits of the procedure were explained to the patient. The patient was taken to the procedure room and noninvasive monitors placed, including noninvasive blood pressure cuff and pulse oximeter. The back was viewed using C-arm Fluoroscopy and prepped using Chloraprep as a cleansing solution and the L4-L5 interspace was palpated. Skin and subcutaneous tissues were anesthetized using lidocaine 1.5% and a 25-gauge needle. After this, an 18-gauge Touhy epidural needle was placed into the L4-L5 interspace and advanced using fluoroscopic guidance and loss of resistance to air until the epidural space was encountered. After confirmation of needle placement in the epidural space, with dye, a solution containing normal saline, 3 mL and Depo-Medrol 80 mg were incrementally injected into the lumbar epidural space. The patient tolerated the procedure well with no complications. The patient was observed in the Pain Clinic and then discharged home neurologically intact. Plan and Disposition:: Patient was discharged without incident.
== END 2024-04-07 12:20 | disposition home or self-care (01) ==
LOC: SC.PAINP 11:55
PROVIDERS: PCP Family Medicine; Visit Provider Nurse Anesthetist, Certified Registered
DX: M51.16 Intervertebral disc disorders with radiculopathy, lumbar region (principal); M47.26 Other spondylosis with radiculopathy, lumbar region
CPT/HCPCS: 62323; J1010

== ENCOUNTER 2024-04-09 14:00 | Outpatient (RCR) | payer MEDICARE, OTHER, SELFPAY ==
--- NOTE | 2024-03-18 07:54 | HMH.PTOPEV ---
PT Outpatient Evaluation Rehab PT Outpatient Evaluation Start: 03/17/24 14:05 Freq: Status: Active Protocol: Document 03/17/24 14:05 DARLENE (Rec: 03/18/24 07:51 DARLENE [id number]) E-signed By Amita Liang, PT Outpatient Therapy Subjective History Subjective History This is an initial physical therapy evaluation for 83 y/o female, Gabby Baires, who presents with referral for Imbalance . Pt reports pressure/heaviness behind her eyes. Reports chronic B neck pain/stiffness. Reports she has been referred for neurology but has not received a call about her order yet. Pt reports no falls but multiple LOB noted when on uneven surfaces. I have to be really careful in the yard . Pt has had eyes/vision checked and reports were good per pt. CHIEF COMPLAINT: I just feel wobbly . FALLS: Denies any falls in past 6 months, some LOB noted but no falls. PMH: chronic LBP, chronic neck pain, hypertension, hyperlipidemia, FM, OA, neuropathy, RC repair, CAD New diagnosis of cancer in past 12 No months? Chief Complaint Gives out/Unstable,Weakness Prior Functional Limitations None Current Functional Limitations Housework,Recreation Activity, Walking,Stairs,Balance Hip/Knee Eval MMT bilateral Hip Flexion Strength Grade 4- Good- Hip Abduction Strength Grade 4- Good- Hip Adduction Strength Grade 4- Good- Hip Extension Strength Grade 4- Good- Knee Extension Strength Grade 4 Good Knee Flexion Strength Grade 4 Good Balance Eval Chief Complaint vertigo No Did you feel dizzy, unsteady or faint? Yes: unsteady Hx of Falls Hx Falls No Number in last 6 months 0 Gait/Posture Asssessment General Gait Observation Narrow Based Gait Assistive Devices None / NA Level of Transfer Assist Standby Assistance Timed Up and Go Test 1. Is the Timed Up and Go test result > yes or = to 12 seconds? Rhomberg Feet Together/Eyes open/Stable Surface pass Feet Together/Eyes Closed/Stable Surface pass Feet Together/Eyes open/Unstable Surface pass Feet Together/Eyes Closed/Unstable fail Surface Dynamic Gait Index Test Protocol Gait Level Surface Mild Impairment Query Text: Instructions: Walk at your normal speed from here to the next alek (20'). Grading: Alek the lowest category that applies. Change in Gait Speed Mild Impairment Query Text: Instructions: Begin walking at your normal pace (for 5'), when I tell you go , walk as fast as you can (for 5'). When I tell you slow , walk as slowly as you can (for 5'). Grading: Alek the lowest category that applies. Gait with Horizontal Head Turns Moderate Impairment Query Text: Instructions: Begin walking at your normal pace. When I tell you to look right , keep walking straight, but turn you head to the right. Keep looking to the right unit I tell you look left , then keep walking straight and turn your head to the left. Keep your head to the left until I tell you look straight , then keep walking straight, but return you head to the center. Grading: Alek the lowest category that applies. Gait with Vertical Head Turns Moderate Impairment Query Text: Instructions: Begin walking at your normal pace. When I tell you to look up , keep walking staight, but tip your head up. Keep looking up until I tell you to look down , then keep walking straight and tip your head down. Keep your head down until I tell you look straight , then keep walking straight, but return your head to the center. Grading: Alek the lowest category that applies. Gait and Pivot Turn Mild Impairment Query Text: Instructions: Begin walking at your normal pace. When I tell you turn and stop , turn as quickly as you can to face the opposite direction and stop. Grading: Alek the lowest category that applies. Step Over Obstacle Mild Impairment Query Text: Instructions: Begin walking at your normal speed. When you come to the shoebox, step over it, not around it and keep walking. Grading: Alek the lowest category that applies. Step Around Obstacles Mild Impairment Query Text: Instructions: Begin walking at normal speed. When you come to the first cone (about 6' away), walk around the right side of it. When you come to the second cone (6' past first cone), walk around it to the left. Grading: Alek the lowest category that applies. Steps Mild Impairment Query Text: Instructions: Walk up these stairs as you would at home. At the top, turn around and walk down. Grading: Alek the lowest category that applies. Scoring Dynamic Gait Index Score 14 Miscellaneous Dx PT Eval Objective Objective Fall risk assessments: TU seconds 5xSTS: 20 seconds with one self-corrected LOB Romberg: Fail uneven surface with eyes closed. DGI: (no AD) Miscellaneous Goals Short Term Goals In 4 weeks, pt will: 1) Perform TUG test in 14 seconds without AD to decrease fall risk. 2) Verbalize IND with HEP. 3) Score 16/24 on DGI to decrease fall risk when ambulating. 4) Hold static balance for 10 seconds without LOB when standing on uneven surfaces with eyes closed. [facility] Goals In 8 weeks, pt will: 1) Perform TUG test in 11 seconds without AD to decrease fall risk. 2) Verbalize IND with advanced HEP. 3) Score 20/24 on DGI to decrease fall risk when ambulating. 4) Hold static balance for 30 seconds without LOB when standing on uneven surfaces with eyes closed to score PASS on Romberg Test. 5) Perform SLS for 10 seconds to improve functional balance. 6) Demo 5/5 BLE strength to improve daily functioning. Outpatient Therapy Assessment Impairments Problems/Impairmments Impaired Strength,Impaired Endurance,Impaired Transfers, Impaired Gait Pattern,Impaired Walking,Impaired Standing, Impaired Household Care, Impaired Stepping on Uneven Surface,Impaired Recreational Activities,Impaired Balance, Impaired DGI Score,Impaired TUG Time Prognosis Rehab Potential Good Comment Pt presents with dynamic and static standing balance deficits, impaired dual-task performance when ambulating, and BLE weakness. Pt scored as a fall risk with all of her outcome measures. Pt would benefit from skilled OP PT to address deficits, improve safety, and decrease fall risk . Clinical Impression Consistent with Diagnosis Yes Consistent with Imbalance Outpatient Therapy Plan of Care Treatment Plan May Include Therapeutic Exercise Including Home Yes Exercise Program Neuromuscular Re-education Yes Therapeutic Activities to Return to Yes Previous Functional/Work Level Gait Training Yes ADL/Self Care Education Yes Eval/Re-Eval Yes Frequency Times per week 2-3x weekly Duration Number of Weeks 6-8 weeks Addendums This patient is a candidate for social No or vocational rehab? Patient/Guardian verbally acknowledges Yes understanding of treatment program and consents to further treatment? Patient/Guardian verbally acknowledges Yes understanding of diagnosis, prognosis and goals for treatment? Eval Complexity PT Charges 74207 - Moderate Complexity Shoulder/Elbow Eval Shoulder Objective Measurements Elbow Objective Measurements PHYSICIAN CERTIFICATION: I certify the specified therapy services for Gabby Baires are required, authorized, and reviewed every 30 days.
== END 2024-04-16 23:59 | disposition home or self-care (01) ==
LOC: PT 14:00
PROVIDERS: Visit Provider Family Medicine
DX: R26.89 Other abnormalities of gait and mobility (principal)
CPT/HCPCS: 97110; 97163; 97530

== ENCOUNTER 2024-04-09 14:37 | Emergency (ER) | payer MEDICARE, OTHER, SELFPAY ==
[2024-04-09 14:38] VITALS: BP 123/69; PULSE 59; RESP 20; TEMP 36.8; O2SAT 96; BMI 23.8
--- NOTE | 2024-04-09 14:44 | ED_ITS ---
<Statement entered by Candice Mayo DO - 04/09/24 15:46> I was consulted by the ANAMARIA, and we discussed the complexity of the problems being addressed. I approved the treatment and management plan for this patient's care in the emergency department, thus performing a substantive portion of the medical decision making. Candice Mayo DO Discharge Plan Disposition Patient Disposition: Home, Self-Care Condition: Good Prescriptions Prescriptions: No Action allopurinol 100 mg tablet 100 mg PO DAILY potassium chloride [Klor-Con M20] 20 mEq tablet,ER particles/crystals 20 meq PO BID losartan 50 mg tablet 50 mg PO DAILY Patient Comments: TAKE ONE TABLET BY MOUTH EVERY MORNING AND 1/2 TABLET IN THE EVENING alprazolam 0.25 mg tablet 0.125 mg PO BID Patient Comments: TAKE 1/2 TABLET BY MOUTH EVERY MORNING, ONE-HALF TABLET AT NOON, THEN 1 TABLET AT BEDTIME MAY CAUSE DROWSINESS clopidogrel 75 mg tablet 75 mg PO DAILY Patient Comments: TAKE ONE TABLET BY MOUTH EVERY DAY gabapentin 300 mg capsule 300 mg PO HS Patient Comments: TAKE ONE CAPSULE BY MOUTH TWICE DAILY MAY CAUSE DROWSINESS ergocalciferol (vitamin D2) 1,250 mcg (50,000 unit) capsule 1,250 mcg PO WEEKLY Patient Comments: TAKE ONE CAPSULE BY MOUTH ONCE A WEEK rosuvastatin 5 mg tablet 5 mg PO DIRECTED Rx Instructions: Mon/Wed/Fri metoprolol succinate 50 mg tablet extended release 24 hr See Rx Instructions .ROUTE .COMPLEX Qty: 90 4RF Dose Instruction: TAKE ONE TABLET BY MOUTH EVERY DAY Rx Instructions: TAKE ONE TABLET BY MOUTH EVERY DAY levothyroxine 25 MCG tablet 25 mcg PO DAILYDM polyethylene glycol 3350 17 GM powder in packet 17 gm PO DAILYP PRN (Reason: Constipation) duloxetine 20 mg capsule,delayed release(DR/EC) 20 mg PO BID Qty: 40 0RF Referrals Follow up/Referrals: Brain Caballero MD [Primary Care Provider] - See instructions Activity Restrictions/Add. Instructions Additional Instructions/Restrictions: Follow-up with your PCP within 48 hours. Please follow-up with cardiology as well for review and evaluation of your blood pressure regimen. Return to ER for any signs or symptoms. Clinical Impressions Clinical Impression: Essential hypertension Instructions Patient Instructions: High Blood Pressure Print Language Print Language: Swedish Discharge ED Provider: Candice Mayo HPI General Chief Complaint: Recheck/Abnormal Lab/Rx Stated Complaint: High BP, light headed, Time Seen by Provider: 04/09/24 14:43 History of Present Illness HPI narrative: Patient sent from physical therapy for evaluation of blood pressure. According to the patient she has no complaints however she was in physical therapy riding an exercise bike. According to the physical therapist patient was reporting some possible lightheadedness. They took her blood pressure and it was a around 170 systolic with a heart rate in the 60s. She however denied any chest pain shortness of breath fever chills hemoptysis hematochezia melena nausea vomiting diarrhea. At the time of my exam patient is mentating appropriately with a Glascow coma score 15 and currently denies any complaints Related Data Home Medications ?Medication ?Instructions ?Recorded ?Confirmed levothyroxine 25 mcg tablet 25 mcg PO DAILYDM hypothyroid 04/27/18 04/07/24 polyethylene glycol 3350 17 gram 17 gm PO DAILYP PRN Constipation 05/05/19 04/07/24 oral powder packet allopurinol 100 mg tablet 100 mg PO DAILY gout 12/24/19 04/07/24 alprazolam 0.25 mg tablet 0.125 mg PO BID Anxiety 12/24/19 04/07/24 clopidogrel 75 mg tablet 75 mg PO DAILY Blood thinner 12/24/19 04/07/24 potassium chloride 20 mEq 20 meq PO BID Supplement 12/24/19 04/07/24 tablet,extended release(part/cryst) (Klor-Con M) losartan 50 mg tablet 50 mg PO DAILY High blood pressure 09/21/21 04/07/24 ergocalciferol (vitamin D2) 1,250 1,250 mcg PO WEEKLY SUPPLIMENT 07/06/22 04/07/24 mcg (50,000 unit) capsule rosuvastatin 5 mg tablet 5 mg PO DIRECTED Cholesterol 07/06/22 04/07/24 gabapentin 300 mg capsule 300 mg PO HS Pain 04/30/23 04/07/24 Previous Rx's ?Medication ?Instructions ?Recorded metoprolol succinate 50 mg See Rx Instructions .Route 06/27/23 tablet,extended release 24 hr .COMPLEX #90 tabs duloxetine 20 mg capsule,delayed 20 mg PO BID MOOD #40 caps 08/08/23 release Allergies Allergy/AdvReac Type Severity Reaction Status Date / Time Sulfa (Sulfonamide Allergy Mild Nausea Verified 02/11/24 12:31 Antibiotics) sucralfate AdvReac Intermediate light Verified 02/11/24 12:31 headed, swelling of lips PFSH PFSH Disclaimer: The information contained in this section may have been updated after the patient was seen, as this information can be updated by other users. Medical History CAD (coronary artery disease) Cataracts, bilateral Fatigue Hyperlipidemia Hypertension Hypotension SVT (supraventricular tachycardia) Syncope and collapse Surgical History History of cataract surgery History of hysterectomy History of lumpectomy Hx of rotator cuff surgery Family History Other Coronary artery disease Social History Smoking Status: Never smoker second hand exposure: No alcohol intake: never substance use type: denies use current occupational status: unemployed Travel in the last 8 weeks: None household members: spouse housing: house current occupational exposures/hazards: No caffeine: Yes Other Medical History Have you received the Flu Vaccine for this season: No Have you received the Pneumonia Vaccine: No ROS Obtained: Yes Systems reviewed as appropriate & no additional complaints except as documented Physical Exam General General appearance: alert and in no apparent distress Respiratory Respiratory exam: Present normal lung sounds bilaterally Cardiovascular Cardiovascular exam: Present regular rate Neurological Exam Neurological exam: Present alert and oriented X3 HEART Score HEART Score HEART Score assessment performed?: No Critical Care Critical Care Time Critical Care Time: No Medical Decision Making Medical Records Medical records reviewed: Yes I reviewed the patient's medical records. Faizan Inquiry Pt receiving controlled substance: No Vital Signs Vital Signs: 04/09/24 14:38 Temperature 98.2 F Temperature Source Oral Pulse Rate [Right Radial] 59 L Respiratory Rate 20 Blood Pressure [Right Arm] 123/69 Blood Pressure Mean [Right Arm] 87 02 Sat by Pulse Oximetry 96 Oxygen Delivery Method Room Air Lab Data Lab results reviewed: Yes I reviewed the patient's lab results. MDM Narrative Medical Decision Narrative: In summary patient is a 83-year-old female who presents to the emergency department for evaluation of high blood pressure. Patient is initially arriving with a blood pressure of 123/69 pulse 59 satting 96% on room air breathing 20 times a minute upon arrival, afebrile. Physical exam is unremarkable and nonfocal including no chest pain no shortness of breath no dyspnea no diaphoresis normal breath sounds normal heart sounds Sophia Coma Score is 15 she is awake alert and oriented to person place and circumstance and retains capacity for decision making. Differential diagnosis includes normal physiologic response to exercise among others. Initial workup was considered with labs and imaging however patient is asymptomatic and there are no red flags to suggest need for further workup. Initial interventions were considered however patient is normotensive with no constitutional symptoms thus deferred. Given this that there are no red flags and no further workup for any serious or life-threatening condition is indicated patient is appropriate for discharge with referral back to her PCP and recommendations to go back to cardiology for better blood pressure control although her response to exercise seems normal.
--- NOTE | 2024-04-09 15:01 | ECG_ITS ---
APPROVED REPORT Exam: Resting ECG HR:54 bpm ECG Measurements Heart Rate 54 AXES VT 159 P 84 QRSd 79 QRS 56 QT 409 T 49 QTc 394 Conclusion SINUS BRADYCARDIA LOW QRS VOLTAGE IN PRECORDIAL LEADS [QRS DEFLECTION < 1.0 mV IN CHEST LEADS] BORDERLINE ECG Electronically signed by : LUCAS HAHN, 04/09/2024 16:19:25
[2024-04-09 15:43] VITALS: BP 172/86; PULSE 53; RESP 20; TEMP 36.8; O2SAT 98
== END 2024-04-09 15:44 | disposition home or self-care (01) ==
PROVIDERS: Emergency Provider Emergency Medicine; PCP Family Medicine
DX: I10 Essential (primary) hypertension (principal)
CPT/HCPCS: 93005; 99283

== ENCOUNTER 2024-04-20 09:35 | Outpatient (POV) | payer MEDICARE, OTHER, SELFPAY ==
[2024-04-20 10:37] VITALS: BP 139/72; PULSE 68; RESP 16; O2SAT 100; BMI 25.9
--- NOTE | 2024-04-20 11:24 | A.OFFVIS_ITS ---
[facility] Disclaimer: The information contained in this section may have been updated after the patient was seen, as this information can be updated by other users. Medical History CAD (coronary artery disease) Cataracts, bilateral Fatigue Hyperlipidemia Hypertension Hypotension SVT (supraventricular tachycardia) Syncope and collapse Surgical History History of cataract surgery History of hysterectomy History of lumpectomy Hx of rotator cuff surgery Family History Other Coronary artery disease Social History Smoking Status: Never smoker second hand exposure: No alcohol intake: never substance use type: denies use current occupational status: other Travel in the last 8 weeks: None household members: spouse housing: house current occupational exposures/hazards: No caffeine: Yes PM Subjective & Objective Subjective Subjective:: Patient is a pleasant 83-year-old female who presents today for follow-up of lumbar epidural steroid injection L4-L5 on 04/07/2024. Today she rates her pain a 6 out of 10. Patient denies any new trauma or injury. She does state that the injection did help approximately 50% but it only lasted for about a week. Patient feels like she is back to her baseline. Patient does have chronic pain in multiple areas including her bilateral knees that a lot is related to arthritis. Patient does also state that she has been having a little bit more pain in and around her left shoulder that does go into her left neck. This was some of the pain that she initially started seeing in our office for. Patient states that she has also been doing balance therapy however at one of her last visit she did have elevated blood pressure requiring her to go to the ER because she was a little lightheaded and nauseous. She states that they ended up telling her everything was fine and had no issues. She states that she has not gone back to this therapy as of yet. She is scheduled to see Dr. Caballero on of this week. She does feel like that she has also been having a random pain in her middle finger along her left hand. Patient states that this started last night and she denies any new trauma or injury. Her Faizan has been reviewed and is appropriate. Review of Systems: General: No recent weight changes, no fever, no sleep disturbances Respiratory: No cough, no shortness of air, no recurring pulmonary infections Cardiovascular/peripheral vascular: No chest pain, no palpitations, no edema, no shortness of breath Gastrointestinal: No new onset incontinence, normal bowel movements reported Genitourinary: No new onset incontinence Musculoskeletal: Left shoulder pain, neck pain Psychiatric: [Normal mood/affect] Neurological: [Denies weakness in extremities], [denies balance issues] Pain at rest (0-10 scale): 6 Objective Objective:: Physical Exam: General: Alert and oriented x3, no acute distress, pleasant and cooperative Lungs: Respirations even and unlabored, symmetrical chest expansion Eyes: PERRL Musculoskeletal: Flexion and extension of cervical [spine] somewhat guarded secondary to pain, [antalgic gait noted] point tenderness along left trapezius, left rhomboid and left thoracic paraspinous muscles Neurological: Speech clear, no gross sensory deficit Has patient had previous pain injection?: Yes Percent improvement in pain since last injection: 50% Conservative treatment options previously tried: Home exercise plan Length of treatment: Longer than 12 weeks Meds Home Medications and Allergies Home Medications ?Medication ?Instructions ?Recorded ?Confirmed ?Type levothyroxine 25 mcg tablet 25 mcg PO DAILYDM hypothyroid 04/27/18 04/20/24 History polyethylene glycol 3350 17 gram 17 gm PO DAILYP PRN Constipation 05/05/19 04/20/24 History oral powder packet allopurinol 100 mg tablet 100 mg PO DAILY gout 12/24/19 04/20/24 History alprazolam 0.25 mg tablet 0.125 mg PO BID Anxiety 12/24/19 04/20/24 History clopidogrel 75 mg tablet 75 mg PO DAILY Blood thinner 12/24/19 04/20/24 History potassium chloride 20 mEq 20 meq PO BID Supplement 12/24/19 04/20/24 History tablet,extended release(part/cryst) (Klor-Con M) losartan 50 mg tablet 50 mg PO DAILY High blood pressure 09/21/21 04/20/24 History ergocalciferol (vitamin D2) 1,250 1,250 mcg PO WEEKLY SUPPLIMENT 07/06/22 04/20/24 History mcg (50,000 unit) capsule rosuvastatin 5 mg tablet 5 mg PO DIRECTED Cholesterol 07/06/22 04/20/24 History gabapentin 300 mg capsule 300 mg PO HS Pain 04/30/23 04/20/24 History metoprolol succinate 50 mg See Rx Instructions .Route 06/27/23 04/20/24 Rx tablet,extended release 24 hr .COMPLEX #90 tabs duloxetine 20 mg capsule,delayed 20 mg PO BID MOOD #40 caps 08/08/23 04/20/24 Rx release New Prescriptions to Start Prescriptions: Allergies Allergy/AdvReac Type Severity Reaction Status Date / Time Sulfa (Sulfonamide Allergy Mild Nausea Verified 02/11/24 12:31 Antibiotics) sucralfate AdvReac Intermediate light Verified 02/11/24 12:31 headed, swelling of lips Assessment and Plan *Assessment and plan (1) Lumbar radiculopathy: Status: Acute Category: Medical Code(s): M54.16 - Radiculopathy, lumbar region (2) Degenerative disc disease, lumbar: Status: Acute Category: Medical Code(s): M51.36 - Other intervertebral disc degeneration, lumbar region (3) Myofascial pain on left side: Status: Acute Category: Medical Code(s): M79.18 - Myalgia, other site Plan Patient was counseled that we could do trigger point injections along her left shoulder and mid back however at this time we will wait and follow-up with her in 1 month. Patient agrees with this plan of care. Patient was counseled to apply some of her Voltaren to her middle finger and see if it is more arthritis related. Patient has been instructed to contact the clinic with any concerns before the next appointment. Dr. Jackson has reviewed this note and agrees with this plan of care. This note was dictated using voice recognition software and make contain errors or omissions. All injections are used with Lidocaine or Bupivacaine and Depo Medrol.
== END 2024-04-20 23:59 | disposition home or self-care (01) ==
LOC: SC.PAIN 09:36
PROVIDERS: PCP Family Medicine; Visit Provider Nurse Practitioner Family
DX: M79.18 Myalgia, other site (principal); M51.16 Intervertebral disc disorders with radiculopathy, lumbar region; I25.10 Atherosclerotic heart disease of native coronary artery without angina pectoris; I10 Essential (primary) hypertension
CPT/HCPCS: 99212; G0463

== ENCOUNTER 2024-05-18 11:17 | Outpatient (POV) | payer MEDICARE, OTHER, SELFPAY ==
--- NOTE | 2024-05-18 11:27 | EXP.PAIN.SOA ---
[facility] Disclaimer: The information contained in this section may have been updated after the patient was seen, as this information can be updated by other users. Medical History CAD (coronary artery disease) Cataracts, bilateral Fatigue Hyperlipidemia Hypertension Hypotension SVT (supraventricular tachycardia) Syncope and collapse Surgical History History of cataract surgery History of hysterectomy History of lumpectomy Hx of rotator cuff surgery Family History Other Coronary artery disease Social History Smoking Status: Never smoker second hand exposure: No alcohol intake: never substance use type: denies use current occupational status: other Travel in the last 8 weeks: None household members: spouse housing: house current occupational exposures/hazards: No caffeine: Yes PM Subjective & Objective Subjective Subjective:: Patient is a pleasant 83-year-old female who presents today for follow-up. Today she rates her pain a 9 out of 10. She denies any new injuries or changes from her last appointment. She is still having a lot more issues with her left shoulder. She states that this is a constant aching, throbbing sensation that does go all around her left shoulder blade and down to her mid back. This is the same pain that she had initially starting with our office. Patient states that she does also have chronic neck pain that does radiate down into the left shoulder with numbness and tingling down to her left hand. Patient has had both trigger point injections and cervical epidural with significant improvement however she did have quite a bit of pain for the actual procedure of the cervical epidural. Patient states she is interested in additional injection therapy due to the worsening pain and interference with performing activities of daily living such as cooking and cleaning. Her Faizan has been reviewed and is appropriate. Review of Systems: General: No recent weight changes, no fever, no sleep disturbances Respiratory: No cough, no shortness of air, no recurring pulmonary infections Cardiovascular/peripheral vascular: No chest pain, no palpitations, no edema, no shortness of breath Gastrointestinal: No new onset incontinence, normal bowel movements reported Genitourinary: No new onset incontinence Musculoskeletal: Left shoulder pain, neck pain, left mid back pain Psychiatric: [Normal mood/affect] Neurological: [Denies weakness in extremities], [denies balance issues] Pain at rest (0-10 scale): 9 Objective Objective:: Physical Exam: General: Alert and oriented x3, no acute distress, pleasant and cooperative Lungs: Respirations even and unlabored, symmetrical chest expansion Eyes: PERRL Musculoskeletal: Flexion and extension of left shoulder somewhat guarded secondary to pain, [antalgic gait noted] extreme point tenderness along left trapezius, left rhomboid and left thoracic paraspinous muscles Neurological: Speech clear, no gross sensory deficit Has patient had previous pain injection?: No Conservative treatment options previously tried: Home exercise plan Length of treatment: Longer than 12 weeks Meds Home Medications and Allergies Home Medications ?Medication ?Instructions ?Recorded ?Confirmed ?Type levothyroxine 25 mcg tablet 25 mcg PO DAILYDM hypothyroid 04/27/18 04/20/24 History polyethylene glycol 3350 17 gram 17 gm PO DAILYP PRN Constipation 05/05/19 04/20/24 History oral powder packet allopurinol 100 mg tablet 100 mg PO DAILY gout 12/24/19 04/20/24 History alprazolam 0.25 mg tablet 0.125 mg PO BID Anxiety 12/24/19 04/20/24 History clopidogrel 75 mg tablet 75 mg PO DAILY Blood thinner 12/24/19 04/20/24 History potassium chloride 20 mEq 20 meq PO BID Supplement 12/24/19 04/20/24 History tablet,extended release(part/cryst) (Klor-Con M) losartan 50 mg tablet 50 mg PO DAILY High blood pressure 09/21/21 04/20/24 History ergocalciferol (vitamin D2) 1,250 1,250 mcg PO WEEKLY SUPPLIMENT 07/06/22 04/20/24 History mcg (50,000 unit) capsule rosuvastatin 5 mg tablet 5 mg PO DIRECTED Cholesterol 07/06/22 04/20/24 History gabapentin 300 mg capsule 300 mg PO HS Pain 04/30/23 04/20/24 History metoprolol succinate 50 mg See Rx Instructions .Route 06/27/23 04/20/24 Rx tablet,extended release 24 hr .COMPLEX #90 tabs duloxetine 20 mg capsule,delayed 20 mg PO BID MOOD #40 caps 08/08/23 04/20/24 Rx release New Prescriptions to Start Prescriptions: Allergies Allergy/AdvReac Type Severity Reaction Status Date / Time Sulfa (Sulfonamide Allergy Mild Nausea Verified 02/11/24 12:31 Antibiotics) sucralfate AdvReac Intermediate light Verified 02/11/24 12:31 headed, swelling of lips Assessment and Plan *Assessment and plan (1) Lumbar radiculopathy: Status: Acute Category: Medical Code(s): M54.16 - Radiculopathy, lumbar region (2) Degenerative disc disease, lumbar: Status: Acute Category: Medical Code(s): M51.369 - Other intervertebral disc degeneration, lumbar region without mention of lumbar back pain or lower extremity pain (3) Myofascial pain on left side: Status: Acute Category: Medical Code(s): M79.18 - Myalgia, other site (4) Neck pain: Status: Acute Category: Medical Code(s): M54.2 - Cervicalgia (5) Osteoarthritis of left shoulder: Status: Acute Category: Medical Code(s): M19.012 - Primary osteoarthritis, left shoulder Plan Patient is experiencing worsening pain with point tenderness along her left trapezius, left rhomboid and left thoracic paraspinous muscles. I did discuss with the patient that I do believe she would benefit from trigger point injections at these locations. Risk and benefits were discussed with the patient and she would like to proceed forward with this plan of care. Patient has had trigger point injections back in February 2023 that did provide significant improvement of more than 50% and did give significant improved function that lasted more than a month. Patient has tried and failed conservative therapy including continued at home exercising and stretching for longer than 12 weeks in between injections. Patient will be scheduled for trigger point injections of her left trapezius, left rhomboid and left thoracic paraspinous muscles. I will also send her for referral to [facility]NT at [facility] due to continued balance issues and possible sinus related causes. Patient has been instructed to contact the clinic with any concerns before the next appointment. Dr. Jackson has reviewed this note and agrees with this plan of care. This note was dictated using voice recognition software and make contain errors or omissions. All injections are used with Lidocaine, Bupivacaine and Depo Medrol. Occasionally urine drug screen is needed to verify patient's compliance with our office pain contract. This is ordered based off specific treatments related to chronic pain with the potential to abuse certain medications.
[2024-05-18 12:00] VITALS: BP 133/64; PULSE 74; RESP 18; O2SAT 98; BMI 25.4
== END 2024-05-18 23:59 | disposition home or self-care (01) ==
LOC: SC.PAIN 11:20
PROVIDERS: PCP Family Medicine; Visit Provider Nurse Practitioner Family
DX: M51.16 Intervertebral disc disorders with radiculopathy, lumbar region (principal); M79.18 Myalgia, other site; M54.2 Cervicalgia; M19.012 Primary osteoarthritis, left shoulder; Z73.89 Other problems related to life management difficulty
CPT/HCPCS: 99212; G0463

== ENCOUNTER 2024-05-29 14:00 | Outpatient (RCR) | payer MEDICARE, OTHER, SELFPAY ==
--- NOTE | 2024-05-15 10:02 | HMH.PTOPEV ---
PT Outpatient Evaluation Rehab PT Outpatient Evaluation Start: 05/14/24 14:55 Freq: Status: Active Protocol: Document 05/14/24 14:55 DARLENE (Rec: 05/14/24 16:04 DARLENE [id number]) E-signed By Amita Liang, PT Outpatient Therapy Subjective History Subjective History This is an initial physical therapy evaluation for 83 y/o female, Gabby Baires, who presents with referral for Imbalance . Pt was being treated for these complaints but has not scheduled in over 30 days which warrants a new evaluation. Pt still reports a pressure/heaviness behind her eyes. Pt reports her eyes are TTP at times. Pt reports difficulties with her balance. Pt reports no falls but multiple LOB noted when on uneven surfaces like in her yard. I walk funny sometimes . Pt has had eyes/vision checked and reports were good per pt. Sinus CT from Mar 2023 were normal. Pt not able to get into neurology to be evaluated until July. Pt reports no new medical updates . Pt sees a pain specialist next week for her LBP and hip pain. Pt regularly obtains injections for pain management . Pt reports she has memory assessment in June. Pt's complaints started a couple of months ago. Closing eyes does not change her symptoms. Pt denies any movements or activities that worsen her symptoms. Pt reports she fell ~ 4 years ago where she hit her nose/forward. I can't stand on one foot . CHIEF COMPLAINT: I still feel dizzy . FALLS: Denies any falls in past 6 months, some LOB noted but no falls. PMH: Chronic LBP, chronic neck pain, hypertension, hyperlipidemia, FM, OA, neuropathy, RC repair, CAD New diagnosis of cancer in past 12 No months? Chief Complaint Gives out/Unstable Prior Functional Limitations None Current Functional Limitations Housework,Standing,Walking, Balance Hip/Knee Eval Gait Observation General Gait Pattern Observation Narrow Based Gait Assistive Device Assistive Devices None / NA MMT bilateral Hip Flexion Strength Grade 4- Good- Hip Abduction Strength Grade 4- Good- Hip Adduction Strength Grade 4- Good- Hip Extension Strength Grade 4- Good- Knee Extension Strength Grade 4 Good Knee Flexion Strength Grade 4 Good Dynamic Gait Index Test Protocol Gait Level Surface Mild Impairment Query Text: Instructions: Walk at your normal speed from here to the next alek (20'). Grading: Alek the lowest category that applies. Change in Gait Speed Mild Impairment Query Text: Instructions: Begin walking at your normal pace (for 5'), when I tell you go , walk as fast as you can (for 5'). When I tell you slow , walk as slowly as you can (for 5'). Grading: Alek the lowest category that applies. Gait with Horizontal Head Turns Mild Impairment Query Text: Instructions: Begin walking at your normal pace. When I tell you to look right , keep walking straight, but turn you head to the right. Keep looking to the right unit I tell you look left , then keep walking straight and turn your head to the left. Keep your head to the left until I tell you look straight , then keep walking straight, but return you head to the center. Grading: Alek the lowest category that applies. Gait with Vertical Head Turns Moderate Impairment Query Text: Instructions: Begin walking at your normal pace. When I tell you to look up , keep walking staight, but tip your head up. Keep looking up until I tell you to look down , then keep walking straight and tip your head down. Keep your head down until I tell you look straight , then keep walking straight, but return your head to the center. Grading: Alek the lowest category that applies. Gait and Pivot Turn Moderate Impairment Query Text: Instructions: Begin walking at your normal pace. When I tell you turn and stop , turn as quickly as you can to face the opposite direction and stop. Grading: Alek the lowest category that applies. Step Over Obstacle Mild Impairment Query Text: Instructions: Begin walking at your normal speed. When you come to the shoebox, step over it, not around it and keep walking. Grading: Alek the lowest category that applies. Step Around Obstacles Mild Impairment Query Text: Instructions: Begin walking at normal speed. When you come to the first cone (about 6' away), walk around the right side of it. When you come to the second cone (6' past first cone), walk around it to the left. Grading: Alek the lowest category that applies. Steps Mild Impairment Query Text: Instructions: Walk up these stairs as you would at home. At the top, turn around and walk down. Grading: Alek the lowest category that applies. Scoring Dynamic Gait Index Score 14 Miscellaneous Dx PT Eval Objective Objective Fall risk assessments: TU seconds without AD 5xSTS: 15 seconds Romberg: Fail uneven surface with eyes open and closed. DGI: (no AD) SLS: 3 seconds max ea LE Tandem stance: 5-6 seconds BLE Miscellaneous Goals Short Term Goals In 4 weeks, pt will: 1) Perform TUG test in 8 seconds without AD to decrease fall risk. 2) Verbalize IND with HEP. 3) Score 16/24 on DGI to decrease fall risk when ambulating. 4) Hold static balance for 10 seconds without LOB when standing on uneven surfaces with eyes closed. Distresser Goals In 8 weeks, pt will: 1) Verbalize IND with advanced HEP. 2) Score 20/24 on DGI to decrease fall risk when ambulating. 3) Hold static balance for 30 seconds without LOB when standing on uneven surfaces with eyes closed to score PASS on Romberg Test. 4) Perform SLS for 10 seconds to improve functional balance. 5) Demo 5/5 BLE strength to improve daily functioning. Outpatient Therapy Assessment Impairments Problems/Impairmments Impaired Strength,Impaired Endurance,Impaired Transfers, Impaired Gait Pattern,Impaired Walking,Impaired Standing, Impaired Stair Climbing, Impaired Incline Stepping, Impaired Stepping on Uneven Surface,Impaired Recreational Activities,Impaired Balance, Impaired DGI Score,Impaired TUG Time Prognosis Rehab Potential Good Comment Pt presents with dynamic and static standing balance deficits, impaired dual-task performance when ambulating, and BLE weakness. Deann-tracy pike negative, smooth pursuits normal, and convergence normal. Pt would benefit from skilled OP PT to address deficits, improve safety, and decrease fall risk. Clinical Impression Consistent with Diagnosis Yes Outpatient Therapy Plan of Care Treatment Plan May Include Therapeutic Exercise Including Home Yes Exercise Program Manual Therapy Techniques Yes Neuromuscular Re-education Yes Therapeutic Activities to Return to Yes Previous Functional/Work Level Gait Training Yes ADL/Self Care Education Yes Eval/Re-Eval Yes Frequency Times per week 2-3 times a week Duration Number of Weeks 6-8 weeks Addendums This patient is a candidate for social No or vocational rehab? Patient/Guardian verbally acknowledges Yes understanding of treatment program and consents to further treatment? Patient/Guardian verbally acknowledges Yes understanding of diagnosis, prognosis and goals for treatment? Eval Complexity PT Charges 61586 - Moderate Complexity Shoulder/Elbow Eval Shoulder Objective Measurements Elbow Objective Measurements PHYSICIAN CERTIFICATION: I certify the specified therapy services for Gabby Ashli Baires are required, authorized, and reviewed every 30 days.
== END 2024-05-29 23:59 | disposition home or self-care (01) ==
LOC: PT 14:00
PROVIDERS: PCP Family Medicine; Visit Provider Family Medicine
DX: R26.89 Other abnormalities of gait and mobility (principal)
CPT/HCPCS: 97110; 97163; 97530

== ENCOUNTER 2024-06-05 10:48 | Day surgery (SDC) | payer MEDICARE, OTHER, SELFPAY ==
--- NOTE | 2024-06-05 11:35 | EXP.PAIN.PRO ---
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 Today she rates her pain a 4 out of 10. She denies any new trauma or injury. She does state that she still has soreness along the left side of her back. Her Faizan has been reviewed and is appropriate. Physical Exam: General: Alert and oriented x3, no acute distress, pleasant and cooperative Lungs: Respirations even and unlabored, symmetrical chest expansion Eyes: PERRL Musculoskeletal: Flexion and extension of cervical [spine] somewhat guarded secondary to pain, [antalgic gait noted] Neurological: Speech clear, no gross sensory deficit Procedure Details:: Patient did have noninvasive monitoring applied including a noninvasive blood pressure cuff and pulse oximeter. Patient's left shoulder to mid back was cleansed with ChloraPrep as a cleansing solution. With palpation the patient was incrementally marked at multiple areas of myofascial pain around her left trapezius, left rhomboid and left thoracic paraspinous muscles. Using a sterile 25-gauge needle the areas of point tenderness were incrementally injected with a combination of 1% lidocaine, 25% bupivacaine and 2 mL of Depo-Medrol 80 mg. Needle was removed with sterile bandages applied. Patient tolerated the procedure well. Plan and Disposition:: Patient tolerated the procedure well with no complications and was discharged neurologically intact. Patient will return to clinic in 2 weeks for reevaluation of symptoms and plan of care. Patient has been instructed to contact the clinic with any concerns before the next appointment. Dr. Jackson has reviewed this note and agrees with this plan of care. This note was dictated using voice recognition software and make contain errors or omissions. All injections are used with Lidocaine, Bupivacaine and Depo Medrol. Occasionally urine drug screen is needed to verify patient's compliance with our office pain contract. This is ordered based off specific treatments related to chronic pain with the potential to abuse certain medications.
[2024-06-05 11:36] VITALS: BP 105/57; PULSE 62; RESP 16; TEMP 36.5; O2SAT 100; BMI 25.7
[2024-06-05] MEDS: methylPREDNISolone ACETATE 80MG/ML VIAL 80 MG (12:00)
[2024-06-05] MEDS: BUPIVACAINE 0.25% 10ML INJ 25 MG IJ (12:01)
[2024-06-05] MEDS: LIDOCAINE 1% 5ML PF VIAL 5 ML (12:01)
[2024-06-05 12:02] VITALS: BP 157/85; PULSE 58; RESP 18; O2SAT 98
[2024-06-05 12:03] VITALS: BP 157/85; PULSE 55; RESP 18; O2SAT 98
[2024-06-05 12:12] VITALS: BP 137/78; PULSE 58; RESP 16; O2SAT 96
== END 2024-06-05 12:12 | disposition home or self-care (01) ==
PROVIDERS: PCP Family Medicine; Visit Provider Nurse Practitioner Family
DX: M51.16 Intervertebral disc disorders with radiculopathy, lumbar region (principal); M50.10 Cervical disc disorder with radiculopathy, unspecified cervical region; M79.18 Myalgia, other site
CPT/HCPCS: 20553; J1010

== ENCOUNTER 2024-06-19 12:51 | Outpatient (POV) | payer MEDICARE, OTHER, SELFPAY ==
[2024-06-19 13:29] VITALS: BP 124/62; PULSE 63; RESP 14; O2SAT 99; BMI 26.5
--- NOTE | 2024-06-19 13:41 | A.OFFVIS_ITS ---
[facility] Disclaimer: The information contained in this section may have been updated after the patient was seen, as this information can be updated by other users. Medical History (Updated 06/17/24 @ 12:10 by Jessy Guajardo APRN) Bilateral serous otitis media Balance problems Chronic sinusitis Cataracts, bilateral SVT (supraventricular tachycardia) Hypotension Fatigue CAD (coronary artery disease) Hyperlipidemia Hypertension Syncope and collapse Surgical History Hx of rotator cuff surgery History of cataract surgery History of lumpectomy History of hysterectomy Family History Other Coronary artery disease Social History Smoking Status: Never smoker second hand exposure: No alcohol intake: never substance use type: denies use current occupational status: other Travel in the last 8 weeks: None household members: spouse housing: house current occupational exposures/hazards: No caffeine: Yes PM Subjective & Objective Subjective Subjective:: Patient is a pleasant 83-year-old female who presents today for follow-up of trigger point injections of her left trapezius, left rhomboid and left thoracic paraspinous muscles on 06/05/2024. Today she rates her pain a 0 out of 10. She states she has had 100% relief following this procedure and feels like it is still working. Patient does state that she will occasionally feel some pain in the lower scapula area however it is very manageable and only happens on rare occasion. Her Faizan has been reviewed and is appropriate. Review of Systems: General: No recent weight changes, no fever, no sleep disturbances Respiratory: No cough, no shortness of air, no recurring pulmonary infections Cardiovascular/peripheral vascular: No chest pain, no palpitations, no edema, no shortness of breath Gastrointestinal: No new onset incontinence, normal bowel movements reported Genitourinary: No new onset incontinence Musculoskeletal: Low back pain Psychiatric: [Normal mood/affect] Neurological: [Denies weakness in extremities], [denies balance issues] Pain at rest (0-10 scale): 0 Objective Objective:: Physical Exam: General: Alert and oriented x3, no acute distress, pleasant and cooperative Lungs: Respirations even and unlabored, symmetrical chest expansion Eyes: PERRL Musculoskeletal: Flexion and extension of lumbar [spine] somewhat guarded secondary to pain, [antalgic gait noted] Neurological: Speech clear, no gross sensory deficit Has patient had previous pain injection?: Yes Percent improvement in pain since last injection: 100% Conservative treatment options previously tried: Home exercise plan Length of treatment: Longer than 12 weeks Meds Home Medications and Allergies Home Medications ?Medication ?Instructions ?Recorded ?Confirmed ?Type levothyroxine 25 mcg tablet 25 mcg PO DAILYDM hypothyroid 04/27/18 06/19/24 History polyethylene glycol 3350 17 gram 17 gm PO DAILYP PRN Constipation 05/05/19 History oral powder packet allopurinol 100 mg tablet 100 mg PO DAILY gout 12/24/19 06/19/24 History alprazolam 0.25 mg tablet 0.125 mg PO BID Anxiety 12/24/19 06/19/24 History clopidogrel 75 mg tablet 75 mg PO DAILY Blood thinner 12/24/19 06/19/24 History potassium chloride 20 mEq 20 meq PO BID Supplement 12/24/19 06/19/24 History tablet,extended release(part/cryst) (Klor-Con M) losartan 50 mg tablet 50 mg PO DAILY High blood pressure 09/21/21 06/19/24 History ergocalciferol (vitamin D2) 1,250 1,250 mcg PO WEEKLY SUPPLIMENT 07/06/22 06/19/24 History mcg (50,000 unit) capsule rosuvastatin 5 mg tablet 5 mg PO DIRECTED Cholesterol 07/06/22 06/19/24 History gabapentin 300 mg capsule 300 mg PO HS Pain 04/30/23 06/19/24 History metoprolol succinate 50 mg See Rx Instructions .Route 06/27/23 06/19/24 Rx tablet,extended release 24 hr .COMPLEX #90 tabs duloxetine 20 mg capsule,delayed 20 mg PO BID MOOD #40 caps 08/08/23 06/19/24 Rx release amlodipine 2.5 mg tablet 2.5 mg PO DIRECTED 06/17/24 06/19/24 History azelastine 137 mcg (0.1 %) nasal 2 spray intranasal BID #30 mL 06/17/24 06/19/24 Rx spray New Prescriptions to Start Prescriptions: Allergies Allergy/AdvReac Type Severity Reaction Status Date / Time Sulfa (Sulfonamide Allergy Mild Nausea Verified 06/17/24 11:24 Antibiotics) sucralfate AdvReac Intermediate light Verified 06/17/24 11:24 headed, swelling of lips Assessment and Plan *Assessment and plan (1) Lumbar radiculopathy: Status: Acute Category: Medical Code(s): M54.16 - Radiculopathy, lumbar region (2) Degenerative disc disease, lumbar: Status: Acute Category: Medical Code(s): M51.369 - Other intervertebral disc degeneration, lumbar region without mention of lumbar back pain or lower extremity pain Plan Patient has had significant improvement following her trigger point injections and does not require any additional interventions at this time. Patient will return to clinic in 6 weeks for reevaluation of symptoms and plan of care. Patient has been instructed to contact the clinic with any concerns before the next appointment. Dr. Jackson has reviewed this note and agrees with this plan of care. This note was dictated using voice recognition software and make contain errors or omissions. All injections are used with Lidocaine, Bupivacaine and Depo Medrol. Occasionally urine drug screen is needed to verify patient's compliance with our office pain contract. This is ordered based off specific treatments related to chronic pain with the potential to abuse certain medications.
== END 2024-06-19 23:59 | disposition home or self-care (01) ==
LOC: SC.PAIN 12:52
PROVIDERS: PCP Family Medicine; Visit Provider Nurse Practitioner Family
DX: M51.16 Intervertebral disc disorders with radiculopathy, lumbar region (principal); Z79.899 Other long term (current) drug therapy
CPT/HCPCS: 99212; G0463

== ENCOUNTER 2024-07-02 13:03 | Outpatient (CLI) | payer MEDICARE, OTHER, SELFPAY ==
--- NOTE | 2024-07-02 13:04 | CT_ITS ---
FINAL REPORT TECHNIQUE: Thin section axial CT images of the facial bones and sinuses were obtained without contrast. Coronal reformatted images were also obtained.This study was performed with techniques to keep radiation doses as low as reasonably achievable, (ALARA). Individualized dose reduction techniques using automated exposure control or adjustment of mA and/or kV according to the patient's size were employed. CLINICAL HISTORY: Chronic sinusitis COMPARISON: 06/22/2020 FINDINGS: There is no evidence of mucosal thickening. No fluid levels are identified. The ostiomeatal units have an unremarkable appearance. The nasal septum is in the midline. No fracture or acute bony abnormality is identified. IMPRESSION: No focal abnormality identified of the sinuses. Reviewed, Interpreted and Dictated by Kyler Valdez MD Transcribed by Stephanie Walker Authenticated and [facility]
== END 2024-07-02 23:59 | disposition home or self-care (01) ==
LOC: RAD 13:04
PROVIDERS: PCP Family Medicine; Visit Provider Nurse Practitioner
DX: J32.9 Chronic sinusitis, unspecified (principal)
CPT/HCPCS: 70486

== ENCOUNTER 2024-07-03 14:00 | Outpatient (RCR) | payer MEDICARE, OTHER, SELFPAY ==
--- NOTE | 2024-06-16 16:09 | HMH.RHREAS ---
Rehab Reassessment Rehab OP Re-assessment Start: 06/16/24 14:02 Freq: Status: Active Protocol: Document 06/16/24 14:02 DARLENE (Rec: 06/16/24 14:59 DARLENE [id number]) E-signed By Amita Liang PT Dynamic Gait Index Test Protocol Gait Level Surface Normal Query Text: Instructions: Walk at your normal speed from here to the next alek (20'). Grading: Alek the lowest category that applies. Change in Gait Speed Mild Impairment Query Text: Instructions: Begin walking at your normal pace (for 5'), when I tell you go , walk as fast as you can (for 5'). When I tell you slow , walk as slowly as you can (for 5'). Grading: Alek the lowest category that applies. Gait with Horizontal Head Turns Mild Impairment Query Text: Instructions: Begin walking at your normal pace. When I tell you to look right , keep walking straight, but turn you head to the right. Keep looking to the right unit I tell you look left , then keep walking straight and turn your head to the left. Keep your head to the left until I tell you look straight , then keep walking straight, but return you head to the center. Grading: Alek the lowest category that applies. Gait with Vertical Head Turns Mild Impairment Query Text: Instructions: Begin walking at your normal pace. When I tell you to look up , keep walking staight, but tip your head up. Keep looking up until I tell you to look down , then keep walking straight and tip your head down. Keep your head down until I tell you look straight , then keep walking straight, but return your head to the center. Grading: Alek the lowest category that applies. Gait and Pivot Turn Mild Impairment Query Text: Instructions: Begin walking at your normal pace. When I tell you turn and stop , turn as quickly as you can to face the opposite direction and stop. Grading: Alek the lowest category that applies. Step Over Obstacle Mild Impairment Query Text: Instructions: Begin walking at your normal speed. When you come to the shoebox, step over it, not around it and keep walking. Grading: Alek the lowest category that applies. Step Around Obstacles Mild Impairment Query Text: Instructions: Begin walking at normal speed. When you come to the first cone (about 6' away), walk around the right side of it. When you come to the second cone (6' past first cone), walk around it to the left. Grading: Alek the lowest category that applies. Steps Mild Impairment Query Text: Instructions: Walk up these stairs as you would at home. At the top, turn around and walk down. Grading: Alek the lowest category that applies. Scoring Dynamic Gait Index Score 17 Rehab Re-assessment Subjective Subjective Pt reports she is doing well. Pt sees an ENT specialist this week and a neurologist in July for her dizziness complaints. Objective Objective Notes Fall risk assessments: TU seconds without AD 5xSTS: 9.8 seconds Romberg: Fail uneven surface with eyes closed. DGI: 17 (no AD) SLS: 3 seconds max ea LE Tandem stance: 4-5 seconds BLE Assessment Progress Assessment Slower Than Expected Assessment Notes This is a reassessment for Gabby Baires who presents to PT for c/o impaired balance. Since IE, pt has been seen for 4 treatment visits that have consisted of education and therapeutic exercises focusing on balance and strength. Pt with fair attendance to scheduled PT visits and reports some adherence to HEP. Harsh winter weather has limited session attendance. Pt with improved TUG, 5xSTS, and DGI scores since IE. Pt would continue to benefit from skilled outpatient physical therapy to address remaining deficits and achieve LTGs. Patient goals met In 4 weeks, pt will: 1) Perform TUG test in 8 seconds without AD to decrease fall risk: MET 2) Verbalize IND with HEP: MET 3) Score 16/24 on DGI to decrease fall risk when ambulating: MET 4) Hold static balance for 10 seconds without LOB when standing on uneven surfaces with eyes closed: MET LTG: In progress Goals Not Met LTG Time and Billing Re-Eval Time 10 Re-Eval Billing Units 0 Charge for PT reassessment? No PHYSICIAN CERTIFICATION: I certify the specified therapy services for Gabby Baires are required, authorized, and reviewed every 30 days.
== END 2024-07-03 23:59 | disposition home or self-care (01) ==
LOC: PT 14:00
PROVIDERS: PCP Family Medicine; Visit Provider Family Medicine
DX: R26.89 Other abnormalities of gait and mobility (principal)
CPT/HCPCS: 97110; 97530

== ENCOUNTER 2024-07-09 15:00 | Outpatient (RCR) | payer MEDICARE, OTHER, SELFPAY | END 2024-07-09 23:59 | disposition home or self-care (01) | LOC: PT 15:00 | PROVIDERS: PCP Family Medicine; Visit Provider Family Medicine | DX: R26.89 Other abnormalities of gait and mobility (principal) | CPT/HCPCS: 97110; 97530 ==

== ENCOUNTER 2024-07-15 09:34 | Outpatient (CLI) | payer MEDICARE, OTHER, SELFPAY ==
[2024-07-15 10:12] LABS: Basophils % 0.6 % (0.1-2.0); Eosinophils # 0.1 K/mm3 (0.0-0.4); Eosinophils % 1.8 % (0.1-12.0); Hematocrit 33.4 % (37.0-47.0); Hemoglobin 11.4 g/dL (12.2-16.2); Lymphocytes # 1.5 K/mm3 (0.7-4.5); Lymphocytes % 29.7 % (10-50); Mean Corpuscular HGB Conc 34.1 g/dL (31.8-35.4); Mean Corpuscular Hemoglobin 30.2 pg (27.0-31.2); Mean Corpuscular Volume 88.4 fl (81-99); Mean Platelet Volume 8.8 fl (7.4-10.4); Monocytes # 0.3 K/mm3 (0.1-1.0); Monocytes % 6.9 % (1.7-9.3); Neutrophils % 60.6 % (37.0-80.0); Platelet Count 291 K/mm3 (142-424); Red Blood Count 3.78 M/mm3 (4.20-5.40); Red Cell Distribution Width 13.1 % (11.5-17.5); White Blood Count 4.9 K/mm3 (4.8-10.8)
[2024-07-15 11:06] LABS: Thyroid Stimulating Hormone 2.75 uIU/mL (0.465-4.68)
[2024-07-15 11:23] LABS: Hemoglobin A1C 5.7 % (4.0-6.0)
[2024-07-15 11:25] LABS: Vitamin B12 556 pg/mL (239-931)
== END 2024-07-15 23:59 | disposition home or self-care (01) ==
PROVIDERS: PCP Family Medicine; Visit Provider Specialist
DX: I25.10 Atherosclerotic heart disease of native coronary artery without angina pectoris (principal); E03.9 Hypothyroidism, unspecified; R73.9 Hyperglycemia, unspecified; D64.9 Anemia, unspecified; R42 Dizziness and giddiness
CPT/HCPCS: 36415; 82607; 82746; 83036; 84443; 85025

== ENCOUNTER 2024-07-21 14:41 | Outpatient (CLI) | payer MEDICARE, OTHER, SELFPAY ==
--- NOTE | 2024-07-21 15:06 | MR_ITS ---
FINAL REPORT TECHNIQUE: Multiplanar and multisequence imaging of the brain was obtained before and after contrast injection. CLINICAL HISTORY: LIght headedness, DIZZINESS 13 ML PROHANCE COMPARISON: None FINDINGS: Age-appropriate atrophy is noted with associated ex vacuo dilatation of the ventricles. There is no mass effect or midline shift. Small foci of periventricular and subcortical white matter are nonspecific, likely represent changes of small vessel ischemia. No hydrocephalus. The cerebellum and brainstem have an unremarkable appearance. There are no areas of restricted diffusion on diffusion weighted images to suggest acute infarct. Soft tissues are without acute abnormality. Post contrast images reveal no pathologic contrast enhancement. IMPRESSION: No acute intracranial abnormality and no pathologic contrast enhancement. Periventricular and subcortical T2 abnormality, likely related to changes of chronic small vessel ischemia. Reviewed, Interpreted and Dictated by So Pool MD Transcribed by Stephanie Walker Authenticated and [facility]
[2024-07-21 15:20] LABS: Blood Urea Nitrogen 15 mg/dl (7-17); Estimated Glomerular Filt Rate 69 ml/min (>60); GFR (African American) 83 ML/MIN (>60)
[2024-07-21] MEDS: SODIUM CHLORIDE 0.9% 10ML SYR (RAD ONLY) 10 ML IV (16:13)
[2024-07-21] MEDS: GADOTERIDOL INJ 20ML SYRINGE 13 ML IV (16:13)
== END 2024-07-21 23:59 | disposition home or self-care (01) ==
PROVIDERS: PCP Family Medicine; Visit Provider Specialist
DX: R42 Dizziness and giddiness (principal); R26.89 Other abnormalities of gait and mobility; G31.84 Mild cognitive impairment of uncertain or unknown etiology; G93.40 Encephalopathy, unspecified
CPT/HCPCS: 36415; 70553; 82565; 84520; A9576

== ENCOUNTER 2024-07-22 14:52 | Outpatient (RCR) | payer MEDICARE, OTHER, SELFPAY ==
--- NOTE | 2024-07-22 16:12 | HMH.PTOPEV ---
PT Outpatient Evaluation Rehab PT Outpatient Evaluation Start: 07/22/24 15:07 Freq: Status: Active Protocol: Document 07/22/24 15:55 PHORNE (Rec: 07/22/24 16:11 PHORNE [id number]) E-signed By Timothy Bonilla, PT Outpatient Therapy Subjective History Subjective History This is the initial PT eval for Gabby Baires, 84 yowf who presents with no current c /o other than a very vague sense of my head feels heavy above my eyes. She reports NO c/o dizziness, lightheadedness, vertigo ( positional or motion related), blurred vision, fainting, falls, headache, pain, sinus issues, or hearing changes. She reports, Dr. Stapleton wants me to have some kind of therapy on my head. She was recently cleared of any sinus issues or ear dysfunction by ENT. MRI with and without contrast of the brain performed yesterday shows chronic small vessel ischemia. She reports no significant PMH other than chronic anemia and anxiety. Chief Complaint Other Balance Eval Hx of Falls Hx Falls No Gait/Posture Asssessment General Gait Observation No Deviations/Normal Nystagmus Nystagmus Presence None Timed Up and Go Test 1. Is the Timed Up and Go test result > no or = to 12 seconds? 3. Is the Timed Up and Go Test result < yes 12 seconds? Oculomotor Gaze Oculomotor Gaze Nml: Vergence Smooth Pursuit Saccades VOR Cancellation Cover/Uncover Cross Cover Rhomberg Feet Together/Eyes open/Stable Surface pass Feet Together/Eyes Closed/Stable Surface pass Feet Together/Eyes open/Unstable Surface pass Feet Together/Eyes Closed/Unstable pass Surface Dynamic Gait Index Test Protocol Gait Level Surface Normal Query Text: Instructions: Walk at your normal speed from here to the next gui (20'). Grading: Gui the lowest category that applies. Change in Gait Speed Normal Query Text: Instructions: Begin walking at your normal pace (for 5'), when I tell you go , walk as fast as you can (for 5'). When I tell you slow , walk as slowly as you can (for 5'). Grading: Gui the lowest category that applies. Gait with Horizontal Head Turns Normal Query Text: Instructions: Begin walking at your normal pace. When I tell you to look right , keep walking straight, but turn you head to the right. Keep looking to the right unit I tell you look left , then keep walking straight and turn your head to the left. Keep your head to the left until I tell you look straight , then keep walking straight, but return you head to the center. Grading: Gui the lowest category that applies. Gait with Vertical Head Turns Normal Query Text: Instructions: Begin walking at your normal pace. When I tell you to look up , keep walking staight, but tip your head up. Keep looking up until I tell you to look down , then keep walking straight and tip your head down. Keep your head down until I tell you look straight , then keep walking straight, but return your head to the center. Grading: Gui the lowest category that applies. Gait and Pivot Turn Normal Query Text: Instructions: Begin walking at your normal pace. When I tell you turn and stop , turn as quickly as you can to face the opposite direction and stop. Grading: Gui the lowest category that applies. Step Over Obstacle Normal Query Text: Instructions: Begin walking at your normal speed. When you come to the shoebox, step over it, not around it and keep walking. Grading: Gui the lowest category that applies. Step Around Obstacles Normal Query Text: Instructions: Begin walking at normal speed. When you come to the first cone (about 6' away), walk around the right side of it. When you come to the second cone (6' past first cone), walk around it to the left. Grading: Gui the lowest category that applies. Steps Normal Query Text: Instructions: Walk up these stairs as you would at home. At the top, turn around and walk down. Grading: Gui the lowest category that applies. Scoring Dynamic Gait Index Score 24 Tinetti Sitting Balance Sitting Balance Steady, safe Arising from Chair Ability to Arise Able, w/o using arms Attempts to Arise Arises on 1st attempt Standing Balance Immediate Standing Balance Steady w/o support Standing Balance Narrow stance w/o support Nudged Response Steady Standing with Eyes Closed Steady Turning Step Pattern Turning 360 Degrees Continuous steps Stability Turning 360 Degrees Steady Sitting Down Sitting Down Safe, steady Gait and Step Initiation of Gait No hesitancy Right Foot Step Length Does pass stance foot Right Foot Step Height Completely clears floor Left Foot Step Length Does pass stance foot Left Foot Step Height Completely clears floor Step Description Step Symmetry Step length appears equal Step Continuity Steps appear continuous Gait Description Path Description Straight Trunk Description No sway Walking Stance Heels together Scoring and Interpretation Tinetti Composite Score (points) 28 Interpretation of Scores Low risk for falls (>24) Miscellaneous Dx PT Eval Objective Objective After thorough examination, no evidence of balance dysfunction or vestibular dysfunction noted. Pt has normal response to all occulomotor testing performed. B UE MMT grossly 5/5 throughout. Unable to reproduce any symptoms at this time. Pts main c/o is a background feeling of heaviness in her head that is unchanged with any baseline activity and any vestibular testing in the clinic. Outpatient Therapy Assessment Impairments Problems/Impairmments Impaired Self Care/Self Management Prognosis Rehab Potential Innapropriate for Skilled Therapy Comment Unable to reproduce any vestibular symptoms that would be treatable at this time. Clinical Impression Consistent with Diagnosis No Outpatient Therapy Plan of Care Treatment Plan May Include Eval/Re-Eval Yes Addendums This patient is a candidate for social No or vocational rehab? Patient/Guardian verbally acknowledges Yes understanding of treatment program and consents to further treatment? Patient/Guardian verbally acknowledges Yes understanding of diagnosis, prognosis and goals for treatment? Eval Complexity PT Charges 71989 - High Complexity Shoulder/Elbow Eval Shoulder Objective Measurements Elbow Objective Measurements PHYSICIAN CERTIFICATION: I certify the specified therapy services for Gabby Baires are required, authorized, and reviewed every 30 days.
== END 2024-07-22 23:59 | disposition home or self-care (01) ==
LOC: PT 14:52
PROVIDERS: PCP Family Medicine; Visit Provider Specialist
DX: R42 Dizziness and giddiness (principal); R26.89 Other abnormalities of gait and mobility
CPT/HCPCS: 97163

== ENCOUNTER 2024-07-31 13:20 | Outpatient (POV) | payer MEDICARE, OTHER, SELFPAY ==
[2024-07-31 13:35] VITALS: BP 138/59; PULSE 59; RESP 14; O2SAT 98; BMI 25.4
--- NOTE | 2024-07-31 14:02 | A.OFFVIS_ITS ---
[facility] Disclaimer: The information contained in this section may have been updated after the patient was seen, as this information can be updated by other users. Medical History Bilateral serous otitis media Balance problems Chronic sinusitis Cataracts, bilateral SVT (supraventricular tachycardia) Hypotension Fatigue CAD (coronary artery disease) Hyperlipidemia Hypertension Syncope and collapse Surgical History Hx of rotator cuff surgery History of cataract surgery History of lumpectomy History of hysterectomy Family History Other Coronary artery disease Social History Smoking Status: Never smoker second hand exposure: No alcohol intake: never substance use type: denies use current occupational status: other Travel in the last 8 weeks: None household members: spouse housing: house current occupational exposures/hazards: No caffeine: Yes Have you lived/traveled outside [place] in past 30 days?: No Contact w/someone who lives/traveled outside [place] past 30 days?: No Exposure to someone with infectious disease in past 14 days?: No Do you have a fever (greater than 100.4 F or 38 C)?: No Have you tested positive for COVID-19: No Exposed to someone with COVID-19 in past 14 days?: No Do you have a sore throat?: No Do you have a cough?: No Do you have any weakness?: No Do you have any diarrhea?: No Are you experiencing any unusual bleeding?: No Do you have any muscle aches/pain?: No Do you have any abdominal pain?: No Are you experiencing loss of taste or smell?: No PM Subjective & Objective Subjective Subjective:: Patient is a pleasant 84-year-old female who presents today for 6-week follow- up. Today she rates her pain a 0 out of 10 still around where her last injections were however does state that she is having more pain in and around her left shoulder and left hip. Patient does state that pain in her hip is more of a 5 out of 10 and states that that is more bothersome than the left shoulder at this time. Patient states that it is very tender to touch and interferes with her ability perform activities of daily living such as cooking and cleaning. Patient denies any new falls. Patient does state that she did end up seeing the ENT provider because she was having the funny feeling. She states that they have done CTs and MRIs along with blood work with no acute findings. She states that she is chronically anemic but denies any other issues. She does state that she just still feels the same sensation and is scheduled to see her eye doctor coming up. Patient does state that she is also seeing Dr. Caballero next . Her Faizan has been reviewed and is appropriate. Review of Systems: General: No recent weight changes, no fever, no sleep disturbances Respiratory: No cough, no shortness of air, no recurring pulmonary infections Cardiovascular/peripheral vascular: No chest pain, no palpitations, no edema, no shortness of breath Gastrointestinal: No new onset incontinence, normal bowel movements reported Genitourinary: No new onset incontinence Musculoskeletal: Hip pain, left shoulder pain Psychiatric: [Normal mood/affect] Neurological: [Denies weakness in extremities], [denies balance issues] Pain at rest (0-10 scale): 5 Objective Objective:: Physical Exam: General: Alert and oriented x3, no acute distress, pleasant and cooperative Lungs: Respirations even and unlabored, symmetrical chest expansion Eyes: PERRL Musculoskeletal: Flexion and extension of bilateral hips somewhat guarded secondary to pain, [antalgic gait noted] extreme point tenderness along bilateral greater trochanteric bursa's Neurological: Speech clear, no gross sensory deficit Has patient had previous pain injection?: No Conservative treatment options previously tried: Home exercise plan Length of treatment: Longer than 12 weeks Meds Home Medications and Allergies Home Medications ?Medication ?Instructions ?Recorded ?Confirmed ?Type levothyroxine 25 mcg tablet 25 mcg PO DAILYDM hypothyroid 04/27/18 07/31/24 H istory polyethylene glycol 3350 17 gram 17 gm PO DAILYP PRN Constipation 05/05/19 07/31/24 History oral powder packet allopurinol 100 mg tablet 100 mg PO DAILY gout 12/24/19 07/31/24 History alprazolam 0.25 mg tablet 0.125 mg PO BID Anxiety 12/24/19 07/31/24 History clopidogrel 75 mg tablet 75 mg PO DAILY Blood thinner 12/24/19 07/31/24 History losartan 50 mg tablet 50 mg PO DAILY High blood pressure 09/21/21 07/31/24 History ergocalciferol (vitamin D2) 1,250 1,250 mcg PO WEEKLY SUPPLIMENT 07/06/22 07/31/24 History mcg (50,000 unit) capsule rosuvastatin 5 mg tablet 5 mg PO DIRECTED Cholesterol 07/06/22 07/31/24 History gabapentin 300 mg capsule 300 mg PO HS Pain 04/30/23 07/31/24 History metoprolol succinate 50 mg See Rx Instructions .Route 06/27/23 07/31/24 Rx tablet,extended release 24 hr .COMPLEX #90 tabs duloxetine 20 mg capsule,delayed 20 mg PO BID MOOD #40 caps 08/08/23 07/31/24 Rx release amlodipine 2.5 mg tablet 2.5 mg PO DIRECTED 06/17/24 07/31/24 History azelastine 137 mcg (0.1 %) nasal 2 spray intranasal BID #30 mL 06/17/24 07/31/24 Rx spray New Prescriptions to Start Prescriptions: Allergies Allergy/AdvReac Type Severity Reaction Status Date / Time Sulfa (Sulfonamide Allergy Mild Nausea Verified 07/28/24 13:38 Antibiotics) sucralfate AdvReac Intermediate light Verified 07/28/24 13:38 headed, swelling of lips Assessment and Plan *Assessment and plan (1) Greater trochanteric bursitis of both hips: Status: Acute Category: Medical Code(s): M70.61 - Trochanteric bursitis, right hip; M70.62 - Trochanteric bursitis, left hip Plan Patient did have limited range of motion of her bilateral hips with extreme point tenderness on her bilateral greater trochanteric bursa's. Patient was counseled that I do believe she would benefit from bursa injections. Risk and benefits were discussed with the patient. Patient did have her last injections in this location back in February 2024 that did provide more than 50% improvement and has not required any additional injections at this location. Patient does state that she has a lot going on and would like to see Dr. Caballero before deciding to proceed forward with the injections. I have counseled her that she can call her office and schedule these over the phone if she decides to proceed forward before now and her next appointment. Patient agrees with this plan of care. Patient has been instructed to contact the clinic with any concerns before the n ext appointment. Dr. Jackson has reviewed this note and agrees with this plan of care. This note was dictated using voice recognition software and make contain errors or omissions. All injections are used with Lidocaine, Bupivacaine and Depo Medrol. Occasionally urine drug screen is needed to verify patient's compliance with our office pain contract. This is ordered based off specific treatments related to chronic pain with the potential to abuse certain medications.
== END 2024-07-31 23:59 | disposition home or self-care (01) ==
LOC: SC.PAIN 13:24
PROVIDERS: PCP Psychiatry & Neurology Sleep Medicine; Visit Provider Nurse Practitioner Family
DX: M70.61 Trochanteric bursitis, right hip (principal); M70.62 Trochanteric bursitis, left hip; Z73.89 Other problems related to life management difficulty
CPT/HCPCS: 99212; G0463

== ENCOUNTER 2024-09-08 13:44 | Day surgery (SDC) | payer MEDICARE, OTHER, SELFPAY ==
[2024-09-08 14:15] VITALS: BP 122/66; PULSE 62; RESP 18; O2SAT 96; BMI 25.3
[2024-09-08 14:24] VITALS: BP 158/94; PULSE 65; RESP 18; O2SAT 96
[2024-09-08] MEDS: BUPIVACAINE 0.25% 10ML INJ 25 MG IJ (14:24)
[2024-09-08] MEDS: LIDOCAINE 1% 5ML PF VIAL 5 ML (14:24)
[2024-09-08 14:26] VITALS: BP 158/94; PULSE 65; RESP 18; O2SAT 96
--- NOTE | 2024-09-08 14:30 | P.PCN_ITS ---
Procedure Date: 09/08/24 Time: 14:20 Anesthesiologist:: Sp Rivero CRNA Complications:: None Pre-procedure Diagnosis:: Bilateral trochanteric bursitis Post-procedure Diagnosis:: Same Indications for Procedure:: Patient is a pleasant 84-year-old female who comes to clinic today for bilateral trochanteric bursa injections. She reports bilateral lateral hip pain that is constant, dull, sharp, stabbing. She is having difficulty lying on left or right side. Difficulty with ambulation. She rates her pain 8/10. Procedure Details:: Procedure: Bilateral trochanteric bursa joint injections under fluoroscopy Informed consent was obtained and the risks and benefits of the procedure were explained to the patient.~ The patient was taken to the procedure room and noninvasive monitors were placed including a noninvasive blood pressure cuff and pulse oximeter.~ The patient was placed prone on the procedure table. Both hips were cleansed using Betadine as a cleansing solution. C-arm fluoroscopy was used to view the right trochanteric bursa joint.~ The skin and subcutaneous tissues were anesthetized using lidocaine 1.5% and a 25-gauge needle.~ After this, a 22- gauge spinal needle was inserted under fluoroscopic guidance into the inferior aspect of the right trochanteric bursa.~ Omnipaque dye was injected and good spread was seen throughout the joint.~ After this, approximately 5 mL of bupivacaine, 0.25% and Depo-Medrol, 40 mg was incrementally injected into the right sacroiliac joint. We then moved to the left trochanteric bursa joint.~ The skin and subcutaneous tissues were anesthetized using lidocaine 1.5% and a 25-gauge needle.~ After this, a 22-gauge spinal needle was inserted under fluoroscopic guidance into the inferior aspect of the left trochanteric bursa joint.~ Omnipaque dye was injected and good spread was seen throughout the joint. After this, approximately 5 mL of bupivacaine, 0.25% and Depo-Medrol, 40 mg was incrementally injected into the left sacroiliac joint.~ The patient tolerated the procedure well with no complications. The patient was observed in the Pain Clinic and then was discharged home neurologically intact. Plan and Disposition:: Patient was discharged without incident.
[2024-09-08 14:39] VITALS: BP 147/63; PULSE 53; RESP 18; O2SAT 99
== END 2024-09-08 14:39 | disposition home or self-care (01) ==
PROVIDERS: PCP Family Medicine; Visit Provider Nurse Anesthetist, Certified Registered
DX: M70.61 Trochanteric bursitis, right hip (principal); M70.62 Trochanteric bursitis, left hip
CPT/HCPCS: 20610; 77002; J1010

== ENCOUNTER 2024-09-21 14:09 | Outpatient (POV) | payer MEDICARE, OTHER, SELFPAY ==
--- NOTE | 2024-09-21 14:16 | A.OFFVIS_ITS ---
[facility] Disclaimer: The information contained in this section may have been updated after the patient was seen, as this information can be updated by other users. Medical History (Updated 09/21/24 @ 14:50 by Candice Jackson APRN) Orthostatic hypotension Bilateral serous otitis media Balance problems Chronic sinusitis Cataracts, bilateral SVT (supraventricular tachycardia) Hypotension Fatigue CAD (coronary artery disease) Hyperlipidemia Hypertension Syncope and collapse Surgical History Hx of rotator cuff surgery History of cataract surgery History of lumpectomy History of hysterectomy Family History Other Coronary artery disease Social History Smoking Status: Never smoker second hand exposure: No alcohol intake: never substance use type: denies use current occupational status: other Travel in the last 8 weeks: None household members: spouse housing: house current occupational exposures/hazards: No caffeine: Yes PM Subjective & Objective Subjective Subjective:: Patient is a pleasant 84-year-old female who presents today for follow-up of bilateral greater trochanteric bursa injections on 09/08/2024. Today she rates her pain a 5 out of 10. She denies any new trauma or injury. She does state that the injections have helped but it did take about 4 to 5 days for them to kick again. She states that the pain is not as severe and not as tender in her hips. She has been able to move around easier. Patient does however states she is having a little bit more pain at her mid back around both her shoulder blades. Patient states it is a aching sensation that is worse with increased activity and does interfere with her ability perform activities of daily living such as cooking and cleaning. Patient does state that Dr. Stapleton was sending her to Dr. Tilley's office to review over her blood pressure medication tomorrow. Patient does state that she would like to see how this appointment goes. Her Faizan has been reviewed and is appropriate. Review of Systems: General: No recent weight changes, no fever, no sleep disturbances Respiratory: No cough, no shortness of air, no recurring pulmonary infections Cardiovascular/peripheral vascular: No chest pain, no palpitations, no edema, no shortness of breath Gastrointestinal: No new onset incontinence, normal bowel movements reported Genitourinary: No new onset incontinence Musculoskeletal: Mid back pain Psychiatric: [Normal mood/affect] Neurological: [Denies weakness in extremities], [denies balance issues] Pain at rest (0-10 scale): 5 Objective Objective:: Physical Exam: General: Alert and oriented x3, no acute distress, pleasant and cooperative Lungs: Respirations even and unlabored, symmetrical chest expansion Eyes: PERRL Musculoskeletal: Flexion and extension of thoracic [spine] somewhat guarded secondary to pain, [antalgic gait noted] point tenderness along bilateral rhomboid muscles Neurological: Speech clear, no gross sensory deficit Has patient had previous pain injection?: Yes Percent improvement in pain since last injection: 50% Conservative treatment options previously tried: Home exercise plan Length of treatment: Longer than 12 weeks Meds Home Medications and Allergies Home Medications ?Medication ?Instructions ?Recorded ?Confirmed ?Type levothyroxine 25 mcg tablet 25 mcg PO DAILYDM hypothyroid 04/27/18 09/16/24 History polyethylene glycol 3350 17 gram 17 gm PO DAILYP PRN Constipation 05/05/19 09/16/24 History oral powder packet allopurinol 100 mg tablet 100 mg PO DAILY gout 12/24/19 09/16/24 History alprazolam 0.25 mg tablet 0.125 mg PO BID Anxiety 12/24/19 09/16/24 History clopidogrel 75 mg tablet 75 mg PO DAILY Blood thinner 12/24/19 09/16/24 History losartan 50 mg tablet 50 mg PO DAILY High blood pressure 09/21/21 09/16/24 History ergocalciferol (vitamin D2) 1,250 1,250 mcg PO WEEKLY SUPPLIMENT 07/06/22 09/16/24 History mcg (50,000 unit) capsule rosuvastatin 5 mg tablet 5 mg PO DIRECTED Cholesterol 07/06/22 09/16/24 History gabapentin 300 mg capsule 300 mg PO HS Pain 04/30/23 09/16/24 History metoprolol succinate 50 mg See Rx Instructions .Route 06/27/23 09/16/24 Rx tablet,extended release 24 hr .COMPLEX #90 tabs duloxetine 20 mg capsule,delayed 20 mg PO BID MOOD #40 caps 08/08/23 09/16/24 Rx release amlodipine 2.5 mg tablet 2.5 mg PO DIRECTED 06/17/24 09/16/24 History azelastine 137 mcg (0.1 %) nasal 2 spray intranasal BID #30 mL 06/17/24 09/16/24 Rx spray New Prescriptions to Start Prescriptions: Allergies Allergy/AdvReac Type Severity Reaction Status Date / Time Sulfa (Sulfonamide Allergy Mild Nausea Verified 09/16/24 11:24 Antibiotics) sucralfate AdvReac Intermediate light Verified 09/16/24 11:24 headed, swelling of lips Assessment and Plan *Assessment and plan (1) Myofascial pain: Status: Acute Category: Medical Code(s): M79.18 - Myalgia, other site Plan Patient did have point tenderness along her bilateral rhomboid muscles during today's visit. I did discuss with the patient in future she may benefit from trigger point injections at this location. Patient would like to see how her cardiology appointment goes before scheduling these injections. I did discuss with the patient that she can call and schedule these over the phone if it does worsen from now until her next appointment. Patient agrees with this plan of care. Patient has had trigger point injections in the past that did provide significant relief. Patient will be given a tentative 1 month appointment for follow-up. Patient has been instructed to contact the clinic with any concerns before the next appointment. Dr. Jackson has reviewed this note and agrees with this plan of care. This note was dictated using voice recognition software and make contain errors or omissions. All injections are used with Lidocaine, Bupivacaine and Depo Medrol. Occasionally urine drug screen is needed to verify patient's compliance with our office pain contract. This is ordered based off specific treatments related to chronic pain with the potential to abuse certain medications.
[2024-09-21 15:01] VITALS: BP 132/60; PULSE 57; RESP 18; O2SAT 99; BMI 25.4
== END 2024-09-21 23:59 | disposition home or self-care (01) ==
LOC: SC.PAIN 14:11
PROVIDERS: PCP Family Medicine; Visit Provider Nurse Practitioner Family
DX: M79.18 Myalgia, other site (principal); Z73.89 Other problems related to life management difficulty
CPT/HCPCS: 99212; G0463

== ENCOUNTER 2024-09-22 14:46 | Outpatient (CLI) | payer MEDICARE, OTHER, SELFPAY ==
[2024-09-22 15:19] LABS: Basophils % 0.5 % (0.1-2.0); Eosinophils % 0.5 % (0.1-12.0); Hematocrit 32.8 % (37.0-47.0); Hemoglobin 11.1 g/dL (12.2-16.2); Lymphocytes # 1.5 K/mm3 (0.7-4.5); Lymphocytes % 18.3 % (10-50); Mean Corpuscular HGB Conc 33.8 g/dL (31.8-35.4); Mean Corpuscular Hemoglobin 29.8 pg (27.0-31.2); Mean Corpuscular Volume 88.2 fl (81-99); Mean Platelet Volume 8.7 fl (7.4-10.4); Monocytes # 0.5 K/mm3 (0.1-1.0); Monocytes % 6.1 % (1.7-9.3); Neutrophils # 6.1 K/mm3 (1.8-7.8); Nucleated Red Blood Cells # 0 10^3/uL; Nucleated Red Blood Cells % 0 %; Platelet Count 271 K/mm3 (142-424); Red Blood Count 3.72 M/mm3 (4.20-5.40); Red Cell Distribution Width 12.8 % (11.5-17.5); Red Cell Distribution Width-SD 41.2 fL; White Blood Count 8.2 K/mm3 (4.8-10.8)
[2024-09-22 15:56] LABS: Albumin Level 4.2 g/dl (3.5-5.0); Chloride 98 mmol/L (98-107); Potassium 5.6 mmoL/L (3.5-5.1); Sodium 129 mmol/L (136-145)
[2024-09-22 15:59] LABS: Alanine Aminotransferase 14 U/L (12-78); Alkaline Phosphatase 75 U/L (38-126); Anion Gap 10.6 mEq/L (5-15); Aspartate Amino Transferase 25 U/L (14-36); Bilirubin,Indirect 0.4 mg/dL (0.0-0.9); Bilirubin,Total 0.4 mg/dl (0.2-1.3); Bilirubin,Unconjugated 0.4 mg/dL (0.0-1.1); Blood Urea Nitrogen 17 mg/dl (7-17); Calcium 9.5 mg/dl (8.4-10.2); Carbon Dioxide 26 mmol/L (22.0-30.0); Cholesterol 257 mg/dl (140-200); Estimated Glomerular Filt Rate 69 ml/min (>60); GFR (African American) 83 ML/MIN (>60); Glucose 119 mg/dl (74-100); Total Protein,Serum 6.7 g/dl (6.3-8.2); Triglycerides 186 mg/dl (30-150); VLDL Cholesterol 37 mg/dL (0-40)
[2024-09-22 16:00] LABS: Chol/HDL Ratio 3.2 (1-3.5); HDL Cholesterol 80 mg/dl (40-60); Magnesium 1.9 mg/dl (1.6-2.3)
[2024-09-22 16:11] LABS: Direct LDL Cholesterol 126.64 mg/dL (100-129)
[2024-09-22 16:31] LABS: Thyroid Stimulating Hormone 1.64 uIU/mL (0.465-4.68)
== END 2024-09-22 23:59 | disposition home or self-care (01) ==
LOC: LAB 14:47
PROVIDERS: PCP Family Medicine; Visit Provider Nurse Practitioner Family
DX: E03.9 Hypothyroidism, unspecified (principal); I11.9 Hypertensive heart disease without heart failure; E11.9 Type 2 diabetes mellitus without complications; Z79.4 Long term (current) use of insulin; D64.9 Anemia, unspecified; R53.83 Other fatigue; I25.10 Atherosclerotic heart disease of native coronary artery without angina pectoris; E78.2 Mixed hyperlipidemia
CPT/HCPCS: 36415; 80048; 80061; 80076; 83735; 84439; 84443; 85025

== ENCOUNTER 2024-10-01 11:02 | Outpatient (CLI) | payer MEDICARE, OTHER, SELFPAY ==
[2024-10-01 12:38] LABS: Anion Gap 6.7 mEq/L (5-15); Blood Urea Nitrogen 15 mg/dl (7-17); Calcium 9.5 mg/dl (8.4-10.2); Carbon Dioxide 27 mmol/L (22.0-30.0); Chloride 96 mmol/L (98-107); Estimated Glomerular Filt Rate 80 ml/min (>60); GFR (African American) 97 ML/MIN (>60); Glucose 96 mg/dl (74-100); Potassium 4.7 mmoL/L (3.5-5.1); Sodium 125 mmol/L (136-145)
== END 2024-10-01 23:59 | disposition home or self-care (01) ==
LOC: LAB 11:03
PROVIDERS: PCP Family Medicine; Visit Provider Physician Assistant
DX: E78.5 Hyperlipidemia, unspecified (principal); I25.10 Atherosclerotic heart disease of native coronary artery without angina pectoris; I11.9 Hypertensive heart disease without heart failure; R53.83 Other fatigue
CPT/HCPCS: 36415; 80048

== ENCOUNTER 2024-10-15 14:16 | Outpatient (CLI) | payer MEDICARE, OTHER, SELFPAY ==
[2024-10-15 15:45] LABS: Blood Urea Nitrogen 14 mg/dl (7-17); Calcium 9.6 mg/dl (8.4-10.2); Carbon Dioxide 28 mmol/L (22.0-30.0); Chloride 94 mmol/L (98-107); Estimated Glomerular Filt Rate 69 ml/min (>60); GFR (African American) 83 ML/MIN (>60); Glucose 104 mg/dl (74-100); Sodium 128 mmol/L (136-145)
== END 2024-10-15 23:59 | disposition home or self-care (01) ==
LOC: LAB 14:16
PROVIDERS: PCP Family Medicine; Visit Provider Nurse Practitioner Family
DX: I11.9 Hypertensive heart disease without heart failure (principal); I25.10 Atherosclerotic heart disease of native coronary artery without angina pectoris
CPT/HCPCS: 36415; 80048

== ENCOUNTER 2024-10-17 07:23 | Inpatient (IN) | payer MEDICARE, OTHER, SELFPAY ==
[2024-10-17] VITALS (13 sets, daily range): BP systolic 104–148; BP diastolic 52–73; PULSE 60–80; RESP 12–25; TEMP 36.7–37.5; O2SAT 82–98; BMI 24.5
--- NOTE | 2024-10-17 07:20 | ECG_ITS ---
APPROVED REPORT Exam: Resting ECG HR:76 bpm ECG Measurements Heart Rate 76 AXES RI 148 P 65 QRSd 79 QRS 53 QT 340 T 41 QTc 371 Conclusion Sinus rhythm Electronically signed by : LEENA MIRANDA, 10/18/2024 19:37:45
[2024-10-17 07:25] LABS: Coronavirus 19, PCR Not Detected (NotDetected); Influenza A, PCR Not Detected (NotDetected); Influenza B, PCR Not Detected (NotDetected)
--- OUTSIDE RECORDS SUMMARY | 2024-10-17 07:32 | XMS_ITS | Data Portability ---
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 Baires is a n 82-year-old female with neck and low back/lower extremity radicular pain. Without cervical radicular complaints, I do not think there is anything to be concerned about on her cervical MRI. 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 She is not myelopathic on examination, neither. We will work-up her low back issues starting with an MRI of the lumbar spine as well as some flexion-extension lumbar x-rays. We will see her back to go over the results once they are complete. [email or web address] Not available 03/04/2023 14:44:29 07/01/2023 07/01/2023 ASSESSMENT: Ms. Baires is a pleasant 82-year-old female who returns to the office accompanied with her , Levi, after last being seen 03/04/2023. Her initial appointment she was having more neck and upper extremity symptoms that had improved prior to that appointment but she was continuing to have low back and lower extremity symptoms and was sent for a lumbar MRI. She had the lumbar MRI completed at [facility] on 04/11/2023. She continues to report low back pain with radiation into her hips and down her thighs to her knees. She was unsure if the pain she was experiencing into her hips and knees was related to her spine or related to her arthritis and bursitis that she has been told she has. Standing in 1 place is what is most problematic for her though walking for too far also causes the symptoms to an increase. If she is sitting or lying down her symptoms are improved. She denies any saddle paresthesias. She has been doing home physical therapy and is going to start water therapy tomorrow. She has seen Dr. Jackson but has not had any injections into her low back only into her shoulder. Her had surgery with Dr. Garcia 8 years ago. IMAGING: Lumbar x-rays taken at the clinic 03/04/2023. Lumbar MRI taken at [facility] on 04/11/2023. Dr. Garcia and I have reviewed the images personally and read the radiologist's report. Her x-rays reveal spondylolisthesis of L3 on L4 with movement between flexion and extension. 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 We will upload these images to our PACS. They are given a printed image of her sagittal MRI image to keep. Seen by Dr. Garcia and myself PLAN: Refer to Dr. Landis for an L3-4 and L4-5 LESI Follow-up with our office as needed Dr. Garcia spoke with Mr. Baires and her that she would be a candidate for an L3-4 and L4-5 decompression and fusion. He described the procedure to them with the use of a spinal model including the procedure, risk, and expected recovery. She would need a brace after surgery. However, we also discussed that there is nothing emergent that she has to move forward with so if she would like to try injections and continue with physical therapy that is certainly reasonable. He did speak with them that waiting several years and then determining to move forward with surgery could be an increased risk secondary to her age. She is going to return to Dr. Jackson and have L3-4 and L4-5 lumbar epidural steroid injections as well as move forward with therapy that she currently involved in. If she does not respond to the injections or therapy, or the symptoms get to where they are more intolerable for her or impacting her activity or her daily life, she will return to our office to discuss moving forward with surgery. Her and her verbalized understanding of these instructions and are agreeable to this plan. They have no further questions or concerns at this time. They are satisfied with this plan of care. [email or web address] Not available 07/01/2023 16:04:19 Plan of Treatment Reminders Order Date Submit Date Provider Last Modified By Organization Details Last Modified Time Details Appointments None record ed. Lab None record ed. Referral None record ed. Procedures None record ed. Surgeries None record ed. Imaging None record ed. Medication Orders None record ed. Patient TargetsNo targets recorded. Patient InstructionsNo instructions recorded. Reason for Referral None Reported. Results Created Date Observation Date Name Description Value Unit Range Abnormal Flag Note LastModifiedBy Organization Detail LastModifiedTime 03/04/20 23 03/04/2023 XR, lumbo sacra l spine , 2 or 3 view, bendi ng only [address] [address] Marya quinones Name: DAKOTAH quinones : [birth year] 43 Marya quinones Orderi ng Provid er: NEGRITA GARCIA EXAM DATE: 2022 EXAM: XR LUMBAR SPINE FLEX/E XT ONLY CLINIC AL INFORM ATION: Back pain. IMAGES PROVID ED: Latera l views of the lumbar spine in flexio n and extens ion. COMPAR OCTAVIO: None. FINDIN GS: Verteb ral body height s are normal . Multil evel disc space reduct ion is seen with anteri or and latera l osteop hytes. There is grade 1 kira listhe sis of L3 over L4. It measur es approx imatel y 5 mm in flexio n and 1 mm in extens ion. Degene rative change s are seen in the facet joints . No radiog raphic eviden ce of injury is noted. IMPRES CHERRI: 1. Degene rative change s of lumbar spine. 2. 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 Radiology [facility] [address] [place], [address], 03/07/2023 16:10:58 03/05/20 23 11/01/2022 MRI, cervi naye spine , w/o contr ast No observ ation record ed. [facility] Not Available 2022 09:33:10 04/12/20 23 04/11/2023 MRI, lumba r spine , w/o contr ast No observ ation record ed. [facility] [address], [place], [address], 04/30/2023 14:54:12 04/12/20 23 04/11/2023 MRI, lumba r spine , w/o contr ast No observ ation record ed. [facility] 2022 14:54:13 05/17/20 23 11/01/2022 MRI, cervi naye spine , w/o contr ast No observ ation record ed. [email or web address] (Med Record) [address], [place], [address], 05/17/2023 15:35:38 06/20/19 24 04/11/2023 MRI, lumba r spine , w/o contr ast No observ ation record ed. [email or web address] [place] [address] (X-Ray) [address], [place], [address], 07/01/2023 12:48:34 07/02/19 24 11/01/2022 MRI, cervi naye spine , w/o contr ast No observ ation record ed. [facility] Not Available 2023 13:53:56 07/02/19 24 04/11/2023 MRI, lumba r spine , w/o contr ast No observ ation record ed. [facility] Not Available 2023 13:53:56 Result Notes None recorded. Procedures Surgical History Date Name Laterality Status Provider Name and Address Organization Details Recorded Time hysterectomy completed [facility] 03/04/2023 13:47:17 Shoulder joint surgery completed [facility] 03/04/2023 13:47:29 blepharoplasty completed [facility] 03/04/2023 13:47:49 cataract surgery completed [facility] 03/04/2023 13:47:58 lumpectomy of breast completed [facility] 03/04/2023 13:48:09 tonsillectomy completed [facility] 03/04/2023 13:48:15 Imaging Results Imaging Date Name Status LastModified by Organiz ation Details LastModified Time 03/04/2023 XR, lumbosacral spine, 2 or 3 view, bending only completed [email or web address] [facility] Radiology [facility] [address] [facility], [place], [address], 03/07/2023 16:10:58 11/01/2022 MRI, cervical spine, w/o contrast completed [facility] Information not available 03/05/2023 09:33:10 04/11/2023 MRI, lumbar spine, w/o contrast completed [facility] [address], [place], [address], 04/30/2023 14:54:12 04/11/2023 MRI, lumbar spine, w/o contrast completed [facility] Information not available 04/30/2023 14:54:13 11/01/2022 MRI, cervical spine, w/o contrast completed [email or web address] (Med Record) [address], [place], [address], 05/17/2023 15:35:38 04/11/2023 MRI, lumbar spine, w/o contrast completed [email or web address] (X-Ray) [address], [place], [address], 07/01/2023 12:48:34 11/01/2022 MRI, cervical spine, w/o contrast completed [facility] Information not available 07/02/2023 13:53:56 04/11/2023 MRI, lumbar spine, w/o contrast completed [facility] Information not available 07/02/2023 13:53:56 Procedure Notes None recorded. Medical Equipment None Reported. Allergies Allergen ID Allergen Name Allergen Category Reaction Reaction Severity Criticality Documentation Date Start Date Code Code System Note Provider Name and Address Organization Details Recorded Time 022501 Substance with sulfonami de structure and antibacte rial mechanism of action (substanc e) medicatio n Not available Not available Not available 03/04/2023 [id number] [facility] 3 13:48:58 Medications Name Sig Start Date Stop Date Status Note LastModified by Organization Details LastModified Time losartan 50 mg tablet TAKE ONE TABLET BY MOUTH EVERY DAY active Not Available Not Available No t Available cyclobenzap rine 10 mg tablet TAKE ONE TABLET BY MOUTH THREE TIMES DAILY NEEDED 03/04 completed Not Available Not Available Not Available tramadol 37.5 mg-acetamin ophen 325 mg tablet TAKE ONE TABLET BY MOUTH THREE TIMES DAILY NEEDED MAY CAUSE DROWSINES S 03/04 completed Not Available Not Available Not Available metoprolol succinate ER 50 mg tablet,exte nded release 24 hr TAKE ONE TABLET BY MOUTH EVERY DAY active Not Available Not Available No t Available citalopram 10 mg tablet TAKE ONE TABLET BY MOUTH EVERY DAY active Not Available Not Available No t Available prednisone 5 mg tablet TAKE FOUR TABLETS BY MOUTH ONCE DAILY FOR 3 DAYS, TAKE THREE TABLETS ONCE DAILY FOR 3 DAYS, TAKE TWO TABLETS ONCE DAILY FOR 3 DAYS, TAKE ONE TABLET ONCE DAILY FOR 3 DAYS --TAKE WITH FOOD-- active Not Available Not Available No t Available amlodipine 2.5 mg tablet TAKE ONE TABLET BY MOUTH EVERY DAY active Not Available Not Available No t Available clopidogrel 75 mg tablet TAKE ONE TABLET BY MOUTH EVERY DAY active Not Available Not Available No t Available allopurinol 100 mg tablet TAKE ONE TABLET BY MOUTH EVERY DAY active Not Available Not Available No t Available levothyroxi ne 25 mcg tablet TAKE ONE TABLET BY MOUTH EVERY DAY active Not Available Not Available No t Available alprazolam 0.25 mg tablet TAKE 1/2 TABLET BY MOUTH THREE TIMES DAILY MAY CAUSE DROWSINES S active Not Available Not Available No t Available potassium chloride ER 20 mEq tablet,exte nded release(par t/cryst) TAKE ONE TABLET BY MOUTH TWICE DAILY active Not Available Not Available No t Available diazepam 2 mg tablet TAKE ONE TABLET BY MOUTH 30 TO 45 minutes BEFORE MRI MAY CAUSE DROWSINES S active Not Available Not Available No t Available lidocaine 5 % topical patch APPLY 1 PATCH TOPICALLY TO THE AFFECTED AREA ONCE DAILY AND LEAVE IN PLACE FOR 12 HOURS, THEN REMOVE AND LEAVE OFF FOR 12 HOURS 03/04 completed Not Available Not Available Not Available gabapentin 300 mg capsule TAKE ONE CAPSULE BY MOUTH TWICE DAILY MAY CAUSE DROWSINES S active Not Available Not Available No t Available ergocalcife rol (vitamin D2) 1,250 mcg (50,000 unit) capsule TAKE ONE CAPSULE BY MOUTH ONCE A WEEK active Not Available Not Available No t Available methylpredn isolone 4 mg tablets in a dose pack TAKE ACCORDING TO PACKAGE INSTRUCTI ONS --TAKE WITH FOOD-- -- FINISH ALL MEDICINE -- active Not Available Not Available No t Available fluticasone propionate 50 mcg/actuati on nasal spray,suspe nsion instill DIRECTED (1 TO 2 SPRAYS) IN EACH NOSTRIL EVERY DAY 03/04 completed Not Available Not Available Not Available rosuvastati n 5 mg tablet TAKE ONE TABLET BY MOUTH ON saturday, saturday , AND saturday active Not Available Not Available No t Available duloxetine 20 mg capsule,del ayed release TAKE ONE CAPSULE BY MOUTH EVERY DAY active Not Available Not Available No t Available baclofen 5 mg tablet TAKE ONE TABLET BY MOUTH EVERY DAY active Not Available Not Available No t Available Vitals Date Recorded Body height Body mass index (BMI) Body weight Systolic blood pressure Diastolic blood pressure Provider Name and Address Organization Details Last Updated DateTime 03/04/2023 154.94 cm 24.6 kg/m2 43600.0 1 g 120 mm[Hg] 80 mm[Hg] [facility] 14:[facility]:19 Date Recorded Body height Body mass index (BMI) Body weight Systolic blood pressure Diastolic blood pressure Provider Name and Address Organization Details Last Updated DateTime 07/01/2023 154.94 cm 24.6 kg/m2 84730.01 g 120 mm[Hg] 80 mm[Hg] Nam James [facility] 4 12:59:46 Social History None recorded. Functional Status None recorded. Mental Status None recorded. Family History Relationship Description Onset Age of this Age Resolved Age Notes LastModified by Organization Details LastModified Time Unspecified Relation Malignant neoplastic disease [email or web address] Not available 03/04 13:46:57 Unspecified Relation Myocardial infarction [email or web address] Not available 07/2022 13:47:02 Medical History Condition Response Diabetes Y Gout Y Hypothyroidism Y Gynecological HistoryNo gynecological history recorded. Obstetrics History GPAL:G 0 P 0 0 0 0 Past Encounters Encounter ID Performer Location Encounter Start Date Encounter Closed Date Diagnosis/Indication Diagnosis SNOMED-CT Code Diagnosis ICD10 Code Diagnosis Note [id number] AMRITA GARCIA [facility] [address] [place] [phone] 03/04/2023 13:17:49 03/05/2023 05:01:13 Chronic low back pain 114703904 M54.50 [id number] FROY CORDOVA APRN [facility] [address] [place] [address] 07/01/2023 12:36:32 07/02/2023 04:28:06 Lumbar radiculopathy 854215667 M54.16 Lumbar spondylolisthesis 4824365798 70639 M43.16 Health Concerns Section Related Observation LastModified by Organization Detai ls LastModified Time None Recorded Concern Status LastModified by Organization Details LastModified Time None Recorded Advance Directives Directive None Recorded Payers Insurance Date Sequence Insurance Name Policy Number Policy Han Covered Member ID Han Member ID Guarantor Name 07/01/2023 1 [place] Gabby Baires [id number] Gabby Cornelius Dequan 07/01/2023 2 [employer] Gabby Baires [id number] Gabby Baires Notes Date Note Type Note Provider Name and Address Organization Details Recorded Time 03/04/2023 text/html Mrs. Baires is a n 82-year-old female with chronic neck and low back pain. She presents today to discuss her cervical and left upper extremity pain with a updated MRI. However, the left upper extremity pain has resolved. Her main complaint today is low back, bilateral hip and leg pain. She describes 7 out of 10 pain which is aching, better with sitting and laying down and worse with standing and walking. She describes lower extremity weakness some balance difficulties. No loss of bowel or bladder control. She has trialed physical therapy, TENS unit, steroids and gabapentin. She has seen Dr. Jackson with pain management in [place]. AMRITA GARCIA MD [address] [place], [address], [facility] 03/04/2023 14:44:53 07/01/2023 text/html Ms. Baires is an 82-year-old female who returns to the office after last being seen 03/04/2023 with continued low back and lower extremity symptoms. FROY CORDOVA APRN [address] [place], [address], [facility] 07/01/2023 16:04:56 OBGyn Episode No OBEpisode recorded.
--- NOTE | 2024-10-17 07:40 | PC.NURSE ---
notified respiratory of [facility]
[2024-10-17] MEDS: 0.9 % SODIUM CHLORIDE 1000ML 1,000 ML 999 ML IV (07:41)
[2024-10-17 07:43] LABS: Basophils % 0.4 % (0.1-2.0); Eosinophils % 0.4 % (0.1-12.0); Hematocrit 30.5 % (37.0-47.0); Hemoglobin 10.5 g/dL (12.2-16.2); Immature Granulocytes # 0.03 10^3uL; Immature Granulocytes % 1.1 %; Lymphocytes # 0.2 K/mm3 (0.7-4.5); Lymphocytes % 6.4 % (10-50); Mean Corpuscular HGB Conc 34.4 g/dL (31.8-35.4); Mean Corpuscular Volume 87.1 fl (81-99); Mean Platelet Volume 8.7 fl (7.4-10.4); Monocytes % 0.4 % (1.7-9.3); Neutrophils # 2.4 K/mm3 (1.8-7.8); Neutrophils % 91.3 % (37.0-80.0); Nucleated Red Blood Cells # 0 10^3/uL; Nucleated Red Blood Cells % 0 %; Platelet Count 256 K/mm3 (142-424); Red Cell Distribution Width 13.2 % (11.5-17.5); Red Cell Distribution Width-SD 41.4 fL; White Blood Count 2.6 K/mm3 (4.8-10.8)
--- NOTE | 2024-10-17 07:43 | HMH.EDGENADL ---
Discharge Plan Disposition Patient Disposition: Home, Self-Care Chief Complaint: Nausea/Vomiting/Diarrhea Prescriptions Prescriptions: No Action allopurinol 100 mg tablet 100 mg PO DAILY losartan 50 mg tablet 50 mg PO DAILY Patient Comments: TAKE ONE TABLET BY MOUTH EVERY MORNING AND 1/2 TABLET IN THE EVENING duloxetine 30 mg capsule,delayed release(DR/EC) 30 mg PO DAILY Patient Comments: TAKE ONE CAPSULE BY MOUTH EVERY DAY rosuvastatin [Crestor] 10 mg tablet 5 mg PO .m,w, f Qty: 15 2RF alprazolam 0.25 mg tablet 0.125 mg PO BID Patient Comments: TAKE 1/2 TABLET BY MOUTH EVERY MORNING, ONE-HALF TABLET AT NOON, THEN 1 TABLET AT BEDTIME MAY CAUSE DROWSINESS clopidogrel 75 mg tablet 75 mg PO DAILY Patient Comments: TAKE ONE TABLET BY MOUTH EVERY DAY gabapentin 300 mg capsule 300 mg PO HS Patient Comments: TAKE ONE CAPSULE BY MOUTH TWICE DAILY MAY CAUSE DROWSINESS ergocalciferol (vitamin D2) 1,250 mcg (50,000 unit) capsule 1,250 mcg PO WEEKLY Patient Comments: TAKE ONE CAPSULE BY MOUTH ONCE A WEEK azelastine 137 mcg (0.1 %) spray,non-aerosol 2 spray intranasal BID Qty: 30 2RF Rx Instructions: administer into each nostril metoprolol succinate 50 mg tablet extended release 24 hr See Rx Instructions .ROUTE .COMPLEX Qty: 90 4RF Dose Instruction: TAKE ONE TABLET BY MOUTH EVERY DAY Rx Instructions: TAKE ONE TABLET BY MOUTH EVERY DAY potassium chloride 20 mEq tablet extended release 20 meq PO DAILY Qty: 30 2RF levothyroxine 25 MCG tablet 25 mcg PO DAILYDM polyethylene glycol 3350 17 GM powder in packet 17 gm PO DAILYP PRN (Reason: Constipation) Referrals Follow up/Referrals: Brain Caballero MD [Primary Care Provider] - See instructions Clinical Impressions Clinical Impression: Non-ST elevation [place] (NSTEMI) Instructions Patient Instructions: DI for Diarrhea and Traveler's Diarrhea -- Adult, DI for Diarrhea and Traveler's Diarrhea -- Child, DI for Nausea -- Adult, DI for Nausea -- Child Print Language Print Language: Jordanian Discharge ED Provider: Vincent Mckeon General Adult HPI General Chief complaint: Nausea/Vomiting/Diarrhea Stated complaint: nausea Time Seen by Provider: 10/17/24 07:25 Mode of Arrival: EMS Source of Information: Patient Description of Symptoms (Recalled from ER Triage Doc. by RN): Patient presents with N/V x3 hours from this AM. Patient also reports fall from 1 week prior. Patient was given 4 mg Zofran by EMS. History of Present Illness HPI narrative: Please note that above description of symptoms, in this electronic medical record under categorization of recalled from ER triage doctor by RN are reflective of an initial nursing assessment, however, is not reflective of my full history and physical exam that was personally taken and clarified. Consequentially, this preceding description of symptoms, which may include the patient's categorized chief complaint in the EMR, do not reflect my personal clinical impression, and the ultimate description of history of present illness and patient stated complaints should be deferred to this section of the note. Unless stated otherwise or congruent with this section of the note, additional signs, symptoms, or incongruence should be interpreted as inaccurate with my clinical impression. Related Data Home Medications ?Medication ?Instructions ?Recorded ?Confirmed levothyroxine 25 mcg tablet 25 mcg PO DAILYDM hypothyroid 04/27/18 10/15/24 polyethylene glycol 3350 17 gram 17 gm PO DAILYP PRN Constipation 05/05/19 10/15/24 oral powder packet allopurinol 100 mg tablet 100 mg PO DAILY gout 12/24/19 10/15/24 alprazolam 0.25 mg tablet 0.125 mg PO BID Anxiety 12/24/19 10/15/24 clopidogrel 75 mg tablet 75 mg PO DAILY Blood thinner 12/24/19 10/15/24 losartan 50 mg tablet 50 mg PO DAILY High blood pressure 09/21/21 10/15/24 ergocalciferol (vitamin D2) 1,250 1,250 mcg PO WEEKLY SUPPLIMENT 07/06/22 10/15/24 mcg (50,000 unit) capsule gabapentin 300 mg capsule 300 mg PO HS Pain 04/30/23 10/15/24 duloxetine 30 mg capsule,delayed 30 mg PO DAILY 09/22/24 10/15/24 release Previous Rx's ?Medication ?Instructions ?Recorded metoprolol succinate 50 mg See Rx Instructions .Route 06/27/23 tablet,extended release 24 hr .COMPLEX #90 tabs azelastine 137 mcg (0.1 %) nasal 2 spray intranasal BID #30 mL 06/17/24 spray potassium chloride 20 mEq 20 meq PO DAILY #30 tabs 09/24/24 tablet,extended release rosuvastatin 10 mg tablet (Crestor) 5 mg (1/2 x 10 mg) PO .m,w, f #15 10/15/24 tabs Allergies Allergy/AdvReac Type Severity Reaction Status Date / Time Sulfa (Sulfonamide Allergy Mild Nausea Verified 10/15/24 13:35 Antibiotics) sucralfate AdvReac Intermediate light Verified 10/15/24 13:35 headed, swelling of lips PFSH PFSH Disclaimer: The information contained in this section may have been updated after the patient was seen, as this information can be updated by other users. Medical History Orthostatic hypotension Bilateral serous otitis media Balance problems Chronic sinusitis Cataracts, bilateral SVT (supraventricular tachycardia) Hypotension Fatigue CAD (coronary artery disease) Hyperlipidemia Hypertension Syncope and collapse Surgical History Hx of rotator cuff surgery History of cataract surgery History of lumpectomy History of hysterectomy Family History Other Coronary artery disease Social History Smoking Status: Never smoker second hand exposure: No alcohol intake: never substance use type: denies use current occupational status: other Travel in the last 8 weeks?: None household members: spouse housing: house current occupational exposures/hazards: No caffeine: Yes Have you lived/traveled outside [place] in past 30 days?: No Contact w/someone who lives/traveled outside US past 30 days?: No Exposure to someone with infectious disease in past 14 days?: No Do you have a fever (greater than 100.4 F or 38 C)?: No Have you tested positive for COVID-19?: No Exposed to someone with COVID-19 in past 14 days?: No Do you have a sore throat?: No Do you have a cough?: No Do you have any weakness?: No Do you have any diarrhea?: No Are you experiencing any unusual bleeding?: No Do you have any muscle aches/pain?: No Do you have any abdominal pain?: No Are you experiencing loss of taste or smell?: No Other Medical History Have you received the Flu Vaccine for this season: Yes Have you received the Pneumonia Vaccine: Yes ROS Obtained: Yes All systems reviewed & no additional complaints except as documented Physical Exam General General appearance: alert and in no apparent distress Head Head exam: atraumatic and normocephalic Eye Eye exam: Present normal appearance, PERRL and EOMI Neck Neck exam: Present normal inspection, full ROM and trachea midline Respiratory Respiratory exam: Present normal lung sounds bilaterally; Absent respiratory distress, wheezes, stridor, accessory muscle use or prolonged expiratory phase Cardiovascular Cardiovascular exam: Present regular rate, normal rhythm and other (Pulses equal symmetric in upper and lower extremities) Abdominal Exam Abdominal exam: Present soft; Absent distention, tenderness, guarding, rebound or pulsatile mass Extremities Exam Extremities exam: Present other (bruising scattered LLE); Absent edema Neurological Exam Neurological exam: Present alert, oriented X3, CN II-XII intact and normal gait; Absent motor sensory deficit Skin Skin exam: Present warm and dry; Absent diaphoresis or erythema Medical Decision Making Medical Records Medical records reviewed: Yes I reviewed the patient's medical records. Screening: Per USPSTF and CDC recommendations, given the prevalence of disease in our region, it is our hospital?s policy to screen for HIV and viral Hepatitis for all patients aged 18 and over and those with ongoing risk factors. Faizan Inquiry Pt receiving controlled substance: No Faizan was queried for this patient: No Vital Signs: 10/17/24 07:21 10/17/24 07:30 10/17/24 08:00 Temperature 99.5 F Temperature Source Axillary Pulse Rate 76 72 Pulse Rate [Left] 75 Respiratory Rate 16 25 H 13 Blood Pressure 137/65 148/73 H Blood Pressure [Right Arm] 122/69 Blood Pressure Mean [Right Arm] 86 02 Sat by Pulse Oximetry 95 97 96 Oxygen Delivery Method Room Air Room Air 10/17/24 08:30 10/17/24 09:00 10/17/24 09:30 Temperature Temperature Source Pulse Rate 69 64 71 Pulse Rate [Left] Respiratory Rate 20 13 16 Blood Pressure 140/64 143/64 H 129/65 Blood Pressure [Right Arm] Blood Pressure Mean [Right Arm] 02 Sat by Pulse Oximetry 93 L 82 L 98 Oxygen Delivery Method 10/17/24 10:00 Temperature Temperature Source Pulse Rate Pulse Rate [Left] Respiratory Rate 15 Blood Pressure 125/70 Blood Pressure [Right Arm] Blood Pressure Mean [Right Arm] 02 Sat by Pulse Oximetry Oxygen Delivery Method Lab Data Lab Results 10/17/24 07:19: WBC 2.6 L, RBC 3.50 L, Hgb 10.5 L, Hct 30.5 L, MCV 87.1, MCH 30.0, MCHC 34.4, RDW 13.2, Plt Count 256, MPV 8.7, Neut % (Auto) 91.3 H, Lymph % (Auto) 6.4 L, [place] % (Auto) 0.4 L, Eos % (Auto) 0.4, Baso % (Auto) 0.4, Neut # (Auto) 2.4, Lymph # (Auto) 0.2 L, [place] # (Auto) 0.0 L, Eos # (Auto) 0.0, Baso # (Auto) 0.0, Total Counted 100, Neutrophils % (Manual) 89 H, Lymphocytes % (Manual) 10, Monocytes % (Manual) 1 L, Platelet Estimate Normal, Hypochromasia 1+, PT 11.0, INR 0.99, APTT 21.3 L, Sodium 129 L, Potassium 3.6 D, Chloride 99, Carbon Dioxide 24, Anion Gap 9.6, BUN 9 D, Creatinine 0.70, Estimated Creat Clear 40, Estimated GFR 80, Est GFR ( Amer) 97, Glucose 119 H, Hemoglobin A1c 5.7, Calcium 9.2, Magnesium 1.6, Total Bilirubin 0.7, AST 32, ALT 20, Alkaline Phosphatase 80, Troponin I 0.03, Total Protein 6.7, Albumin 4.3, Globulin 2.4, Albumin/Globulin Ratio 1.8, Lipase 48 10/17/24 07:22: SARS-CoV-2 (PCR) Not detected, Influenza A Untype (PCR) Not detected, Influenza Type B (PCR) Not detected 10/17/24 07:33: VBG pH 7.34, VBG pCO2 39.8, VBG pO2 60.3 H, VBG HCO3 20.8 L, VBG Total CO2 22.1 L, VBG O2 Saturation 88.6 H, VBG Base Excess -5.0 L, VBG Lactic Acid 2.2 H 10/17/24 09:24: Urine Color Yellow, Urine Appearance Clear, Urine pH 7.0, Ur Specific [place] 1.010, Urine Protein Negative, Urine Glucose (UA) Negative, Urine Ketones Negative, Urine Blood Trace-i, Urine Nitrate Negative, Urine Bilirubin Negative, Urine Urobilinogen 0.2, Ur Leukocyte Esterase Negative, Urine RBC Occasional, Urine WBC None, Ur Squamous Epith Cells 3-5, Urine Bacteria None 10/17/24 09:25: Troponin I 0.12 H 10/17/24 07:19 10/17/24 07:19 Orders (Tests/Meds): ED MEDICATIONS Generic Name Dose Route Start Last Admin Trade Name Freq PRN Reason Stop Dose Admin Enoxaparin Sodium 60 mg 10/17/24 10:30 10/17/24 10:21 Enoxaparin 100mg/Ml Syringe 1 mg/kg (60 mg) 11/16/24 10:29 60 mg SUBCUT Administration Q12H ANTHONY Discontinued Medications Generic Name Dose Route Start Last Admin Trade Name Freq PRN Reason Stop Dose Admin Acetaminophen 1,000 mg 10/17/24 07:53 10/17/24 07:55 Acetaminophen 500mg Tab PO 10/17/24 07:54 1,000 mg ONCE ONE Administration Aspirin 324 mg 10/17/24 10:01 10/17/24 10:21 Aspirin 81mg Chewable Tablet PO 10/17/24 10:02 324 mg ONCE ONE Administration Sodium Chloride 1,000 mls @ 999 mls/hr 10/17/24 07:31 10/17/24 07:41 Sod Chlor 0.9% 1000ml Bag IV 10/17/24 08:31 999 mls/hr .Q1H1M ONE Administration Ketorolac Tromethamine 15 mg 10/17/24 07:53 10/17/24 07:56 Ketorolac 30mg/Ml Vial IV 10/17/24 07:54 15 mg ONCE ONE Administration ORDERS Category Date Time Status Complete Blood Count Auto Diff Stat Lab 10/17/24 07:19 Completed Comprehensive Metabolic Panel Stat Lab 10/17/24 07:19 Completed Hemoglobin A1C Stat Lab 10/17/24 07:19 Completed Lactic Acid Stat Lab 10/17/24 07:26 Ordered Lipase Stat Lab 10/17/24 07:19 Completed Magnesium Stat Lab 10/17/24 07:19 Completed PT INR [Prothrombin Time INR] Stat Lab 10/17/24 07:19 Completed PTT [Activated Partial Thrombo Time] Stat Lab 10/17/24 07:19 Completed Rapid PCR Covid and Flu A/B Stat Lab 10/17/24 07:22 Completed Troponin I Q3H Lab 10/17/24 09:25 Completed Troponin I Q3H Lab 10/17/24 13:30 Ordered Troponin I Stat Lab 10/17/24 07:19 Completed Urinalysis and Microscopic Stat Lab 10/17/24 09:24 Completed Blood Culture Stat Micro 10/17/24 07:11 Received Venous Blood Gas Stat RT 10/17/24 07:33 Completed HEART Score History (anamnesis): Moderately suspicious ECG: Normal Age: >65 years Risk factors: 3 or more risk factors Troponin: </= normal limit HEART Score: 5 Medical Decision Narrative: 84-year-old female presenting with general malaise, vomiting. States that she woke up today, 10/17, started feeling chilled, her jaw was chattering, generalized bodyaches, and had some retching. Was unable to vomit. No diarrhea, no abdominal pain, chest pain, shortness of breath, objective fevers measured. States that she was unable to keep her medicine down due to nausea, so called EMS. EMS brought her into the emergency department. History noted the patient has diabetes, hypertension, hyperlipidemia, chronic fatigue, CAD and mild cognitive impairment which are likely influencing with today's care. EMS gave patient Zofran on the way here, states that it helped significantly she has not been retching since. History was obtained via conversation with patient, EMS, family. On arrival, patient hemodynamically stable, alert, oriented x4, appropriate, GCS 15, moving all extremities spontaneously, pupils equal and reactive to light. Full physical exam performed and significant for very clinically well-appearing female no acute distress. Speaking full sentences. She does have dry mucous membranes. Not actively retching. Lungs are clear anterior and posteriorly in superior and inferior lung meraz with no adventitious or abnormal sounds. Cardiac exam without murmurs gallops or rubs. Lower extremities without edema, she does have bruising scattered on her left lower extremity but neurovascularly intact. Abdomen is soft, nontender, nondistended. Differential includes acute viral syndrome, ACS, [place], gastritis, enteritis, metabolic abnormality, endocrinologic abnormality, diabetic emergency, urinary tract affection, pneumonia, sepsis, among others. Patient placed on continuous cardiac monitoring and continuous pulse ox with initial blood pressure 122/69, heart rate of 75, saturation 95% on room air. Independent interpretation of EKG shows sinus rhythm 76 bpm with RI 148, QRS 79, QTc 371. Normal axis no acute ischemic change. Patient was given Zofran with EMS for symptomatic management and correction of underlying abnormalities. Asymptomatic on arrival, no further meds were given initially. Workup independently interpreted and significant for nonactionable CBC or chemistry, initial troponin negative. On independent interpretation of imaging, no acute cardiopulmonary space disease on chest x-ray. See radiology read for full review of final results. Heart score 5. Patient was placed in observation beginning at 8 AM in order to vomiting [place] with delta troponin and determine need for admission versus home-going. The patient was provided serial exams, monitoring, labs while awaiting results. Independent interpretation of results demonstrated positive delta troponin consistent with NSTEMI. Repeat EKG was obtained still sinus rhythm 67 bpm with no acute ischemic change with RI 156, QRS 83, QTc 399 and normal axis. On reevaluation, patient still has no acute complaints. At this time, I feel patient is appropriate for admission. I formally consulted cardiology, gave Lovenox 1 mg/kg. Recommended admission, catheterization not emergently. Total observation time 2.5 hours. I consulted patient's family care physician team, patient to be admitted formally by their team. Given patient presentation, workup, history, this most likely represents NSTEMI. Because patient high risk for clinical decompensation, deemed appropriate for inpatient admission. Results were relayed to patient who voiced understanding and patient was agreeable to inpatient admission and management. Patient was admitted to the hospital for further definitive management. Food Processing Scientist disclaimer Much of this encounter note is an electronic metalizer spoken language to printed text. Electronic metalizer of the spoken language may permit errors. Although I have reviewed the note, some errors may still exist. Critical Care Critical Care Time Critical Care Time: Yes (cardiac) Attestation: On 10/17/24, the high probability of a clinically significant, sudden or life threatening deterioration of the following system(s) required my full and direct attention, intervention and personal management. The time I documented below is in addition to time spent performing reported procedures but includes the following listed in this critical care notation. Total Time Total Critical Care Time: 35
[2024-10-17 07:45] LABS: MANUAL DIFFERENTIAL MANUAL DIFFERENTIAL (MANUAL DIFF)
[2024-10-17 07:46] LABS: Lactate Venous 2.2 mmol/L (0.4-2.0); VBG HCO3 20.8 mmol/L (23-30); VBG Oxygen Saturation 88.6 % (50-70); VBG PCO2 39.8 mmol/L (35-51); VBG PH 7.34 mmol/L (7.31-7.41); VBG PO2 60.3 mmol/L (28-40); VBG Total CO2 22.1 mmol/L (23-27)
[2024-10-17 07:48] LABS: Albumin Level 4.3 g/dl (3.5-5.0); Chloride 99 mmol/L (98-107); Potassium 3.6 mmoL/L (3.5-5.1); Sodium 129 mmol/L (136-145)
[2024-10-17 07:49] LABS: INR 0.99 (0.9-1.1)
[2024-10-17 07:50] LABS: Blood Urea Nitrogen 9 mg/dl (7-17); Creatinine Clearance Estimated 40 mL/min (50-200); Estimated Glomerular Filt Rate 80 ml/min (>60); GFR (African American) 97 ML/MIN (>60); Magnesium 1.6 mg/dl (1.6-2.3)
[2024-10-17 07:51] LABS: Alanine Aminotransferase 20 U/L (12-78); Albumin/Globulin Ratio 1.8 (1.1-1.8); Alkaline Phosphatase 80 U/L (38-126); Anion Gap 9.6 mEq/L (5-15); Aspartate Amino Transferase 32 U/L (14-36); Bilirubin,Total 0.7 mg/dl (0.2-1.3); Calcium 9.2 mg/dl (8.4-10.2); Carbon Dioxide 24 mmol/L (22.0-30.0); Globulin 2.4 g/dL (1.3-3.2); Glucose 119 mg/dl (74-100); Lipase 48 U/L (23-300); Total Protein,Serum 6.7 g/dl (6.3-8.2)
[2024-10-17] MEDS: ACETAMINOPHEN 500MG TAB 1000 MG PO (07:55)
[2024-10-17] MEDS: KETOROLAC 30MG/ML VIAL 15 MG IV (07:56)
[2024-10-17 08:03] LABS: Troponin I 0.03 ng/ml (0.00-0.034)
[2024-10-17 08:12] LABS: Activated Partial Thrombo Time 21.3 seconds (22.8-30.6)
[2024-10-17 08:45] LABS: Hemoglobin A1C 5.7 % (4.0-6.0)
[2024-10-17 09:27] LABS: Microscopic, Urine URINE MICROSCOPIC (MICROSCOPIC)
[2024-10-17 09:33] LABS: Appearance,Urine CLEAR (Clear); Bilirubin,Urine Negative (Negative); Blood, Urine TRACE-I (Negative); Color,Urine YELLOW (Yellow); Glucose,Urine (UA) Negative (Negative); Ketones,Urine Negative (Negative); Leukocyte Esterase,Urine Negative (Negative); Nitrate,Urine Negative (Negative); Protein,Urine Negative (Negative); Urobilinogen,Urine 0.2 EU/dl (0.2)
[2024-10-17 09:39] LABS: Hypochromasia 1+; Lymphocytes % 10 % (10-50); Monocytes % 1 % (2-9); Neutrophils % 89 % (42-76); Platelet Estimate Normal; Total Cells Counted 100
[2024-10-17 09:44] LABS: RBC,Urine Occasional #/hpf (0-3)
[2024-10-17 09:51] LABS: Troponin I 0.12 ng/ml (0.00-0.034)
--- NOTE | 2024-10-17 10:06 | ECG_ITS ---
APPROVED REPORT Exam: Resting ECG HR:67 bpm ECG Measurements Heart Rate 67 AXES MN 156 P 58 QRSd 83 QRS 61 QT 384 T 56 QTc 399 Conclusion Sinus rhythm Electronically signed by : LEENA MIRANDA, 10/18/2024 19:39:18
[2024-10-17] MEDS: ASPIRIN 81MG CHEWABLE TABLET 324 MG PO (10:21)
[2024-10-17] MEDS: ENOXAPARIN 100MG/ML SYRINGE 60 MG SUBCUT (10:21)
--- NOTE | 2024-10-17 10:35 | PC.NURSE ---
spoke with randolph sup for bed assignment
--- NOTE | 2024-10-17 10:58 | PC.NURSE ---
Report called for admission to Floor RN. Patient awaiting transport.
[2024-10-17 11:47] LABS: Reflex Lactic Add Lactic Reflex
[2024-10-17 12:21] LABS: Lactic Acid Follow Up (RFLX 1) 1.1 mmol/L (0.7-2.1)
--- NOTE | 2024-10-17 12:45 | HMH.PHAINT1 ---
Pharmacy Intervention Comments: MEDICATION RECONCILIATION COMPLETE USING LIST FROM RECENT CARDIOLOGY OFFICE VISIT NOTE, EXTERNAL PHARMACY FILL HISTORY, AND DELPHINE REPORT.
[2024-10-17] MEDS: MAGNESIUM SULFATE IN WATER 2 GM/50 ML PIGGYBACK IV ×2 (14:17→15:05)
[2024-10-17 14:36] LABS: Troponin I 0.14 ng/ml (0.00-0.034)
--- NOTE | 2024-10-17 18:58 | EXP.HP ---
History of Present Illness *Admission Date: 10/17/24 *Reason for visit:: Nausea/retching *History of present illness: Cross covering for Dr. Caballero: 84-year-old white female presented to ER with retching, nausea, heaves, denied vomiting. Woke up this morning with symptoms. Lasted for several hours and came to ER. In ER was found to be slightly dehydrated clinically, initial troponin level was normal but secondary troponin level was elevated -- EKGs were unchanged, but given her presentation of possible atypical angina and her elevated troponin level was admitted to hospital with diagnosis of non-STEMI. When I saw her in the hospital room she was pleasant. No symptoms. Was hungry and had no concerns about chest pain or retching. [facility] Disclaimer: The information contained in this section may have been updated after the patient was seen, as this information can be updated by other users. Medical History (Updated 10/17/24 @ 12:09 by Alley Davila RN) Hypothyroid CVA (cerebral vascular accident) Bilateral serous otitis media Balance problems Chronic sinusitis Cataracts, bilateral SVT (supraventricular tachycardia) Hypotension Fatigue Orthostatic hypotension CAD (coronary artery disease) Hyperlipidemia Hypertension Syncope and collapse Surgical History Hx of rotator cuff surgery History of cataract surgery History of lumpectomy History of hysterectomy Family History Other Coronary artery disease Social History (Updated 10/17/24 @ 12:07 by Alley Davila RN) Smoking Status: Never smoker second hand exposure: No alcohol intake: never substance use type: denies use current occupational status: other Travel in the last 8 weeks?: None household members: spouse housing: house current occupational exposures/hazards: No caffeine: Yes Have you lived/traveled outside US in past 30 days?: No Contact w/someone who lives/traveled outside US past 30 days?: No Exposure to someone with infectious disease in past 14 days?: No Do you have a fever (greater than 100.4 F or 38 C)?: No Have you tested positive for COVID-19?: No Exposed to someone with COVID-19 in past 14 days?: No Do you have a sore throat?: No Do you have a cough?: No Do you have any weakness?: No Are you experiencing any nausea/vomitting?: Yes Do you have any diarrhea?: No Are you experiencing any unusual bleeding?: No Do you have any muscle aches/pain?: No Do you have any abdominal pain?: No Are you experiencing loss of taste or smell?: No Other Medical History Have you received the Flu Vaccine for this season: Yes Have you received the Pneumonia Vaccine: Yes Meds Home Medications and Allergies Home Medications ?Medication ?Instructions ?Recorded ?Confirmed ?Type levothyroxine 25 mcg tablet 25 mcg PO DAILYDM 04/27/18 10/17/24 History polyethylene glycol 3350 17 gram 17 gm PO DAILYP PRN Constipation 05/05/19 10/17/24 History oral powder packet allopurinol 100 mg tablet 100 mg PO DAILY 12/24/19 10/17/24 History alprazolam 0.25 mg tablet 0.125 mg PO BID 12/24/19 10/17/24 History clopidogrel 75 mg tablet 75 mg PO DAILY 12/24/19 10/17/24 History losartan 50 mg tablet 50 mg PO DAILY High blood pressure 09/21/21 10/17/24 History ergocalciferol (vitamin D2) 1,250 1,250 mcg PO WEEKLY 07/06/22 10/17/24 History mcg (50,000 unit) capsule gabapentin 300 mg capsule 300 mg PO BID 04/30/23 10/17/24 History azelastine 137 mcg (0.1 %) nasal 2 spray intranasal BID #30 mL 06/17/24 10/17/24 Rx spray duloxetine 30 mg capsule,delayed 30 mg PO DAILY 09/22/24 10/17/24 History release metoprolol succinate 50 mg 50 mg PO DAILY 10/17/24 10/17/24 History tablet,extended release 24 hr potassium chloride 20 mEq 20 meq PO BID 10/17/24 10/17/24 History tablet,extended release rosuvastatin 10 mg tablet (Crestor) 5 mg PO MOWEFR 10/17/24 10/17/24 History New Prescriptions to Start Prescriptions: Allergies Allergy/AdvReac Type Severity Reaction Status Date / Time Sulfa (Sulfonamide Allergy Mild Nausea Verified 10/15/24 13:35 Antibiotics) sucralfate AdvReac Intermediate light Verified 10/15/24 13:35 headed, swelling of lips Exam Data for Last 24 hours Vital signs and Labs for Last 24 Hours: Temp Pulse Resp BP Pulse Ox O2 Del Method 98.0 F 70 20 104/52 L 97 Room Air 10/17/24 16:00 10/17/24 16:00 10/17/24 16:00 10/17/24 16:00 10/17/24 16:00 10/17/24 18:27 Laboratory Results - last 24 hr 10/17/24 07:19: WBC 2.6 L, RBC 3.50 L, Hgb 10.5 L, Hct 30.5 L, MCV 87.1, MCH 30.0, MCHC 34.4, RDW 13.2, Plt Count 256, MPV 8.7, Neut % (Auto) 91.3 H, Lymph % (Auto) 6.4 L, [place] % (Auto) 0.4 L, Eos % (Auto) 0.4, Baso % (Auto) 0.4, Neut # (Auto) 2.4, Lymph # (Auto) 0.2 L, [place] # (Auto) 0.0 L, Eos # (Auto) 0.0, Baso # (Auto) 0.0, Total Counted 100, Neutrophils % (Manual) 89 H, Lymphocytes % (Manual) 10, Monocytes % (Manual) 1 L, Platelet Estimate Normal, Hypochromasia 1+, PT 11.0, INR 0.99, APTT 21.3 L, Sodium 129 L, Potassium 3.6 D, Chloride 99, Carbon Dioxide 24, Anion Gap 9.6, BUN 9 D, Creatinine 0.70, Estimated Creat Clear 40, Estimated GFR 80, Est GFR ( Amer) 97, Glucose 119 H, Hemoglobin A1c 5.7, Calcium 9.2, Magnesium 1.6, Total Bilirubin 0.7, AST 32, ALT 20, Alkaline Phosphatase 80, Troponin I 0.03, Total Protein 6.7, Albumin 4.3, Globulin 2.4, Albumin/Globulin Ratio 1.8, Lipase 48 10/17/24 07:22: SARS-CoV-2 (PCR) Not detected, Influenza A Untype (PCR) Not detected, Influenza Type B (PCR) Not detected 10/17/24 07:33: VBG pH 7.34, VBG pCO2 39.8, VBG pO2 60.3 H, VBG HCO3 20.8 L, VBG Total CO2 22.1 L, VBG O2 Saturation 88.6 H, VBG Base Excess -5.0 L, VBG Lactic Acid 2.2 H 10/17/24 09:24: Urine Color Yellow, Urine Appearance Clear, Urine pH 7.0, Ur Specific [place] 1.010, Urine Protein Negative, Urine Glucose (UA) Negative, Urine Ketones Negative, Urine Blood Trace-i, Urine Nitrate Negative, Urine Bilirubin Negative, Urine Urobilinogen 0.2, Ur Leukocyte Esterase Negative, Urine RBC Occasional, Urine WBC None, Ur Squamous Epith Cells 3-5, Urine Bacteria None 10/17/24 09:25: Troponin I 0.12 H 10/17/24 12:07: Lactate 1.1 10/17/24 14:05: Troponin I 0.14 H I & O for Last 24 hours: Intake & Output 10/15/24 10/16/24 10/17/24 10/18/24 11:59 11:59 11:59 11:59 Intake Total 810 / 810 Output Total 0 / 0 0 / 0 Balance 0 / 0 810 / 810 Weight 130 lb Constitutional Constitutional: no acute distress *Routine HEENT Exam Head: Present normocephalic Eye: Present EOMI and PERRL ENT: Present mucous membranes moist *Routine Neck Exam Neck: Present supple; Absent lymphadenopathy *Routine Respiratory Exam Respiratory: Present CTA bilaterally *Routine Cardiovascular Exam Cardiovascular: Present RRR *Routine Abdominal Exam Abdominal: Present soft and normoactive bowel sounds; Absent tenderness *Routine Rectal Exam Rectal:: deferred *Routine Genitalia Exam Genitalia:: deferred *Routine Extremities Exam Extremities: Absent cyanosis, clubbing or edema *Routine Skin Exam Skin: Present warm; Absent rash *Routine Neurological Exam Neurological: Present alert and oriented X3 Assessment and Plan *Assessment and plan (1) Non-ST elevation [place] (NSTEMI): Status: Acute Category: Medical Code(s): I21.4 - Non-ST elevation (NSTEMI) myocardial infarction Plan Plan will be to admit, continued observation with telemetry. Patient is currently comfortable. ER physician has discussed case with cardiology who has recommended admission and consideration of heart cath on Saturday during their regular procedure hours. Patient is currently asymptomatic. Has had Lovenox. Is on Plavix currently and lipid therapy for history of stroke several years ago. Will continue current home medications.
[2024-10-17] MEDS: GABAPENTIN 300MG CAPSULE 300 MG PO (20:09)
[2024-10-17] MEDS: ALPRAZolam 0.25MG TABLET 0.125 MG PO (20:09)
[2024-10-17] MEDS: ACETAMINOPHEN 325MG TAB 650 MG PO (21:32)
[2024-10-18] VITALS (7 sets, daily range): BP systolic 112–149; BP diastolic 67–84; PULSE 60–100; RESP 14–20; TEMP 36.6–37.9; O2SAT 91–98; BMI 26.4
[2024-10-18] MEDS: LEVOTHYROXINE 25MCG (0.025MG) TAB 25 MCG PO (06:19)
[2024-10-18] MEDS: ACETAMINOPHEN 325MG TAB 650 MG PO (06:20)
[2024-10-18] MEDS: POLYETHYLENE GLYCOL 3350 17 GM PACKET PO (08:06)
[2024-10-18] MEDS: ALLOPURINOL 100MG TABLET 100 MG PO (08:07)
[2024-10-18] MEDS: POTASSIUM CHLORIDE 20MEQ TAB 20 MEQ PO ×2 (08:07→21:36)
[2024-10-18] MEDS: IRBESARTAN 75MG TABLET 75 MG PO (08:07)
[2024-10-18] MEDS: CLOPIDOGREL 75MG TAB 75 MG PO (08:07)
[2024-10-18] MEDS: METOPROLOL SUCCINATE XL 50MG TABLET 50 MG PO (08:07)
[2024-10-18] MEDS: ALPRAZolam 0.25MG TABLET 0.125 MG PO ×2 (08:07→21:35)
[2024-10-18] MEDS: DULOXETINE 30MG CAPSULE.DR 30 MG PO (08:07)
--- NOTE | 2024-10-18 09:34 | EXP.ACUTE.PN ---
Subjective *Date: 10/18/24 *Time: 09:34 Interval history: Patient awoke yesterday morning with cold sweats, nausea and vomiting. She was brought to the ER and found to have elevations in troponin and was admitted. Notes reviewed. Medical Exam Vital signs and Labs for Last 24 Hours: Vital Signs Temp Pulse Pulse Resp BP BP Pulse Ox 10/18/24 08:00 10/18/24 08:00 97.9 F 88 19 112/67 97 10/18/24 06:53 10/18/24 05:00 10/18/24 04:00 99.8 F H 81 18 149/71 H 96 10/18/24 04:00 80 10/18/24 03:00 10/18/24 01:00 10/18/24 00:00 80 10/18/24 00:00 100.2 F H 82 18 146/70 H 91 L 10/17/24 23:00 10/17/24 21:00 10/17/24 20:00 70 10/17/24 20:00 10/17/24 20:00 99.1 F 79 16 137/69 97 10/17/24 18:27 10/17/24 16:47 10/17/24 16:00 70 10/17/24 16:00 98.0 F 70 20 104/52 L 97 10/17/24 15:00 10/17/24 13:00 10/17/24 12:00 60 10/17/24 12:00 98.8 F 64 14 130/64 95 10/17/24 11:44 98.6 F 68 15 129/63 95 10/17/24 11:31 98.2 F 80 20 143/64 H 10/17/24 11:00 10/17/24 10:55 10/17/24 10:30 12 132/67 98 10/17/24 10:00 15 125/70 O2 Del Method 10/18/24 08:00 Room Air 10/18/24 08:00 Room Air 10/18/24 06:53 Room Air 10/18/24 05:00 Room Air 10/18/24 04:00 Room Air 10/18/24 04:00 10/18/24 03:00 Room Air 10/18/24 01:00 Room Air 10/18/24 00:00 10/18/24 00:00 Room Air 10/17/24 23:00 Room Air 10/17/24 21:00 Room Air 10/17/24 20:00 10/17/24 20:00 Room Air 10/17/24 20:00 Room Air 10/17/24 18:27 Room Air 10/17/24 16:47 Room Air 10/17/24 16:00 10/17/24 16:00 Room Air 10/17/24 15:00 Room Air 10/17/24 13:00 Room Air 10/17/24 12:00 10/17/24 12:00 10/17/24 11:44 Room Air 10/17/24 11:31 Room Air 10/17/24 11:00 Room Air 10/17/24 10:55 Room Air 10/17/24 10:30 Room Air 10/17/24 10:00 Intake and Output 10/17/24 10/18/24 10/18/24 23:59 07:59 15:59 Intake Total 540 / 1050 240 / 480 240 / 480 Output Total 0 / 0 0 / 0 0 / 0 Balance 540 / 1050 240 / 480 240 / 480 Intake: Intake, Oral Amount 540 / 1050 240 / 480 240 / 480 Output: Output, Urine Amount 0 / 0 0 / 0 0 / 0 Other: Number of Unmeasured Voids 0 1 0 Weight 140 lb 3.2 oz Patient Weight 10/18/24 23:59 Weight 140 lb 3.2 oz Laboratory Results - last 24 hr 10/17/24 07:19: Total Counted 100, Neutrophils % (Manual) 89 H, Lymphocytes % (Manual) 10, Monocytes % (Manual) 1 L, Platelet Estimate Normal, Hypochromasia 1+ 10/17/24 09:24: Urine Color Yellow, Urine Appearance Clear, Urine pH 7.0, Ur Specific [place] 1.010, Urine Protein Negative, Urine Glucose (UA) Negative, Urine Ketones Negative, Urine Blood Trace-i, Urine Nitrate Negative, Urine Bilirubin Negative, Urine Urobilinogen 0.2, Ur Leukocyte Esterase Negative, Urine RBC Occasional, Urine WBC None, Ur Squamous Epith Cells 3-5, Urine Bacteria None 10/17/24 09:25: Troponin I 0.12 H 10/17/24 12:07: Lactate 1.1 10/17/24 14:05: Troponin I 0.14 H I & O for Labs for Last 24 Hours: Intake & Output 10/15/24 10/16/24 10/17/24 10/18/24 23:59 23:59 23:59 23:59 Intake Total 810 / 1050 480 / 480 Output Total 0 / 0 0 / 0 Balance 810 / 1050 480 / 480 Weight 130 lb 140 lb 3.2 oz Microbiology Reports for the Last 24 Hours: Microbiology 10/17/24 07:11 Blood Blood Culture - Preliminary NO GROWTH AFTER 24 HOURS 10/17/24 07:44 Blood Blood Culture - Preliminary NO GROWTH AFTER 24 HOURS Constitutional: Present no acute distress Respiratory: Present normal respiratory effort Cardiac: Present Reg Rate and Rhythm GI: Present normal bowel sounds; Absent tenderness Extremities: Present normal inspection and full ROM Skin: Present intact; Absent erythema Neuro: Present Grossly Intact and moves all extremities Assessment and Plan *Assessment and plan (1) Non-ST elevation [place] (NSTEMI): Status: Acute Category: Medical Code(s): I21.4 - Non-ST elevation (NSTEMI) myocardial infarction (2) Elevated troponin: Status: Acute Category: Medical Code(s): R79.89 - Other specified abnormal findings of blood chemistry (3) Chronic anemia: Problem Comment: Stable Status: Chronic Category: Medical Code(s): D64.9 - Anemia, unspecified (4) Essential hypertension: Problem Comment: On amlodipine, losartan, metoprolol Status: Chronic Category: Medical Code(s): I10 - Essential (primary) hypertension (5) Memory loss: Problem Comment: No evidence of cognitive decline, stable. Differential diagnosis include MCI. Status: Chronic Category: Medical Code(s): R41.3 - Other amnesia Plan Plan to continue monitoring, will order Echo and cardiology consults for tomorrow morning.
[2024-10-18] MEDS: FAMOTIDINE 20MG TABLET 20 MG PO ×2 (11:15→21:35)
[2024-10-18 12:43] LABS: Magnesium 2.4 mg/dl (1.6-2.3)
--- OUTSIDE RECORDS SUMMARY | 2024-10-18 13:38 | XMS_ITS | Data Portability ---
Author Organization [facility] Address [address] [place] [address] Care Team Providers Care Exerciser Horse Name Role Phone ROSALNID MONTANEZ Primary Care Provider MORALES JACKSON Pain [...] She had the lumbar MRI completed at [facility] on 04/11/2023. She continues to report low [...] the clinic 03/04/2023. Lumbar MRI taken at [facility] on 04/11/2023. Dr. Garcia and I have [...] are satisfied with this plan of care. Not available 07/01/2023 16:04:19 Plan of Treatment [...] 2 or 3 view, bendi ng only [address] [address] Marya quinones Name: DAKOTAH quinones : [birth year] [...] Ortiz MD on 023 3:30 PM [email or web address] [facility] Radiology [facility] [address] [place], [address], 03/07/2023 16:10:58 03/05/20 23 11/01/2022 MRI, cervi naye spine , w/o contr ast No observ ation record ed. [facility] Not Available 2022 09:33:10 04/12/20 23 04/11/2023 MRI, lumba r spine , w/o contr ast No observ ation record ed. [facility] [address] [address], [place], [address], 04/30/2023 14:54:12 04/12/20 23 04/11/2023 MRI, lumba r spine , w/o contr ast No observ ation record ed. [facility] Not Available 2022 14:54:13 05/17/20 23 11/01/2022 MRI, cervi naye spine , w/o contr ast No observ ation record ed. [email or web address] (Med Record) [address], [place], [address], 05/17/2023 15:35:38 06/20/19 24 04/11/2023 MRI, lumba r spine , w/o contr ast No observ ation record ed. [email or web address] [place] [address] (X-Ray) [address], [place], [address], 07/01/2023 12:48:34 07/02/19 24 11/01/2022 MRI, cervi [...] Address Organization Details Recorded Time hysterectomy completed [facility] 03/04/2023 13:47:17 Shoulder joint surgery completed [facility] 03/04/2023 13:47:29 blepharoplasty completed [facility] 03/04/2023 13:47:49 cataract surgery completed [facility] 03/04/2023 13:47:58 lumpectomy of breast completed [facility] 03/04/2023 13:48:09 tonsillectomy completed [facility] 03/04/2023 13:48:15 Imaging Results Imaging Date Name Status LastModified by Organiz ation Details LastModified Time 03/04/2023 XR, lumbosacral spine, 2 or 3 view, bending only completed [email or web address] [facility] Radiology [facility] [address] [facility], [place], [address], 03/07/2023 16:10:58 11/01/2022 MRI, cervical spine, w/o contrast completed [facility] Information not available 03/05/2023 09:33:10 04/11/2023 MRI, lumbar spine, w/o contrast completed [facility] [address] [address], [place], [address], 04/30/2023 14:54:12 04/11/2023 MRI, lumbar spine, w/o contrast completed [facility] Information not available 04/30/2023 14:54:13 11/01/2022 MRI, cervical spine, w/o contrast completed [email or web address] (Med Record) [address], [place], [address], 05/17/2023 15:35:38 04/11/2023 MRI, lumbar spine, w/o contrast completed [email or web address] (X-Ray) [address], [place], [address], 07/01/2023 12:48:34 11/01/2022 MRI, cervical spine, w/o contrast completed [facility] Information not available 07/02/2023 13:53:56 04/11/2023 MRI, lumbar spine, w/o contrast completed [facility] Information not available 07/02/2023 13:53:56 Procedure Notes None recorded. Medical Equipment None Reported. Allergies Allergen ID Allergen Name Allergen Category Reaction Reaction Severity Criticality Documentation Date Start Date Code Code System Note Provider Name and Address Organization Details Recorded Time [id number] Substance with sulfonami de structure and antibacte rial mechanism of action (substanc e) medicatio n Not available Not available Not available 03/04/2023 [id number] LESL[address] Pacheco [facility] 3 13:48:58 Medications Name Sig [...] Updated DateTime 03/04/2023 154.94 cm 24.6 kg/m2 36616.0 1 g 120 mm[Hg] 80 mm[Hg] [facility] 14:21:19 Date Recorded Body height Body mass index (BMI) Body weight Systolic blood pressure Diastolic blood pressure Provider Name and Address Organization Details Last Updated DateTime 07/01/2023 154.94 cm 24.6 kg/m2 40092.01 g 120 mm[Hg] 80 mm[Hg] [facility] 4 12:59:46 Social History None recorded. Functional [...] SNOMED-CT Code Diagnosis ICD10 Code Diagnosis Note [id number] AMRITA GARCIA MD [facility] [address] [address] [place] [id number] 03/04/2023 13:17:49 03/05/2023 05:01:13 Chronic low back pain 219241693 M54.50 [id number] FROY CORDOVA APRN [facility]OS[facility] [address] [place] [address] 07/01/2023 12:36:32 07/02/2023 04:28:06 Lumbar radiculopathy 133225037 M54.16 Lumbar spondylolisthesis 5760885514 40240 M43.16 Health Concerns Section Related Observation LastModified by Organization Detai ls LastModified Time None Recorded Concern Status LastModified by Organization Details LastModified Time None Recorded Advance Directives Directive None Recorded Payers Insurance Date Sequence Insurance Name Policy Number Policy Han Covered Member ID Han Member ID Guarantor Name 07/01/2023 1 [place]ARE[place]ARE[place] Gabby Baires [id number] Gabby Cornelius Dequan 07/01/2023 2 [employer] Gabby Baires [id number] Gabby Baires Notes Date Note Type Note [...] seen Dr. Jackson with pain management in [place]. AMRITA GARCIA MD [address] [place], [address], [facility] 03/04/2023 14:44:53 07/01/2023 text/html Ms. Baires is an 82-year-old female who returns to the office after last being seen 03/04/2023 with continued low back and lower extremity symptoms. FROY CORDOVA APRN [address] [place], [address], [facility] 07/01/2023 16:04:56 OBGyn Episode No OBEpisode recorded.
--- NOTE | 2024-10-18 17:14 | PC.NURSE ---
Aox 4, up ad dontrell, on tele sr, 20g L AC SL, Cardiology consult for tomorrow, echo ordered for tomorrow morning.
[2024-10-18] MEDS: GABAPENTIN 300MG CAPSULE 300 MG PO (21:35)
[2024-10-19] VITALS (21 sets, daily range): BP systolic 125–189; BP diastolic 59–100; PULSE 50–110; RESP 13–20; TEMP 36.4–37.3; O2SAT 94–99; BMI 26.1
[2024-10-19] MEDS: LISINOPRIL 10MG TABLET 10 MG PO (04:45)
--- NOTE | 2024-10-19 07:30 | CA_ITS ---
APPROVED REPORT EXAM: Comprehensive 2D, Doppler, and color-flow Echocardiogram Butter Production Supervisor: Mirna Kc CRT Ht: 5 ft 1 in Wt: 140lbs BSA: 1.62 BP: 125/70 mmHg Indications: CVA/TIA, Non STEMI, CAD, Hyperlipidemia, Hypertension/HDD, SVT 2D Dimensions LA Volume 42.60 mL LA Volume Index 25.70 mL/m2 (M/F) 16-34 M-Mode Dimensions RVDd 2.85 cm (0.9-2.6) LA Diam 3.77 cm (1.9-4.0) LVDd 4.25 cm (3.5-5.7) LVDs 2.82 cm (3.5-5.7) IVSd 1.63 cm (0.6-1.1) PWd 0.81 cm (0.6-1.1) EF (Teich) 62.70% FS 33.60% EDV (Teich) 80.80 mL ESV (Teich) 30.10 mL LV Diastology E Decel Time 150 (160-240 msec) E/A Ratio 3.70 MED A' 15.30 cm/s LAT A' 13.90 cm/s Aortic Valve AI PHT 576.00 ms AO Peak GR. 7.40 mmHg Mitral Valve MV E Max Ranjit. 387.0 (40-130 cm/s) MV A Velocity 105.0 (40-130 cm/s) E/A Ratio 3.70 MV PHT 44.0 ms Pulmonary Valve PV Peak Velocity 173.0 (50-150 cm/s) Tricuspid Valve TR P. Velocity 318.00 cm/s RAP Estimate 10.00 mmHg RVSP 50.30 mmHg Left Ventricle The left ventricle is normal size. The left ventricular systolic function is normal. The left ventricular ejection fraction is within the normal range. Proximal septal thickening is present. There is normal LV segmental wall motion. Transmitral Doppler flow pattern suggests impaired LV relaxation. LVEF is 55%. Right Ventricle Right ventricle is mildly dilated. The right ventricular systolic function is normal. Atria Left atrium is mildly dilated. Right atrium is mildly dilated. There is no Doppler evidence of interatrial shunt. Aortic Valve Aortic valve is mildly thickened. There is no aortic valvular stenosis. Mild aortic regurgitation. Mitral Valve The mitral valve is normal in structure. No evidence of mitral valve stenosis. Mild mitral regurgitation. Tricuspid Valve Tricuspid valve is grossly normal in structure and function. Mild tricuspid regurgitation. RVSP is 30-35 mmHg. Pulmonic Valve The pulmonary valve is normal in structure. Mild pulmonic regurgitation. Great Vessels The aortic root is normal in size. IVC is normal in size and collapses >50% with inspiration. Pericardium There is no pericardial effusion. Other Information Study Quality: Fair Conclusion Normal biventricular systolic function. Mild RV dilation. Biatrial dilation. Mild AI, mild MR, mild TR, mild PI. Electronically signed by : Christine Harrington MD 10/19/2024 12:36:36
[2024-10-19] MEDS: LEVOTHYROXINE 25MCG (0.025MG) TAB 25 MCG PO (08:16)
--- NOTE | 2024-10-19 08:16 | INFXCTL.NOTE ---
Pt. is alert and orientated x 4. Pt. denies chest pain, SOB, nausea, vomiting overnight. Pt. on room air. Pt. had high blod pressure and Dr. Cordero was notified. Pt. medicated for HTN. Pt. slept well overnight. No c/o's or needs. Personal items and call hernandez in reach.
--- NOTE | 2024-10-19 08:32 | EXP.PN ---
Subjective *Date: 10/19/24 *Time: 08:55 Interval history: Patient states she feels fine this morning. She denies chest pain and shortness of breath. She has had no further nausea or vomiting. She has ambulated in the room without any problems. Currently she is n.p.o. for cardiology consult. Blood pressures elevated this a.m. prior to a.m. meds. Exam Data for Last 24 hours Vital signs and Labs for Last 24 Hours: Temp Pulse Resp BP Pulse Ox O2 Del Method 99.1 F 72 13 187/83 H 94 L Room Air 10/19/24 04:00 10/19/24 04:00 10/19/24 04:00 10/19/24 04:00 10/19/24 04:00 10/19/24 07:00 Laboratory Results - last 24 hr 10/18/24 12:20: Magnesium 2.4 H D I & O for Last 24 hours: Intake & Output 10/16/24 10/17/24 10/18/24 10/19/24 11:59 11:59 11:59 11:59 Intake Total 1290 / 1290 720 / 720 Output Total 0 / 0 0 / 0 0 / 0 Balance 0 / 0 1290 / 1290 720 / 720 Weight 130 lb 140 lb 3.2 oz 138 lb 4.8 oz Microbiology Reports for the Last 24 Hours: Microbiology 10/17/24 07:11 Blood Blood Culture - Preliminary NO GROWTH AFTER 48 HOURS 10/17/24 07:44 Blood Blood Culture - Preliminary Constitutional Constitutional: no acute distress Comments: Sitting up in the bed visiting with her . *Routine Respiratory Exam Respiratory: Present CTA bilaterally (Anteriorly and posteriorly) *Routine Cardiovascular Exam Cardiovascular: Present RRR (Sinus rhythm on monitor in the 70s) *Routine Abdominal Exam Abdominal: Present soft and normoactive bowel sounds; Absent tenderness *Routine Extremities Exam Extremities: Absent edema or calf tenderness Comments: Left lower extremities with ecchymosis of the anterior foot and around the knee from where she fell about a week ago. Moves all extremities well. *Routine Neurological Exam Neurological: Present alert and oriented X3 Assessment and Plan *Assessment and plan (1) Non-ST elevation [place] (NSTEMI): Status: Acute Category: Medical Code(s): I21.4 - Non-ST elevation (NSTEMI) myocardial infarction (2) Elevated troponin: Status: Acute Category: Medical Code(s): R79.89 - Other specified abnormal findings of blood chemistry (3) Chronic anemia: Problem Comment: Stable Status: Chronic Category: Medical Code(s): D64.9 - Anemia, unspecified (4) Essential hypertension: Problem Comment: On amlodipine, losartan, metoprolol Status: Chronic Category: Medical Code(s): I10 - Essential (primary) hypertension (5) Memory loss: Problem Comment: No evidence of cognitive decline, stable. Differential diagnosis include MCI. Status: Chronic Category: Medical Code(s): R41.3 - Other amnesia Plan Cardiology to see for elevated troponin I's. Dr. Mayes entry - Saw patient, spoke with cardiology. Patient to have heart cath today.
--- NOTE | 2024-10-19 08:51 | EXP.CARD.CON ---
History of Present Illness History of Present Illness Consult date: 10/19/24 Requesting physician: Luis Mayes Chief complaint: Elevated troponin/NSTEMI History of present illness: 84-year-old white female with known history of moderate coronary artery disease by previous cath in 2018 presented to the emergency department for nausea and vomiting x 3 hours. She also relates the feeling of being chilled with her jaw chattering and generalized bodyaches. Initial troponin noted to be normal but the 2nd and 3rd troponins have been elevated at 0.14 max. EKG showed no acute change. Echocardiogram this a.m. shows preserved ejection fraction. Patient denies any chest pain, pressure or tightness but has had some exertional shortness of breath with activity. She relates a recent fall while on vacation with subsequent bruising of her left leg (knee and foot areas). She denies any near-syncope or syncopal symptoms prior to that stating she just misjudged a step and tripped and fell. No further nausea or vomiting since admission. Heart score in the ER was noted to be 5. EKG is sinus rhythm with possible old septal SD, essentially unchanged from prior EKGs from 2019. Review of cardiac cath from 2020 shows mild to moderate CAD of her LAD and circumflex arteries. [facility] Disclaimer: The information contained in this section may have been updated after the patient was seen, as this information can be updated by other users. Medical History (Updated 10/18/24 @ 09:41 by Luis Mayes MD) Anxiety GERD (gastroesophageal reflux disease) Vitamin B12 deficiency Vitamin D deficiency Memory loss GI bleed Gastritis Hypothyroid CVA (cerebral vascular accident) Bilateral serous otitis media Balance problems Chronic sinusitis Cataracts, bilateral SVT (supraventricular tachycardia) Hypotension Fatigue Orthostatic hypotension CAD (coronary artery disease) Hyperlipidemia Hypertension Syncope and collapse Surgical History (Updated 10/18/24 @ 09:39 by Luis Mayes MD) History of esophagogastroduodenoscopy (EGD) History of colonoscopy Hx of rotator cuff surgery History of cataract surgery History of lumpectomy History of hysterectomy Family History Other Coronary artery disease Social History (Updated 10/17/24 @ 12:07 by Alley Davila RN) Smoking Status: Never smoker second hand exposure: No alcohol intake: never substance use type: denies use current occupational status: other Travel in the last 8 weeks?: None household members: spouse housing: house current occupational exposures/hazards: No caffeine: Yes Have you lived/traveled outside [place] in past 30 days?: No Contact w/someone who lives/traveled outside US past 30 days?: No Exposure to someone with infectious disease in past 14 days?: No Do you have a fever (greater than 100.4 F or 38 C)?: No Have you tested positive for COVID-19?: No Exposed to someone with COVID-19 in past 14 days?: No Do you have a sore throat?: No Do you have a cough?: No Do you have any weakness?: No Are you experiencing any nausea/vomitting?: Yes Do you have any diarrhea?: No Are you experiencing any unusual bleeding?: No Do you have any muscle aches/pain?: No Do you have any abdominal pain?: No Are you experiencing loss of taste or smell?: No Review of Systems Review of Systems Review of systems:: pertinent systems reviewed and negative unless documented below ENT Ears, Nose, Mouth, and Throat: Reports dizziness, Reports sinus pain and Reports sinus pressure *Cardiovascular Cardiovascular: Denies chest pain and Reports dyspnea on exertion *Respiratory Respiratory: Denies cough and Reports dyspnea on exertion *Gastrointestinal Gastrointestinal: Reports nausea and Reports vomiting *Neurologic Neurologic: Reports dizziness Exam Data for Last 24 hours Vital signs and Labs for Last 24 Hours: Temp Pulse Resp BP Pulse Ox O2 Del Method 99.1 F 72 13 187/83 H 94 L Room Air 10/19/24 04:00 10/19/24 04:00 10/19/24 04:00 10/19/24 04:00 10/19/24 04:00 10/19/24 07:00 Laboratory Results - last 24 hr 10/18/24 12:20: Magnesium 2.4 H D I & O for Last 24 hours: Intake & Output 10/16/24 10/17/24 10/18/24 10/19/24 11:59 11:59 11:59 11:59 Intake Total 1290 / 1290 720 / 720 Output Total 0 / 0 0 / 0 0 / 0 Balance 0 / 0 1290 / 1290 720 / 720 Weight 130 lb 140 lb 3.2 oz 138 lb 4.8 oz Microbiology Reports for the Last 24 Hours: Microbiology 10/17/24 07:11 Blood Blood Culture - Preliminary NO GROWTH AFTER 48 HOURS 10/17/24 07:44 Blood Blood Culture - Preliminary Constitutional Constitutional: no acute distress *Routine Respiratory Exam Respiratory: Present CTA bilaterally *Routine Cardiovascular Exam Cardiovascular: Present RRR; Absent murmur, gallop or rubs *Routine Extremities Exam Extremities: Absent edema Comments: bruising of left knee and foot *Routine Neurological Exam Neurological: Present alert, oriented X3 and CN II-XII intact Meds Home Medications and Allergies Home Medications ?Medication ?Instructions ?Recorded ?Confirmed ?Type levothyroxine 25 mcg tablet 25 mcg PO DAILYDM 04/27/18 10/17/24 History polyethylene glycol 3350 17 gram 17 gm PO DAILYP PRN Constipation 05/05/19 10/17/24 History oral powder packet allopurinol 100 mg tablet 100 mg PO DAILY 12/24/19 10/17/24 History alprazolam 0.25 mg tablet 0.125 mg PO BID 12/24/19 10/17/24 History clopidogrel 75 mg tablet 75 mg PO DAILY 12/24/19 10/17/24 History losartan 50 mg tablet 50 mg PO DAILY High blood pressure 09/21/21 10/17/24 History ergocalciferol (vitamin D2) 1,250 1,250 mcg PO WEEKLY 07/06/22 10/17/24 History mcg (50,000 unit) capsule gabapentin 300 mg capsule 300 mg PO BID 04/30/23 10/17/24 History duloxetine 30 mg capsule,delayed 30 mg PO DAILY 09/22/24 10/17/24 History release metoprolol succinate 50 mg 50 mg PO DAILY 10/17/24 10/17/24 History tablet,extended release 24 hr potassium chloride 20 mEq 20 meq PO BID 10/17/24 10/17/24 History tablet,extended release rosuvastatin 10 mg tablet (Crestor) 5 mg PO MOWEFR 10/17/24 10/17/24 History New Prescriptions to Start Prescriptions: Allergies Allergy/AdvReac Type Severity Reaction Status Date / Time Sulfa (Sulfonamide Allergy Mild Nausea Verified 10/15/24 13:35 Antibiotics) sucralfate AdvReac Intermediate light Verified 10/15/24 13:35 headed, swelling of lips Assessment and Plan *Assessment and plan (1) Elevated troponin: Status: Acute Category: Medical Code(s): R79.89 - Other specified abnormal findings of blood chemistry (2) Non-ST elevation SD (NSTEMI): Status: Acute Category: Medical Code(s): I21.4 - Non-ST elevation (NSTEMI) myocardial infarction (3) CAD (coronary artery disease): Status: Chronic Qualifiers: Associated angina: without angina Coronary Disease-Associated Artery/Lesion type: [place] artery [place] vs. transplanted heart: [place] heart Qualified Code(s): I25.10 - Atherosclerotic heart disease of [place] coronary artery without angina pectoris Category: Medical Code(s): I25.10 - Atherosclerotic heart disease of [place] coronary artery without angina pectoris (4) Chronic anemia: Problem Comment: Stable Status: Chronic Category: Medical Code(s): D64.9 - Anemia, unspecified (5) Essential hypertension: Problem Comment: On amlodipine, losartan, metoprolol Status: Chronic Category: Medical Code(s): I10 - Essential (primary) hypertension (6) Mild cognitive impairment: Problem Comment: Mild cognitive impairment with nonfocal exam, unremarkable labs, EEG, overnight oximetry. Patient declined brain MRI/head CT. Neurocognitive assessment consistent with MCI. Suspect underlying anxiety plays a role. Status: Chronic Category: Medical Code(s): G31.84 - Mild cognitive impairment of uncertain or unknown etiology Plan 1. Elevated troponin/non-STEMI -Known mild to moderate coronary artery disease and 2018 by left heart catheterization -Symptoms of nausea and vomiting this admission -Echocardiogram shows preserved ejection fraction -Discussed options of CCTA versus cardiac cath and patient wishes to proceed with cardiac catheterization. Risk, benefits and procedure explained to the patient she agrees to proceed 2. Known coronary artery disease, 2018 -Continue Plavix and statin therapy 3. Chronic mild normocytic anemia with history of iron deficiency, compensated -Followed by Dr. Bonilla 4. Hypertension -Controlled on metoprolol and losartan -History of orthostatic hypotension with improvement after discontinuation of amlodipine 5. Cognitive impairment -Followed by Dr. Stapleton 6. Chronic hypokalemia -On replacement Left heart catheterization today and possible discharge later this evening. Addendum: IMPRESSION Severe proximal LAD disease Successful stenting of the proximal LAD severe disease reduced to 0% with 1 drug-eluting stent Normal ejection fraction Normal LVEDP PLAN 1. Plavix and aspirin 2. LDL less than 55 achieved high intensity statin 3. Avoidance of tobacco products 4. Risk factor modification 5. Cardiac rehabilitation Electronically signed by : Maykel Tilley MD 10/19/2024 12:14:26 Coronary stenting today as noted above to LAD. Patient could potentially be discharged home later today Medications: Aspirin 81 mg daily Plavix 75 mg daily Losartan 50 mg daily Metoprolol succinate 50 mg daily Potassium chloride 20 mill equivalents twice daily Crestor 5 mg Saturday
[2024-10-19] MEDS: CLOPIDOGREL 75MG TAB 75 MG PO (09:27)
[2024-10-19] MEDS: ALLOPURINOL 100MG TABLET 100 MG PO (09:27)
[2024-10-19] MEDS: ATORVASTATIN 20MG TABLET 20 MG PO (09:27)
[2024-10-19] MEDS: FAMOTIDINE 20MG TABLET 20 MG PO (09:28)
[2024-10-19] MEDS: DULOXETINE 30MG CAPSULE.DR 30 MG PO (09:28)
[2024-10-19] MEDS: IRBESARTAN 75MG TABLET 75 MG PO (09:28)
[2024-10-19] MEDS: ERGOCALCIFEROL 50,000 UNITS (1.25MG) CAPSULE 50000 UNIT PO (09:28)
[2024-10-19] MEDS: POTASSIUM CHLORIDE 20MEQ TAB 20 MEQ PO (09:29)
[2024-10-19] MEDS: METOPROLOL SUCCINATE XL 50MG TABLET 50 MG PO (09:29)
[2024-10-19] MEDS: ALPRAZolam 0.25MG TABLET 0.125 MG PO (09:30)
--- NOTE | 2024-10-19 09:44 | IR_ITS ---
APPROVED REPORT Patient Location: Inpatient PROCEDURES Left heart catheterization Left ventriculogram Selective coronary angiogram Drug-eluting stent deployment to the proximal LAD INDICATION Acute non-ST elevation myocardial infarction, Coronary artery disease Informed consent was obtained prior to the procedure. COMPLICATIONS NONE Estimated Blood Loss: LESS THAN 10 ML TECHNIQUE One percent lidocaine used to anesthetize the right anterior aspect of the wrist. The right radial artery was accessed via the Seldinger technique. A 6 Serbian sheath was placed in the right radial artery. 2.5 mg of Verapamil, 800 mcg of nitroglycerin, 1mg Lidocaine and 5000 U Heparin were given through the arterial sheath. The JL3 catheter was also used to perform left heart catheterization, left ventriculogram and selective coronary angiogram. At the end the diagnostic angiogram therapeutic Was administered given a therapeutic ACT and the guide catheter was placed in the left main artery followed by a choice floppy wire placed distally in the LAD. A 2.75 x 26 mm Eric frontier stent was deployed at 16 ciaran reducing the stenosis to 0% KATHRYN-3 flow was present before and after the procedure. Then the procedure the apparatus was removed the sheath was removed and hemostasis was achieved using TR banding patient was transferred to the postop putting in stable condition ANGIOGRAPHIC RESULTS The left main artery Normal The left anterior descending artery Has proximal 30% stenosis followed by additional concentric 70% proximal stenosis. There is an additional mid vessel 40% stenosis The circumflex artery Large dominant with diffuse 10% luminal regularities The right coronary artery Small nondominant 10% luminal regularities The SWAN ventriculogram reveals Normal 65% The left ventricular end-diastolic pressure 20 mmHg IMPRESSION Severe proximal LAD disease Successful stenting of the proximal LAD severe disease reduced to 0% with 1 drug-eluting stent Normal ejection fraction Normal LVEDP PLAN 1. Plavix and aspirin 2. LDL less than 55 achieved high intensity statin 3. Avoidance of tobacco products 4. Risk factor modification 5. Cardiac rehabilitation Electronically signed by : Maykel Tilley MD 10/19/2024 12:14:26
[2024-10-19] MEDS: HEPARIN 1,000 UNITS/ML 10ML VIAL (CATH LAB) 5000 UNIT IV (11:43)
[2024-10-19] MEDS: HEPARIN 1,000 UNITS/500ML NS (CATH LAB) 3000 UNIT IV (11:43)
[2024-10-19] MEDS: LIDOCAINE 1% 10ML MDV 10 ML IJ (11:43)
[2024-10-19] MEDS: NITROGLYCERIN 800MCG/8ML SYR (CATH LAB) 800 MCG IA (11:43)
[2024-10-19] MEDS: VERAPAMIL 2.5MG/ML 2ML VIAL 2.5 MG IV (11:43)
[2024-10-19] MEDS: diphenhydrAMINE 50MG/ML VIAL 50 MG IV (11:43)
[2024-10-19] MEDS: 0.9 % SODIUM CHLORIDE 500 ML 25 ML IV (11:44)
[2024-10-19] MEDS: MIDAZOLAM HCL 1MG/ML 5ML VIAL 1 MG IV (11:44)
[2024-10-19] MEDS: FENTANYL 100MCG/2ML VIAL 25 MCG IV (11:44)
[2024-10-19] MEDS: LABETALOL 20MG/4ML SYRINGE 20 MG IV (12:15)
[2024-10-19] MEDS: IOPAMIDOL-370 (76%);100ML BOTTLE 95 ML IV (13:19)
[2024-10-19 13:24] LABS: CATHL Activated Clotting Time 252 SEC (74-125)
--- NOTE | 2024-10-19 17:27 | PC.NURSE ---
PT IS RESTING IN BED. ALERT AND ORIENTED X3. PT WAS CONFUSED TO WHERE SHE WAS AFTER COMING BACK TO THE FLOOR FROM [employer]. PT HAS AMBULATED TO THE BATHROOM AND IN THE VAZ WITH 1 ASSIST. LUNG SOUNDS CLEAR. ABDOMEN SOFT/NON TENDER WITH ACTIVE BOWEL SOUNDS. BRUISING NOTED TO LEFT FOOT. DRESSING TO RIGHT RADIAL CATH SITE C/D/I. WILL CONTINUE TO MONITOR.
--- NOTE | 2024-10-19 19:57 | PC.NURSE ---
Patient left floor with staff for home at 19:45.
--- NOTE | 2024-10-21 10:29 | SW/DCPLANNER ---
Spoke with patient on the phone. Patient stated that she is doing well. Patient stated that she is aware of her upcoming appointments. Patient did get her medicine picked up. Patient asked if she was supposed to be taking aspirin daily and i told her yes. Patient also asked if she can take her bandage off on her wrist where they went through to put a stent in and i asked Cristy and we told patient as long as it has been 24 hours. Patient stated that she has no more concerns or questions at this time. Dayanara Raza
--- NOTE | 2024-10-25 09:28 | PC.NURSE ---
I forwarded the blood culture results to the hospitalist at the pt was admitted.
--- NOTE | 2024-10-28 08:48 | EXP.DC.SUM ---
General Admission date:: 10/17/24 Discharge date: 10/19/24 HPI HPI HPI: Cross covering for Dr. Caballero: 84-year-old white female presented to ER with retching, nausea, heaves, denied vomiting. Woke up this morning with symptoms. Lasted for several hours and came to ER. In ER was found to be slightly dehydrated clinically, initial troponin level was normal but secondary troponin level was elevated -- EKGs were unchanged, but given her presentation of possible atypical angina and her elevated troponin level was admitted to hospital with diagnosis of non-STEMI. When I saw her in the hospital room she was pleasant. No symptoms. Was hungry and had no concerns about chest pain or retching. Hospital Course Hospital Course Hospital Course: The patient was admitted and observed on telemetry. The ER physician discussed the case with cardiology who recommended admission and consideration of a heart cath due to elevated troponin. She did feel better by 10/19/2024 and had no further nausea or vomiting. She was able to ambulate without problems. She was seen by cardiology who performed a heart cath. It showed severe proximal LAD disease and she received a stent. Cardiology recommended Plavix and aspirin and she was stable to be discharged home. Exam Data for Last 24 hours Vital signs and Labs for Last 24 Hours: Temp Pulse Resp BP Pulse Ox O2 Del Method 98.0 F 74 18 143/82 H 99 Room Air 10/19/24 13:05 10/19/24 19:45 10/19/24 19:45 10/19/24 19:45 10/19/24 19:45 10/19/24 19:45 Narrative: Constitutional Constitutional: no acute distress *Routine HEENT Exam Head: Present normocephalic Eye: Present EOMI and PERRL ENT: Present mucous membranes moist *Routine Neck Exam Neck: Present supple; Absent lymphadenopathy *Routine Respiratory Exam Respiratory: Present CTA bilaterally *Routine Cardiovascular Exam Cardiovascular: Present RRR *Routine Abdominal Exam Abdominal: Present soft and normoactive bowel sounds; Absent tenderness *Routine Rectal Exam Rectal:: deferred *Routine Genitalia Exam Genitalia:: deferred *Routine Extremities Exam Extremities: Absent cyanosis, clubbing or edema *Routine Skin Exam Skin: Present warm; Absent rash *Routine Neurological Exam Neurological: Present alert and oriented X3 DS: Diagnosis Discharge Diagnosis (1) Elevated troponin: Status: Acute Code(s): R79.89 - Other specified abnormal findings of blood chemistry (2) Non-ST elevation [place] (NSTEMI): Status: Acute Code(s): I21.4 - Non-ST elevation (NSTEMI) myocardial infarction (3) CAD (coronary artery disease): Status: Chronic Code(s): I25.10 - Atherosclerotic heart disease of [place] coronary artery without angina pectoris Qualifiers: Associated angina: without angina Coronary Disease-Associated Artery/Lesion type: [place] artery [place] vs. transplanted heart: [place] heart Qualified Code(s): I25.10 - Atherosclerotic heart disease of [place] coronary artery without angina pectoris (4) Chronic anemia: Status: Chronic Code(s): D64.9 - Anemia, unspecified Problem details: Stable (5) Essential hypertension: Status: Chronic Code(s): I10 - Essential (primary) hypertension Problem details: On amlodipine, losartan, metoprolol (6) Mild cognitive impairment: Status: Chronic Code(s): G31.84 - Mild cognitive impairment of uncertain or unknown etiology Problem details: Mild cognitive impairment with nonfocal exam, unremarkable labs, EEG, overnight oximetry. Patient declined brain MRI/head CT. Neurocognitive assessment consistent with MCI. Suspect underlying anxiety plays a role. Meds Home Medications and Allergies Home Medications ?Medication ?Instructions ?Recorded ?Confirmed ?Type levothyroxine 25 mcg tablet 25 mcg PO DAILYDM 04/27/18 10/27/24 History polyethylene glycol 3350 17 gram 17 gm PO DAILYP PRN Constipation 05/05/19 10/27/24 History oral powder packet allopurinol 100 mg tablet 100 mg PO DAILY 12/24/19 10/27/24 History alprazolam 0.25 mg tablet 0.125 mg PO BID 12/24/19 10/27/24 History clopidogrel 75 mg tablet 75 mg PO DAILY 12/24/19 10/27/24 History losartan 50 mg tablet 50 mg PO DAILY High blood pressure 09/21/21 10/27/24 History ergocalciferol (vitamin D2) 1,250 1,250 mcg PO WEEKLY 07/06/22 10/27/24 History mcg (50,000 unit) capsule gabapentin 300 mg capsule 300 mg PO BID 04/30/23 10/27/24 History duloxetine 30 mg capsule,delayed 30 mg PO DAILY 09/22/24 10/27/24 History release metoprolol succinate 50 mg 50 mg PO DAILY 10/17/24 10/27/24 History tablet,extended release 24 hr potassium chloride 20 mEq 20 meq PO BID 10/17/24 10/27/24 History tablet,extended release rosuvastatin 10 mg tablet (Crestor) 5 mg PO MOWEFR 10/17/24 10/27/24 History aspirin 81 mg tablet 81 mg PO DAILY #1 tab 10/19/24 10/27/24 Rx New Prescriptions to Start Prescriptions: Luis Schreiber Allergies Allergy/AdvReac Type Severity Reaction Status Date / Time Sulfa (Sulfonamide Allergy Mild Nausea Verified 10/27/24 13:48 Antibiotics) sucralfate AdvReac Intermediate light Verified 10/27/24 13:48 headed, swelling of lips Discharge Plan Disposition Patient Disposition: Home, Self-Care Condition: Fair Discharge Order Discharge Orders: Discharge Order (Routine); Ordered 10/19/24 Ordered By: Luis Mayes Follow up Plan Follow up with: Delmy Rai APRN [Nurse Practitioner] - 10/27/24 1:45 pm Brain Caballero MD [Primary Care Provider, Medical] - 11/02/24 Referral Note: please call for appoiontment Prescriptions/Medication Reconciliation: New aspirin 81 mg tablet 81 mg PO DAILY Qty: 1 0RF Continued allopurinol 100 mg tablet 100 mg PO DAILY losartan 50 mg tablet 50 mg PO DAILY Patient Comments: TAKE ONE TABLET BY MOUTH EVERY MORNING AND 1/2 TABLET IN THE EVENING duloxetine 30 mg capsule,delayed release(DR/EC) 30 mg PO DAILY Patient Comments: TAKE ONE CAPSULE BY MOUTH EVERY DAY alprazolam 0.25 mg tablet 0.125 mg PO BID Patient Comments: TAKE 1/2 TABLET BY MOUTH EVERY MORNING, ONE-HALF TABLET AT NOON, THEN 1 TABLET AT BEDTIME MAY CAUSE DROWSINESS clopidogrel 75 mg tablet 75 mg PO DAILY Patient Comments: TAKE ONE TABLET BY MOUTH EVERY DAY gabapentin 300 mg capsule 300 mg PO BID Patient Comments: TAKE ONE CAPSULE BY MOUTH TWICE DAILY MAY CAUSE DROWSINESS ergocalciferol (vitamin D2) 1,250 mcg (50,000 unit) capsule 1,250 mcg PO WEEKLY Patient Comments: TAKE ONE CAPSULE BY MOUTH ONCE A WEEK levothyroxine 25 MCG tablet 25 mcg PO DAILYDM metoprolol succinate 50 mg tablet extended release 24 hr 50 mg PO DAILY potassium chloride 20 mEq tablet extended release 20 meq PO BID rosuvastatin [Crestor] 10 mg tablet 5 mg PO MOWEFR polyethylene glycol 3350 17 GM powder in packet 17 gm PO DAILYP PRN (Reason: Constipation) Problem Reconciliation Problems Reviewed?: Yes Patient Discharge Instructions ACTIVITY: Limited activity DIET: continue same diet Patient Instructions: DI for Heart Attack, DI for Cardiac Catheterization, DI for Surgical Site Infection Print Language: Korean Providers Primary Care Provider: Brain Caballero Admit Provider: Chema Cordero Attending Provider: Brain Caballero
== END 2024-10-19 19:50 | disposition home or self-care (01) | DRG 322 ==
LOC: ER 10:27 → 2ND 10:45
PROVIDERS: Internal Medicine; Physician Assistant; Admitting Provider Internal Medicine Adolescent Medicine; Emergency Provider Emergency Medicine; PCP Family Medicine; Visit Provider Family Medicine
PROC: 4A023N7 Measurement of Cardiac Sampling and Pressure, Left Heart, Percutaneous Approach (ICD-10-PCS; CPT 93452; principal; 2024-10-19 12:00)
DX: I21.4 Non-ST elevation (NSTEMI) myocardial infarction (principal); I25.10 Atherosclerotic heart disease of native coronary artery without angina pectoris; I77.1 Stricture of artery; D64.9 Anemia, unspecified; I10 Essential (primary) hypertension; E55.9 Vitamin D deficiency, unspecified; E03.9 Hypothyroidism, unspecified; E86.0 Dehydration; K21.9 Gastro-esophageal reflux disease without esophagitis; G31.84 Mild cognitive impairment of uncertain or unknown etiology; E87.6 Hypokalemia; F41.9 Anxiety disorder, unspecified; Z88.2 Allergy status to sulfonamides; Z88.8 Allergy status to other drugs, medicaments and biological substances; Z79.899 Other long term (current) drug therapy; Z82.49 Family history of ischemic heart disease and other diseases of the circulatory system; Z86.73 Personal history of transient ischemic attack (TIA), and cerebral infarction without residual deficits; Z79.890 Hormone replacement therapy; Z79.02 Long term (current) use of antithrombotics/antiplatelets; I11.9 Hypertensive heart disease without heart failure
CPT/HCPCS: 93458; C9600; 36415; 80053; 81001; 82803; 83036; 83605; 83690; 83735; 84484; 85007; 85025; 85347; 85610; 85730; 87040; 87636; 92928; 93005; 93306; 99152; 99291; C1725; C1769; C1874; J1200; J1644; J1650; J1885; J1920; J2003; J2250; J3010; J3475; J7030; J7040; Q9967

== ENCOUNTER 2024-10-22 11:44 | Outpatient (CLI) | payer MEDICARE, OTHER, SELFPAY ==
[2024-10-22 12:04] LABS: Basophils # 0.1 K/mm3 (0-0.2); Basophils % 0.8 % (0.1-2.0); Eosinophils # 0.1 Kmm3 (0.0-0.4); Eosinophils % 1.8 % (0.1-12.0); Hematocrit 30.6 % (37.0-47.0); Hemoglobin 10.2 g/dL (12.2-16.2); Immature Granulocytes # 0.17 10^3uL; Immature Granulocytes % 2.7 %; Lymphocytes # 1.4 K/mm3 (0.7-4.5); Lymphocytes % 22.4 % (10-50); Mean Corpuscular HGB Conc 33.3 g/dL (31.8-35.4); Mean Corpuscular Hemoglobin 29.2 pg (27.0-31.2); Mean Corpuscular Volume 87.7 fl (81-99); Mean Platelet Volume 8.4 fl (7.4-10.4); Monocytes # 0.5 K/mm3 (0.1-1.0); Neutrophils % 64.3 % (37.0-80.0); Nucleated Red Blood Cells # 0 10^3/uL; Nucleated Red Blood Cells % 0 %; Platelet Count 271 K/mm3 (142-424); Red Blood Count 3.49 M/mm3 (4.20-5.40); Red Cell Distribution Width 13.4 % (11.5-17.5); Red Cell Distribution Width-SD 42.5 fL; White Blood Count 6.3 K/mm3 (4.8-10.8)
[2024-10-22 12:36] LABS: Anion Gap 10.7 mEq/L (5-15); Blood Urea Nitrogen 9 mg/dl (7-17); Calcium 9.4 mg/dl (8.4-10.2); Carbon Dioxide 27 mmol/L (22.0-30.0); Chloride 95 mmol/L (98-107); Estimated Glomerular Filt Rate 80 ml/min (>60); GFR (African American) 97 ML/MIN (>60); Glucose 125 mg/dl (74-100); Potassium 4.7 mmoL/L (3.5-5.1); Sodium 128 mmol/L (136-145)
== END 2024-10-22 23:59 | disposition home or self-care (01) ==
LOC: LAB 11:45
PROVIDERS: PCP Family Medicine; Visit Provider Internal Medicine
DX: I25.10 Atherosclerotic heart disease of native coronary artery without angina pectoris (principal); I21.4 Non-ST elevation (NSTEMI) myocardial infarction
CPT/HCPCS: 36415; 80048; 85025

== ENCOUNTER 2024-10-27 15:02 | Outpatient (CLI) | payer MEDICARE, OTHER, SELFPAY ==
--- NOTE | 2024-10-27 | CA_ITS ---
FINAL REPORT CLINICAL HISTORY: Patient had left heart cath with right wrist access 10/19/24. Patient states when she took the bandage off 2 days after cath there was a knot at the cath site. COMPARISON: None FINDINGS: RIGHT WRIST DUPLEX ARTERIAL DOPPLER: Doppler examination of the right radial artery was performed several days postcardiac catheterization. The right radial artery is patent, without evidence of occlusion. No evidence of a pseudoaneurysm is identified. No AV fistula is present. IMPRESSION: Right radial artery examination does not reveal any evidence of a pseudoaneurysm or AV fistula. Reviewed, Interpreted and Dictated by Kyler Valdez MD Transcribed by Stephanie Walker Authenticated and . [facility]
== END 2024-10-27 23:59 | disposition home or self-care (01) ==
LOC: RT 15:03
PROVIDERS: PCP Family Medicine; Visit Provider Nurse Practitioner
DX: T88.8XXA Other specified complications of surgical and medical care, not elsewhere classified, initial encounter (principal)
CPT/HCPCS: 93931

== ENCOUNTER 2024-11-05 14:25 | Outpatient (RCR) | payer MEDICARE, OTHER, SELFPAY | END 2024-12-31 08:00 | disposition home or self-care (01) | LOC: CR 14:25 | PROVIDERS: Visit Provider Internal Medicine | DX: Z48.812 Encounter for surgical aftercare following surgery on the circulatory system (principal); Z95.5 Presence of coronary angioplasty implant and graft | CPT/HCPCS: 93798 ==

== ENCOUNTER 2024-11-20 23:54 | Emergency (ER) | payer MEDICARE, OTHER, SELFPAY ==
--- NOTE | 2024-11-20 23:56 | ECG_ITS ---
APPROVED REPORT Exam: Resting ECG HR:61 bpm ECG Measurements Heart Rate 61 AXES NM 161 P 59 QRSd 89 QRS 29 QT 395 T 40 QTc 398 Conclusion SINUS RHYTHM NORMAL ECG UNCONFIRMED REPORT Electronically signed by : VIRAJ FAYE, 11/22/2024 02:40:43
[2024-11-21 00:08] VITALS: BP 170/76; PULSE 68; RESP 14; TEMP 36.4; O2SAT 98; BMI 31.2
--- NOTE | 2024-11-21 00:18 | XR_ITS ---
PROCEDURE INFORMATION: Exam: XR Chest Exam date and time: 11/21/2024 12:34 AM Age: 84 years old Clinical indication: Sternal or substernal pain; Additional info: Chest pain TECHNIQUE: Imaging protocol: Radiologic exam of the chest. Views: 1 view. COMPARISON: CR XR CHEST PORTABLE 08/20/2022 10:48 AM FINDINGS: Lungs: Unremarkable. No consolidation. Pleural spaces: Unremarkable. No pleural effusion. No pneumothorax. Heart/Mediastinum: Unremarkable. No cardiomegaly. Bones/joints: Unremarkable. Loop recorder device demonstrated. IMPRESSION: No acute findings.
--- NOTE | 2024-11-21 00:21 | HMH.EDGENADL ---
Discharge Plan Disposition Patient Disposition: Home, Self-Care Prescriptions Prescriptions: No Action allopurinol 100 mg tablet 100 mg PO DAILY losartan 50 mg tablet 50 mg PO DAILY Patient Comments: TAKE ONE TABLET BY MOUTH EVERY MORNING AND 1/2 TABLET IN THE EVENING duloxetine 30 mg capsule,delayed release(DR/EC) 30 mg PO DAILY Patient Comments: TAKE ONE CAPSULE BY MOUTH EVERY DAY alprazolam 0.25 mg tablet 0.125 mg PO BID Patient Comments: TAKE 1/2 TABLET BY MOUTH EVERY MORNING, ONE-HALF TABLET AT NOON, THEN 1 TABLET AT BEDTIME MAY CAUSE DROWSINESS clopidogrel 75 mg tablet 75 mg PO DAILY Patient Comments: TAKE ONE TABLET BY MOUTH EVERY DAY gabapentin 300 mg capsule 300 mg PO BID Patient Comments: TAKE ONE CAPSULE BY MOUTH TWICE DAILY MAY CAUSE DROWSINESS ergocalciferol (vitamin D2) 1,250 mcg (50,000 unit) capsule 1,250 mcg PO WEEKLY Patient Comments: TAKE ONE CAPSULE BY MOUTH ONCE A WEEK levothyroxine 25 MCG tablet 25 mcg PO DAILYDM metoprolol succinate 50 mg tablet extended release 24 hr 50 mg PO DAILY potassium chloride 20 mEq tablet extended release 20 meq PO BID rosuvastatin [Crestor] 10 mg tablet 5 mg PO MOWEFR aspirin 81 mg tablet 81 mg PO DAILY Qty: 1 0RF polyethylene glycol 3350 17 GM powder in packet 17 gm PO DAILYP PRN (Reason: Constipation) Referrals Follow up/Referrals: Provider,Referral, MD [Referring, Medical] - See instructions Activity Restrictions/Add. Instructions Additional Instructions/Restrictions: Please follow-up with your primary care provider. Please return to the emergency department if you develop any new or worsening symptoms or become concerned for your health. Clinical Impressions Clinical Impression: Asymptomatic hypertension Print Language Print Language: Gambian Discharge ED Provider: Raza Hazel General Adult HPI General Chief complaint: Chest Pain Stated complaint: high BP, chest discomfort Time Seen by Provider: 11/21/24 00:08 Mode of Arrival: Ambulatory Source of Information: Patient Description of Symptoms (Recalled from ER Triage Doc. by RN): pt presents to the Ed d/t complaints for risk for htn. pt is alert and appears in no distress. pt states that she has been having some chest discomfort and has been had heart procedure. History of Present Illness HPI narrative: 84-year-old female with history of coronary artery disease, hypertension, hyperlipidemia presents for hypertension. She reports that she was feeling little uneasy and checked her blood pressure at home and it was 160. She denies chest pain but reports some epigastric discomfort that was brief and resolved quickly thereafter. She denies any shortness of breath. She does report a mild frontal headache as well. She reports that she ate some food shortly prior to the epigastric discomfort and that this may be the cause. Related Data Home Medications ?Medication ?Instructions ?Recorded ?Confirmed levothyroxine 25 mcg tablet 25 mcg PO DAILYDM 04/27/18 10/27/24 polyethylene glycol 3350 17 gram 17 gm PO DAILYP PRN Constipation 05/05/19 10/27/24 oral powder packet allopurinol 100 mg tablet 100 mg PO DAILY 12/24/19 10/27/24 alprazolam 0.25 mg tablet 0.125 mg PO BID 12/24/19 10/27/24 clopidogrel 75 mg tablet 75 mg PO DAILY 12/24/19 10/27/24 losartan 50 mg tablet 50 mg PO DAILY High blood pressure 09/21/21 10/27/24 ergocalciferol (vitamin D2) 1,250 1,250 mcg PO WEEKLY 07/06/22 10/27/24 mcg (50,000 unit) capsule gabapentin 300 mg capsule 300 mg PO BID 04/30/23 10/27/24 duloxetine 30 mg capsule,delayed 30 mg PO DAILY 09/22/24 10/27/24 release metoprolol succinate 50 mg 50 mg PO DAILY 10/17/24 10/27/24 tablet,extended release 24 hr potassium chloride 20 mEq 20 meq PO BID 10/17/24 10/27/24 tablet,extended release rosuvastatin 10 mg tablet (Crestor) 5 mg PO MOWEFR 10/17/24 10/27/24 Previous Rx's ?Medication ?Instructions ?Recorded aspirin 81 mg tablet 81 mg PO DAILY #1 tab 10/19/24 Allergies Allergy/AdvReac Type Severity Reaction Status Date / Time Sulfa (Sulfonamide Allergy Mild Nausea Verified 10/27/24 13:48 Antibiotics) sucralfate AdvReac Intermediate light Verified 10/27/24 13:48 headed, swelling [facility] Disclaimer: The information contained in this section may have been updated after the patient was seen, as this information can be updated by other users. Medical History Anxiety GERD (gastroesophageal reflux disease) Vitamin B12 deficiency Vitamin D deficiency Memory loss No evidence of cognitive decline, stable. Differential diagnosis include MCI. GI bleed Gastritis Hypothyroid CVA (cerebral vascular accident) Bilateral serous otitis media Balance problems Chronic sinusitis Cataracts, bilateral SVT (supraventricular tachycardia) Hypotension Fatigue Orthostatic hypotension CAD (coronary artery disease) Hyperlipidemia Hypertension Syncope and collapse Surgical History History of esophagogastroduodenoscopy (EGD) History of colonoscopy Hx of rotator cuff surgery History of cataract surgery History of lumpectomy History of hysterectomy Family History Other Coronary artery disease Social History Smoking Status: Never smoker second hand exposure: No alcohol intake: never substance use type: denies use current occupational status: other Travel in the last 8 weeks?: None household members: spouse housing: house current occupational exposures/hazards: No caffeine: Yes Other Medical History Have you received the Flu Vaccine for this season: No Have you received the Pneumonia Vaccine: Yes ROS Obtained: Yes All systems reviewed & no additional complaints except as documented Physical Exam General General appearance: alert and in no apparent distress Head Head exam: atraumatic and normocephalic Eye Eye exam: Present normal appearance, PERRL and EOMI ENT ENT exam: Present normal oropharynx and normal external ear exam Neck Neck exam: Present normal inspection and full ROM Chest Chest inspection: Present normal inspection and symmetric chest wall rise; Absent tenderness Respiratory Respiratory exam: Present normal lung sounds bilaterally; Absent respiratory distress Cardiovascular Cardiovascular exam: Present regular rate and normal rhythm Abdominal Exam Abdominal exam: Present soft; Absent distention, tenderness or guarding Extremities Exam Extremities exam: Present normal inspection; Absent edema or joint swelling Back Exam Back exam: Present normal inspection; Absent tenderness Neurological Exam Neurological exam: Present alert and oriented X3; Absent motor sensory deficit Psychiatric Psychiatric exam: Present normal affect and normal mood Skin Skin exam: Present warm, dry and normal color Lymphatic Lymphatic Findings: no adenopathy Medical Decision Making Medical Records Medical records reviewed: Yes I reviewed the patient's medical records. Screening: Per USPSTF and CDC recommendations, given the prevalence of disease in our region, it is our hospital?s policy to screen for HIV and viral Hepatitis for all patients aged 18 and over and those with ongoing risk factors. Faizan Inquiry Pt receiving controlled substance: No Faizan was queried for this patient: No Vital Signs: 11/21/24 00:08 11/21/24 00:30 11/21/24 01:01 Temperature 97.6 F 97.6 F Temperature Source Oral Pulse Rate 57 L 55 L Pulse Rate [Right Radial] 68 Respiratory Rate 14 15 16 Blood Pressure 182/87 H 174/76 H Blood Pressure [Right Arm] 170/76 H Blood Pressure Mean 97 108 Blood Pressure Mean [Right Arm] 107 Blood Pressure Position Blood Pressure Position [Right Arm] Sitting 02 Sat by Pulse Oximetry 98 100 97 Oxygen Delivery Method Room Air 11/21/24 01:09 11/21/24 01:27 Temperature 97.6 F Temperature Source Oral Pulse Rate 68 55 L Pulse Rate [Right Radial] Respiratory Rate 16 Blood Pressure 174/76 H Blood Pressure [Right Arm] Blood Pressure Mean Blood Pressure Mean [Right Arm] Blood Pressure Position Sitting Blood Pressure Position [Right Arm] 02 Sat by Pulse Oximetry Oxygen Delivery Method Room Air Lab Data Lab results reviewed: Yes I reviewed the patient's lab results. Lab Results 11/21/24 00:01: WBC 6.7, RBC 3.38 L, Hgb 10.0 L, Hct 29.5 L, MCV 87.3, MCH 29.6, MCHC 33.9, RDW 13.4, Plt Count 281, MPV 8.9, Neut % (Auto) 60.5, Lymph % (Auto) 28.1, Victoria % (Auto) 7.3, Eos % (Auto) 2.8, Baso % (Auto) 0.9, Neut # (Auto) 4.1, Lymph # (Auto) 1.9, Victoria # (Auto) 0.5, Eos # (Auto) 0.2, Baso # (Auto) 0.1, Sodium 127 L, Potassium 4.5, Chloride 92 L, Carbon Dioxide 26, Anion Gap 13.5, BUN 19 H, Creatinine 0.70, Estimated Creat Clear 49, Estimated GFR 80, Est GFR ( Amer) 97, Glucose 134 H, Calcium 9.9, Total Bilirubin 0.5, AST 34, ALT 18, Alkaline Phosphatase 82, Troponin I < 0.01, Total Protein 7.3, Albumin 4.4, Globulin 2.9, Albumin/Globulin Ratio 1.5 11/21/24 00:01 11/21/24 00:01 Orders (Tests/Meds): ED MEDICATIONS Discontinued Medications Generic Name Dose Route Start Last Admin Trade Name Heath PRN Reason Stop Dose Admin Acetaminophen 1,000 mg 11/21/24 00:20 11/21/24 00:31 Acetaminophen 500mg Tab PO 11/21/24 00:21 1,000 mg ONCE ONE Administration Aspirin 324 mg 11/21/24 00:18 11/21/24 00:31 Aspirin 81mg Chewable Tablet PO 11/21/24 00:19 Not Given ONCE ONE Belladonna Alkaloids 60 ml 11/21/24 00:20 11/21/24 00:31 Belladonna Alkaloids 60 Ml Ml PO 11/21/24 00:21 Not Given ONCE ONE Nitroglycerin 0.4 mg 11/21/24 00:18 Nitroglycerin 0.4mg Sl Tablet SL 11/22/24 00:18 Q5MINP PRN Chest Pain ORDERS Category Date Time Status XR chest portable Stat Exams 11/21/24 00:18 Completed Complete Blood Count Auto Diff Stat Lab 11/21/24 00:01 Completed Comprehensive Metabolic Panel Stat Lab 11/21/24 00:01 Completed Troponin I Stat Lab 11/21/24 00:01 Completed ECG Data Tracing #1: I reviewed this ECG and interpreted as documented below: Sinus rhythm, ventricular rate of 61, no concerning ischemic changes or evidence of arrhythmia. ECG initial impression date: 11/21/24 ECG initial impression time: 23:56 HEART Score History (anamnesis): Slightly suspicious ECG: Normal Age: >65 years Risk factors: Atherosclerosis history Troponin: </= normal limit HEART Score: 4 Medical Decision Narrative: 84-year-old female with history of hypertension hyperlipidemia coronary artery disease presents for concern about her blood pressure.. History was obtained via interactive discussion with patient, family, chart review. On arrival, patient is [afebrile, hemodynamically stable, satting appropriately, alert, oriented x4, GCS 15], moving all extremities spontaneously. Full physical exam performed and significant for no significant physical exam abnormalities. Differential includes but is not limited to hypertensive urgency, hypertensive urgency, asymptomatic hypertension. Patient's blood pressure on arrival is 170s systolic. She reports that she did have some brief epigastric discomfort after eating food earlier today but denies any current chest pain.. Patient was given Tylenol for headache. She declined aspirin and GI cocktail.. Workup initiated including CBC CMP troponin EKG chest x-ray. On re-evaluation, patient continues to be chest pain-free. Reports improvement in her headache Laboratory workup independently interpreted by me and significant for negative initial troponin, stable anemia, stable hyponatremia.. Imaging independently interpreted by me and significant for clear lungs bilaterally without focal opacity. See radiology read for full review of final results. EKG independently interpreted by me and significant for normal sinus rhythm. Second troponin was considered, but deemed unnecessary due to no chest pain or significant concern for ACS at this time.. Given patient history, exam and workup, patient's presentation most likely represents asymptomatic hypertension. On further discussion, she has had multiple changes in her blood pressure medications recently including discontinuation of amlodipine and increasing the losartan. Patient reports that she thinks that she did not take her second dose of losartan today. Manage she take her home medications as prescribed and follow-up with her PCP for further assessment. Return precautions given.. Procedures Risk/Benefits of Procedure(s) Were Explained: Yes Critical Care Critical Care Time Critical Care Time: No
--- OUTSIDE RECORDS SUMMARY | 2024-11-21 00:22 | XMS_ITS | Data Portability ---
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 She continues to report low [...] the clinic 03/04/2023. Lumbar MRI taken at [facility] on 04/11/2023. Dr. Garcia and I have [...] are satisfied with this plan of care. [email or web address] Not available 07/01/2023 16:04:19 Plan of Treatment [...] 2 or 3 view, bendi ng only [address] [address] Marya quinones Name: DAKOTAH quinones : [birth year] [...] Ortiz MD on 023 3:30 PM [email or web address] [facility] Radiology [facility] [address] [place], [address], 03/07/2023 16:10:58 03/05/20 23 11/01/2022 MRI, cervi naye spine , w/o contr ast No observ ation record ed. BARCODE Not Available 2022 09:33:10 04/12/20 23 04/11/2023 MRI, lumba r spine , w/o contr ast No observ ation record ed. [address], [place], [address], 04/30/2023 14:54:12 04/12/20 23 04/11/2023 MRI, lumba r spine , w/o contr ast No observ ation record ed. [email or web address] Available 2022 14:54:13 05/17/20 23 11/01/2022 MRI, cervi naye spine , w/o contr ast No observ ation record ed. [email or web address] (Med Record) [address], [place], [address], 05/17/2023 15:35:38 06/20/19 24 04/11/2023 MRI, lumba r spine , w/o contr ast No observ ation record ed. [email or web address] [place] [address] (X-Ray) [address], [place], [address], 07/01/2023 12:48:34 07/02/19 24 11/01/2022 MRI, cervi naye spine , w/o contr ast No observ ation record ed. [facility] Not Available 2023 13:53:56 07/02/19 24 04/11/2023 MRI, lumba r spine , w/o contr ast No observ ation record ed. [facility] Not Available 2023 13:53:56 Result Notes Documentation Provider Name and Address Organization Details Recorded Time Xr, Lumbosacral Spine, 2 Or 3 View, Bending Only : [facility] [address] [place] [address] Patient Name: GABBY BAIRES Patient : 1940 Patient Ordering Provider: AMRITA GARCIA EXAM DATE: 03/04/2023 EXAM: XR LUMBAR SPINE FLEX/EXT ONLY CLINICAL INFORMATION: Back pain. IMAGES PROVIDED: Lateral views of the lumbar spine in flexion and extension. COMPARISON: None. FINDINGS: Vertebral body heights are normal. Multilevel disc space reduction is seen with anterior and lateral osteophytes. There is grade 1 anterolisthesis of L3 over L4. It measures approximately 5 mm in flexion and 1 mm in extension. Degenerative changes are seen in the facet joints. No radiographic evidence of injury is noted. IMPRESSION: 1. Degenerative changes of lumbar spine. 2. 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 Interpreted By: Roberto Ortiz MD TA GARCIA MD [address] [place] [address], [id number] 03/07/2023 16:10:58 Procedures Surgical History Date Name Laterality Status Provider Name and Address Organization Details Recorded Time hysterectomy completed [facility] 03/04/2023 13:47:17 Shoulder joint surgery completed [facility] 03/04/2023 13:47:29 blepharoplasty completed [facility] 03/04/2023 13:47:49 cataract surgery completed [facility] 03/04/2023 13:47:58 lumpectomy of breast completed [facility] 03/04/2023 13:48:09 tonsillectomy completed [facility] 03/04/2023 13:48:15 Imaging Results None recorded. Procedure Notes None recorded. Medical Equipment None Reported. Allergies Allergen ID Allergen Name Allergen Category Reaction Reaction Severity Criticality Documentation Date Start Date Code Code System Note Provider Name and Address Organization Details Recorded Time [id number] Substance with sulfonami de structure and antibacte rial mechanism of action (substanc e) medicatio n Not available Not available Not available 03/04/2023 [id number] [facility] 13:48:58 Medications Name Sig Start Date Stop [...] Updated DateTime 07/01/2023 154.94 cm 24.6 kg/m2 18805.01 g 120 mm[Hg] 80 mm[Hg] Nam Wall [facility] 4 12:59:46 Date Recorded Body height Body mass index (BMI) Body weight Systolic blood pressure Diastolic blood pressure Provider Name and Address Organization Details Last Updated DateTime 03/04/2023 154.94 cm 24.6 kg/m2 18099.0 1 g 120 mm[Hg] 80 mm[Hg] [facility] 14:21:19 Social History None recorded. Functional Status None recorded. Mental Status None recorded. Family History Relationship Description Onset Age of this Age Resolved Age Notes LastModified by Organization Details LastModified Time Unspecified Relation Malignant neoplastic disease [email or web address] Not available 03/04 13:46:57 Unspecified Relation Myocardial infarction [email or web address] Not available 07/2022 13:47:02 Medical History Condition Response Gout Y Hypothyroidism Y Diabetes Y Gynecological HistoryNo gynecological history recorded. Obstetrics History GPAL:G 0 P 0 0 0 0 Past Encounters Encounter ID Performer Location Encounter Start Date Encounter Closed Date Diagnosis/Indication Diagnosis SNOMED-CT Code Diagnosis ICD10 Code Diagnosis Note [id number] AMRITA GARCIA [facility] [address] [place] [address] 03/04/2023 13:17:49 03/05/2023 05:01:13 Chronic low back pain 108282801 M54.50 [id number] FROY CORDOVA APRN [facility] [address] [place] [address] 07/01/2023 12:36:32 07/02/2023 04:28:06 Lumbar radiculopathy 243314185 M54.16 Lumbar spondylolisthesis 0773762522 85907 M43.16 Health Concerns Section Related Observation LastModified by Organization Detai ls LastModified Time None Recorded Concern Status LastModified by Organization Details LastModified Time None Recorded Advance Directives Directive None Recorded Payers Insurance Date Sequence Insurance Name Policy Number Policy Han Covered Member ID Han Member ID Guarantor Name 07/01/2023 1 MEDICARE-[place] (MEDICARE) Gabby Baires [id number] Gabby Baires 07/01/2023 2 [employer] Gabby Baires [id number] Gabby Baires Notes Date Note Type Note [...] seen Dr. Jackson with pain management in [place]. AMRITA GARCIA MD [facility] [place], [address], [facility] 03/04/2023 14:44:53 07/01/2023 text/html Ms. Baires is an 82-year-old female who returns to the office after last being seen 03/04/2023 with continued low back and lower extremity symptoms. FROY CORDOVA APRN [address] [place], [address], [facility] 07/01/2023 16:04:56 OBGyn Episode No OBEpisode recorded.
--- OUTSIDE RECORDS SUMMARY | 2024-11-21 00:22 | XMS_ITS | Clinical Summary ---
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 Name Role Phone Chip Caballero MD Primary Care Provider [phone] Family History Medical History Relation Name Comments Colon cancer Other 1 Heart attack Other 2 Relation Name Status Comments Other 1 Other 2 Social History Tobacco Use Types Packs/Day Years Used Date Smoking Tobacco: Never Comments Unknown Sex and Gender Information Value Date Recorded Sex Assigned at Not on file Legal Sex Female 7:29 PM EDT Gender Identity Not on file Sexual Orientation Not on file Last Filed Vital Signs Vital Sign Reading Time Taken Comments Blood Pressure 130/78 12/08/2019 11:47 AM EDT Pulse 56 12/08/2019 11:47 AM EDT Temperature - - Respiratory Rate - - Oxygen Saturation - - Inhaled Oxygen Concentration - - Weight 61.3 kg (135 lb 2.3 oz) 12/08/2019 11:47 AM EDT Height 154.9 cm (5' 1 ) 12/08/2019 11:47 AM EDT Body Mass Index 25.53 12/08/2019 11:47 AM EDT Plan of Treatment Not on file Insurance [place] [id number] MEDICARE Care Teams Ice Plant Operator Relationship Specialty Start Date End Date Chip Caballero MD [address] [place] [address] [place] [address] PCP - General 10/14/20
[2024-11-21 00:27] LABS: Basophils # 0.1 K/mm3 (0-0.2); Basophils % 0.9 % (0.1-2.0); Eosinophils # 0.2 Kmm3 (0.0-0.4); Eosinophils % 2.8 % (0.1-12.0); Hematocrit 29.5 % (37.0-47.0); Immature Granulocytes # 0.03 10^3uL; Immature Granulocytes % 0.4 %; Lymphocytes # 1.9 K/mm3 (0.7-4.5); Lymphocytes % 28.1 % (10-50); Mean Corpuscular HGB Conc 33.9 g/dL (31.8-35.4); Mean Corpuscular Hemoglobin 29.6 pg (27.0-31.2); Mean Corpuscular Volume 87.3 fl (81-99); Mean Platelet Volume 8.9 fl (7.4-10.4); Monocytes # 0.5 K/mm3 (0.1-1.0); Monocytes % 7.3 % (1.7-9.3); Neutrophils # 4.1 K/mm3 (1.8-7.8); Neutrophils % 60.5 % (37.0-80.0); Nucleated Red Blood Cells # 0 10^3/uL; Nucleated Red Blood Cells % 0 %; Platelet Count 281 K/mm3 (142-424); Red Blood Count 3.38 M/mm3 (4.20-5.40); Red Cell Distribution Width 13.4 % (11.5-17.5); Red Cell Distribution Width-SD 43.1 fL; White Blood Count 6.7 K/mm3 (4.8-10.8)
[2024-11-21 00:30] VITALS: BP 182/87; PULSE 57; RESP 15; O2SAT 100
[2024-11-21 00:31] LABS: Alanine Aminotransferase 18 U/L (12-78); Albumin Level 4.4 g/dl (3.5-5.0); Albumin/Globulin Ratio 1.5 (1.1-1.8); Alkaline Phosphatase 82 U/L (38-126); Anion Gap 13.5 mEq/L (5-15); Aspartate Amino Transferase 34 U/L (14-36); Bilirubin,Total 0.5 mg/dl (0.2-1.3); Blood Urea Nitrogen 19 mg/dl (7-17); Calcium 9.9 mg/dl (8.4-10.2); Carbon Dioxide 26 mmol/L (22.0-30.0); Chloride 92 mmol/L (98-107); Creatinine Clearance Estimated 49 mL/min (50-200); Estimated Glomerular Filt Rate 80 ml/min (>60); GFR (African American) 97 ML/MIN (>60); Globulin 2.9 g/dL (1.3-3.2); Glucose 134 mg/dl (74-100); Potassium 4.5 mmoL/L (3.5-5.1); Sodium 127 mmol/L (136-145); Total Protein,Serum 7.3 g/dl (6.3-8.2)
[2024-11-21] MEDS: ACETAMINOPHEN 500MG TAB 1000 MG PO (00:31)
[2024-11-21 00:46] LABS: Troponin I < 0.01 ng/ml (0.00-0.034)
[2024-11-21 01:01] VITALS: BP 174/76; PULSE 55; RESP 16; TEMP 36.4; O2SAT 97
[2024-11-21 01:09] VITALS: PULSE 68
[2024-11-21 01:27] VITALS: BP 174/76; PULSE 55; RESP 16; TEMP 36.4; O2SAT 97
== END 2024-11-21 01:29 | disposition home or self-care (01) ==
PROVIDERS: Emergency Provider Emergency Medicine; PCP Family Medicine
DX: R51.9 Headache, unspecified (principal); E87.1 Hypo-osmolality and hyponatremia; I10 Essential (primary) hypertension
CPT/HCPCS: 71045; 80053; 84484; 85025; 93005; 99284

== ENCOUNTER 2024-12-07 16:34 | Outpatient (CLI) | payer MEDICARE, OTHER, SELFPAY ==
--- OUTSIDE RECORDS SUMMARY | 2024-11-19 12:00 | XMS_ITS ---
[facility] Address [address] [facility] [address] [place] [id number] Care Team Providers Care Cleaning Attendant Name Role Phone Jimy Caballero Primary Care Provider Allergies Allergen (clinical drug ingredient) Drug/Non Drug Allergy documented on EMR Reaction Allergy Type Onset Date Status sucralfate Sucralfate lightheaded, swelling of lips Drug Allergy Active Substance with sulfonamide structure and antibacterial mechanism of action (substance) Sulfa Antibiotics rash Drug Allergy Active Results Component Value Reference Range Notes CBC Venipuncture (in house) Reviewed date:11/27/2024 03:44:03 PM Interpretation: Performing Lab: Notes/Report: wbc 6.4 3.5 - 10 lymph 22.9 15 - 50 mid 6.3 2 - 15 gran 70.8 35 - 80 rbc 3.34 3.5 - 5.5 hgb 9.9 11.5 - 16.5 hct 28.8 35 - 55 mcv 86.3 75 - 100 mch 29.7 25 - 35 mchc 34.4 31 - 38 platlet 284 100 - 400 P-Comprehensive Metabolic Pa ladi (CMP) Reviewed date:12/01/2024 03:02:34 PM Interpretation:satisfactory Performing Lab: Notes/Report: Test performed by [facility] [address] [place] [address] , [address], [place] [address] Marcus Lott MD, Director Of Testing CLIA: [id number] Sodium 129 135-145 mmol/L Potassium 4.7 3.5-5.3 mmol/L Chloride 94 97-108 mmol/L CO2 23 22-32 mmol/L Glucose 87 65-99 mg/dL BUN 18 8-23 mg/dL Creatinine 0.74 0.50-1.00 mg/dL Calcium 9.5 8.6-10.4 mg/dL eGFR by Creatinine 80 >59 mL/min/1.73m2 Protein 6.6 6.0-8.3 g/dL Albumin 4.3 3.5-5.3 g/dL Alkaline Phosphatase 99 35-121 IU/L ALT (SGPT) 13 <5-47 IU/L AST (SGOT) 20 <5-40 IU/L Bilirubin, Total 0.3 <0.2-1.2 mg/dL A/G Ratio 1.9 1.1-2.5 P-Magnesium Reviewed date:12/01/2024 03:02:34 PM Interpretation:Normal Performing Lab: Notes/Report: Test performed by [facility], [address] , [address], [place] [address] Marcus Lott MD, Director Of Testing CLIA: [id number] Magnesium 2.3 1.6-2.4 mg/dL REASON FOR VISIT 4 week f/u Medications Medication SIG (Take, Route, Frequency, Duration) Notes Start Date End Date Status Ferrous Sulfate 325 (65 Fe) MG 1 tablet Orally twice a day; Duration: 30 days 11/19/2024 Active Diclofenac Sodium 1 % as directed applie d topically 4 times a day 08/08/2022 Not-Taking Losartan Potassium 50 mg TAKE ONE TABLET BY MOUTH EVERY DAY twice a day; Duration: 90 days Active Omeprazole 40 MG 1 capsule 1/2 to 1 hour before morning meal Orally Once a day 05/07/2024 Not-Takin g Donepezil HCl 5 MG 1 tablet at bedtime Orally At Bed Time; Duration: 30 day(s) 07/04/2023 Not-Taking amLODIPine Besylate 2.5 mg TAKE ONE TABL ET BY MOUTH EVERY DAY; Duration: 30 Not-Taking ALPRAZolam 0.25 MG take 1/2 tab in the morning, take 1/2 tab at bedtime orally daily; Duration: 30 days 11/13/2024 Active Rosuvastatin Calcium 5 MG 1 tablet Orall y one every other day; Duration: 30 days 11/02/2024 Active Gabapentin 300 MG 1 cap(s) orally 2 times a day; Duration: 30 days 10/27/2024 Active Allopurinol 100 mg TAKE ONE TABLET BY MOUTH EVERY DAY; Duration: 30 days Active Potassium Chloride Kandy ER 20 mEq TAKE ONE TABLET BY MOUTH TWICE DAILY; Duration: 90 Active DULoxetine HCl 30 MG 1 capsule Orally On ce a day; Duration: 30 days 09/17/2024 Active Clopidogrel Bisulfate 75 mg TAKE ONE TABLET BY MOUTH EVERY DAY; Duration: 90 Active Vitamin D (Ergocalciferol) 1.25 MG (75858 UT) TAKE ONE CAPSULE BY MOUTH ONCE A WEEK; Duration: 30 Active Metoprolol Succinate ER 50 MG 1 tab(s) orally once a day; Duration: 90 days Active ZyrTEC Allergy 10 MG 1 tablet Orally Onc e a day; Duration: 30 day(s) 09/30/2023 Active Levothyroxine Sodium 25 MCG 1 tab(s) orally once a day; Duration: 90 days Active MiraLax 17 GM/SCOOP as directed Orally Active Pataday 0.1 % 1 drop into affected eye Ophthalmic Twice a day 09/12/2023 Active Metamucil Smooth Texture 58.6 % as directed orally once a day; Duration: 7 day(s) Active Fluticasone Propionate 50 MCG/ACT 1 spray in each nostril Nasally Once a day; Duration: 30 day(s) 09/30/2023 Active Rosuvastatin Calcium 10 MG 1 tablet Orally Once a day 06/04 MWF Not-Taking Vital Signs Blood pressure systolic 150 mm Hg 11/20/19 25 Blood pressure diastolic 72 mm Hg 025 Heart Rate 57 /min 11/19/2024 Height 61.50 in 11/19/2024 Weight 132.8 lbs 11/19/2024 BMI 24.68 kg/m2 11/19/2024 Encounters Encounter Location Date Provider Diagnosis [facility] [address] [facility] [address] [place], [place] [id number] 11/19/2024 Jimy Caballero Essential hypertensi on I10 ; Fibromyalgia M79.7 ; Hypothyroidism (acquired) E03.9 ; Anxiety about health F41.8 ; Anemia of chronic disease D63.8 ; Insect bite, unspecified site, initial encounter W57.XXXA and BMI 24.0-24.9, adult Z68.24 Assessments Encounter Date Diagnosis (ICD Code) Assessment Notes Treatment Notes Treatment Clinical Notes Section Notes 11/19/2024 Essential hypertension (ICD-10 - I10) 11/19/2024 Fibromyalgia (ICD-10 - M79.7) 11/19/2024 Hypothyroidism (acquired) (ICD-10 - E03.9) 11/19/2024 Anxiety about health (ICD-10 - F41.8) 11/19/2024 Anemia of chronic disease (ICD-10 - D63.8) Stop Baby Aspirin 11/19/2024 Insect bite, unspecified site, initial encounter (ICD-10 - W57.XXXA) Hydrocortisone cream recommended 11/19/2024 BMI 24.0-24.9, adult (ICD-10 - Z68.24) Plan Of Treatment Medication Medication Name Sig Start Date Stop Date Notes Ferrous Sulfate 325 (65 Fe) MG 1 tablet Orally twice a day; Duration: 30 days 11/19/2024 Losartan Potassium 50 mg TAKE ONE TABLET BY MOUTH EVERY DAY twice a day; Duration: 90 days Next Appt Details Follow Up: 1 Week, Reason: Provider Name:Jimy Myles , 12/24/2024 02:15:00 PM, [address] [facility] [address] [facility] [address], [address] , [place], [place], [id number], Progress Notes * DAKOTAH BAIRESASHLEYOB: 2 (84 yo F)Acc No.[id number]:11/19/2024 Patient: AMINAH TURNER Provider: Jimy Caballero M.D. :1940 A ge:84 Y S ex:Female Date:11/19/2024 Address:[address] [place], [id number] Subjective: * Chief Complaints: * 1 . 4 week f/u. * HPI: C ardiology: The patient is here for a 4 week follow up. Pt states she is still having some imbalance and some pain in the back of her head. Pt also c/o some red itchy spots on her abdomen and back. Pt also c/o easy bruising. Hemoglobin was 11.1. Takes Baby Aspirin and clopidogrel. Has been off Amlodipine for some time. BP elvated today 170/74. 84 year old female presents with c/o Chest Pain e pisodic pains in her breasts. c/o Dizziness l ightheaded, sensation of imbalance. Denies : Short of Breath. D enies : Palpitations. * ROS: D ERMATOLOGY: no R mariza. n o H dario. G ASTROENTEROLOGY: no N ausea. n o V omiting. n o D iarrhea.? U ROLOGY: no D ifficulty urinating. n o B lood in urine. * Medical History: H ypertension, Hyperlipidemia, Fibromyalgia, Osteoarthritis, Intercostal neuropathy, Microhematuria, Cardiolyte GXT neg, EF=73%. 11/24/13, 05/03/19 ESR=88, COVID 19 vaccine, Pfizer x2, Sigmoid diverticulosis, COVID 19 Booster, COVID 19 Booster, Pfizer, December 2021. * Surgical History: t otal hysterectomy 1994, right shoulder-rotator cuff 2002, breast lump removal - benign 1982, Eye lid lifts on both eyes 03/06/2010, colonoscopy and EGD. GI blood loss, chronic, mild erosive gastritis 06/2013, cataract, lt and rt 09/2013, 11/2013, Heart Cath, Dr. 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 * Family History: F ather: . M other: . S iblings: heart disease, lung problems, colon Ca. 2 brother(s) , 2 sister(s) . 2 son(s) - healthy. . * Social History: C URRENT TOBACCO USE S moking Status: Patient does NOT smoke. C affeine: no. Marital Status: . Past smoking status: no. Alcohol: socially, Type: , Frequency: ,Years: , Determination:. * Medications: T aking Fluticasone Propionate 50 MCG/ACT Suspension 1 spray in each nostril Nasally Once a day , Taking MiraLax 17 GM/SCOOP Powder as directed Orally , Taking Metamucil Smooth Texture 58.6 % Powder as directed orally once a day , Taking Pataday 0.1 % Solution 1 drop into affected eye Ophthalmic Twice a day , Taking ZyrTEC Allergy 10 MG Tablet 1 tablet Orally Once a day , Taking Losartan Potassium 50 mg Tablet TAKE ONE TABLET BY MOUTH EVERY DAY , Taking Levothyroxine Sodium 25 MCG Tablet 1 tab(s) orally once a day , Taking Potassium Chloride Kandy ER 20 mEq Tablet Extended Release TAKE ONE TABLET BY MOUTH TWICE DAILY , Taking Clopidogrel Bisulfate 75 mg Tablet TAKE ONE TABLET BY MOUTH EVERY DAY , Taking DULoxetine HCl 30 MG Capsule Delayed Release Particles 1 capsule Orally Once a day , Taking Metoprolol Succinate ER 50 MG Tablet Extended Release 24 Hour 1 tab(s) orally once a day , Taking Vitamin D (Ergocalciferol) 1.25 MG (03459 UT) Capsule TAKE ONE CAPSULE BY MOUTH ONCE A WEEK , Taking Gabapentin 300 MG Capsule 1 cap(s) orally 2 times a day , Taking Rosuvastatin Calcium 5 MG Tablet 1 tablet Orally one every other day , Taking Allopurinol 100 mg Tablet TAKE ONE TABLET BY MOUTH EVERY DAY , Taking ALPRAZolam 0.25 MG Tablet take 1/2 tab in the morning, take 1/2 tab at bedtime orally daily , Not-Taking Rosuvastatin Calcium 10 MG Tablet 1 tablet Orally Once a day 2 MWF, Not-Taking amLODIPine Besylate 2.5 mg Tablet TAKE ONE TABLET BY MOUTH EVERY DAY , Not-Taking Omeprazole 40 MG Capsule Delayed Release 1 capsule 1/2 to 1 hour before morning meal Orally Once a day , Not-Taking Diclofenac Sodium 1 % Gel as directed applied topically 4 times a day , Not-Taking Donepezil HCl 5 MG Tablet 1 tablet at bedtime Orally At Bed Time * Allergies: S ulfa Antibiotics: rash, Sucralfate: lightheaded, swelling of lips - Side Effects. Objective: * Vitals: W t: 132.8, Temp: 98.1, BP: 150/72, HR: 57, O2 Sat: 99% 0n RA, Nurse: NATHALIE, Ht: 61.50, BMI:24.68. Assessment: * Assessment: 1. E ssential hypertension - I10 (Primary) 2 . F ibromyalgia - M79.7 ? 3 . H ypothyroidism (acquired) - E03.9 4 . A nxiety about health - F41.8 5 . A nemia of chronic disease - D63.8 6 . I nsect bite, unspecified site, initial encounter - W57.XXXA 7 . B AZ 24.0-24.9, adult - Z68.24 Plan: * Treatment: Value Reference Range A /G Ratio 1.9 1.1-2.5 - * A lbumin 4.3 3.5-5.3 - g/dL * A lkaline Phosphatase 99 35-121 - IU/L * A LT (SGPT) 13 <5-47 - IU/L * A ST (SGOT) 20 <5-40 - IU/L * B ilirubin, Total 0.3 <0.2-1.2 - mg/dL * B UN 18 8-23 - mg/dL * C alcium 9.5 8.6-10.4 - mg/dL * C hloride 94 L 97-108 - mmol/L * C O2 23 22-32 - mmol/L * C reatinine 0.74 0.50-1.00 - mg/dL * G lucose 87 65-99 - mg/dL * P otassium 4.7 3.5-5.3 - mmol/L * S odium 129 L 135-145 - mmol/L * P rotein 6.6 6.0-8.3 - g/dL * e GFR by Creatinine 80 >59 - mL/min/1.73m2 * Mojgan Singer 12/01/2024 03: 02:02 PM EDT > Patient informed of normal results. 2.?Anemia of chronic disease? Start Ferrous Sulfate Tablet, 325 (65 Fe) MG, 1 tablet, Orally, twice a day, 30 days, 60 Tablet, Refills 3.?LAB: CBC Venipuncture (in house) (Collection Date & Time - 11/19/2024)* Value Reference Range w bc 6.4 3.5 - 10 * l ymph 22.9 15 - 50 * m id 6.3 2 - 15 * g ran 70.8 35 - 80 * r bc 3.34 3.5 - 5.5 * h gb 9.9 11.5 - 16.5 * h ct 28.8 35 - 55 * m cv 86.3 75 - 100 * m ch 29.7 25 - 35 * m chc 34.4 31 - 38 * p latlet 284 100 - 400 * Aviva De La O 11/19/2024 04:2 1:53 PM EDT > Provider reviewed results while patient in office. ?LAB: P-Magnesium (Collection Date & Time - 11/20/2024 08:38 AM)?Normal* Value Reference Range M agnesium 2.3 1.6-2.4 - mg/dL * Mojgan Singer 12/01/2024 03: 02:02 PM EDT > Patient informed of normal results. Clinical Notes: Stop Baby Aspirin??3.?Insect bite, unspecified site, initial encounter? Clinical Notes: Hydrocortisone cream recommended?? * Procedure Codes: G 2211 Complex e/[place], [address] CBC WITH AUTO DIFF, 92755 VENIPUNCT, ROUTINE*, 1036F TOBACCO NON-USER, G8420 BMI<30 AND >=22 CALC & DOCU, G8950 PREHTN/HTN BP DOC INDCD F/U DOC, G8753 MOST RECENT SYSTOLIC BP >= 140MM HG, G8754 MOST RECENT DIASTOLIC BP < 90MM HG * Follow Up: 1 Week * Images: Billing Information: * Visit Code: 29014 Office Visit, Est Pt., Level 4. * Procedure Codes: G2211 Complex e/[place]. [address] CBC WITH AUTO DIFF. 95926 VENIPUNCT, ROUTINE*. 1036F TOBACCO NON-USER. G8420 BMI<30 AND >=22 CALC & DOCU. G8950 PREHTN/HTN BP DOC INDCD F/U DOC. G8753 MOST RECENT SYSTOLIC BP >= 140MM HG. G8754 MOST RECENT DIASTOLIC BP < 90MM HG. * Electronic signature of Jimy Caballero MD on 12/07/2024 at 04:37 PM EDT Sign off status: Pending * Provider: Jimy Caballero M.D. Date: 0 11/19/2024 Generated for Abelino mclaughlin/Miranda/Edditting on: 0 12/07/2024 04:37 PM EDT History and Physical Notes * HPI (History of Present Illness) Category Sub-Category Detail Notes Category Not es Cardiology Short of Breath Chest Pain episodic pains in he r breasts Palpitations Dizziness lightheaded, sensati on of imbalance
--- OUTSIDE RECORDS SUMMARY | 2024-11-26 11:30 | XMS_ITS ---
Author Organization [facility] Address [address] [facility] [address] [place] [id number] Care Team Providers Care Head Rigger Name Role Phone Jimy Caballero Primary Care Provider Allergies Allergen (clinical drug ingredient) Drug/Non Drug Allergy documented on EMR Reaction Allergy Type Onset Date Status sucralfate Sucralfate lightheaded, swelling of lips Drug Allergy Active Substance with sulfonamide structure and antibacterial mechanism of action (substance) Sulfa Antibiotics rash Drug Allergy Active REASON FOR VISIT 1 wk f/u Medications Medication SIG (Take, Route, Frequency, Duration) Notes Start Date End Date Status Allopurinol 100 mg TAKE ONE TABLET BY MOUTH EVERY DAY; Duration: 30 days Active ALPRAZolam 0.25 MG take 1/2 tab in the morning, take 1/2 tab at bedtime orally daily; Duration: 30 days 11/13/2024 Active Vitamin D (Ergocalciferol) 1.25 MG (35693 UT) TAKE ONE CAPSULE BY MOUTH ONCE A WEEK; Duration: 30 Active Rosuvastatin Calcium 5 MG 1 tablet Orall y one every other day; Duration: 30 days 11/02/2024 Active Gabapentin 300 MG 1 cap(s) orally 2 times a day; Duration: 30 days 10/27/2024 Active Potassium Chloride Kandy ER 20 mEq TAKE ONE TABLET BY MOUTH TWICE DAILY; Duration: 90 Active Levothyroxine Sodium 25 MCG 1 tab(s) orally once a day; Duration: 90 days Active DULoxetine HCl 30 MG 1 capsule Orally On ce a day; Duration: 30 days 09/17/2024 Active Clopidogrel Bisulfate 75 mg TAKE ONE TABLET BY MOUTH EVERY DAY; Duration: 90 Active Metoprolol Succinate ER 50 MG 1 tab(s) orally once a day; Duration: 90 days Active ZyrTEC Allergy 10 MG 1 tablet Orally Onc e a day; Duration: 30 day(s) 09/30/2023 Active Pataday 0.1 % 1 drop into affected eye Ophthalmic Twice a day 09/12/2023 Active MiraLax 17 GM/SCOOP as directed Orally Active Fluticasone Propionate 50 MCG/ACT 1 spray in each nostril Nasally Once a day; Duration: 30 day(s) 09/30/2023 Active Metamucil Smooth Texture 58.6 % as directed orally once a day; Duration: 7 day(s) Active Omeprazole 40 MG 1 capsule 1/2 to 1 hour before morning meal Orally Once a day 05/07/2024 Not-Takin g Donepezil HCl 5 MG 1 tablet at bedtime Orally At Bed Time; Duration: 30 day(s) 07/04/2023 Not-Taking Diclofenac Sodium 1 % as directed applie d topically 4 times a day 08/08/2022 Not-Taking Senna 8.6 MG 2 tablets at bedtime as needed Orally Once a day; Duration: 30 days 11/26/2024 Active amLODIPine Besylate 2.5 mg TAKE ONE TABL ET BY MOUTH EVERY DAY; Duration: 30 Active Ferrous Sulfate 325 (65 Fe) MG 1 tablet Orally twice a day; Duration: 30 days 11/19/2024 Active Rosuvastatin Calcium 10 MG 1 tablet Orally Once a day 06/04 MWF Not-Taking Losartan Potassium 50 mg TAKE ONE TABLET BY MOUTH EVERY DAY twice a day; Duration: 90 days Active Problems Problem Type SNOMED Code ICD Code Onset Dates Problem Status W/U Status Risk Notes Problem Slow transit constipation (K59.01) Active confirmed Vital Signs Blood pressure systolic 172 mm Hg 11/27/19 25 Blood pressure diastolic 72 mm Hg 025 Heart Rate 56 /min 11/26/2024 Height 61.50 in 11/26/2024 Weight 133.6 lbs 11/26/2024 BMI 24.83 kg/m2 11/26/2024 Encounters Encounter Location Date Provider Diagnosis [facility] [address] [facility] [address] [place], [place] [id number] 11/26/2024 Jimy Caballero Iron deficiency anem ia due to chronic blood loss D50.0 ; Coronary artery disease involving [place] coronary artery of [place] heart without angina pectoris I25.10 ; Essential hypertension I10 and Slow transit constipation K59.01 Assessments Encounter Date Diagnosis (ICD Code) Assessment Notes Treatment Notes Treatment Clinical Notes Section Notes 11/26/2024 Iron deficiency anemia due to chronic blood loss (ICD-10 - D50.0) 11/26/2024 Coronary artery disease involving [place] coronary artery of [place] heart without angina pectoris (ICD-10 - I25.10) 11/26/2024 Essential hypertension (ICD-10 - I10) 11/26/2024 Slow transit constipation (ICD-10 - K59.01) Plan Of Treatment Medication Medication Name Sig Start Date Stop Date Notes Senna 8.6 MG 2 tablets at bedtime as needed Orally Once a day; Duration: 30 days 11/26/2024 amLODIPine Besylate 2.5 mg TAKE ONE TABL ET BY MOUTH EVERY DAY; Duration: 30 Next Appt Details Follow Up: 2 weeks, Reason: Provider Name:Jimy Myles er, 12/24/2024 02:15:00 PM, [address] [facility] [address] [facility], [address] [place] [address], [phone], Progress Notes * DEMETRICE BAIRESOB: 2 (84 yo F)Acc No.[id number]:11/26/2024 Progress Notes Patient: AMINAH TURNER Provider: Jimy Caballero M.D. :1940 A ge:84 Y S ex:Female Date:11/26/2024 [facility] [id number] Subjective: * Chief Complaints: * 1 . 1 wk f/u. * HPI: C ardiology: The pt is here for a follow up on Hypertension and Anemia. Pt states she is taking Losartan twice a day as directed. Pt states she is taking Ferrous sulfate twice a day and her stools are black. Denies : Chest Pain. D enies : Short of Breath. D enies : Dizziness. D enies : Palpitations. * ROS: D [...] tablet Orally Once a day , Taking Levothyroxine Sodium 25 MCG Tablet [...] , Taking Vitamin D (Ergocalciferol) 1.25 MG (11101 UT) Capsule TAKE ONE CAPSULE BY MOUTH [...] 1/2 tab at bedtime orally daily , Taking Ferrous Sulfate 325 (65 Fe) MG Tablet 1 tablet Orally twice a day , Taking Losartan Potassium 50 mg Tablet TAKE ONE TABLET BY MOUTH EVERY DAY twice a day , Not-Taking Rosuvastatin Calcium 10 MG Tablet 1 tablet Orally Once a day 06/04 MWF, Not-Taking amLODIPine Besylate 2.5 mg Tablet [...] tablet at bedtime Orally At Bed Time , Medication List reviewed and reconciled with the patient * Allergies: S ulfa Antibiotics: rash, Sucralfate: lightheaded, swelling of lips - Side Effects. Objective: * Vitals: W t: 133.6, Temp: 98.2, BP: 172/72, HR: 56, O2 Sat: 100% on RA, Nurse: NATHALIE, Ht: 61.50, Repeat BP: 172/80, BMI:24.83. * Examination: G eneral Examination: General Appearance: N AD. H EENT: n leta patent, Sclera and conjunctiva clear. O ral cavity: n o lesions, mucosa moist and WNL, no erythema.?Neck: s upple, no lymphadenopathy. C hest: n ormal shape and expansion. H eart: RSR, no ectopics. L ungs: c lear to auscultation. A bdomen: soft, nontender.?Neurologic Exam: I ntact, gait normal. S kin: n ormal, no rash. P eripheral pulses: n ormal . E xtremities: left hand WNL. No bruise of shoulder. Left elbow laceration has healed well.. Assessment: * Assessment: 1. I natalie deficiency anemia due to chronic blood loss - D50.0 (Primary) 2 . C oronary artery disease involving [place] coronary artery of [place] heart without angina pectoris - I25.10 3 . E ssential hypertension - I10 4 . S low transit constipation - K59.01 Plan: * Treatment: 2. S low transit constipation Start Senna Tablet, 8.6 MG, 2 tablets at bedtime as needed, Orally, Once a day, 30 days, 60, Refills 3. * Follow Up: 2 weeks * Images: Billing Information: * Visit Code: 52223 Office Visit, Est Pt., Level 3. * Procedure Codes: * Electronic signature of Jimy Caballero MD on 12/07/2024 at 04:37 PM EDT Sign off status: Pending * Provider: Jimy Caballero M.D. Date: 0 11/26/2024 Generated for Bienvenidoi lissette/Miranda/eTransmitting on: 0 12/07/2024 04:37 PM EDT History and Physical Notes * HPI (History of Present Illness) Category Sub-Category Detail Notes Category Not es Cardiology Short of Breath Chest Pain Palpitations Dizziness Examination Category Sub-Category Detail Notes Category Not es General Examination HEENT: nares patent , Sclera and conjunctiva clear Heart: RSR, no ectopics Lungs: clear to auscultatio n Abdomen: soft, nontender Extremities: left hand WNL. No br uise of shoulder. Left elbow laceration has healed well. General Appearance: NAD Skin: normal, no rash Neurologic Exam: Intact, gait normal Neck: supple, no lymphaden opathy Oral cavity: no lesions, mucosa m oist and WNL, no erythema Peripheral pulses: normal Back: Chest: normal shape and exp ansion
--- OUTSIDE RECORDS SUMMARY | 2024-12-07 16:37 | XMS_ITS | Clinical Summary ---
Author Organization Healthcare Address [address] [place] [address] Care Team Providers Care Application Development Consultant Name Role Phone Chip Caballero MD Primary Care Provider [phone] Family History Medical History Relation Name Comments [...] Treatment Not on file Insurance [place] [id number] MEDICARE Care Teams Application Development Consultant Relationship Specialty Start Date End Date Chip Caballero MD [address] [place] [address] [place] [address] PCP - General 10/14/20
--- OUTSIDE RECORDS SUMMARY | 2024-12-07 16:37 | XMS_ITS | Data Portability ---
Author Organization [place] [facility] [facility] Address [address] [facility] [address] [place] [address] Care Team Providers Care Director Health Name Role Phone ROSALIND MONTANEZ Primary Care [...] She had the lumbar MRI completed at [facility] on 04/11/2023. She continues to report [...] the clinic 03/04/2023. Lumbar MRI taken at [facility] on 04/11/2023. Dr. Garcia and I [...] are satisfied with this plan of care. [email or web address] Not available 07/01/2023 16:04:19 Plan of Treatment [...] 2 or 3 view, bendi ng only [address] [address] Marya quinones Name: DAKOTAH quinones : [birth year] [...] Ortiz MD on 023 3:30 PM [email or web address] [facility] Radiology [facility] [address] [place], [address], 03/07/2023 16:10:58 03/05/20 23 11/01/2022 MRI, cervi naye spine , w/o contr ast No observ ation record ed. BARCODE Not Available 2022 09:33:10 04/12/20 23 04/11/2023 MRI, lumba r spine , w/o contr ast No observ ation [facility] ed. [facility] [address] [address], [place], [address], 04/30/2023 14:54:12 04/12/20 23 04/11/2023 MRI, lumba r spine , w/o contr ast No observ ation record ed. [email or web address] 2022 14:54:13 05/17/20 23 11/01/2022 MRI, cervi naye spine , w/o contr ast No observ ation record ed. [email or web address] (Med Record) [address] [address], [place], [address], 05/17/2023 15:35:38 06/20/19 24 04/11/2023 MRI, lumba r spine , w/o contr ast No observ ation record ed. [email or web address] [facility] (X-Ray) [address], [place], [address], 07/01/2023 12:48:34 07/02/19 24 11/01/2022 MRI, cervi [...] 2 Or 3 View, Bending Only : [facility] [address] [place] [address] Patient Name: GABBY BAIRES Patient : 1940 [...] By: Roberto Ortiz MD TA GARCIA MD [address] [place] [address], [phone] 03/07/2023 16:10:58 Procedures Surgical History Date Name Laterality Status Provider Name and Address Organization Details Recorded Time hysterectomy completed [facility] 03/04/2023 13:47:17 Shoulder joint surgery completed [facility] 03/04/2023 13:47:29 blepharoplasty completed [facility] 03/04/2023 13:47:49 cataract surgery completed [facility] 03/04/2023 13:47:58 lumpectomy of breast completed [facility] 03/04/2023 13:48:09 tonsillectomy completed [facility] 03/04/2023 13:48:15 Imaging Results None recorded. Procedure Notes None recorded. Medical Equipment None Reported. Allergies Allergen ID Allergen Name Allergen Category Reaction Reaction Severity Criticality Documentation Date Start Date Code Code System Note Provider Name and Address Organization Details Recorded Time [id number] Substance with sulfonami de structure and antibacte rial mechanism of action (substanc e) medicatio n Not available Not available Not available 03/04/2023 [id number] SNOMED [facility] 13:48:58 Medications Name Sig Start Date [...] Body mass index (BMI) Body weight Systolic And Diastolic Provider Name and Address Organization Details Last Updated DateTime 07/01/2023 154.94 cm 24.6 kg/m2 33590.01 g 120/80 mm[Hg] Nam Hurtchiara James [facility] 07/01/2023 12:59:46 Date Recorded Body height Body mass index (BMI) Body weight Systolic And Diastolic Provider Name and Address Organization Details Last Updated DateTime 03/04/2023 154.94 cm 24.6 kg/m2 27740.01 g 120/80 mm[Hg] [facility] 14:21:19 Social History None recorded. Functional Status [...] SNOMED-CT Code Diagnosis ICD10 Code Diagnosis Note [id number] AMRITA GARCIA MD NEUROSURG [facility] [address] [place] [address] 03/04/2023 13:17:49 03/05/2023 05:01:13 Chronic low back pain 439430522 M54.50 [id number] FROY CORDOVA APRN [facility] [address] [place] [address] 07/01/2023 12:36:32 07/02/2023 04:28:06 Lumbar radiculopathy 652484370 M54.16 Lumbar spondylolisthesis 3488150118 96352 M43.16 Health Concerns Section Related Observation LastModified by Organization Detai ls LastModified Time None Recorded Concern Status LastModified by Organization Details LastModified Time None Recorded Advance Directives Directive None Recorded Payers Insurance Date Sequence Insurance Name Policy Number Policy Han Covered Member ID Han Member ID Guarantor Name 07/01/2023 1 [place] Gabby Baires [id number] Gabby Baires 07/01/2023 2 [employer] Gabby Baires [id number] Gabby Baires Notes Date Note Type Note [...] seen Dr. Jackson with pain management in [place]. AMRITA GARCIA MD [address] [place], [address], [facility] 03/04/2023 14:44:53 07/01/2023 text/html Ms. Baires is an 82-year-old female who returns to the office after last being seen 03/04/2023 with continued low back and lower extremity symptoms. FROY CORDOVA APRN [address] [place], [address], [facility] 07/01/2023 16:04:56 OBGyn Episode No OBEpisode recorded.
--- OUTSIDE RECORDS SUMMARY | 2024-12-07 16:37 | XMS_ITS | Patient Health Record ---
Author Organization [facility] Address [address] [facility] [address] [facility] [address] [place] [id number] Care Team Providers Care Executor Of Estate Name Role Phone Jimy Caballero Primary Care Provider [phone] Marina Medrano Unavailable [phone] [place] Luis Unavailable [phone] Diane Stewart Unavailable [phone] Allergies Allergen (clinical drug ingredient) Drug/Non Drug Allergy documented on EMR Reaction Allergy Type Onset Date Status sucralfate Sucralfate lightheaded, swelling of lips Drug Allergy Active Substance with sulfonamide structure and antibacterial mechanism of action (substance) Sulfa Antibiotics rash Drug Allergy Active Results Component Value Reference Range Notes CBC Fingerstick (in house) ( Not yet reviewed by provider) Interpretation: Performing Lab: Notes/Report: wbc 7.7 3.5 - 10 lym 21.9% 15 - 50 mid 5.5% 2 - 15 gran 72.6% 35 - 80 rbc 3.91 3.5 - 5.5 hgb 11.7 11.5 - 16.5 hct 34.5 35 - 55 mcv 88.3 75 - 100 mch 30.1 25 - 35 mchc 34.1 31 - 38 plat 347 100 - 400 P-Comprehensive Metabolic Pa ladi (CMP) Reviewed date:06/05/2024 09:09:23 AM Interpretation:Na 134, gluc 106 Performing Lab: Notes/Report: Test performed by [facility] , [address], [place] [address] Marcus Lott MD, Bomb Loader CLIA: [id number] Sodium 134 135-145 mmol/L Potassium 4.1 3.5-5.3 mmol/L Chloride 98 97-108 mmol/L CO2 25 22-32 mmol/L Glucose 106 65-99 mg/dL BUN 17 8-23 mg/dL Creatinine 0.79 0.50-1.00 mg/dL Calcium 9.7 8.6-10.4 mg/dL eGFR by Creatinine 74 >59 mL/min/1.73m2 Protein 6.9 6.0-8.3 g/dL Albumin 4.5 3.5-5.3 g/dL Alkaline Phosphatase 81 35-121 IU/L ALT (SGPT) 10 <5-47 IU/L AST (SGOT) 15 <5-40 IU/L Bilirubin, Total 0.3 <0.2-1.2 mg/dL A/G Ratio 1.9 1.1-2.5 Glycohemoglobin A1c (in hous e) Reviewed date:05/14/2024 11:32:19 AM Interpretation:5.9, normal Performing Lab: Notes/Report: 5.9, normal glycohemoglobin 5.9% 5 - 6.5 % P-Sed Rate (ESR) Reviewed date:01/03/2024 10:56:49 AM Interpretation:Normal Performing Lab: Notes/Report: Test performed by [facility] [address] [place] [address] , [place] [address] Marcus Lott MD, Bomb Loader CLIA: [id number] Erythrocyte Sedimentation Rate (ESR), Automated 8 <31 mm/hr P-Uric Acid Reviewed date:01/03/2024 10:56:49 AM Interpretation:Normal Performing Lab: Notes/Report: Test performed by [facility] [address] [place] [address] , [address], [place] [address] Marcus Lott MD, Bomb Loader CLIA: [id number] Uric Acid 3.2 2.4-7.0 mg/dL P-Basic Metabolic Panel (BMP ) Reviewed date:04/28/2024 03:54:18 PM Interpretation:Na 129, cl 95, gluc 115 Performing Lab: Notes/Report: Test performed by [facility] [address] [place] [address] , [address], [place] [address] Marcus Lott MD, Bomb Loader CLIA: [id number] Sodium 129 135-145 mmol/L Potassium 4.3 3.5-5.3 mmol/L Chloride 95 97-108 mmol/L CO2 26 22-32 mmol/L Glucose 115 65-99 mg/dL BUN 13 8-23 mg/dL Creatinine 0.67 0.50-1.00 mg/dL Calcium 9.4 8.6-10.4 mg/dL eGFR by Creatinine 87 >59 mL/min/1.73m2 P-Uric Acid Reviewed date:04/28/2024 03:54:18 PM Interpretation:Normal Performing Lab: Notes/Report: Test performed by [facility] [address] [place] [address] , [address], [place] [address] Marcus Lott MD, Bomb Loader CLIA: [id number] Uric Acid 3.1 2.4-7.0 mg/dL CBC Venipuncture (in house) Reviewed date:11/27/2024 03:44:03 [...] Interpretation:satisfactory Performing Lab: Notes/Report: Test performed by [facility] [address] [place] [address] , [address], [place] [address] Marcus Lott MD, Bomb Loader CLIA: [id number] Sodium 129 135-145 mmol/L Potassium 4.7 3.5-5.3 [...] Interpretation:Normal Performing Lab: Notes/Report: Test performed by [facility], [address] , [address], [place] [address] Marcus Lott MD, Bomb Loader CLIA: [id number] Magnesium 2.3 1.6-2.4 mg/dL Medications Medication SIG (Take, Route, Frequency, Duration) Notes Start Date End Date Status Losartan Potassium 50 mg TAKE ONE TABLET BY MOUTH EVERY DAY twice a day; Duration: 90 days Active amLODIPine Besylate 2.5 mg TAKE ONE TABL ET BY MOUTH EVERY DAY; Duration: 30 Active Senna 8.6 MG 2 tablets at bedtime as needed Orally Once a day; Duration: 30 days 11/26/2024 Active Rosuvastatin Calcium 10 MG 1 tablet Orally Once a day 06/04 MWF Not-Taking MiraLax 17 GM/SCOOP as directed Orally Active Rosuvastatin Calcium 5 MG 1 tablet Orall y one every other day; Duration: 30 days 11/02/2024 Active Allopurinol 100 mg TAKE ONE TABLET BY MOUTH EVERY DAY; Duration: 30 days Active ALPRAZolam 0.25 MG take 1/2 tab in the morning, take 1/2 tab at bedtime orally daily; Duration: 30 days 11/13/2024 Active Ferrous Sulfate 325 (65 Fe) MG 1 tablet Orally twice a day; Duration: 30 days 11/19/2024 Active DULoxetine HCl 30 MG 1 capsule Orally On ce a day; Duration: 30 days 09/17/2024 Active Metoprolol Succinate ER 50 MG 1 tab(s) orally once a day; Duration: 90 days Active Vitamin D (Ergocalciferol) 1.25 MG (74908 UT) TAKE ONE CAPSULE BY MOUTH ONCE A WEEK; Duration: 30 Active Fluticasone Propionate 50 MCG/ACT 1 spray in each nostril Nasally Once a day; Duration: 30 day(s) 09/30/2023 Active Gabapentin 300 MG 1 cap(s) orally bedtime; Duration: 30 days 10/27/2024 Active Donepezil HCl 5 MG 1 tablet at bedtime Orally At Bed Time; Duration: 30 day(s) 07/04/2023 Not-Taking ZyrTEC Allergy 10 MG 1 tablet Orally Onc e a day; Duration: 30 day(s) 09/30/2023 Active Levothyroxine Sodium 25 MCG 1 tab(s) orally once a day; Duration: 90 days Active Potassium Chloride Kandy ER 20 mEq TAKE ONE TABLET BY MOUTH TWICE DAILY; Duration: 90 Active Clopidogrel Bisulfate 75 mg TAKE ONE TABLET BY MOUTH EVERY DAY; Duration: 90 Active Metamucil Smooth Texture 58.6 % as directed orally once a day; Duration: 7 day(s) Active Pataday 0.1 % 1 drop into affected eye Ophthalmic Twice a day 09/12/2023 Active Omeprazole 40 MG 1 capsule 1/2 to 1 hour before morning meal Orally Once a day 05/07/2024 Not-Takin g Diclofenac Sodium 1 % as directed applie d topically 4 times a day 08/08/2022 Not-Taking Immunizations Vaccine Route Administration Date Status Comme nts COVID 19 Pfizer Unknown 07/15/2020 Administered COVID 19 Pfizer Unknown 08/04/2020 Administered COVID 19 Pfizer Unknown 04/22/2021 Administered DT, 7 YEARS OR OLDER Unknown 08/04/1996 Administered Fluzone High Dose (65yr and older) IM Intramuscular 03/04/2017 Administered Fluzone High Dose (65yr and older) IM Intramuscular 03/05/2018 Administered Fluzone High Dose (65yr and older) IM Intramuscular 04/06/2019 Administered Fluzone High Dose (65yr and older) IM Intramuscular 02/26/2020 Administered Fluzone High Dose (65yr and older) IM Intramuscular 03/03/2021 Administered Fluzone High Dose (65yr and older) IM Intramuscular 03/07/2022 Administered Fluzone High Dose (65yr and older) IM Intramuscular 03/25/2023 Administered Fluzone High Dose (65yr and older) IM Intramuscular 03/17/2024 Administered PNEUMOVAX 23 VACCINE IM Intramuscular 03/26/2016 Administe red Prevnar (PCV13) IM Intramuscular 07/07/2014 Administered Prevnar (PCV20) IM Intramuscular 01/02/2024 Administered Tetanus Tdap-Adacel (over 7yrs) Unknown 01/16/2021 Administered xAdministration of injection IM Intramuscular 06/06/2010 Administered Problems Problem Type SNOMED Code ICD Code Onset Dates Problem Status W/U Status Risk Notes Problem Hyponatremia (69265215) Hyponatremia (E87.1) Active confirmed Problem Hypothyroidism (25169032) Hypothyroidism (acquired) (E03.9) Active confirmed Problem Vitamin D deficiency (29832221) Vitamin D deficiency (E55.9) Active confirmed Problem Vitamin B12 deficiency (508817027) Vitamin B12 deficiency (E53.8) Active confirmed Problem Essential hypertension (05745341) Essential hypertension (I10) Active confirmed Problem Diverticulitis (34916620) Diverticulitis (K57.92) Active confirmed Problem Arthropathy (618192905) Arthropathy (M12.9) Active confirmed Problem Tear film insufficiency (75474989) Dry eye (H04.129) Active confirmed Problem Tendonitis (82831865) Tendonitis (M77.9) Active confirmed Problem Rectal bleeding (23913004) Rectal bleeding (K62.5) Active confirmed Problem Memory loss (10043343) Memory loss (R41.3) Active confirmed Problem Generalized anxiety disorder (22970232) Generalized anxiety disorder (F41.1) Active confirmed Problem Fibromyalgia (685669626) Fibromyalgia (M79.7) Active confirmed Problem Pure hypercholesterolemia (393770185) Pure hypercholesterolemia (E78.0) Active confirmed Problem Mixed hyperlipidemia (310087619) Mixed hyperlipidemia (E78.2) Active confirmed Problem Primary insomnia (4773789) Primary insomnia (F51.01) Active confirmed Problem Acute non-ST segment elevation myocardial infarction (276614463) Non-ST elevation (NSTEMI) myocardial infarction (I21.4) Active confirmed Problem Chronic rhinitis (32639173) Chronic rhinitis (J31.0) Active confirmed Problem Diverticulitis of colon (656920978) Diverticulitis of large intestine without perforation or abscess without bleeding (K57.32) Active confirmed Problem Slow transit constipation (52127815) Slow transit constipation (K59.01) Active confirmed Problem Spinal stenosis in cervical region (57717840) Spinal stenosis, cervical region (M48.02) Active confirmed Problem Cervical radiculopathy (95517441) Radiculopathy, cervical region (M54.12) Active confirmed Problem Fibrocystic breast changes (36772444) Diffuse cystic mastopathy of right breast (N60.11) Active confirmed Problem Fibrocystic breast changes (11193910) Diffuse cystic mastopathy of left breast (N60.12) Active confirmed Problem Arteriosclerotic vascular disease (78109563) Arteriosclerotic cardiovascular disease (I25.10) Active confirmed Problem Neck pain (43006495) Neck pain o n right side (M54.2) Active confirmed Problem Gastroesophageal reflux disease (768064108) GERD without esophagitis (K21.9) Active confirmed Problem Chronic pain (86459608) Other chronic pain (G89.29) Active confirmed Problem Adrenal insufficienc y (630783287) Adrenal insufficiency (E27.40) Active confirmed Problem Myositis (49727835) Myofasciitis (M60.9) Active confirmed Problem Bronchitis (04626963) Bronchitis (J40) Active c onfirmed Problem Atherosclerotic hear t disease of makah coronary artery without angina pectoris (772582709645433) Coronary artery disease involving makah coronary artery of makah heart without angina pectoris (I25.10) Active confirmed Problem Gout (06374883) Gout, unspecifie d cause, unspecified chronicity, unspecified site (M10.9) Active confirmed Problem Iron deficiency anemia due to chronic blood loss (467152955) Iron deficiency anemia due to chronic blood loss (D50.0) Active confirmed Problem Iron deficiency anemia (72274095) Iron deficiency anemia, unspecified iron deficiency anemia type (D50.9) Active confirmed Problem Hemorrhoids without complication (42580730) Hemorrhoids, unspecified hemorrhoid type (K64.9) Active confirmed Problem Abnormal gait (70639127) Imbalance (R26.89) Active confirmed Problem Mild cognitive impairment (550602951) Mild cognitive impairment (G31.84) Active confirmed Problem Pain in limb (64087820) Pain of right hand (M79.641) Active confirmed Problem Diverticular disease of colon (256246492) Diverticulosis (K57.90) Active confirmed Problem Shoulder joint pain (716796051) Acute pain of right shoulder (M25.511) Active confirmed Problem Transient ischemic attack (123110012) TIA (transient ischemic attack) (G45.9) Active confirmed Problem Anemia of chronic disease (553601596) Anemia of chronic disease (D63.8) Active confirmed Problem Anxiety about health (062510631) Anxiety about health (F41.8) Active confirmed Problem Chronic anemia (788576062) Chronic anemia (D64.9) Active confirmed Problem Pure hypercholesterolemia (716539034) Pure hypercholesterolemia, unspecified (E78.00) Active confirmed Problem Irritable bowel syndrome characterized by constipation (832694459) Irritable bowel syndrome with constipation (K58.1) Active confirmed Problem Acute non-ST segment elevation myocardial infarction (106746059) Non-STEMI (non-ST elevated myocardial infarction) (I21.4) Active confirmed Problem Fibrocystic breast changes (65199997) Fibrocystic breast disease (FCBD), unspecified laterality (N60.19) Active confirmed Problem Pulmonary hypertension (98212839) Pulmonary hypertension (I27.20) Active confirmed Problem Acquired spondylolisthesis (150680705) Spondylolisthesis at L4-L5 level (M43.16) Active confirmed Problem Type II diabetes mellitus without complication (107595031) Type 2 diabetes mellitus without complication, unspecified whether termite exterminator insulin use (E11.9) Active confirmed Problem Allergic rhinitis (57344570) Acute allergic rhinitis (J30.9) Active confirmed Problem History of syncope (941571530647196) History of syncope (Z87.898) Active confirmed Problem Cervicogenic headach e (592640543) Cervicogenic headache (G44.86) Active confirmed Problem Acquired spondylolisthesis (682393724) Spondylolisthesis at L3-L4 level (M43.16) Active confirmed Vital Signs Heart Rate 62 /min 12/07/2024 Blood pressure diastolic 62 mm Hg 12/07/2024 Height 61.50 in 12/07/2024 Blood pressure systolic 120 mm Hg 12/07/2024 Weight 130.2 lbs 12/07/2024 BMI 24.2 kg/m2 12/07/2024 Encounters Encounter Location Date Provider Diagnosis [facility] [address] [facility] [address] [place], [place] [id number] 01/02/2024 Jimy Caballero Fibromyalgia M79.7 ; Encounter for immunization Z23 and Allergic rhinitis, unspecified seasonality, unspecified trigger J30.9 [facility] [address] [place] [facility] [address] [place] [id number] 03/12/2024 Jimy Caballero Dysphoric mood R45.8 9 ; Imbalance R26.89 ; Anxiety about health F41.8 and Hyponatremia E87.1 [facility] [address] [place] [facility] [address] [place] [id number] 03/17/2024 Jimy Caballero Encounter for immunization Z23 [facility] [place] [address] [place] [facility] [address] [place] [id number] 04/09/2024 Jimy Caballero [facility] [place] [address] [facility] [address] [place] [id number] 04/23/2024 Jimy Caballero Essential hypertensi on I10 and Pain in finger of left hand M79.645 [facility] [place] [address] [place] [facility] [address] [place] [id number] 05/07/2024 R Terry Medrano Elevated fasting glu cose R73.01 and GERD without esophagitis K21.9 [facility] [place] [address] [place] [facility] [address] [place], [place] [id number] 06/04/2024 Jimy Caballero Essential hypertensi on I10 ; Anxiety about health F41.8 ; Anemia of chronic disease D63.8 ; Arteriosclerotic cardiovascular disease I25.10 ; Chronic rhinitis J31.0 ; Other chronic pain G89.29 ; Type 2 diabetes mellitus without complication, unspecified whether fdc insulin use E11.9 and Memory loss R41.3 [facility] [address] [place] [facility] [address] [place], [place] [id number] 08/06/2024 Jimy Caballero Fibromyalgia M79.7 ; Mixed hyperlipidemia E78.2 ; Anxiety about health F41.8 and Mild cognitive impairment G31.84 [facility] [place] [address] [place] [facility] [address] [place], [place] [id number] 09/17/2024 Jimy Caballero Essential hypertensi on I10 ; Vitamin B12 deficiency E53.8 ; Type 2 diabetes mellitus without complication, unspecified whether fdc insulin use E11.9 ; Arthropathy M12.9 ; Anxiety about health R45.89 and BMI 25.0-25.9,adult Z68.25 [facility] [address] [place] [facility] [address] [place] [id number] 10/12/2024 Jimy Caballero Laceration of left e lbow, initial encounter S51.012A ; Contusion of left hand, initial encounter S60.222A ; Contusion of left foot, initial encounter S90.32XA and Essential hypertension I10 [facility] [address] [place] [facility] [address] [place] [id number] 11/02/2024 Jimy Caballero Non-STEMI (non-ST elevated myocardial infarction) I21.4 ; Essential hypertension I10 ; Fibromyalgia M79.7 ; Anxiety about health F41.8 and BMI 24.0-24.9, adult Z68.24 [facility] [address] [place] [facility] [address] [place] [id number] 11/19/2024 Jimy Caballero Essential hypertensi on I10 ; Fibromyalgia M79.7 ; Hypothyroidism (acquired) E03.9 ; Anxiety about health F41.8 ; Anemia of chronic disease D63.8 ; Insect bite, unspecified site, initial encounter W57.XXXA and BMI 24.0-24.9, adult Z68.24 [facility] [address] [place] [facility] [address] [place] [id number] 11/26/2024 Jimy Caballero Iron deficiency anem ia due to chronic blood loss D50.0 ; Coronary artery disease involving makah coronary artery of makah heart without angina pectoris I25.10 ; Essential hypertension I10 and Slow transit constipation K59.01 [facility] [address] [place] [facility] [address] [place], [place] [id number] 12/07/2024 Jimy Caballero Dizziness R42 and Ch ronic anemia D64.9 [facility] [address] [facility] [address] [place] [id number] 12/20/2023 Jimy Caballero Anxiety about health F41.8 [facility] [address] [facility] [address] [place] [id number] 03/21/2024 Jimy Caballero Generalized anxiety disorder F41.1 [facility] [address] [place] [id number] 03/30/2024 Jimy Caballero [facility] [address] [place] [id number] 04/28/2024 Jimy Caballero [facility] [address] [place] [id number] 05/08/2024 Jimy Caballero [facility] [address] [place] [id number] 06/04/2024 Jimy Caballero [facility] [address] [place] [id number] 06/05/2024 Jimy Caballero [facility] [address] [place], [place] [id number] 06/12/2024 Jimy Caballero Myofasciitis M60.9 [facility] [address] [place] [id number] 07/17/2024 Jimy Caballero Generalized anxiety disorder F41.1 [facility] [address] [place] [id number] 10/27/2024 [place] Myofasciitis M60.9 [facility] [address] [place] [id number] 11/11/2024 Jimy Caballero Generalized anxiety disorder F41.1 [facility] [address] [place] [id number] 11/16/2024 Jimy Caballero Screening for osteoporosis Z13.820 [facility] [address] [place] [id number] 11/27/2024 Jimy Caballero Assessments Encounter Date Diagnosis (ICD Code) Assessment Notes Treatment Notes Treatment Clinical Notes Section Notes 12/20/2023 Anxiety about health (ICD-10 - F41.8) 01/02/2024 Fibromyalgia (ICD-10 - M79.7) 01/02/2024 Encounter for immunization (ICD-10 - Z23) 03/12/2024 Imbalance (ICD-10 - R26.89) 03/12/2024 Dysphoric mood (ICD-10 - R45.89) 03/17/2024 Encounter for immunization (ICD-10 - Z23) 03/21/2024 Generalized anxiety disorder (ICD-10 - F41.1) 04/23/2024 Essential hypertension (ICD-10 - I10) 04/23/2024 Pain in finger of left hand (ICD-10 - M79.645) 05/07/2024 GERD without esophagitis (ICD-10 - K21.9) 05/07/2024 Elevated fasting glucose (ICD-10 - R73.01) 06/04/2024 Essential hypertension (ICD-10 - I10) 06/12/2024 Myofasciitis (ICD-10 - M60.9) 07/17/2024 Generalized anxiety disorder (ICD-10 - F41.1) 08/06/2024 Fibromyalgia (ICD-10 - M79.7) 08/06/2024 Mixed hyperlipidemia (ICD-10 - E78.2) 09/17/2024 Vitamin B12 deficiency (ICD-10 - E53.8) Continue present RX 09/17/2024 Essential hypertension (ICD-10 - I10) Continue present RX 06/04/2024 Anxiety about health (ICD-10 - F41.8) 10/12/2024 Contusion of left hand, initial encounter (ICD-10 - S60.222A) 10/12/2024 Laceration of left elbow, initial encounter (ICD-10 - S51.012A) 10/27/2024 Myofasciitis (ICD-10 - M60.9) 11/02/2024 Essential hypertension (ICD-10 - I10) 11/02/2024 Non-STEMI (non-ST elevated myocardial infarction) (ICD-10 - I21.4) 11/11/2024 Generalized anxiety disorder (ICD-10 - F41.1) 11/16/2024 Screening for osteoporosis (ICD-10 - Z13.820) 11/19/2024 Essential hypertension (ICD-10 - I10) 11/19/2024 Fibromyalgia (ICD-10 - M79.7) 11/26/2024 Coronary artery disease involving makah coronary artery of makah heart without angina pectoris (ICD-10 - I25.10) 11/26/2024 Iron deficiency anemia due to chronic blood loss (ICD-10 - D50.0) 12/07/2024 Dizziness (ICD-10 - R42) 12/07/2024 Chronic anemia (ICD-10 - D64.9) 11/26/2024 Essential hypertension (ICD-10 - I10) 11/19/2024 Hypothyroidism (acquired) (ICD-10 - E03.9) 11/02/2024 Fibromyalgia (ICD-10 - M79.7) 10/12/2024 Contusion of left foot, initial encounter (ICD-10 - S90.32XA) 08/06/2024 Anxiety about health (ICD-10 - F41.8) 09/17/2024 Type 2 diabetes mellitus without complication, unspecified whether termite exterminator insulin use (ICD-10 - E11.9) Continue present RX 06/04/2024 Anemia of chronic disease (ICD-10 - D63.8) 03/12/2024 Anxiety about health (ICD-10 - F41.8) 01/02/2024 Allergic rhinitis, unspecified seasonality, unspecified trigger (ICD-10 - J30.9) 03/12/2024 Hyponatremia (ICD-10 - E87.1) 06/04/2024 Arteriosclerotic cardiovascular disease (ICD-10 - I25.10) 08/06/2024 Mild cognitive impairment (ICD-10 - G31.84) 09/17/2024 Arthropathy (ICD-10 - M12.9) Continue present RX 10/12/2024 Essential hypertension (ICD-10 - I10) 11/02/2024 Anxiety about health (ICD-10 - F41.8) 11/19/2024 Anxiety about health (ICD-10 - F41.8) 11/26/2024 Slow transit constipation (ICD-10 - K59.01) 11/19/2024 Anemia of chronic disease (ICD-10 - D63.8) Stop Baby Aspirin 11/02/2024 BMI 24.0-24.9, adult (ICD-10 - Z68.24) 09/17/2024 Anxiety about health (ICD-10 - R45.89) Continue present RX 06/04/2024 Chronic rhinitis (ICD-10 - J31.0) 06/04/2024 Other chronic pain (ICD-10 - G89.29) Is she taking the Gabapentin BID? Discussed possible TID. 09/17/2024 BMI 25.0-25.9,adult (ICD-10 - Z68.25) Continue present RX 11/19/2024 Insect bite, unspecified site, initial encounter (ICD-10 - W57.XXXA) Hydrocortisone cream recommended 06/04/2024 Type 2 diabetes mellitus without complication, unspecified whether fdc insulin use (ICD-10 - E11.9) 11/19/2024 BMI 24.0-24.9, adult (ICD-10 - Z68.24) 06/04/2024 Memory loss (ICD-10 - R41.3) 03/12/2024 Other Recommended Align Probiotic Plan Of Treatment Pending Test Test Name Order Date Bone density 11/16/2024 CBC Fingerstick (in house) 12/07/2024 Holter Monitor- 48 hour 12/07/2024 P-Microalbumin/Creatinine, Random Urine Sample 06/04/2024 Next Appt Details Provider Name:Jimy Myles er, 12/24/2024 02:15:00 PM, [address], [place], [place], [id number], Insurance Providers Payer Name Payer Address Payer Phone Subscriber Number Group Number Insured Name Patient Relationship to Insured Coverage Start Date Coverage End Date MEDICARE PART B [address] [address] [place] [address] [id number] AMINAH BAIRES Self - patient is the insured [employer] [address] [place] [phone] [id number] AMINAH BAIRES Self - patient is the insured Medications Administered Medication Instructions Date of Administration Dosage Notes B-12 06/01/2015 1 mL B-12 07/24/2016 1 mL Bicillin LA 1,200,000 07/23/2005 2 mL Dexamethasone 03/13/2018 1 mL Medical (General) History Medical History History ICD Code Hypertension Hyperlipidemia fibromyalgia osteoarthritis Intercostal neuropathy microhematuria Cardiolyte GXT neg, EF=73%. 11/24/13 05/03/19 ESR=88 COVID 19 vaccine, Pfizer x2 Sigmoid diverticulosis COVID 19 Booster COVID 19 Booster, Pfizer, December 2021 Surgical History Surgery Date(Month/Year) total hysterectomy 1994 right shoulder-rotator cuff 2002 breast lump removal -benign 1983 Eye lid lifts on both eyes 03/06/2010 colonoscopy and EGD. 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 Tilley, noncritical CA D disease 05/19/2018 Hospitalization History Reason Date(Month/Year)
== END 2024-12-07 23:59 | disposition home or self-care (01) ==
LOC: RT 16:35
PROVIDERS: PCP Family Medicine; Visit Provider Family Medicine
DX: I49.1 Atrial premature depolarization (principal); I49.3 Ventricular premature depolarization
CPT/HCPCS: 93225; 93227

== ENCOUNTER 2025-01-11 13:16 | Outpatient (CLI) | payer MEDICARE, OTHER, SELFPAY ==
--- OUTSIDE RECORDS SUMMARY | 2024-12-10 09:30 | XMS_ITS ---
Author Organization [facility] Address [address] [facility] [address] [facility] [address] [place] [id number] Care Team Providers Care Retail Pharmacy Technician Name Role Phone Jimy Caballero Primary Care Provider REASON FOR VISIT 2 week Encounters Encounter Location Date Provider Diagnosis [facility] [address] [place] [phone] 12/10/2024 Jimy Caballero Plan Of Treatment Next Appt Details Provider Name:Jimy Myles er, 02/25/2025 01:45:00 PM, [address], [address], [place], [place], [id number], Progress Notes * DAKOTAH BAIRESASHLEYOB: 2 (84 yo F)Acc No.[id number]:12/10/2024 Progress Notes Patient: AMINAH TURNER Provider: Jimy Caballero M.D. :1940 A ge:84 Y S ex:Female Date:12/10/2024 Address:[place], [id number] Subjective: * Chief Complaints: * 1 . 2 week. * Medical History: Objective: * Vitals: Assessment: Plan: * Treatment: * Images: Billing Information: * Visit Code: * Procedure Codes: * Electronic signature of Jimy Caballero MD on 01/11/2025 at 01:20 PM EDT Sign off status: Pending * Provider: Jimy Caballero M.D. Date: 0 12/10/2024 Generated for Abelino mclaughlin/Miranda/Edditting on: 0 01/11/2025 01:20 PM EDT
--- NOTE | 2025-01-11 13:19 | XR_ITS ---
FINAL REPORT CLINICAL HISTORY: SCREENING COMPARISON: None FINDINGS: Using L1-4, the bone mineral density of the spine is 1.083 g/cm2, corresponding to T-score of 0.3, within normal limits. Using the left hip, the bone mineral density of the femoral neck is 0.695 g/cm2, corresponding to a T-score of -1.4, compatible with osteopenia. Using the right hip, the bone mineral density of the femoral neck is 0.661 g/cm2, corresponding to a T-score of -1.7, compatible with osteopenia. FRAX not reported because the patient is being treated for osteoporosis. NOTE: T-score: Standard deviation compared with peak bone mass of young adult mean. *Following the recommendations of the International Society of Bone densitometry, classification of hip BMD is based on the lower of two T-scores; total hip or femoral neck. IMPRESSION: Normal bone mineral density of the lumbar spine, with diminished bone mineral density in the bilateral hips consistent with osteopenia. Reviewed, Interpreted and Dictated by Brain Aparicio MD Transcribed by Kandis Acuna Authenticated and [facility]
--- OUTSIDE RECORDS SUMMARY | 2025-01-11 13:20 | XMS_ITS | Encounter Summary ---
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 - [facility] Social History Tobacco Use Types Packs/Day Years Used Date Smoking Tobacco: Never Assessed Comments Unknown Sex and Gender Information Value Date Recorded Sex Assigned at Not on file Legal Sex Female 10:04 AM EDT Gender Identity Not on file Sexual Orientation Not on file documented as of this encounter Plan of Treatment Not on file documented as of this encounter Visit Diagnoses Not on filedocumented in this encounter Care Teams Wood Gouger Relationship Specialty Start Date End Date Chip Caballero MD [address] [facility] [address] [place] [address] PCP - General Family Medicine 05/07/19 documented as of this encounter
--- OUTSIDE RECORDS SUMMARY | 2025-01-11 13:20 | XMS_ITS | Encounter Summary ---
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
--- OUTSIDE RECORDS SUMMARY | 2025-01-11 13:20 | XMS_ITS | Clinical Summary ---
Author Organization [facility] Address [address] [place] [address] Care Team Providers Care Medical Laboratory Technical Officer Name Role Phone Chip Caballero MD Primary Care Provider [phone] Allergies Active Allergy Reactions Criticality Noted Date Comments Sulfa Antibiotics Other (See Comments) 05/07/20 19 Pt doesn't remember reaction Medications allopurinol (ZYLOPRIM) 100 MG tablet Take 200 mg by mouth Daily. Active metFORMIN (GLUCOPHAGE) 500 MG tablet Take 500 mg by mouth Daily. Active levothyroxine (SYNTHROID, LEVOTHROID) 25 MCG tablet Take 25 mcg by mouth Daily. Active potassium chloride (K-DUR,KLOR-CON ) 20 MEQ CR tablet Take 20 mEq by mouth Daily. Active polyethylene glycol (MIRALAX) pack packet Take 17 g by mouth As Needed. Active losartan (COZAAR) 50 MG tablet Take 50 mg by mouth 2 (Two) Times a Day. Active aspirin 81 MG chewable tablet Chew 81 mg Daily. Active gabapentin (NEURONTIN) 300 MG capsule Take 300 mg by mouth Every Night. Active rosuvastatin (CRESTOR) 20 MG tablet Take 20 mg by mouth Daily. Active metoprolol succinate XL (TOPROL-XL) 100 MG 24 hr tablet Take 25 mg by mouth Daily. Active predniSONE 5 MG (21) tablet therapy pack dosepak Take 1 each by mouth. Take as directed on package instructions. 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 TIA (transient ischemic attack) 06/23/2019 Headache 06/22/2019 Type 2 diabetes mellitus 06/22/2019 Essential hypertension 06/22/2019 Hypothyroid 06/22/2019 Confusion 05/07/2019 Immunizations Immunization Administration Dates Next Due Tdap 01/16/2021 Family History Medical History Relation Name Comments Colon cancer Brother Heart attack Father Dementia Mother Relation Name Status Comments Brother Father Mother Social History Tobacco Use Types Packs/Day Years Used Date Smoking Tobacco: Never Smokeless Tobacco: Never Alcohol Use Standard Drinks/Week Comments Yes 0 (1 standard drink = 0.6 oz pur e alcohol) occasional Abuse Screen Answer Date Recorded Unsafe at Home or Work/School Not on file Feels Threatened by Someone? Not on file 02/2023 Does Anyone Keep You from Co ntacting Others or Doint Things Outside the Home? Not on file 03/11/2023 Physical Sign of Abuse Present Not on file 1 Housing Stability Answer Date Recorded Current Living Arrangements Not on file 02/2023 Potentially Unsafe Housing Conditions Not on betty e 03/11/2023 Family and Community Support Answer Sundeep e Recorded Help with Day-to-Day Activities Not on file 03/11/2023 Lonely or Isolated Not on file 03/11/2023 Employment Answer Date Recorded Do you want help finding or keeping work or a halley b? Not on file 03/11/2023 Disabilities Answer Date Recorded Concentrating, Remembering, or Making Decisions Difficulty Not on file 03/11/2023 Doing Errands Independently Difficulty Not on fi le 03/11/2023 Education Answer Date Recorded Help with school or training? Not on file Preferred Language Not on file 03/11/2023 Comments Unknown Sex and Gender Information Value Date Recorded Sex Assigned at Not on file Legal Sex Female 10:04 AM EDT Gender Identity Not on file Sexual Orientation Not on file Last Filed Vital Signs Vital Sign Reading Time Taken Comments Blood Pressure 193/81 01/16/2021 10:00 PM EDT Pulse 56 01/16/2021 9:49 PM EDT Temperature 36.7 C (98.1 F) 01/16/2021 8:13 PM EDT Respiratory Rate 16 01/16/2021 8:03 PM EDT Oxygen Saturation 100% 01/16/2021 10:54 PM EDT Inhaled Oxygen Concentration - - Weight 60.8 kg (134 lb) 01/16/2021 7:59 PM EDT Height 154.9 cm (5' 1 ) 01/16/2021 7:59 PM EDT Body Mass Index 25.32 01/16/2021 7:59 PM EDT Plan of Treatment Health Maintenance Due Date Last Done Comments Pneumococcal Vaccine 50+ (1 of 1 - PCV) 1991 ZOSTER VACCINE (1 of 2) 1991 RSV Vaccine - Adults (1 - 1- dose 75+ series) 2016 ANNUAL PHYSICAL 06/24/2019 DXA SCAN 08/30/2019 08/29/2017 COVID-19 Vaccine (3 - 2023-2 5 season) 2024 08/04/2020, 07/15/2020 INFLUENZA VACCINE 03/03/2025 02/26/2020, , 02/26/2020, Additional history exists TDAP/TD VACCINES (3 - Td or Tdap) 01/16/2031 021, 08/04/1996 HEMOGLOBIN A1C Discontinued 11/25/2019, 11/01, 06/23/2019, Additional history exists Procedures Procedure Name Priority Date/Time Associated Diagnosis Comments HEMOGLOBIN A1C Add-On 06/23/2019 4:34 AM EST from Last 3 Months or Most Recently Relevant to Health Maintenance Results * Hemoglobin A1c (06/23/2019 4:34 AM EST) Hemoglobin A1C 5.60 4.80 - 5.60 % 06/23/2019 10:10 AM EST [facility] Blood Venipuncture / Unknown 06/23/2019 4:34 AM EST 06/23/2019 5:32 AM EST Narrative [facility] - 06/23/2019 10:10 AM EST Hemoglobin A1C Ranges: Increased Risk for Diabetes 5.7% to 6.4% Diabetes >= 6.5% Diabetic Goal < 7.0% Susan Reynoso MD LAB BLOOD ORDERABLES Fi nal Result [facility]
[address] [place] [address], from Last 3 Months or Most Recently Relevant to Health Maintenance Insurance [place] [id number] MEDICARE A & B Member Subscriber Plan / Payer (Ef fective 2006-Present) Name:Gabby Baires Member ID:[id number] Relation to Subscriber:Self Name:Gabby Baires Subscriber ID:[id number] Payer ID:[id number] Group ID:Not on file Type:Not on file Address: [address] [place] [address] [employer] Advance Directives * CPR (Attempt to Resuscitate) (Latest Code Status on File) Date Activated Date Inactivated Comments 06/22/2019 9:57 PM 06/23/2019 8:50 PM Question Answer Comments Code Status (Patient has no pulse and is not breathing): CPR (Attempt to Resuscitate) Medical Interventions (Patie nt has pulse or is breathing): Full * CPR (Attempt to Resuscitate) Date Activated Date Inactivated Comments 05/07/2019 5:05 PM 05/08/2019 8:07 PM Question Answer Comments Code Status (Patient has no pulse and is not breathing): CPR (Attempt to Resuscitate) Medical Interventions (Patie nt has pulse or is breathing): Full Level Of Support Discussed With: Patient Care Teams Medical Laboratory Technical Officer Relationship Specialty Start Date End Date Chip Caballero MD [address] [facility] [address] [place] [address] PCP - General Family Medicine 05/07/19
--- OUTSIDE RECORDS SUMMARY | 2025-01-11 13:20 | XMS_ITS | Patient Health Record ---
Author Organization [facility] Address [address] [facility] [address] [place] [address] Care Team Providers Care Exercise Equipment Repair Technician Name Role Phone Lorena Charlton Unavailable [phone] Allergies Allergen (clinical drug ingredient) Drug/Non Drug Allergy documented on EMR Reaction Allergy Type Onset Date Status sulfamethoxazole / trimethoprim SULFAMETHOXAZOLE-T RIMETHOPRIM Unspecified Drug Allergy 02/05/2014 Active Reason For Referral No Information Social History Social History Sexual History: Social Info Question Answer Notes Sexual History Had sex in the past 12 months (vaginal, oral, or anal)? Yes Drugs/Alcohol: Social Info Question Answer Notes Drugs Have you used drugs other than those for medical reasons in the past 12 months? No Alcohol Screen Did you have a drink containing alcohol in the past year? Yes Points 0 Interpretation Negative Tobacco Use: Social Info Question Answer Notes Tobacco Use/Smoking Are you a former smoker Tobacco use other than smoking: Are you an other tobac co user? No Plan Of Treatment No Information Medical (General) History Medical History History ICD Code METFORMIN HCL TABLET CRESTOR TABLET ALLOPURINOL TABLET LEVOTHYROXINE SODIUM TABLET NEURONTIN TABLET FUROSEMIDE TABLET BISOPROLOL FUMARATE TABLET LISINOPRIL-HYDROCHLOROTHIAZIDE TABLET FERROUS SULFATE VITAMIN D
--- OUTSIDE RECORDS SUMMARY | 2025-01-11 13:22 | XMS_ITS | Patient Health Record ---
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 Name Role Phone Jimy Caballero Primary Care Provider [phone] Marina Medrano Unavailable [phone] Olvin Mayesian Unavailable [phone] Terry Diane Unavailable [phone] Allergies Allergen (clinical drug ingredient) Drug/Non Drug Allergy documented on EMR Reaction Allergy Type Onset Date Status sucralfate Sucralfate lightheaded, swelling of lips Drug Allergy Active Substance with sulfonamide structure and antibacterial mechanism of action (substance) Sulfa Antibiotics rash Drug Allergy Active Results Component Value Reference Range Notes P-Comprehensive Metabolic Pa ladi (CMP) Reviewed date:06/05/2024 09:09:23 AM Interpretation:Na 134, gluc 106 Performing Lab: Notes/Report: Test performed by [email or web address] [address] [place] [address] , [address], [place] [address] Marcus Lott MD, Script Developer CLIA: [id number] Sodium 134 135-145 mmol/L Potassium 4.1 3.5-5.3 [...] 0.3 <0.2-1.2 mg/dL A/G Ratio 1.9 1.1-2.5 Holter Monitor- 48 hour Reviewed date:01/01/2025 12:48:56 PM Interpretation:see 12/24/24 OV Performing Lab: Notes/Report: see 12/24/24 OV CBC Fingerstick (in house) Reviewed date:12/08/2024 11:41:55 AM Interpretation: Performing Lab: Notes/Report: wbc 7.7 3.5 - 10 lym 21.9% 15 - 50 mid 5.5% 2 - 15 gran 72.6% 35 - 80 rbc 3.91 3.5 - 5.5 hgb 11.7 11.5 - 16.5 hct 34.5 35 - 55 mcv 88.3 75 - 100 mch 30.1 25 - 35 mchc 34.1 31 - 38 plat 347 100 - 400 P-Basic Metabolic Panel (BMP ) Reviewed date:04/28/2024 03:54:18 PM Interpretation:Na 129, cl 95, gluc 115 Performing Lab: Notes/Report: Test performed by [facility] [address] [place] [address] , [address], [place] [id number] Marcus Lott MD, Script Developer CLIA: [id number] Sodium 129 135-145 mmol/L Potassium 4.3 3.5-5.3 mmol/L Chloride 95 97-108 mmol/L CO2 26 22-32 mmol/L Glucose 115 65-99 mg/dL BUN 13 8-23 mg/dL Creatinine 0.67 0.50-1.00 mg/dL Calcium 9.4 8.6-10.4 mg/dL eGFR by Creatinine 87 >59 mL/min/1.73m2 P-Uric Acid Reviewed date:04/28/2024 03:54:18 PM Interpretation:Normal Performing Lab: Notes/Report: Test performed by [facility] [address] [place], [place] [address] [place] , [address], [place] [address] Marcus Lott MD, Script Developer CLIA: [id number] Uric Acid 3.1 2.4-7.0 mg/dL Glycohemoglobin A1c (in hous e) Reviewed date:05/14/2024 11:32:19 AM Interpretation:5.9, normal Performing Lab: Notes/Report: 5.9, normal glycohemoglobin 5.9% 5 - 6.5 % CBC Venipuncture (in house) Reviewed date:11/27/2024 03:44:03 [...] 100 - 400 P-Comprehensive Metabolic Pa ladi ([facility]) Reviewed date:12/01/2024 03:02:34 PM Interpretation:satisfactory Performing Lab: Notes/Report: Test performed by [facility] [address] [place] [address] , [address], [place] [address] Marcus Lott MD, Script Developer CLIA: [id number] Sodium 129 135-145 mmol/L Potassium 4.7 3.5-5.3 [...] Interpretation:Normal Performing Lab: Notes/Report: Test performed by [facility] [address] [place] [address] , [address], [place] [address] Marcus Lott MD, Script Developer CLIA: [id number] Magnesium 2.3 1.6-2.4 mg/dL Medications Medication SIG (Take, Route, Frequency, Duration) Notes Start Date End Date Status DULoxetine HCl 30 MG 1 capsule Orally On ce a day; Duration: 30 days 09/17/2024 Active Fluticasone Propionate 50 MCG/ACT 1 spray in each nostril Nasally Once a day; Duration: 30 day(s) 09/30/2023 Active Omeprazole 40 MG 1 capsule 1/2 to 1 hour before morning meal Orally Once a day 05/07/2024 Not-Takin g Diclofenac Sodium 1 % as directed applie d topically 4 times a day 08/08/2022 Not-Taking Clopidogrel Bisulfate 75 mg TAKE ONE TABLET BY MOUTH EVERY DAY; Duration: 90 Active Vitamin D (Ergocalciferol) 1.25 MG (85631 UT) TAKE ONE CAPSULE BY MOUTH ONCE A WEEK; Duration: 30 Active Rosuvastatin Calcium 10 MG 1 tablet Orally Once a day 06/04 MWF Not-Taking Levothyroxine Sodium 25 MCG 1 tab(s) orally once a day; Duration: 90 days Active Donepezil HCl 5 MG 1 tablet at bedtime Orally At Bed Time; Duration: 30 day(s) 07/04/2023 Not-Taking Metoprolol Succinate ER 50 MG 1 tab(s) orally once a day; Duration: 90 days Active ALPRAZolam 0.25 MG take 1/2 tab in the morning, take 1/2 tab at bedtime orally daily; Duration: 30 days 11/13/2024 Active Pataday 0.1 % 1 drop into affected eye Ophthalmic Twice a day 09/12/2023 Active Ferrous Sulfate 325 (65 Fe) MG 1 tablet Orally twice a day; Duration: 30 days 11/19/2024 Active MiraLax 17 GM/SCOOP as directed Orally Active Gabapentin 300 MG 1 cap(s) orally bedtime; Duration: 30 days 10/27/2024 Active Metamucil Smooth Texture 58.6 % as directed orally once a day; Duration: 7 day(s) Active Rosuvastatin Calcium 5 MG 1 tablet Orall y one every other day; Duration: 30 days 11/02/2024 Active Senna 8.6 MG 2 tablets at bedtime as needed Orally Once a day; Duration: 30 days 11/26/2024 Active Potassium Chloride Kandy ER 20 mEq TAKE ONE TABLET BY MOUTH TWICE DAILY; Duration: 90 Active Allopurinol 100 mg TAKE ONE TABLET BY MOUTH EVERY DAY; Duration: 30 Active Losartan Potassium 50 mg TAKE ONE TABLET BY MOUTH EVERY DAY twice a day; Duration: 90 days Active ZyrTEC Allergy 10 MG 1 tablet Orally Onc e a day; Duration: 30 day(s) 09/30/2023 Active amLODIPine Besylate 2.5 mg TAKE ONE TABL ET BY MOUTH EVERY DAY; Duration: 30 Active Immunizations Vaccine Route Administration Date Status Comme nts COVID 19 Pfizer Unknown 04/22/2021 Administered Fluzone High Dose (65yr and older) IM Intramuscular 03/05/2018 Administered Fluzone High Dose (65yr and older) IM Intramuscular 04/06/2019 Administered Fluzone High Dose (65yr and older) IM Intramuscular 03/07/2022 Administered Fluzone High Dose (65yr and older) IM Intramuscular 03/25/2023 Administered Fluzone High Dose (65yr and older) IM Intramuscular 03/17/2024 Administered PNEUMOVAX 23 VACCINE IM Intramuscular 03/26/2016 Administe red Prevnar (PCV20) IM Intramuscular 01/02/2024 Administered Tetanus Tdap-Adacel (over 7yrs) Unknown 01/16/2021 Administered Prevnar (PCV13) IM Intramuscular 07/07/2014 Administered Fluzone High Dose (65yr and older) IM Intramuscular 03/03/2021 Administered Fluzone High Dose (65yr and older) IM Intramuscular 03/04/2017 Administered DT, 7 YEARS OR OLDER Unknown 08/04/1996 Administered COVID 19 Pfizer Unknown 08/04/2020 Administered COVID 19 Pfizer Unknown 07/15/2020 Administered xAdministration of injection IM Intramuscular 06/06/2010 Administered Fluzone High Dose (65yr and older) IM Intramuscular 02/26/2020 Administered Problems Problem Type SNOMED Code ICD Code Onset Dates Problem Status W/U Status Risk Notes Problem Hyponatremia (23439450) Hyponatremia (E87.1) Active confirmed Problem Hypothyroidism (94338999) Hypothyroidism (acquired) (E03.9) Active confirmed Problem Vitamin D deficiency (47058238) Vitamin D deficiency (E55.9) Active confirmed Problem Vitamin B12 deficiency (517617926) Vitamin B12 deficiency (E53.8) Active confirmed Problem Essential hypertension (84856655) Essential hypertension (I10) Active confirmed Problem Diverticulitis (96940096) Diverticulitis (K57.92) Active confirmed Problem Arthropathy (187364173) Arthropathy (M12.9) Active confirmed Problem Tear film insufficiency (22653813) Dry eye (H04.129) Active confirmed Problem Tendonitis (22045771) Tendonitis (M77.9) Active confirmed Problem Rectal bleeding (04592196) Rectal bleeding (K62.5) Active confirmed Problem Memory loss (04584258) Memory loss (R41.3) Active confirmed Problem Generalized anxiety disorder (80996355) Generalized anxiety disorder (F41.1) Active confirmed Problem Fibromyalgia (949142958) Fibromyalgia (M79.7) Active confirmed Problem Pure hypercholesterolemia (125634317) Pure hypercholesterolemia (E78.0) Active confirmed Problem Mixed hyperlipidemia (185703000) Mixed hyperlipidemia (E78.2) Active confirmed Problem Primary insomnia (3257751) Primary insomnia (F51.01) Active confirmed Problem Acute non-ST segment elevation myocardial infarction (889618635) Non-ST elevation (NSTEMI) myocardial infarction (I21.4) Active confirmed Problem Chronic rhinitis (01922595) Chronic rhinitis (J31.0) Active confirmed Problem Diverticulitis of colon (441891495) Diverticulitis of large intestine without perforation or abscess without bleeding (K57.32) Active confirmed Problem Slow transit constipation (38257956) Slow transit constipation (K59.01) Active confirmed Problem Spinal stenosis in cervical region (77768035) Spinal stenosis, cervical region (M48.02) Active confirmed Problem Cervical radiculopathy (90090072) Radiculopathy, cervical region (M54.12) Active confirmed Problem Fibrocystic breast changes (82649928) Diffuse cystic mastopathy of right breast (N60.11) Active confirmed Problem Fibrocystic breast changes (07000660) Diffuse cystic mastopathy of left breast (N60.12) Active confirmed Problem Arteriosclerotic vascular disease (80510481) Arteriosclerotic cardiovascular disease (I25.10) Active confirmed Problem Neck pain (08445713) Neck pain o n right side (M54.2) Active confirmed Problem Gastroesophageal reflux disease (359931907) GERD without esophagitis (K21.9) Active confirmed Problem Chronic pain (34837357) Other chronic pain (G89.29) Active confirmed Problem Adrenal insufficienc y (140223306) Adrenal insufficiency (E27.40) Active confirmed Problem Myositis (64672754) Myofasciitis (M60.9) Active confirmed Problem Bronchitis (78616372) Bronchitis (J40) Active c onfirmed Problem Atherosclerotic hear t disease of coquille coronary artery without angina pectoris (013270050767656) 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 (I25.10) Active confirmed Problem Gout (43777688) Gout, unspecifie d cause, unspecified chronicity, unspecified site (M10.9) Active confirmed Problem Iron deficiency anemia due to chronic blood loss (024720029) Iron deficiency anemia due to chronic blood loss (D50.0) Active confirmed Problem Iron deficiency anemia (13110674) Iron deficiency anemia, unspecified iron deficiency anemia type (D50.9) Active confirmed Problem Hemorrhoids without complication (03431254) Hemorrhoids, unspecified hemorrhoid type (K64.9) Active confirmed Problem Abnormal gait (20593496) Imbalance (R26.89) Active confirmed Problem Mild cognitive impairment (532156168) Mild cognitive impairment (G31.84) Active confirmed Problem Pain in limb (77248696) Pain of right hand (M79.641) Active confirmed Problem Diverticular disease of colon (589437370) Diverticulosis (K57.90) Active confirmed Problem Shoulder joint pain (185045888) Acute pain of right shoulder (M25.511) Active confirmed Problem Transient ischemic attack (664262815) TIA (transient ischemic attack) (G45.9) Active confirmed Problem Anemia of chronic disease (831624344) Anemia of chronic disease (D63.8) Active confirmed Problem Anxiety about health (126112145) Anxiety about health (F41.8) Active confirmed Problem Chronic anemia (045979398) Chronic anemia (D64.9) Active confirmed Problem Pure hypercholesterolemia (610757035) Pure hypercholesterolemia, unspecified (E78.00) Active confirmed Problem Irritable bowel syndrome characterized by constipation (950481068) Irritable bowel syndrome with constipation (K58.1) Active confirmed Problem Acute non-ST segment elevation myocardial infarction (575519371) Non-STEMI (non-ST elevated myocardial infarction) (I21.4) Active confirmed Problem Fibrocystic breast changes (37924849) Fibrocystic breast disease (FCBD), unspecified laterality (N60.19) Active confirmed Problem Pulmonary hypertension (81065445) Pulmonary hypertension (I27.20) Active confirmed Problem Acquired spondylolisthesis (229425255) Spondylolisthesis at L4-L5 level (M43.16) Active confirmed Problem Type II diabetes mellitus without complication (358002259) Type 2 diabetes mellitus without complication, unspecified whether lobsterman insulin use (E11.9) Active confirmed Problem Allergic rhinitis (78387228) Acute allergic rhinitis (J30.9) Active confirmed Problem History of syncope (023602277233539) History of syncope (Z87.898) Active confirmed Problem Cervicogenic headach e (870486684) Cervicogenic headache (G44.86) Active confirmed Problem Acquired spondylolisthesis (825595989) Spondylolisthesis at L3-L4 level (M43.16) Active confirmed Vital Signs Heart Rate 61 /min 12/24/2024 Blood pressure diastolic 70 mm Hg 12/24/2024 Height 61.50 in 12/24/2024 Blood pressure systolic 130 mm Hg 12/24/2024 Weight 131.2 lbs 12/24/2024 BMI 24.39 kg/m2 12/24/2024 Encounters Encounter Location Date Provider Diagnosis [facility] [address] [facility] [address] [place] [id number] 03/12/2024 Jimy Caballero Dysphoric mood R45.8 9 ; Imbalance R26.89 ; Anxiety about health F41.8 and Hyponatremia E87.1 [facility] [address] [facility] [address] [place], [place] [id number] 03/17/2024 Jimy Caballero Encounter for immunization Z23 [facility] [address] [facility] [address] [place], [place] [id number] 04/09/2024 Jimy Caballero [facility] [address] [facility] [address] [place] [id number] 04/23/2024 Jimy Caballero Essential hypertensi on I10 and Pain in finger of left hand M79.645 [facility] [address] [id number] 05/07/2024 R Terry Medrano Elevated fasting glu cose R73.01 and GERD without esophagitis K21.9 [facility] [address] [id number] 06/04/2024 Jimy Caballero Essential hypertensi on I10 ; Anxiety about health F41.8 ; Anemia of chronic disease D63.8 ; Arteriosclerotic cardiovascular disease I25.10 ; Chronic rhinitis J31.0 ; Other chronic pain G89.29 ; Type 2 diabetes mellitus without complication, unspecified whether lobsterman insulin use E11.9 and Memory loss R41.3 [facility] [address] [id number] 08/06/2024 Jimy Caballero Fibromyalgia M79.7 ; Mixed hyperlipidemia E78.2 ; Anxiety about health F41.8 and Mild cognitive impairment G31.84 [facility] [address] [id number] 09/17/2024 Jimy Caballero Essential hypertensi on I10 ; Vitamin B12 deficiency E53.8 ; Type 2 diabetes mellitus without complication, unspecified whether nursing home insulin use E11.9 ; Arthropathy M12.9 ; Anxiety about health R45.89 and BMI 25.0-25.9,adult Z68.25 [facility] [address] [id number] 10/12/2024 Jimy Caballero Laceration of left e lbow, initial encounter S51.012A ; Contusion of left hand, initial encounter S60.222A ; Contusion of left foot, initial encounter S90.32XA and Essential hypertension I10 [facility] [address] [id number] 11/02/2024 Jimy Caballero Non-STEMI (non-ST elevated myocardial infarction) I21.4 ; Essential hypertension I10 ; Fibromyalgia M79.7 ; Anxiety about health F41.8 and BMI 24.0-24.9, adult Z68.24 [facility] [address] [id number] 11/19/2024 Jimy Caballero Essential hypertensi on I10 ; Fibromyalgia M79.7 ; Hypothyroidism (acquired) E03.9 ; Anxiety about health F41.8 ; Anemia of chronic disease D63.8 ; Insect bite, unspecified site, initial encounter W57.XXXA and BMI 24.0-24.9, adult Z68.24 [facility] [address] [facility] [address] [place] [id number] 11/26/2024 Jimy Caballero Iron deficiency anem ia due to chronic blood loss D50.0 ; 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 I25.10 ; Essential hypertension I10 ; Slow transit constipation K59.01 and BMI 24.0-24.9, adult Z68.24 [facility] [address] [facility] [address] [place] [id number] 12/07/2024 Jimy Caballero Dizziness R42 ; 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 D64.9 and BMI 24.0-24.9, adult Z68.24 [facility] [address] [facility] [address] [place] [id number] 12/24/2024 Jimy Caballero Coronary artery dise ase involving coquille coronary artery of coquille heart without angina pectoris I25.10 ; Vitamin B12 deficiency E53.8 ; Fibromyalgia M79.7 ; Hypothyroidism (acquired) E03.9 ; History of syncope Z87.898 ; Anxiety about health F41.8 ; Essential hypertension I10 and BMI 24.0-24.9, adult Z68.24 [facility] [address] [facility] [address] [place], [place] [id number] 03/21/2024 Jimy Caballero Generalized anxiety disorder F41.1 [facility] [address] [facility] [address] [place], [place] [id number] 03/30/2024 Jimy Caballero [facility] [address] [facility] [address] [place], [place] [id number] 04/28/2024 Jimy Caballero [facility] [address] [facility] [address] [place] [id number] 05/08/2024 Jimy Caballero [facility] [address] [place], [place] [id number] 06/04/2024 Jimy Caballero [facility] [address] [place], [place] [id number] 06/05/2024 Jimy Caballero [facility] [address] [place], [place] [id number] 06/12/2024 Jimy Caballero Myofasciitis M60.9 [facility] [address] [place], [place] [id number] 07/17/2024 Jimy Caballero Generalized anxiety disorder F41.1 [facility] [address] [place], [place] [id number] 10/27/2024 Luisjamarcus WongDunlap Myofasciitis M60.9 [facility] [address] [place] [id number] 11/11/2024 Jimy Caballero Generalized anxiety disorder F41.1 [facility] [address] [place] [id number] 11/16/2024 Jimy Caballero Screening for osteoporosis Z13.820 [facility] [address] [place], [place] [id number] 11/27/2024 Jimy Caballero Assessments Encounter Date Diagnosis (ICD Code) Assessment Notes Treatment Notes Treatment Clinical Notes Section Notes 03/12/2024 Dysphoric mood (ICD-10 - R45.89) 03/17/2024 Encounter for immunization (ICD-10 - Z23) 03/21/2024 Generalized anxiety disorder (ICD-10 - F41.1) 04/23/2024 Essential hypertension (ICD-10 - I10) 04/23/2024 Pain in finger of left hand (ICD-10 - M79.645) 05/07/2024 GERD without esophagitis (ICD-10 - K21.9) 05/07/2024 Elevated fasting glucose (ICD-10 - R73.01) 06/04/2024 Essential hypertension (ICD-10 - I10) 03/12/2024 Imbalance (ICD-10 - R26.89) 06/04/2024 Anxiety about health (ICD-10 - F41.8) 06/12/2024 Myofasciitis (ICD-10 - M60.9) 07/17/2024 Generalized anxiety disorder (ICD-10 - F41.1) 08/06/2024 Fibromyalgia (ICD-10 - M79.7) 08/06/2024 Mixed hyperlipidemia (ICD-10 - E78.2) 09/17/2024 Vitamin B12 deficiency (ICD-10 - E53.8) Continue present RX 09/17/2024 Essential hypertension (ICD-10 - I10) Continue present RX 10/12/2024 Laceration of left elbow, initial encounter (ICD-10 - S51.012A) 10/27/2024 Myofasciitis (ICD-10 - M60.9) 11/02/2024 Essential hypertension (ICD-10 - I10) 10/12/2024 Contusion of left hand, initial encounter (ICD-10 - S60.222A) 11/02/2024 Non-STEMI (non-ST elevated myocardial infarction) (ICD-10 - I21.4) 11/11/2024 Generalized anxiety disorder (ICD-10 - F41.1) 11/16/2024 Screening for osteoporosis (ICD-10 - Z13.820) 11/19/2024 Essential hypertension (ICD-10 - I10) 11/19/2024 Fibromyalgia (ICD-10 - M79.7) 11/26/2024 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 (ICD-10 - I25.10) 11/26/2024 Iron deficiency anemia due to chronic blood loss (ICD-10 - D50.0) 12/07/2024 Dizziness (ICD-10 - R42) 12/07/2024 Chronic anemia (ICD-10 - D64.9) 12/24/2024 Vitamin B12 deficiency (ICD-10 - E53.8) 12/24/2024 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 (ICD-10 - I25.10) 12/24/2024 Fibromyalgia (ICD-10 - M79.7) 12/07/2024 BMI 24.0-24.9, adult (ICD-10 - Z68.24) 11/26/2024 Essential hypertension (ICD-10 - I10) 11/19/2024 Hypothyroidism (acquired) (ICD-10 - E03.9) 10/12/2024 Contusion of left foot, initial encounter (ICD-10 - S90.32XA) 11/02/2024 Fibromyalgia (ICD-10 - M79.7) 06/04/2024 Anemia of chronic disease (ICD-10 - D63.8) 08/06/2024 Anxiety about health (ICD-10 - F41.8) 09/17/2024 Type 2 diabetes mellitus without complication, unspecified whether lobsterman insulin use (ICD-10 - E11.9) Continue present RX 03/12/2024 Anxiety about health (ICD-10 - F41.8) 03/12/2024 Hyponatremia (ICD-10 - E87.1) 09/17/2024 Arthropathy (ICD-10 - M12.9) Continue present RX 08/06/2024 Mild cognitive impairment (ICD-10 - G31.84) 06/04/2024 Arteriosclerotic cardiovascular disease (ICD-10 - I25.10) 11/02/2024 Anxiety about health (ICD-10 - F41.8) 11/19/2024 Anxiety about health (ICD-10 - F41.8) 10/12/2024 Essential hypertension (ICD-10 - I10) 11/26/2024 Slow transit constipation (ICD-10 - K59.01) 12/24/2024 Hypothyroidism (acquired) (ICD-10 - E03.9) 11/26/2024 BMI 24.0-24.9, adult (ICD-10 - Z68.24) 12/24/2024 History of syncope (ICD-10 - Z87.898) 11/19/2024 Anemia of chronic disease (ICD-10 - D63.8) Stop Baby Aspirin 11/02/2024 BMI 24.0-24.9, adult (ICD-10 - Z68.24) 09/17/2024 Anxiety about health (ICD-10 - R45.89) Continue present RX 06/04/2024 Chronic rhinitis (ICD-10 - J31.0) 09/17/2024 BMI 25.0-25.9,adult (ICD-10 - Z68.25) Continue present RX 06/04/2024 Other chronic pain (ICD-10 - G89.29) Is she taking the Gabapentin BID? Discussed possible TID. 11/19/2024 Insect bite, unspecified site, initial encounter (ICD-10 - W57.XXXA) Hydrocortisone cream recommended 12/24/2024 Anxiety about health (ICD-10 - F41.8) 12/24/2024 Essential hypertension (ICD-10 - I10) 11/19/2024 BMI 24.0-24.9, adult (ICD-10 - Z68.24) 06/04/2024 Type 2 diabetes mellitus without complication, unspecified whether lobsterman insulin use (ICD-10 - E11.9) 12/24/2024 BMI 24.0-24.9, adult (ICD-10 - Z68.24) 06/04/2024 Memory loss (ICD-10 - R41.3) 03/12/2024 Other Recommended Align Probiotic Plan Of Treatment Pending Test Test Name Order Date Bone density 11/16/2024 P-Microalbumin/Creatinine, Random Urine Sample 06/04/2024 Next Appt Details Provider Name:Jimy Baca Shameka er, 02/25/2025 01:45:00 PM, [address], [place], [place], [id number], Insurance Providers Payer Name Payer Address Payer Phone Subscriber Number Group Number Insured Name Patient Relationship to Insured Coverage Start Date Coverage End Date MEDICARE PART B [address] [address] [place] [address] [id number] AMINAH BAIRES Self - patient is the insured [employer] [address] [place] [phone] [id number] AMINAH BAIRES Self - patient is the insured Medications Administered Medication Instructions Date of Administration Dosage Notes B-12 06/01/2015 1 mL Dexamethasone 03/13/2018 1 mL Bicillin LA 1,200,000 07/23/2005 2 mL B-12 07/24/2016 1 mL Medical (General) History Medical History History ICD Code Hypertension Hyperlipidemia fibromyalgia osteoarthritis Intercostal neuropathy microhematuria Cardiolyte GXT neg, EF=73%. 11/24/13 05/03/19 ESR=88 COVID 19 vaccine, Pfizer x2 Sigmoid diverticulosis COVID 19 Booster COVID 19 Booster, PfizerDecember 2021 Surgical History Surgery Date(Month/Year) total hysterectomy 1994 right shoulder-rotator cuff 2002 breast lump removal -benign 1983 Eye lid lifts on both eyes 03/06/2010 colonoscopy and EGD. 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 Tilley, noncritical CA D disease 05/19/2018 Hospitalization History Reason Date(Month/Year)
--- OUTSIDE RECORDS SUMMARY | 2025-01-11 13:22 | XMS_ITS | Clinical Summary ---
Author Organization Healthcare Address [address] [place] [address] Care Team Providers Care Automotive Service Management Teacher Name Role Phone Chip Caballero MD Primary Care Provider [phone] Family History Medical History Relation Name Comments [...] Treatment Not on file Insurance [place] [id number] MEDICARE Care Teams Automotive Service Management Teacher Relationship Specialty Start Date End Date Chip Caballero MD [address] [place] [address] [place] [id number] PCP - General 10/14/20
== END 2025-01-11 23:59 | disposition home or self-care (01) ==
LOC: RAD 13:17
PROVIDERS: PCP Family Medicine; Visit Provider Family Medicine
DX: M85.88 Other specified disorders of bone density and structure, other site (principal)
CPT/HCPCS: 77080

== ENCOUNTER 2025-03-01 13:39 | Outpatient (CLI) | payer MEDICARE, OTHER, SELFPAY ==
--- OUTSIDE RECORDS SUMMARY | 2024-12-10 09:30 | XMS_ITS ---
Author Organization [facility] Address [address] [facility] [address] [facility] [address] [place] [id number] Care Team Providers Care Direct Care Staffer Name Role Phone Jimy Caballero Primary Care Provider REASON FOR VISIT 2 week Encounters Encounter Location Date Provider Diagnosis [facility] [address] [place] [phone] 12/10/2024 Jimy Caballero Plan Of Treatment Next Appt Details Provider Name:Jimy Myles er, 03/08/2025 01:15:00 PM, [address], [address], [place], [place], [id number], Progress Notes * DAKOTAH BAIRESASHLEYOB: 2 (84 yo F)Acc No.[id number]:12/10/2024 Progress Notes Patient: AMINAH TURNER Provider: Jimy Caballero M.D. :1940 A ge:84 Y S ex:Female Date:12/10/2024 Address:[place], [id number] Subjective: * Chief Complaints: * 1 . 2 week. * Medical History: Objective: * Vitals: Assessment: Plan: * Treatment: * Images: Billing Information: * Visit Code: * Procedure Codes: * Electronic signature of Jimy Caballero MD on 03/01/2025 at 01:41 PM EDT Sign off status: Pending * Provider: Jimy Caballero M.D. Date: 0 12/10/2024 Generated for Abelino mclaughlin/Miranda/Edditting on: 0 03/01/2025 01:41 PM EDT
--- OUTSIDE RECORDS SUMMARY | 2024-12-24 10:15 | XMS_ITS ---
Author Organization [facility] Address [address] [facility] [address] [facility] [address] [place] [id number] Care Team Providers Care Authorizer Name Role Phone Jimy Caballero Primary Care Provider Allergies Allergen (clinical drug ingredient) Drug/Non Drug Allergy documented on EMR Reaction Allergy Type Onset Date Status sucralfate Sucralfate lightheaded, swelling of lips Drug Allergy Active Substance with sulfonamide structure and antibacterial mechanism of action (substance) Sulfa Antibiotics rash Drug Allergy Active Reason For Referral Reason Refer to [facility] Diagnosis 1 Anxiety about health (F41.8) Referral Organization [facility] Referring Provider First Name Jimy Baca Referring Provider Last Name Federico Referring Provider Speciality Family Pra ctice General Notes Gabby Messina 2024 03:30:26 PM > faxed to [facility]; phone number is , Gabby Messina 12/28/2024 10:22:44 AM > Thank you for your referral to Neurosurgery. We will review your patient's records and contact you as quickly as possible. Please provide us with the clinical and demographic information we need for review. The Department of Neurosurgery requires that all new patients have had imaging (MRI or CT only) in the past six months which demonstrates an abnormality. Please fax recent office notes, history and physical, relevant radiologic study reports, copy of the patient's insurance card, and this form to [phone]. If you have any questions, please contact our offices directly. Referrals will be denied if all of this information is not received (exception: movement disorders). Please note, physician requested may not be the physician who sees the patient. This is based on urgency and each physician's specialty. Referral Priority Routine REASON FOR VISIT 2 weeks Medications Medication SIG (Take, Route, Frequency, Duration) Notes Start Date End Date Status Vitamin D (Ergocalciferol) 1.25 MG (49244 UT) TAKE ONE CAPSULE BY MOUTH ONCE A WEEK; Duration: 30 Active Senna 8.6 MG 2 tablets at bedtime as needed Orally Once a day; Duration: 30 days 11/26/2024 Active Allopurinol 100 mg TAKE ONE TABLET BY MOUTH EVERY DAY; Duration: 30 Active Losartan Potassium 50 mg TAKE ONE TABLET BY MOUTH EVERY DAY twice a day; Duration: 90 days Active amLODIPine Besylate 2.5 mg TAKE ONE TABL ET BY MOUTH EVERY DAY; Duration: 30 Active DULoxetine HCl 30 MG 1 capsule Orally On ce a day; Duration: 30 days 09/17/2024 Active ALPRAZolam 0.25 MG take 1/2 tab in the morning, take 1/2 tab at bedtime orally daily; Duration: 30 days 11/13/2024 Active Ferrous Sulfate 325 (65 Fe) MG 1 tablet Orally twice a day; Duration: 30 days 11/19/2024 Active Gabapentin 300 MG 1 cap(s) orally bedtime; Duration: 30 days 10/27/2024 Active Rosuvastatin Calcium 5 MG 1 tablet Orall y one every other day; Duration: 30 days 11/02/2024 Active Clopidogrel Bisulfate 75 mg TAKE ONE TABLET BY MOUTH EVERY DAY; Duration: 90 Active Pataday 0.1 % 1 drop into affected eye Ophthalmic Twice a day 09/12/2023 Active Levothyroxine Sodium 25 MCG 1 tab(s) orally once a day; Duration: 90 days Active Potassium Chloride Kandy ER 20 mEq TAKE ONE TABLET BY MOUTH TWICE DAILY; Duration: 90 Active ZyrTEC Allergy 10 MG 1 tablet Orally Onc e a day; Duration: 30 day(s) 09/30/2023 Active Fluticasone Propionate 50 MCG/ACT 1 spray in each nostril Nasally Once a day; Duration: 30 day(s) 09/30/2023 Active Donepezil HCl 5 MG 1 tablet at bedtime Orally At Bed Time; Duration: 30 day(s) 07/04/2023 Not-Taking Metoprolol Succinate ER 50 MG 1 tab(s) orally once a day; Duration: 90 days Active MiraLax 17 GM/SCOOP as directed Orally Active Metamucil Smooth Texture 58.6 % as directed orally once a day; Duration: 7 day(s) Active Omeprazole 40 MG 1 capsule 1/2 to 1 hour before morning meal Orally Once a day 05/07/2024 Not-Takin g Diclofenac Sodium 1 % as directed applie d topically 4 times a day 08/08/2022 Not-Taking Rosuvastatin Calcium 10 MG 1 tablet Orally Once a day 06/04 MWF Not-Taking Vital Signs Weight 131.2 lbs 12/24/2024 Blood pressure systolic 130 mm Hg 12/25/19 25 Blood pressure diastolic 70 mm Hg 025 Heart Rate 61 /min 12/24/2024 Height 61.50 in 12/24/2024 BMI 24.39 kg/m2 12/24/2024 Encounters Encounter Location Date Provider Diagnosis [facility] [address] [id number] 12/24/2024 Jimy Caballero Coronary artery dise ase involving bear river coronary artery of bear river heart without angina pectoris I25.10 ; Vitamin B12 deficiency E53.8 ; Fibromyalgia M79.7 ; Hypothyroidism (acquired) E03.9 ; History of syncope Z87.898 ; Anxiety about health F41.8 ; Essential hypertension I10 and BMI 24.0-24.9, adult Z68.24 Assessments Encounter Date Diagnosis (ICD Code) Assessment Notes Treatment Notes Treatment Clinical Notes Section Notes 12/24/2024 Coronary artery disease involving bear river coronary artery of bear river heart without angina pectoris (ICD-10 - I25.10) 12/24/2024 Vitamin B12 deficiency (ICD-10 - E53.8) 12/24/2024 Fibromyalgia (ICD-10 - M79.7) 12/24/2024 Hypothyroidism (acquired) (ICD-10 - E03.9) 12/24/2024 History of syncope (ICD-10 - Z87.898) 12/24/2024 Anxiety about health (ICD-10 - F41.8) 12/24/2024 Essential hypertension (ICD-10 - I10) 12/24/2024 BMI 24.0-24.9, adult (ICD-10 - Z68.24) Plan Of Treatment Medication Medication Name Sig Start Date Stop Date Notes Metoprolol Succinate ER 50 MG 1 tab(s) o rally once a day; Duration: 90 days Referrals Referral Date Details 12/24/2024 12/24/2024, Refer to [facility] Next Appt Details Follow Up: 2 Months, Reason: Provider Name:Jimy Keven Shameka er, 03/08/2025 01:15:00 PM, [address] [facility] [address], [place], [place], [phone], Progress Notes * DEMETRICE BAIRESOB: 2 (84 yo F)Acc No.[id number]:12/24/2024 Progress Notes Patient: AMINAH TURNER Provider: Jimy Caballero M.D. :1940 A ge:84 Y S ex:Female Date:12/24/2024 [facility] [id number] Subjective: * Chief Complaints: * 1 . 2 weeks. * HPI: N eurology: The patient is here for a follow-up on dizziness and imbalance and 48 hour holter. See pt docs. Pt states the dizziness is not any better. Pt states when she gets up in the mornings she has a tightness in her head, and it lasts throughout the day. Holter NSR, PAC's, PVC's. No sustained rhythm disturbance mentioned. 84 year old female presents with c/o Dizziness s ensation of imbalance. Denies : head injury. C onstitutional: with knee replacement January 12. * ROS: D ERMATOLOGY: no R mariza. [...] tab(s) orally once a day , Taking Gabapentin 300 MG Capsule 1 cap(s) orally bedtime , Taking Rosuvastatin Calcium 5 MG Tablet 1 tablet Orally one every other day , Taking ALPRAZolam 0.25 MG Tablet take 1/2 tab in the morning, take 1/2 tab at bedtime orally daily , Taking Ferrous Sulfate 325 (65 Fe) MG Tablet 1 tablet Orally twice a day , Taking Losartan Potassium 50 mg Tablet TAKE ONE TABLET BY MOUTH EVERY DAY twice a day , Taking amLODIPine Besylate 2.5 mg Tablet TAKE ONE TABLET BY MOUTH EVERY DAY , Taking Senna 8.6 MG Tablet 2 tablets at bedtime as needed Orally Once a day , Taking Allopurinol 100 mg Tablet TAKE ONE TABLET BY MOUTH EVERY DAY , Taking Vitamin D (Ergocalciferol) 1.25 MG (36322 UT) Capsule TAKE ONE CAPSULE BY MOUTH ONCE A WEEK , Not-Taking Rosuvastatin Calcium 10 MG Tablet 1 tablet Orally Once a day 1/2 MWF, Not-Taking Omeprazole 40 MG Capsule Delayed Release [...] Side Effects. Objective: * Vitals: W t: 131.2, Temp: 98.2, BP: 130/70, HR: 61, O2 Sat: 100% on RA, Nurse: NATHALIE, Ht: 61.50, BMI:24.39. * Examination: G eneral Examination: General Appearance: N AD, a little pale. H EENT: n leta patent, Sclera and conjunctiva clear. O ral cavity: n o lesions, mucosa moist and WNL, no erythema. N colin: s upple, no lymphadenopathy, no carotid bruits. C hest: n ormal shape and expansion. H eart: R SR, no ectopics, 122/68. L ungs: c lear to auscultation. A bdomen: soft, nontender. N eurologic Exam: I ntact, gait normal, unsteady on [place]. S kin: n ormal, no rash. P eripheral pulses: n ormal . E xtremities: no leg edema. Assessment: * Assessment: 1. C oronary artery disease involving bear river coronary artery of bear river heart without angina pectoris - I25.10 (Primary) 2 . V itamin B12 deficiency - E53.8 3 .?Fibromyalgia - M79.7 4 . H ypothyroidism (acquired) - E03.9 5. H istory of syncope - Z87.898 6 . A nxiety about health - F41.8 ? 7 . E ssential hypertension - I10 8 . B VA 24.0-24.9, adult - Z68.24 Plan: * Treatment: 2. E ssential hypertension Refill Metoprolol Succinate ER Tablet Extended Release 24 Hour, 50 MG, 1 tab(s), orally, once a day, 90 days, 90 Tablet, Refills 1. * Procedure Codes: G 2211 Complex e/m visit add on, 1036F TOBACCO NON-USER, G8420 BMI<30 AND >=22 CALC & DOCU, G8950 PREHTN/HTN BP DOC INDCD F/U DOC, G8752 MOST RECENT SYSTOLIC BP < 140MM HG, G8754 MOST RECENT DIASTOLIC BP < 90MM HG * Follow Up: 2 Months * Images: Billing Information: * Visit Code: 74411 Office Visit, Est Pt., Level 4. * Procedure Codes: G2211 Complex e/m visit add on. 1036F TOBACCO NON-USER. G8420 BMI<30 AND >=22 CALC & DOCU. G8950 PREHTN/HTN BP DOC INDCD F/U DOC. G8752 MOST RECENT SYSTOLIC BP < 140MM HG. G8754 MOST RECENT DIASTOLIC BP < 90MM HG. * Electronic signature of Jimy Caballero MD on 03/01/2025 at 01:42 PM EDT Sign off status: Pending * Provider: Jimy Caballero M.D. Date: 0 12/24/2024 Generated for Abelino mclaughlin/Miranda/eTransmitting on: 0 03/01/2025 01:42 PM EDT History and Physical Notes * HPI (History of Present Illness) Category Sub-Category Detail Notes Category Not es Neurology Dizziness sensation of imbalance head injury Constitutional with knee replacement January 12. Examination Category Sub-Category Detail Notes Category Not es General Examination HEENT: nares patent , Sclera and conjunctiva clear Heart: RSR, no ectopics, Lungs: clear to auscultatio n Abdomen: soft, nontender Extremities: no leg edema General Appearance: NAD, a little pale Skin: normal, no rash Neurologic Exam: Intact, gait normal, unsteady on [place] Neck: supple, no lymphaden opathy, no carotid bruits Oral cavity: no lesions, mucosa m oist and WNL, no erythema Peripheral pulses: normal Chest: normal shape and exp ansion Consultation Request Notes Referral Date Referring Provider Referred Provider Not es 12/24/2024 Jimy Caballero , Refer to [facility]
--- OUTSIDE RECORDS SUMMARY | 2025-01-25 10:30 | XMS_ITS ---
[facility] Organization [facility] Address [address] [facility] [address] [place] [id number] Care Team Providers Care Credit Control Administrator Name Role Phone Jimy Caballero Primary Care Provider Allergies Allergen (clinical drug ingredient) Drug/Non Drug Allergy documented on EMR Reaction Allergy Type Onset Date Status sucralfate Sucralfate lightheaded, swelling of lips Drug Allergy Active Substance with sulfonamide structure and antibacterial mechanism of action (substance) Sulfa Antibiotics rash Drug Allergy Active Results Component Value Reference Range Notes Covid test (in house) Reviewed date:01/26/2025 09:22:44 AM Interpretation: Performing Lab: Notes/Report: Result: Pos REASON FOR VISIT Dizziness, Possible COVID Medications Medication SIG (Take, Route, Frequency, Duration) Notes Start Date End Date Status Diclofenac Sodium 1 % as directed applie d topically 4 times a day 08/08/2022 Not-Taking Donepezil HCl 5 MG 1 tablet at bedtime Orally At Bed Time; Duration: 30 day(s) 07/04/2023 Not-Taking Omeprazole 40 MG 1 capsule 1/2 to 1 hour before morning meal Orally Once a day 05/07/2024 Not-Takin g Nirmatrelvir&Ritonavir 150/100 10 x 150 MG & 10 x 100MG as directed Orally 01/25/2025 Active Rosuvastatin Calcium 10 MG 1 tablet Orally Once a day /2 MWF Not-Taking Allopurinol 100 mg 1 tablet orally once a day; Duration: 30 days Active Levothyroxine Sodium 25 MCG 1 tab(s) orally once a day; Duration: 90 days Active DULoxetine HCl 30 MG 1 capsule Orally On ce a day; Duration: 30 days Active Vitamin D (Ergocalciferol) 1.25 MG (13436 UT) TAKE ONE CAPSULE BY MOUTH ONCE A WEEK; Duration: 30 Active Metoprolol Succinate ER 50 MG 1 tab(s) orally once a day; Duration: 90 days Active amLODIPine Besylate 2.5 mg TAKE ONE TABL ET BY MOUTH EVERY DAY; Duration: 30 Active Senna 8.6 MG 2 tablets at bedtime as needed Orally Once a day; Duration: 30 days 11/26/2024 Active Losartan Potassium 50 mg TAKE ONE TABLET BY MOUTH EVERY DAY twice a day; Duration: 90 days Active ALPRAZolam [...] other day; Duration: 30 days 11/02/2024 Active Potassium Chloride Kandy ER 20 mEq TAKE ONE TABLET BY MOUTH TWICE DAILY; Duration: 90 Active Clopidogrel Bisulfate 75 mg TAKE ONE TABLET BY MOUTH EVERY DAY; Duration: 90 Active ZyrTEC Allergy 10 MG 1 tablet Orally Onc e a day; Duration: 30 day(s) 09/30/2023 Active MiraLax 17 GM/SCOOP as directed Orally Active Metamucil Smooth Texture 58.6 % as directed orally once a day; Duration: 7 day(s) Active Fluticasone Propionate 50 MCG/ACT 1 spray in each nostril Nasally Once a day; Duration: 30 day(s) 09/30/2023 Active Pataday 0.1 % 1 drop into affected eye Ophthalmic Twice a day 09/12/2023 Active Vital Signs Weight 126.2 lbs 01/25/2025 Blood pressure systolic 134 mm Hg 01/26/20 25 Blood pressure diastolic 80 mm Hg 025 Heart Rate 76 /min 01/25/2025 Height 61.50 in 01/25/2025 BMI 23.46 kg/m2 01/25/2025 Encounters Encounter Location Date Provider Diagnosis [facility] [address] [facility] [address] [place] [id number] 01/25/2025 Jimy Caballero COVID-19 U07.1 Assessments Encounter Date Diagnosis (ICD Code) Assessment Notes Treatment Notes Treatment Clinical Notes Section Notes 01/25/2025 COVID-19 (ICD-10 - U07.1) Plan Of Treatment Medication Medication Name Sig Start Date Stop Date Notes Nirmatrelvir&Ritonavir 150/1 00 10 x 150 MG & 10 x 100MG as directed Orally 01/25/2025 Next Appt Details Follow Up: 2 Weeks, Reason: Provider Name:Jimy Myles er, 03/08/2025 01:15:00 PM, [address] [facility], [address], [place], [phone], Progress Notes * SIENA GALOSANDRAOB: 2 (84 yo F)Acc No.[id number]:01/25/2025 Progress Notes Patient: AMINAH TURNER Provider: Jimy Caballero M.D. :1940 A ge:84 Y S ex:Female Date:01/25/2025 Address:[place], [id number] Subjective: * Chief Complaints: * 1 . Dizziness, Possible COVID. * HPI: E NT/respiratory: The pt states he is at with renal failure and she has been under a lot of stress. Pt states she passed out this morning and fell in the floor. Pt states she does not think she was out for very long maybe just seconds. Pt states her tested possitive for covid and she is needing testing. Pt states she is having a lot of dizziness. 84 year old female presents with c/o rhinorrhea. Denies : sore throat. D enies : cough. D enies : Fever.? * ROS: D ERMATOLOGY: no R mariza. [...] tablet Orally Once a day , Taking Potassium Chloride Kandy ER 20 mEq Tablet Extended Release TAKE ONE TABLET BY MOUTH TWICE DAILY , Taking Clopidogrel Bisulfate 75 mg Tablet TAKE ONE TABLET BY MOUTH EVERY DAY , Taking Gabapentin 300 MG Capsule 1 [...] needed Orally Once a day , Taking Vitamin D (Ergocalciferol) 1.25 MG (37502 UT) Capsule TAKE ONE CAPSULE BY MOUTH ONCE A WEEK , Taking Metoprolol Succinate ER 50 MG Tablet Extended Release 24 Hour 1 tab(s) orally once a day , Taking Levothyroxine Sodium 25 MCG Tablet 1 tab(s) orally once a day , Taking DULoxetine HCl 30 MG Capsule Delayed Release Particles 1 capsule Orally Once a day , Taking Allopurinol 100 mg Tablet 1 tablet orally once a day , Not-Taking Rosuvastatin Calcium 10 MG Tablet 1 tablet Orally Once a day 06/04 MWF, Not-Taking Omeprazole 40 MG Capsule Delayed [...] Side Effects. Objective: * Vitals: W t: 126.2, Temp: 98.5, BP: 134/80, HR: 76, O2 Sat: 99% on RA, Nurse: NATHALIE, Ht: 61.50, BMI:23.46. * Examination: G eneral Examination: General Appearance: a nxious. H EENT: m asked, Sclera and conjunctiva clear. O ral cavity: m asked. N colin: s upple, no lymphadenopathy, no carotid bruits. C hest: n ormal shape and expansion. H eart: R SR, no ectopics. Lungs: c lear to auscultation. A bdomen: soft, nontender. N eurologic Exam:?Intact, gait normal. S kin: n ormal, no rash. P eripheral pulses: n ormal .?Extremities: n o leg edema. Assessment: * Assessment: 1. C OVID-19 - U07.1 (Primary) Plan: * Treatment: Value Reference Range R esult: Pos * Mojgan Singer 01/25/2025 02 :38:01 PM EDT > Provider reviewed results while patient in office. * Procedure Codes: 8 7811 COVID TEST IN HOUSE, Modifiers: QW , G2211 Complex e/m visit add on, 1036F TOBACCO NON-USER, G8783 BP SCR PRFRM RCMDD DEFIND SCR INTVL, G8752 MOST RECENT SYSTOLIC BP < 140MM HG, G8754 MOST RECENT DIASTOLIC BP < 90MM HG, G8420 BMI<30 AND >=22 CALC & DOCU * Follow Up: 2 Weeks * Images: Billing Information: * Visit Code: 64598 Office Visit, Est Pt., Level 3. * Procedure Codes: 88302 COVID TEST IN HOUSE. Modifiers: QW G2211 Complex e/m visit add on. 1036F TOBACCO NON-USER. G8783 BP SCR PRFRM RCMDD DEFIND SCR INTVL. G8752 MOST RECENT SYSTOLIC BP < 140MM HG. G8754 MOST RECENT DIASTOLIC BP < 90MM HG. G8420 BMI<30 AND >=22 CALC & DOCU. * Electronic signature of Jimy Caballero MD on 03/01/2025 at 01:41 PM EDT Sign off status: Pending * Provider: Jimy Caballero M.D. Date: 0 01/25/2025 Generated for Abelino mclaughlin/Miranda/eTransmitting on: 0 03/01/2025 01:41 PM EDT History and Physical Notes * HPI (History of Present Illness) Category Sub-Category Detail Notes Category Not es ENT/respiratory sore throat cough Fever rhinorrhea Examination Category Sub-Category Detail Notes Category Not es General Examination HEENT: masked, Sclera and co njunctiva clear Heart: RSR, no ectopics Lungs: clear to auscultatio n Abdomen: soft, nontender Extremities: no leg edema General Appearance: anxious Skin: normal, no rash Neurologic Exam: Intact, gait normal Neck: supple, no lymphaden opathy, no carotid bruits Oral cavity: masked Peripheral pulses: normal Chest: normal shape and exp ansion
--- OUTSIDE RECORDS SUMMARY | 2025-02-08 11:00 | XMS_ITS ---
Author Organization [facility] Address [address] [facility] [address] [facility] [address] [place] [phone] Care Team Providers Care Apartment Leasing Manager Name Role Phone Jimy Caballero Primary Care Provider [phone] REASON FOR VISIT 2 weeks Encounters Encounter Location Date Provider Diagnosis [facility] [address] [place] [phone] 02/08/2025 Jimy Caballero Plan Of Treatment Next Appt Details Provider Name:Jimy Myles er, 03/08/2025 01:15:00 PM, [address], [address], [place], [phone], Progress Notes * DAKOTAH BAIRESASHLEYOB: 2 (84 yo F)Acc No.[id number]:02/08/2025 Progress Notes Patient: AMINAH TURNER Provider: Jimy Caballero M.D. :1940 A ge:84 Y S ex:Female Date:02/08/2025 Address:[place], [id number] Subjective: * Chief Complaints: * 1 . 2 weeks. * Medical History: Objective: * Vitals: Assessment: Plan: * Treatment: * Images: Billing Information: * Visit Code: * Procedure Codes: * Electronic signature of Jimy Caballero MD on 03/01/2025 at 01:43 PM EDT Sign off status: Pending * Provider: Jimy Caballero M.D. Date: 0 02/08/2025 Generated for Abelino mclaughlin/Miranda/Edditting on: 0 03/01/2025 01:43 PM EDT
--- OUTSIDE RECORDS SUMMARY | 2025-02-18 10:45 | XMS_ITS ---
Author Organization [facility] Address [address] [facility] [address] [facility] [address] [place] [id number] Care Team Providers Care Wood Drill Operator Name Role Phone Jimy Caballero Primary Care Provider Marina Medrano [phone] Allergies Allergen (clinical drug ingredient) Drug/Non Drug Allergy documented on EMR Reaction Allergy Type Onset Date Status sucralfate Sucralfate lightheaded, swelling of lips Drug Allergy Active Substance with sulfonamide structure and antibacterial mechanism of action (substance) Sulfa Antibiotics rash Drug Allergy Active Results Component Value Reference Range Notes P-TSH Reviewed date:02/23/2025 08:37:52 AM Interpretation:1.17 Performing Lab: Notes/Report: Test performed by [facility] [address] [place] [address] , [address], [place] [address] Marcus Lott MD, Superintendent Plant Protection CLIA: [id number] TSH 1.17 0.43-5.25 mU/L REASON FOR VISIT 2 months, Needs flu vaccine Medications Medication SIG (Take, Route, Frequency, Duration) Notes Start Date End Date Status Metoprolol Succinate ER 50 MG 1 tab(s) orally once a day; Duration: 90 days Active Levothyroxine Sodium 25 MCG 1 tab(s) orally once a day; Duration: 90 days Active Senna 8.6 MG 2 tablets at bedtime as needed Orally Once a day; Duration: 30 days 11/26/2024 Active Vitamin D (Ergocalciferol) 1.25 MG (74616 UT) TAKE ONE CAPSULE BY MOUTH ONCE A WEEK; Duration: 30 Active DULoxetine HCl 30 MG 1 capsule Orally On ce a day; Duration: 30 days Active Ferrous Sulfate 325 (65 Fe) MG 1 tablet Orally twice a day; Duration: 30 days 11/19/2024 Active Losartan Potassium 50 mg TAKE ONE TABLET BY MOUTH EVERY DAY twice a day; Duration: 90 days Active amLODIPine Besylate 2.5 mg TAKE ONE TABL ET BY MOUTH EVERY DAY; Duration: 30 Active ALPRAZolam 0.25 MG take 1/2 tab in the morning, take 1/2 tab at bedtime orally daily; Duration: 30 days 11/13/2024 Active Rosuvastatin Calcium 5 MG 1 tablet Orall y one every other day; Duration: 30 days 11/02/2024 Active Pataday 0.1 % 1 drop into affected eye Ophthalmic Twice a day 09/12/2023 Not-Taking Potassium Chloride Kandy ER 20 mEq TAKE ONE TABLET BY MOUTH TWICE DAILY; Duration: 90 Active ZyrTEC Allergy 10 MG 1 tablet Orally Onc e a day; Duration: 30 day(s) 09/30/2023 Not-Taking Gabapentin 300 MG 1 cap(s) orally bedtime; Duration: 30 days 10/27/2024 Active Clopidogrel Bisulfate 75 mg TAKE ONE TABLET BY MOUTH EVERY DAY; Duration: 90 Active Fluticasone Propionate 50 MCG/ACT 1 spray in each nostril Nasally Once a day; Duration: 30 day(s) 09/30/2023 Active Diclofenac Sodium 1 % as directed applie d topically 4 times a day 08/08/2022 Not-Taking Donepezil HCl 5 MG 1 tablet at bedtime Orally At Bed Time; Duration: 30 day(s) 07/04/2023 Not-Taking MiraLax 17 GM/SCOOP as directed Orally Active Metamucil Smooth Texture 58.6 % as directed orally once a day; Duration: 7 day(s) Not-Taking Omeprazole 40 MG 1 capsule 1/2 to 1 hour before morning meal Orally Once a day 05/07/2024 Not-Takin g Nirmatrelvir&Ritonavir 150/100 10 x 150 MG & 10 x 100MG as directed Orally 01/25/2025 Not-Takin g Rosuvastatin Calcium 10 MG 1 tablet Orally Once a day /2 MWF Not-Taking Allopurinol 100 mg 1 tablet orally once a day; Duration: 30 days Active Vital Signs Weight 125.4 lbs 02/18/2025 Blood pressure systolic 118 mm Hg 02/19/20 25 Blood pressure diastolic 78 mm Hg 025 Heart Rate 70 /min 02/18/2025 Height 61.50 in 02/18/2025 BMI 23.31 kg/m2 02/18/2025 Encounters Encounter Location Date Provider Diagnosis [facility] [address] [place] [phone] 02/18/2025 Marina Medrano Hypothyroid E03.9 an d Concussion S06.0X9A Assessments Encounter Date Diagnosis (ICD Code) Assessment Notes Treatment Notes Treatment Clinical Notes Section Notes 02/18/2025 Hypothyroid (ICD-10 - E03.9) 02/18/2025 Concussion (ICD-10 - S06.0X9A) Will proceed with CT of head to rule out chronic subdural hematoma. Plan Of Treatment Treatment Notes Assessment Notes Concussion Will proceed with CT of head to rule out chronic subdural hematoma. Pending Test Test Name Order Date CT Scan : Head w/o contrast 02/18/2025 Next Appt Details Follow Up: via phone to repo rt test results, Reason: Provider Name:Jimy Myles er, 03/08/2025 01:15:00 PM, [address] [facility] 36 [facility], [address], [place], [phone], Progress Notes * EDMETRICE BAIRESOB: 2 (84 yo F)Acc No.[id number]:02/18/2025 Progress Notes Patient: AMINAH TURNER Provider: Marina Medraon M.D. :1940 A ge:84 Y S ex:Female Date:02/18/2025 Address:[facility] [place], [id number] Pcp:Jimy Caballero Subjective: * Chief Complaints: * 1 . 2 months. 2. Needs flu vaccine. * HPI: N eurology: Ms. Baires states she has not felt right since her syncopal episode and diagnosis of COVID about 3 weeks ago. She remembers hitting the back of her head when she passed out and and thinks she may have been momentarily unconscious for just a few seconds. She complains feeling foggy and off balance. No true vertigo. No significant headaches or visual disturbance. * ROS: D ERMATOLOGY: no R mariza. [...] Dr. 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 * Hospitalization/Major Diagno stic Procedure: D enies Past Hospitalization. * Family History: F ather: . M other: . S iblings: heart disease, lung problems, colon Ca. 2 brother(s) , 2 sister(s) . 2 son(s) - healthy. . * Social History: C URRENT TOBACCO USE: No S moking Status: Patient does NOT smoke. C affeine: no. Marital Status: . Past smoking status: no. Alcohol: socially, Type: , Frequency: ,Years: , Determination:. * Medications: T aking Fluticasone Propionate 50 MCG/ACT Suspension 1 spray in each nostril Nasally Once a day , Taking MiraLax 17 GM/SCOOP Powder as directed Orally , Taking Potassium Chloride Kandy ER 20 [...] , Taking Vitamin D (Ergocalciferol) 1.25 MG (17971 UT) Capsule TAKE ONE CAPSULE BY MOUTH [...] tablet orally once a day , Not-Taking Metamucil Smooth Texture 58.6 % Powder as directed orally once a day , Not- Taking Pataday 0.1 % Solution 1 drop into affected eye Ophthalmic Twice a day , Not- Taking ZyrTEC Allergy 10 MG Tablet 1 tablet Orally Once a day , Not-Taking Nirmatrelvir&Ritonavir 150/100 10 x 150 MG & 10 x 100MG Tablet Therapy Pack as directed Orally , Not-Taking Rosuvastatin Calcium 10 MG Tablet 1 tablet Orally Once a day 2 MWF, Not-Taking Omeprazole 40 MG Capsule Delayed [...] Side Effects. Objective: * Vitals: W t: 125.4, Temp: 97.6, BP: 118/78, HR: 70, Nurse: FORTINO, Ht: 61.50, BMI:23.31. * Examination: G eneral Examination: General Appearance: N AD. H EENT: C ranium AT/NC, unremarkable. H eart: R SR. L ungs: c lear to auscultation. N eurologic Exam:?no focal deficits. Assessment: * Assessment: 1. C oncussion - S06.0X9A (Primary) 2 . H ypothyroid - E03.9 ? Plan: * Treatment: Notes: Will proceed with CT of head to rule out chronic subdural hematoma.?? 2.?Hypothyroid?LAB: P-TSH (Collection Date & Time - 02/18/2025 02:11 PM)?1.17* Value Reference Range T SH 1.17 0.43-5.25 - mU/L * Marina Medrano 02/23/2025 08:37:38 AM EDT > See phone encounter * Follow Up: v ia phone to report test results * Images: Billing Information: * Visit Code: 74614 Office Visit, Est Pt., Level 3. * Procedure Codes: * Electronic signature of Marina Medrano MD on 03/01/2025 at 01:41 PM EDT Sign off status: Pending * Provider: Marina Medrano M.D. Date: 0 02/18/2025 Generated for Abelino ng/Falatiag/eTransmitting on: 0 03/01/2025 01:41 PM EDT History and Physical Notes * Examination Category Sub-Category Detail Notes Category Not es General Examination HEENT: Cranium AT/NC, unrema rkable Heart: RSR Lungs: clear to auscultatio n General Appearance: NAD Neurologic Exam: no focal deficits
--- NOTE | 2025-03-01 13:42 | CT_ITS ---
FINAL REPORT TECHNIQUE: Axial imaging of the head was obtained without contrast. This study was performed with techniques to keep radiation doses as low as reasonably achievable, (ALARA). Individualized dose reduction techniques using automated exposure control or adjustment of mA and/or kV according to the patient''s size were employed. CLINICAL HISTORY: concussion with loss of consciousness of unspecified dura. fall 3 weeks ago pain on top of head, dizziness COMPARISON: 06/21/2019 FINDINGS: There is mild to moderate diffuse cortical atrophy with age appropriate ventriculomegaly. There is physiologic calcification of the basal ganglia. There is no evidence of hemorrhage. No masses are identified. No extra-axial fluid is seen. The sinuses are normal. There is no acute osseous abnormality. IMPRESSION: Atrophy without acute intracranial abnormality. Reviewed, Interpreted and Dictated by Kyler Valdez MD Transcribed by Aggie Woods Authenticated and [facility]
--- OUTSIDE RECORDS SUMMARY | 2025-03-01 13:42 | XMS_ITS | Patient Health Record ---
Author Organization [facility] Address [address] [facility] [address] [place] [address] Care Team Providers Care Branch Logistics Supervisor Name Role Phone Lorena Charlton Unavailable [phone] Allergies Allergen (clinical drug ingredient) Drug/Non Drug [...]
--- OUTSIDE RECORDS SUMMARY | 2025-03-01 13:42 | XMS_ITS | Encounter Summary ---
[facility] Address [address] [place] [phone] Care Team Providers Care Undraped Artist Model Name Role Phone Chip Caballero MD Primary Care Provider [phone] Encounter Details Date Type Department Care Team (Late st Contact Info) Description 04/23/2019 External CPT II MYCOLOGIST - [facility] Social History Tobacco Use [...] on filedocumented in this encounter Care Teams Undraped Artist Model Relationship Specialty Start Date End Date Chip Caballero MD [address] [facility] [address] [place] [address] PCP - General Family Medicine 05/07/19 documented as of this encounter
--- OUTSIDE RECORDS SUMMARY | 2025-03-01 13:42 | XMS_ITS | Clinical Summary ---
Author Organization [facility] Address [address] [place] [address] Care Team Providers Care Manager Contracting Name Role Phone Chip Caballero MD Primary Care Provider [phone] Allergies Active Allergy Reactions Criticality Noted Date [...] ANNUAL PHYSICAL 06/24/2019 DXA SCAN 08/30/2019 08/29/2017 INFLUENZA VACCINE 01/01/2025 02/26/2020, , 02/26/2020, Additional history exists COVID-19 Vaccine (3 - 2024-2 6 season) 2025 08/04/2020, 07/15/2020 TDAP/TD VACCINES (3 - Td or Tdap) [...] - 5.60 % 06/23/2019 10:10 AM EST [facility] Blood Venipuncture / Unknown 06/23/2019 4:34 AM EST 06/23/2019 5:32 AM EST Narrative [facility] - 06/23/2019 10:10 AM EST Hemoglobin A1C Ranges: Increased Risk for Diabetes 5.7% to 6.4% Diabetes >= 6.5% Diabetic Goal < 7.0% Susan Reynoso MD LAB BLOOD ORDERABLES Fi nal Result [facility]
[address] [place] [address], from Last 3 Months or Most Recently Relevant to Health Maintenance Insurance [place] [id number] MEDICARE A & B [employer] Advance Directives * CPR (Attempt [...] Of Support Discussed With: Patient Care Teams Manager Contracting Relationship Specialty Start Date End Date Chip Caballero MD [address] [facility] [address] [place] [address] PCP - General Family Medicine 05/07/19
--- OUTSIDE RECORDS SUMMARY | 2025-03-01 13:42 | XMS_ITS | Encounter Summary ---
[facility] Address [address] [place] [phone] Care Team Providers Care Pig Furnace Operator Name Role Phone Chip Caballero MD Primary Care Provider [phone] Encounter Details Date Type Department Care Team (Late st Contact Info) Description 08/26/2017 External CPT II DEVELOPMENT ENGINEER - [facility] Social History Tobacco Use [...] on filedocumented in this encounter Care Teams Pig Furnace Operator Relationship Specialty Start Date End Date Chip Caballero MD [address] [facility] [address] [place] [address] PCP - General Family Medicine 05/07/19 documented as of this encounter
--- OUTSIDE RECORDS SUMMARY | 2025-03-01 13:43 | XMS_ITS | Clinical Summary ---
Author Organization [facility] Address [address] [place] [address] Care Team Providers Care Heel Nail Rasper Name Role Phone Chip Caballero MD Primary Care Provider [phone] Family History Medical History Relation Name Comments [...] Treatment Not on file Insurance [place] [id number] MEDICARE Care Teams Heel Nail Rasper Relationship Specialty Start Date End Date Chip Caballero MD [address] [place] [address] [place] [address] PCP - General 10/14/20
--- OUTSIDE RECORDS SUMMARY | 2025-03-01 13:43 | XMS_ITS | Patient Health Record ---
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 Name Role Phone Jimy Caballero Primary Care Provider Marina Medrano Unavailable [phone] Luis Mayes Unavailable [phone] Enmanuelbarbara Diane Unavailable [phone] Allergies Allergen (clinical drug ingredient) Drug/Non Drug Allergy documented on EMR Reaction Allergy Type Onset Date Status sucralfate Sucralfate lightheaded, swelling of lips Drug Allergy Active Substance with sulfonamide structure and antibacterial mechanism of action (substance) Sulfa Antibiotics rash Drug Allergy Active Results Component Value Reference Range Notes Covid test (in house) Reviewed date:01/26/2025 09:22:44 AM Interpretation: Performing Lab: Notes/Report: Result: Pos P-TSH Reviewed date:02/23/2025 08:37:52 AM Interpretation:1.17 Performing Lab: Notes/Report: Test performed by [facility] [address] [place] [address] , [address], [place] [address] Marcus Lott MD, Time Analysis Clerk CLIA: [id number] TSH 1.17 0.43-5.25 mU/L CBC Fingerstick (in house) Reviewed date:12/08/2024 11:41:55 [...] 115 Performing Lab: Notes/Report: Test performed by [facility] [address] [place] [address] , [place] [address] Marcus Lott MD, Time Analysis Clerk CLIA: [id number] Sodium 129 135-145 mmol/L Potassium 4.3 3.5-5.3 mmol/L Chloride 95 97-108 mmol/L CO2 26 22-32 mmol/L Glucose 115 65-99 mg/dL BUN 13 8-23 mg/dL Creatinine 0.67 0.50-1.00 mg/dL Calcium 9.4 8.6-10.4 mg/dL eGFR by Creatinine 87 >59 mL/min/1.73m2 Bone density Reviewed date:01/13/2025 01:21:06 PM Interpretation:osteopenia bilateral hips Performing Lab: Notes/Report: osteopenia bilateral hips Bone density osteopenia bilateral hips CBC Venipuncture (in house) Reviewed date:11/27/2024 03:44:03 [...] Interpretation:satisfactory Performing Lab: Notes/Report: Test performed by [facility] [address] [place] [address] , [address], [place] [address] Marcus Lott MD, Time Analysis Clerk CLIA: [id number] Sodium 129 135-145 mmol/L Potassium 4.7 3.5-5.3 [...] Interpretation:Normal Performing Lab: Notes/Report: Test performed by [facility] [address] [place], [place] [address] [employer] , [address], [place] [address] Marcus Lott MD, Time Analysis Clerk CLIA: [id number] Magnesium 2.3 1.6-2.4 mg/dL P-Uric Acid Reviewed date:04/28/2024 03:54:18 PM Interpretation:Normal Performing Lab: Notes/Report: Test performed by [facility] [address] [place] [address] , [address], [place] [address] Marcus Lott MD, Time Analysis Clerk CLIA: [id number] Uric Acid 3.1 2.4-7.0 mg/dL Glycohemoglobin A1c (in hous e) Reviewed date:05/14/2024 11:32:19 AM Interpretation:5.9, normal Performing Lab: Notes/Report: 5.9, normal glycohemoglobin 5.9% 5 - 6.5 % Holter Monitor- 48 hour Reviewed date:01/01/2025 12:48:56 PM Interpretation:see 12/24/24 OV Performing Lab: Notes/Report: see 12/24/24 OV P-Comprehensive Metabolic Pa ladi (CMP) Reviewed date:06/05/2024 09:09:23 AM Interpretation:Na 134, gluc 106 Performing Lab: Notes/Report: CLIA: [id number] Marcus Lott MD, Time Analysis Clerk [address] [place] [address] , [address], [place] [address] Test performed by [facility] Sodium 134 135-145 mmol/L Potassium 4.1 3.5-5.3 [...] 0.3 <0.2-1.2 mg/dL A/G Ratio 1.9 1.1-2.5 Medications Medication SIG (Take, Route, Frequency, Duration) Notes Start Date End Date Status Losartan Potassium 50 mg TAKE ONE TABLET BY MOUTH EVERY DAY twice a day; Duration: 90 days Active Diclofenac Sodium 1 % as directed applie d topically 4 times a day 08/08/2022 Not-Taking amLODIPine Besylate 2.5 mg 1 tablet oral ly once a day; Duration: 90 days Active Donepezil HCl 5 MG 1 tablet at bedtime Orally At Bed Time; Duration: 30 day(s) 07/04/2023 Not-Taking MiraLax 17 GM/SCOOP as directed Orally Active Omeprazole 40 MG 1 capsule 1/2 to 1 hour before morning meal Orally Once a day 05/07/2024 Not-Takin g Fluticasone Propionate 50 MCG/ACT 1 spray in each nostril Nasally Once a day; Duration: 30 day(s) 09/30/2023 Active Ferrous Sulfate 325 (65 Fe) MG 1 tablet Orally twice a day; Duration: 30 days 11/19/2024 Active Potassium Chloride Kandy ER 20 mEq 1 tablet orally twice a day; Duration: 90 days Active Pataday 0.1 % 1 drop into affected eye Ophthalmic Twice a day 09/12/2023 Not-Taking Metoprolol Succinate ER 50 MG 1 tab(s) orally once a day; Duration: 90 days Active Metamucil Smooth Texture 58.6 % as directed orally once a day; Duration: 7 day(s) Not-Taking Levothyroxine Sodium 25 MCG 1 tab(s) orally once a day; Duration: 90 days Active Senna 8.6 MG 2 tablets at bedtime as needed Orally Once a day; Duration: 30 days 11/26/2024 Active ZyrTEC Allergy 10 MG 1 tablet Orally Onc e a day; Duration: 30 day(s) 09/30/2023 Not-Taking Vitamin D (Ergocalciferol) 1.25 MG (07775 UT) TAKE ONE CAPSULE BY MOUTH ONCE A WEEK; Duration: 30 Active Gabapentin 300 MG 1 cap(s) orally bedtime; Duration: 30 days 10/27/2024 Active Nirmatrelvir&Ritonavir 150/100 10 x 150 MG & 10 x 100MG as directed Orally 01/25/2025 Not-Takin g Clopidogrel Bisulfate 75 mg TAKE ONE TABLET BY MOUTH EVERY DAY; Duration: 90 Active Rosuvastatin Calcium 10 MG 1 tablet Orally Once a day 1/2 MWF Not-Taking ALPRAZolam 0.25 MG take 1/2 tab in the morning, take 1/2 tab at bedtime orally daily; Duration: 30 days 11/13/2024 Active DULoxetine HCl 30 MG 1 capsule Orally On ce a day; Duration: 30 days Active Rosuvastatin Calcium 5 MG 1 tablet Orall y one every other day; Duration: 30 days 11/02/2024 Active Allopurinol 100 mg 1 tablet orally once a day; Duration: 30 days Active Immunizations Vaccine Route Administration Date Status Comme nts xAdministration of injection IM Intramuscular 06/06/2010 Administered Tetanus Tdap-Adacel (over 7yrs) Unknown 01/16/2021 Administered Prevnar (PCV20) IM Intramuscular 01/02/2024 Administered Prevnar (PCV13) IM Intramuscular 07/07/2014 Administered PNEUMOVAX 23 VACCINE IM Intramuscular 03/26/2016 Administe red Fluzone High Dose (65yr and older) IM [...] (65yr and older) IM Intramuscular 03/17/2024 Administered DT, 7 YEARS OR OLDER Unknown 08/04/1996 Administered COVID 19 Pfizer Unknown 07/15/2020 Administered COVID 19 Pfizer Unknown 08/04/2020 Administered COVID 19 Pfizer Unknown 04/22/2021 Administered Problems Problem Type SNOMED Code ICD Code Onset Dates Problem Status W/U Status Risk Notes Problem Hyponatremia (70366120) Hyponatremia (E87.1) Active confirmed Problem Hypothyroidism (62823350) Hypothyroidism (acquired) (E03.9) Active confirmed Problem Vitamin D deficiency (16388639) Vitamin D deficiency (E55.9) Active confirmed Problem Vitamin B12 deficiency (091660416) Vitamin B12 deficiency (E53.8) Active confirmed Problem Essential hypertension (20357270) Essential hypertension (I10) Active confirmed Problem Diverticulitis (50196819) Diverticulitis (K57.92) Active confirmed Problem Arthropathy (365884941) Arthropathy (M12.9) Active confirmed Problem Tear film insufficiency (33181082) Dry eye (H04.129) Active confirmed Problem Tendonitis (69220419) Tendonitis (M77.9) Active confirmed Problem Rectal bleeding (87038922) Rectal bleeding (K62.5) Active confirmed Problem Memory loss (87745044) Memory loss (R41.3) Active confirmed Problem Generalized anxiety disorder (37232567) Generalized anxiety disorder (F41.1) Active confirmed Problem Fibromyalgia (876151156) Fibromyalgia (M79.7) Active confirmed Problem Pure hypercholesterolemia (367289275) Pure hypercholesterolemia (E78.0) Active confirmed Problem Mixed hyperlipidemia (488570376) Mixed hyperlipidemia (E78.2) Active confirmed Problem Primary insomnia (2366582) Primary insomnia (F51.01) Active confirmed Problem Acute non-ST segment elevation myocardial infarction (280462237) Non-ST elevation (NSTEMI) myocardial infarction (I21.4) Active confirmed Problem Chronic rhinitis (95218107) Chronic rhinitis (J31.0) Active confirmed Problem Diverticulitis of colon (828648872) Diverticulitis of large intestine without perforation or abscess without bleeding (K57.32) Active confirmed Problem Slow transit constipation (56977384) Slow transit constipation (K59.01) Active confirmed Problem Spinal stenosis in cervical region (07872598) Spinal stenosis, cervical region (M48.02) Active confirmed Problem Cervical radiculopathy (64920752) Radiculopathy, cervical region (M54.12) Active confirmed Problem Fibrocystic breast changes (18245812) Diffuse cystic mastopathy of right breast (N60.11) Active confirmed Problem Fibrocystic breast changes (04236703) Diffuse cystic mastopathy of left breast (N60.12) Active confirmed Problem Arteriosclerotic vascular disease (47815904) Arteriosclerotic cardiovascular disease (I25.10) Active confirmed Problem Neck pain (35897567) Neck pain o n right side (M54.2) Active confirmed Problem Gastroesophageal reflux disease (597275276) GERD without esophagitis (K21.9) Active confirmed Problem Chronic pain (79647691) Other chronic pain (G89.29) Active confirmed Problem Adrenal insufficienc y (905559779) Adrenal insufficiency (E27.40) Active confirmed Problem Myositis (39345949) Myofasciitis (M60.9) Active confirmed Problem Bronchitis (26136308) Bronchitis (J40) Active c onfirmed Problem Atherosclerotic hear t disease of [place] coronary artery without angina pectoris (903080717261583) Coronary 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 (I25.10) Active confirmed Problem Gout (67727231) Gout, unspecifie d cause, unspecified chronicity, unspecified site (M10.9) Active confirmed Problem Iron deficiency anemia due to chronic blood loss (459324804) Iron deficiency anemia due to chronic blood loss (D50.0) Active confirmed Problem Iron deficiency anemia (12854983) Iron deficiency anemia, unspecified iron deficiency anemia type (D50.9) Active confirmed Problem Hemorrhoids without complication (09778959) Hemorrhoids, unspecified hemorrhoid type (K64.9) Active confirmed Problem Abnormal gait (27150402) Imbalance (R26.89) Active confirmed Problem Mild cognitive impairment (374560937) Mild cognitive impairment (G31.84) Active confirmed Problem Pain in limb (17104555) Pain of right hand (M79.641) Active confirmed Problem Diverticular disease of colon (646295126) Diverticulosis (K57.90) Active confirmed Problem Shoulder joint pain (285875746) Acute pain of right shoulder (M25.511) Active confirmed Problem Transient ischemic attack (207013267) TIA (transient ischemic attack) (G45.9) Active confirmed Problem Anemia of chronic disease (059972151) Anemia of chronic disease (D63.8) Active confirmed Problem Anxiety about health (546695704) Anxiety about health (F41.8) Active confirmed Problem Chronic anemia (910784530) Chronic anemia (D64.9) Active confirmed Problem Pure hypercholesterolemia (722998076) Pure hypercholesterolemia, unspecified (E78.00) Active confirmed Problem Irritable bowel syndrome characterized by constipation (910427821) Irritable bowel syndrome with constipation (K58.1) Active confirmed Problem Acute non-ST segment elevation myocardial infarction (053246768) Non-STEMI (non-ST elevated myocardial infarction) (I21.4) Active confirmed Problem Fibrocystic breast changes (42498015) Fibrocystic breast disease (FCBD), unspecified laterality (N60.19) Active confirmed Problem Pulmonary hypertension (97229599) Pulmonary hypertension (I27.20) Active confirmed Problem Acquired spondylolisthesis (109411934) Spondylolisthesis at L4-L5 level (M43.16) Active confirmed Problem Type II diabetes mellitus without complication (022112208) Type 2 diabetes mellitus without complication, unspecified whether long term care phlebotomist insulin use (E11.9) Active confirmed Problem Allergic rhinitis (34312157) Acute allergic rhinitis (J30.9) Active confirmed Problem History of syncope (449968066991058) History of syncope (Z87.898) Active confirmed Problem Cervicogenic headach e (940602831) Cervicogenic headache (G44.86) Active confirmed Problem Acquired spondylolisthesis (266625575) Spondylolisthesis at L3-L4 level (M43.16) Active confirmed Vital Signs Heart Rate 70 /min 02/18/2025 Blood pressure diastolic 78 mm Hg 02/18/2025 Height 61.50 in 02/18/2025 Blood pressure systolic 118 mm Hg 02/18/2025 Weight 125.4 lbs 02/18/2025 BMI 23.31 kg/m2 02/18/2025 Encounters Encounter Location Date Provider Diagnosis [facility] [place] [address] [facility] [address] [place] [id number] 03/12/2024 Jimy Caballero Dysphoric mood R45.8 9 ; Imbalance R26.89 ; Anxiety about health F41.8 and Hyponatremia E87.1 [facility] [place] [address] [facility] [address] [place] [id number] 03/17/2024 Jimy Caballero [facility] [address] [facility] [address] [place] [id number] 04/09/2024 [facility]all[facility] [address] [facility] [address] [place] [id number] 04/23/2024 Jimy Caballero Essential hypertensi on I10 and Pain in finger of left hand M79.645 [facility] [address] [facility] [address] [place] [id number] 05/07/2024 R Terry Medrano Elevated fasting glu cose R73.01 and GERD without esophagitis K21.9 [facility] [place] [address] [facility] [address] [place] [id number] 06/04/2024 Jimy Caballero Essential hypertensi on I10 ; Anxiety about health F41.8 ; Anemia of chronic disease D63.8 ; Arteriosclerotic cardiovascular disease I25.10 ; Chronic rhinitis J31.0 ; Other chronic pain G89.29 ; Type 2 diabetes mellitus without complication, unspecified whether long term care phlebotomist insulin use E11.9 and Memory loss R41.3 [facility] [place] [address] [facility] [address] [place] [id number] 08/06/2024 Jimy Caballero Fibromyalgia M79.7 ; Mixed hyperlipidemia E78.2 ; Anxiety about health F41.8 and Mild cognitive impairment G31.84 [facility] [place] [address] [facility] [address] [place] [id number] 09/17/2024 Jimy Caballero Essential hypertensi on I10 ; Vitamin B12 deficiency E53.8 ; Type 2 diabetes mellitus without complication, unspecified whether long term care phlebotomist insulin use E11.9 ; Arthropathy M12.9 ; Anxiety about health R45.89 and BMI 25.0-25.9,adult Z68.25 [facility] [place] [address] [facility] [address] [place] [id number] 10/12/2024 Jimy Caballero Laceration of left e lbow, initial encounter S51.012A ; Contusion of left hand, initial encounter S60.222A ; Contusion of left foot, initial encounter S90.32XA and Essential hypertension I10 [facility] [place] [address] [place], [place] [id number] 11/02/2024 Jimy Caballero Non-STEMI (non-ST elevated myocardial infarction) I21.4 ; Essential hypertension I10 ; Fibromyalgia M79.7 ; Anxiety about health F41.8 and BMI 24.0-24.9, adult Z68.24 [facility] [place] [address] [place], [place] [id number] 11/19/2024 Jimy Caballero Essential hypertensi on I10 ; Fibromyalgia M79.7 ; Hypothyroidism (acquired) E03.9 ; Anxiety about health F41.8 ; Anemia of chronic disease D63.8 ; Insect bite, unspecified site, initial encounter W57.XXXA and BMI 24.0-24.9, adult Z68.24 [facility] [address] [id number] 11/26/2024 Jimy Caballero Iron deficiency anem ia due to chronic blood loss D50.0 ; Coronary 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 I25.10 ; Essential hypertension I10 ; Slow transit constipation K59.01 and BMI 24.0-24.9, adult Z68.24 [facility] [address] [id number] 12/07/2024 Jimy Caballero Dizziness R42 ; Hospital Clerk michael anemia D64.9 and BMI 24.0-24.9, adult Z68.24 [facility] [address] [place] [id number] 12/24/2024 Jimy Caballero Coronary artery dise ase involving [place] coronary artery of [place] heart without angina pectoris I25.10 ; Vitamin B12 deficiency E53.8 ; Fibromyalgia M79.7 ; Hypothyroidism (acquired) E03.9 ; History of syncope Z87.898 ; Anxiety about health F41.8 ; Essential hypertension I10 and BMI 24.0-24.9, adult Z68.24 [facility] [address] [place], [place] [id number] 01/25/2025 Jimy Caballero COVID-19 U07.1 [facility] [address] [place], [place] [id number] 02/18/2025 R Terry Medrano Hypothyroid E03.9 an d Concussion S06.0X9A [facility] [address] [place], [place] [id number] 03/21/2024 Jimy Caballero Generalized anxiety disorder F41.1 [facility] [address] [place] [id number] 03/30/2024 Jimy Caballero [facility] [address] [place] [id number] 04/28/2024 Jiym Caballero [facility] [address] [place] [id number] 05/08/2024 Jimy Caballero [facility] [address] [place] [id number] 06/04/2024 Jimy Caballero [facility] [address] [place] [id number] 06/05/2024 Jimy Caballero [facility] [address] [place] [id number] 06/12/2024 Jimy Caballero Myofasciitis M60.9 [facility] [address] [place] [id number] 07/17/2024 Jimy Caballero Generalized anxiety disorder F41.1 [facility] [address] [place] [id number] 10/27/2024 Luis Wiley Myofasciitis M60.9 [facility] [address] [place] [id number] 11/11/2024 Jimy Caballero Generalized anxiety disorder F41.1 [facility] [address] [facility] [address] [place], [place] [id number] 11/16/2024 Jimy Caballero Screening for osteoporosis Z13.820 [facility] [address] [facility] [address] [place], [place] [id number] 11/27/2024 Jimy Caballero [facility] [address] [facility] [address] [place], [place] [id number] 01/13/2025 Jimy JIMENEZA-[place] [address] [facility] [address] [place], [place] [id number] 02/23/2025 Jimy Caballero Assessments Encounter Date Diagnosis (ICD Code) Assessment Notes Treatment Notes Treatment Clinical Notes Section Notes 02/18/2025 Hypothyroid (ICD-10 - E03.9) 02/18/2025 Concussion (ICD-10 - S06.0X9A) Will proceed with CT of head to rule out chronic subdural hematoma. 11/26/2024 Coronary 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 (ICD-10 - I25.10) 11/26/2024 Iron deficiency anemia due to chronic blood loss (ICD-10 - D50.0) 10/12/2024 Laceration of left elbow, initial encounter (ICD-10 - S51.012A) 10/12/2024 Contusion of left hand, initial encounter (ICD-10 - S60.222A) 11/11/2024 Generalized anxiety disorder (ICD-10 - F41.1) 11/16/2024 Screening for osteoporosis (ICD-10 - Z13.820) 11/19/2024 Essential hypertension (ICD-10 - I10) 11/19/2024 Fibromyalgia (ICD-10 - M79.7) 12/07/2024 Dizziness (ICD-10 - R42) 12/07/2024 Chronic anemia (ICD-10 - D64.9) 12/24/2024 Vitamin B12 deficiency (ICD-10 - E53.8) 12/24/2024 Coronary 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 (ICD-10 - I25.10) 01/25/2025 COVID-19 (ICD-10 - U07.1) 03/12/2024 Dysphoric mood (ICD-10 - R45.89) 03/17/2024 [...] hypertension (ICD-10 - I10) Continue present RX 10/27/2024 Myofasciitis (ICD-10 - M60.9) 11/02/2024 Essential hypertension (ICD-10 - I10) 11/02/2024 Non-STEMI (non-ST elevated myocardial infarction) (ICD-10 - I21.4) 09/17/2024 Type 2 diabetes mellitus without complication, unspecified whether long term care phlebotomist insulin use (ICD-10 - E11.9) Continue present RX 11/02/2024 Fibromyalgia (ICD-10 - M79.7) 06/04/2024 Anemia of chronic disease (ICD-10 - D63.8) 03/12/2024 Anxiety about health (ICD-10 - F41.8) 12/24/2024 Fibromyalgia (ICD-10 - M79.7) 12/07/2024 BMI 24.0-24.9, adult (ICD-10 - Z68.24) 11/19/2024 Hypothyroidism (acquired) (ICD-10 - E03.9) 08/06/2024 Anxiety about health (ICD-10 - F41.8) 10/12/2024 Contusion of left foot, initial encounter (ICD-10 - S90.32XA) 11/26/2024 Essential hypertension (ICD-10 - I10) 11/26/2024 Slow transit constipation (ICD-10 - K59.01) 10/12/2024 Essential hypertension (ICD-10 - I10) 11/19/2024 Anxiety about health (ICD-10 - F41.8) 12/24/2024 Hypothyroidism (acquired) (ICD-10 - E03.9) 03/12/2024 Hyponatremia (ICD-10 - E87.1) 06/04/2024 Arteriosclerotic cardiovascular disease (ICD-10 - I25.10) 11/02/2024 Anxiety about health (ICD-10 - F41.8) 09/17/2024 Arthropathy (ICD-10 - M12.9) Continue present RX 08/06/2024 Mild cognitive impairment (ICD-10 - G31.84) 09/17/2024 Anxiety about health (ICD-10 - R45.89) Continue present RX 11/02/2024 BMI 24.0-24.9, adult (ICD-10 - Z68.24) 06/04/2024 Chronic rhinitis (ICD-10 - J31.0) 12/24/2024 History of syncope (ICD-10 - Z87.898) 11/19/2024 Anemia of chronic disease (ICD-10 - D63.8) Stop Baby Aspirin 11/26/2024 BMI 24.0-24.9, adult (ICD-10 - Z68.24) 11/19/2024 Insect bite, unspecified site, initial encounter (ICD-10 - W57.XXXA) Hydrocortisone cream recommended 12/24/2024 Anxiety about health (ICD-10 - F41.8) 06/04/2024 Other chronic pain (ICD-10 - G89.29) Is she taking the Gabapentin BID? Discussed possible TID. 09/17/2024 BMI 25.0-25.9,adult (ICD-10 - Z68.25) Continue present RX 06/04/2024 Type 2 diabetes mellitus without complication, unspecified whether long term care phlebotomist insulin use (ICD-10 - E11.9) 12/24/2024 Essential hypertension (ICD-10 - I10) 11/19/2024 BMI 24.0-24.9, adult (ICD-10 - Z68.24) 12/24/2024 BMI 24.0-24.9, adult (ICD-10 - Z68.24) 06/04/2024 Memory loss (ICD-10 - R41.3) 03/12/2024 Other Recommended Align Probiotic Plan Of Treatment Pending Test Test Name Order Date CT Scan : Head w/o contrast 02/18/2025 P-Microalbumin/Creatinine, Random Urine Sample 06/04/2024 Next Appt Details Provider Name:Jimy Myles er, 03/08/2025 01:15:00 PM, [address], [place], [place], [id number], Insurance Providers Payer Name Payer Address Payer Phone Subscriber Number Group Number Insured Name Patient Relationship to Insured Coverage Start Date Coverage End Date MEDICARE PART B [address] [address] [place] [address] [phone] [id number] AMINAH BAIRES Self - patient is the insured [employer] [address] [place] [phone] [id number] AMINAH BAIRES Self - patient is the [...] shoulder-rotator cuff 2002 breast lump removal -benign 1982 Eye lid lifts on both eyes 03/06/2010 colonoscopy and EGD. 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 Tilley, noncritical CA D disease 05/19/2018 Hospitalization History Reason Date(Month/Year)
== END 2025-03-01 23:59 | disposition home or self-care (01) ==
LOC: RAD 13:39
PROVIDERS: PCP Family Medicine; Visit Provider Family Medicine
DX: G31.9 Degenerative disease of nervous system, unspecified (principal); S06.0X9A Concussion with loss of consciousness of unspecified duration, initial encounter; W19.XXXA Unspecified fall, initial encounter
CPT/HCPCS: 70450